=== PATIENT | male | born 1945 | race Caucasian/White ===

== ENCOUNTER 2020-12-30 08:47 | Day surgery (SDC) | payer OTHER, SELFPAY ==
[2020-12-30 09:09] VITALS: BMI 20.8
[2020-12-30 09:29] VITALS: BP 138/76; PULSE 91; RESP 16; TEMP 36.9; O2SAT 96
[2020-12-30] MEDS: Sodium Phosphate,Mono-Dibasic 133 ML ENEMA PR (09:33)
--- NOTE | 2020-12-30 09:44 | HO.ANESPROP2 ---
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 Schizophrenia Family History Family history of problems with anesthesia: No Surgical History Surgical History History of lymph node biopsy History of oral surgery Hx of colonoscopy Hx of right inguinal hernia repair History of Problems with Anesthesia: No Social History Social History Smoking Status: Never smoker Use of substances other than those prescribed or required for medical reasons: No Advance Directives: No Advance Directives Information Provided: Yes Recently lost weight without trying: No Meds Allergies Allergy/AdvReac Type Severity Reaction Status Date / Time molindone [From Moban] Allergy Muscle Verified 12/30/20 10:10 cramps trifluoperazine Allergy Muscle Verified 12/30/20 10:10 [From Stelazine] cramps Active Medications: Current Medications Generic Name Dose Route Start Last Admin Trade Name Freq PRN Reason Stop Dose Admin Sodium Biphosphate/Sodium Phosphate 133 ml 12/30/20 08:49 12/30/20 09:33 Sodium Phosphate,Nolan-Dibasic 133 Ml Enema ND 133 ml ONCE PRN Administration Poor Colonoscopy Prep Results Home Medications Medication Instructions Recorded Confirmed Last Taken Type acetaminophen [Tylenol] 650 mg PO Q6H PRN 12/25/20 12/25/20 Unknown History levothyroxine mcg PO DAILY 12/25/20 12/30/20 History omeprazole 20 mg PO DAILY 12/25/20 12/30/20 12/30/20 History tamsulosin 0.4 mg PO DAILY 12/25/20 12/25/20 Unknown History Exam Exam Date and Time: December 30, 2020 0944 Height,Weight and Vital Signs: Height 5 ft 8 in Weight 62.142 kg Last Vital Signs Temp 98.4 F 12/30/20 09:29 Pulse 91 12/30/20 09:29 Resp 16 12/30/20 09:29 BP 138/76 12/30/20 09:29 Pulse Ox 96 12/30/20 09:29 Airway Mallampati Class: II TM Dist: >3cm Neck ROM: Full Partial: Upper Heart: RRR Lungs: CTAB Assessment and Plan Assessment Anesthesia Assessment: Anesthesia Plan Discussed and Chart Reviewed Final Anesthetic Review NPO: Yes ASA Class: III Final Preanesthetic Review: No Changes in Pt Med Stat, Meds/Allgs Chart Reviewed, Consent Obtained/Reviewed and Anes Risks/Benef Reviewed Patient Risk: Intermediate Procedure Risk: Low Assessment/Block/Sedation in SS: Assess/Block/Sedation-SS Anesthetic Plan Anesthetic Plan: MAC: Disposition: Standard PACU
--- NOTE | 2020-12-30 09:49 | PC.NURSE ---
Patient states that he finished prep and output was brown and thick. Dr. Berger notified and enema given. Tolerated well. Output following enema visualized by this nurse. Output thin and ayers, no solids present.
[2020-12-30] MEDS: Lactated Ringers 1,000 ML 100 ML IVCONT (10:01)
[2020-12-30 11:22] VITALS: BP 82/43; PULSE 81; RESP 16; TEMP 36.2; O2SAT 98
--- NOTE | 2020-12-30 11:30 | PM.OP ---
Brief Operative Note Date of Service: 12/30/20 Pre-op diagnosis: GERD, Dysphagia, Screening Post-op diagnosis: other (Gastric polyps, Hiatal hernia, Diverticulosis, Internal hemiorrhoids) Procedure: EGD with biopsies and Balloon dilation, Colonoscopy to the cecum and TI Surgeon: Sahil Berger Anesthesia: MAC Estimated blood loss (mL): 4.0 Pathology: other (A. Gastric polyps) Condition: stable Disposition: PACU
[2020-12-30 11:37] VITALS: BP 95/54; PULSE 71; RESP 16; O2SAT 98
[2020-12-30 11:52] VITALS: BP 114/66; PULSE 81; RESP 16; TEMP 36.2; O2SAT 98
--- NOTE | 2020-12-30 12:06 | OP_ITS ---
SURGEON: Sahil Berger MD INDICATIONS: The patient presents for evaluation of gastroesophageal reflux, dysphagia, and colorectal cancer screening. Full consent has been obtained from him for this, including risks of bleeding and perforation. PREOPERATIVE DIAGNOSIS: POSTOPERATIVE DIAGNOSIS: PROCEDURE PERFORMED: Esophagogastroduodenoscopy with biopsies and balloon dilation of gastroesophageal junction, and colonoscopy to the cecum and terminal ileum. ESTIMATED BLOOD LOSS: COMPLICATIONS: ANESTHESIA: Monitored anesthesia care. ASSISTANTS: SPECIMENS: PREOPERATIVE DIAGNOSES: Gastroesophageal reflux, dysphagia, and colorectal cancer screening. POSTOPERATIVE DIAGNOSES: Gastroesophageal reflux, dysphagia, and colorectal cancer screening, small hiatal hernia, gastric polyps, diverticulosis, and internal hemorrhoids. DESCRIPTION OF PROCEDURE: The patient was placed in the left lateral decubitus position. The Olympus video gastroscope was passed in the posterior oropharynx and upper esophagus under direct vision. The scope was passed slowly into the distal esophagus. The gastroesophageal junction appeared at 39 cm. There was no sign of any esophagitis nor Torres's esophagus. There was no definitive esophageal stricture nor ring noted. The scope easily entered into the stomach. There was a small hiatal hernia. The scope was advanced to pylorus and the duodenum was cannulated to the descending portion. The duodenum including the bulb appeared normal without mass or ulceration. The scope was withdrawn back in the stomach. The gastric antrum and body appeared normal with good peristalsis. The scope was retroflexed visualizing the proximal stomach carefully, which appeared normal, without any sign of mass or ulceration, other than several hyperplastic appearing gastric polyps, which were all less than 10 mm. Two or 3 of these were biopsied. The scope was straightened out and withdrawn back into the esophagus. I did use a [employer] incremental balloon to dilate the esophageal junction from 18 mm to 20 mm at the recommended pressure for between 30 and 60 seconds each. The balloon itself pulled easily into and out of the esophagus, even in the 20 mm position. There was no heme noted post-dilation. The scope was withdrawn through the remainder of the esophagus, which appeared normal. The scope was withdrawn from the patient. He was turned around for colonoscopy. The digital rectal exam revealed no abnormalities. The CBIT A/S video pediatric colonoscope was entered into the rectum and advanced easily to the cecum. Once in the cecum, I did identify normal-appearing cecal pouch with appendiceal orifice and a normal-appearing ileocecal valve. The terminal ileum was cannulated and appeared normal. The scope was withdrawn back in the colon. The entire cecum and ileocecal valve appeared normal. There was transillumination of light deep in the right lower quadrant. The scope was slowly withdrawn assessing all mucosal surfaces carefully. Preparation was excellent. I did not visualize any sign of polyps, colitis, nor angiodysplasia. There was a moderate amount of sigmoid diverticulosis. In the rectum, scope was retroflexed visualizing internal hemorrhoids, but no other pathology. The rectal mucosa appeared normal. The scope was straightened out and withdrawn from the patient. He tolerated both procedures well and was returned to the recovery area in stable condition. IMPRESSION: 1. Small hiatal hernia. 2. Status post balloon dilation of gastroesophageal junction. 3. Gastric polyps. 4. Diverticulosis. 5. Internal hemorrhoids. PLAN: The results of the biopsies will be checked. He was advised to continue his omeprazole at least once a day for symptomatic reflux. I do not think he will need any further screening colonoscopies given the patient's negative exam and his age. As long as he is doing well, we could see me on a p.r.n. basis. He was advised to see me again as needed. MD TERENCE Tinajero/CAMACHO / [id number]
== END 2020-12-30 12:21 | disposition home or self-care (01) ==
PROVIDERS: Visit Provider Internal Medicine
PROC: (CPT 45378; principal; 2020-12-30 09:50)
DX: Z12.11 Encounter for screening for malignant neoplasm of colon (principal); K57.30 Diverticulosis of large intestine without perforation or abscess without bleeding; K64.8 Other hemorrhoids; K21.9 Gastro-esophageal reflux disease without esophagitis; R13.10 Dysphagia, unspecified; K31.7 Polyp of stomach and duodenum; K44.9 Diaphragmatic hernia without obstruction or gangrene; Z79.899 Other long term (current) drug therapy; Z88.8 Allergy status to other drugs, medicaments and biological substances; Z86.16 Personal history of COVID-19; Z87.01 Personal history of pneumonia (recurrent)
CPT/HCPCS: 45378; 43249; 43239; 88305; 88342; C1726; J3010

== ENCOUNTER 2021-12-07 14:22 | Outpatient (REF) | payer OTHER, SELFPAY ==
--- NOTE | ~2021-12-07 | MR_ITS ---
MR BRAIN WITHOUT AND WITH CONTRAST CLINICAL INFORMATION: Unilateral tinnitus. COMPARISON: None available. TECHNIQUE: Multiplanar, multisequence MRI of the brain was obtained before and after the intravenous administration of 6.5 mL of Gadavist. FINDINGS: The inner ear structures including the cochlea, vestibules, and semicircular canals exhibit preserved CSF signal intensity with no pathologic enhancement. The vestibular aqueducts are not enlarged. Cranial nerves VII and VIII complexes are normal in morphology. No enhancing CP angle/retrocochlear lesion. There is no pathologic intracranial enhancement. There are T2 signal changes throughout the supratentorial white matter, most likely mild to moderate chronic microangiopathy. No acute infarct on diffusion-weighted imaging. No intracranial hemorrhage on the gradient series. No hydrocephalus, extra-axial surface collection, or herniation. The midline intracranial structures are normal. Cerebellar tonsils are normally positioned. Craniocervical junction is normal. Osseous marrow signal intensity remains homogeneous. No significant soft tissue abnormality is appreciated. MR/MR head/brain wo/w con IMPRESSION: - There is no retrocochlear pathology. - Mild to moderate chronic microangiopathy.
== END 2021-12-07 14:23 | disposition home or self-care (01) ==
LOC: HO.MRI 14:22
PROVIDERS: Visit Provider Hospitalist
DX: H93.13 Tinnitus, bilateral (principal)
CPT/HCPCS: 70553; A9585

== ENCOUNTER 2023-05-18 21:07 | Emergency (ER) | payer OTHER, SELFPAY ==
--- NOTE | 2023-05-18 | ECG_ITS ---
Test Reason : WEAKNESS Blood Pressure : / mmHG Vent. Rate : 074 BPM Atrial Rate : 074 BPM P-R Int : 202 ms QRS Dur : 102 ms QT Int : 354 ms P-R-T Axes : 076 063 078 degrees QTc Int : 392 ms Normal sinus rhythm Possible Left atrial enlargement Incomplete right bundle branch block Minimal voltage criteria for LVH, may be normal variant ( Biscoe product ) Borderline ECG No previous ECGs available Referred By: Ana Mendoza Electronically Signed By:BANDAR GLOVER
[2023-05-18 21:12] VITALS: BP 126/82; PULSE 87; O2SAT 97
[2023-05-18 21:19] VITALS: BP 149/80; PULSE 79; RESP 18; TEMP 36.6; O2SAT 99; BMI 21.8
--- NOTE | 2023-05-18 21:31 | ED.WEAKNESS ---
HPI - Weakness General Chief complaint: Weakness Stated complaint: WEAKNESS Time Seen by Provider: 05/18/23 21:18 Source: patient Mode of arrival: EMS Limitations: no limitations History of Present Illness HPI Narrative: patient comes to the emergency room via ambulance. Patient was walking home from [place] to his home. Patient states that he was walking up hill, a bystander saw that he was very tired accord 911. Patient states that he does not have chest pain or shortness of breath. But he admits that he was getting tired walking uphill. At this time, patient states that he feels tired. Patient denies any falls, patient denies any recent illnesses, denies nausea vomiting diarrhea. Related Data Home Medications Medication Instructions Recorded Confirmed acetaminophen 325 mg tablet 650 mg PO Q6H PRN Pain 12/25/20 12/25/20 (Tylenol) levothyroxine 100 mcg capsule mcg PO DAILY 12/25/20 omeprazole 20 mg capsule,delayed 20 mg PO DAILY 12/25/20 12/30/20 release tamsulosin 0.4 mg capsule 0.4 mg PO DAILY 12/25/20 12/25/20 Allergies Allergy/AdvReac Type Severity Reaction Status Date / Time molindone [From Moban] Allergy Muscle Verified 05/18/23 21:24 cramps trifluoperazine Allergy Muscle Verified 05/18/23 21:24 [From Stelazine] cramps Review of Systems Review of Systems: Constitutional : No Weight loss, No Fever, No Chills, No Night Sweats, Complaining of fatigue ENT/Mouth : No Hearing loss, No Ear Pain, No Nasal Congestion, No Sinus Pain, No Hoarseness, No sore throat, No Rhinorrhea, No Swallowing Difficulty Eyes: No Eye Pain, No Swelling, No Redness, No Foreign Body, No Discharge, No Vision Changes Cardiovascular : No Chest Pain, No SOB, No Dyspnea on Exertion, No Orthopnea, No Edema, No Palpitations Respiratory : No Cough, No Sputum, No Wheezing, No Smoke Exposure, No Dyspnea Gastrointestinal : No Nausea, No Vomiting, No Diarrhea, No Constipation, No abdominal Pain, No Hematochezia, No Melena Genitourinary : no irregular bleeding, No Dysuria, No Urinary Frequency, No Hematuria, No Urinary Incontinence, No Urgency, No Flank Pain, No Urinary Flow Changes, No Hesitancy Musculoskeletal : No joint pain, No Myalgias, No Joint Swelling Skin : No Skin Lesions, No rash Neuro : No Weakness, No Numbness, No Paresthesias, No Loss of Consciousness, No Dizziness, No Headache Psych : No Anxiety/Panic, No Depression, No SI/HI/AH/VH, No Social Issues, Heme/Lymph: No Bruising, No Bleeding,No Lymphadenopathy Endocrine : No Polyuria, No Polydipsia, No Temperature Intolerance [facility] Past Medical History 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 Lab test positive for detection of COVID-19 virus History of seizure Schizophrenia BPH (benign prostatic hyperplasia) Hypothyroidism GERD (gastroesophageal reflux disease) Surgical History Hx of colonoscopy History of oral surgery History of lymph node biopsy Hx of right inguinal hernia repair Social History Social History Alcohol intake: never Smoked in Last 30 Days: No Use of substances other than those prescribed or required for medical reasons: No Advance Directives: No Advance Directives Information Provided: No Physical Exam Vital Signs: Vital Signs: Last Vital Signs Temp 97.9 F 05/18/23 22:10 Pulse 73 05/18/23 22:38 Resp 14 05/18/23 22:10 BP 166/80 H 05/18/23 22:38 Pulse Ox 97 05/18/23 22:10 O2 Del Method Room Air 05/18/23 22:10 BMI result Body Mass Index 21.8 Const: Other: Appearance: Alert. Oriented X3. No acute distress. Eyes: Pupils equal, round and reactive to light. ENT: Pharynx normal. Neck: Normal inspection. Neck supple. No lymph nodes noted. No crepitus CVS: Normal heart rate and rhythm. Pulses normal. Normal S1 and S2 Respiratory: No respiratory distress. Breath sounds normal. No Wheezing. No rales Abdomen: Soft and nontender. No rigidity. No distention. Skin: Skin warm and dry. Normal skin color. Normal skin turgor. Extremities: No lower extremity edema. No Lacerations. No Rash Neuro: Oriented X 3. No motor deficit. No sensory deficit. Moving all extremities. No slurred speech. CN 2 through 12 grossly intact Psych: calm, cooperative, normal affect Course Course Course Narrative: - he patient has no physical complaints at this time other than feeling sleepy, patient states he is getting close to his bedtime. - All of patient's labs pending Medications Administered Generic Name Dose Route Start Last Admin Trade Name Jimena PRN Reason Stop Dose Admin Sodium Chloride 1,000 mls @ 999 mls/hr 05/18/23 22:35 05/18/23 22:36 Ns IV 05/18/23 23:35 999 mls/hr .Q1H1M STA Administration Medical Decision Making Medical Decision Making [facility] Narrative: - my interpretation of EKG: Normal sinus rhythm, heart rate 74, no ST segment depression elevation, no T-wave inversion, QTC 392 - my interpretation of labs: Troponin negative, patient seems to be slightly dehydrated, given IV fluids. Patient remains asymptomatic. patient eyes any chest pain at this time or even before coming to the ED - orthostatic vitals negative - patient ready for discharge. Differential Diagnosis Differential Diagnoses: The differential diagnosis associated with the presentation includes ( Fatigue, deconditioning, ACS, dehydration) Admission/Observation Consideration of admission/observation: Escalation of care including admission/observation considered ( when patient arrived to the emergency room, given his symptoms, admission considered) Lab Data [facility] Lab Attestation statement: I reviewed the patient's lab results. 05/18/23 21:29 05/18/23 21:29 Labs: Lab Results 05/18/23 Range/Units 21:29 WBC 6.3 (4.8-10.8) X10*3/uL RBC 4.40 L (4.60-5.80) X10*6/uL Hgb 12.8 L (14.0-18.0) g/dl Hct 38.1 L (42.0-52.0) % MCV 86.6 (80.0-98.0) fL MCH 29.1 (27.0-33.0) pg MCHC 33.6 (31.0-36.0) g/dl RDW 13.1 (11.0-16.0) % Plt Count 227 (160-400) X10*3/uL MPV 10.2 (9.4-12.4) fL Immature Gran % (Auto) 0.3 (0.0-0.4) % Neut % (Auto) 42.7 L (45-73) % Lymph % (Auto) 45.4 H (20-40) % [place] % (Auto) 8.8 (2-11) % Eos % (Auto) 2.2 (0-4) % Baso % (Auto) 0.6 (0-2) % Lymph # (Auto) 2.9 (1.2-4.9) X10*3/uL [place] # (Auto) 0.6 (0.1-1.2) X10*3/uL Eos # (Auto) 0.1 (0.0-0.4) X10*3/uL Baso # (Auto) 0.0 (0.0-0.2) X10*3/uL Abs Immat Gran (auto) 0.02 (0.00-0.03) X10*3/uL Absolute Neuts (auto) 2.7 (2.0-8.3) x10*3/uL Absolute Nucleated RBC 0.000 (0.0-0.012) X10*3/uL Nucleated RBC % (auto) 0.0 (0.0-0.2) /100WBC Sodium 131 L (135-145) mmol/L Potassium 4.0 (3.3-5.1) mmol/L Chloride 95 L (96-108) mmol/L Carbon Dioxide 26 (22-29) mmol/L Anion Gap 14 (12-20) BUN 23 H (9-16) mg/dL Creatinine 0.64 (0.5-1.4) mg/dL Estim Creat Clear Calc 88.8 Estimated GFR > 60 Random Glucose 96 (60-115) mg/dL Calcium 9.6 (8.4-10.2) mg/dL Total Bilirubin 0.4 (0.0-1.0) mg/dL AST 21 (5-37) U/L ALT 14 (0-40) U/L Alkaline Phosphatase 79 (39-117) U/L Troponin I High Sens < 2.7 (<3.5-35.0) ng/L Total Protein 7.2 (6.5-8.0) g/dL Albumin 4.3 (3.5-5.0) g/dL Ethyl Alcohol < 10 mg/dL Independent Interpretation I performed an independent interpretation of an: EKG Critical Care Time Critical Care Time Critical Care Time: Yes Total Critical Care Time: 60 Attestation: I have personally provided critical care time. Time includes review of lab data, radiology results, discussion with consultants, and monitoring for potential decompensation. Intervention performed as documented. Discharge Plan Discharge Clinical Impression: Dehydration Patient Disposition: Home, Self-Care Instructions: Dehydration (ED) Additional Instructions: Please follow-up with your primary care physician tomorrow. If you have any worsening or new symptoms, please return to the emergency room or call 911 Prescriptions: No Action acetaminophen [Tylenol] 325 mg Tablet 650 mg PO Q6H PRN (Reason: Pain) tamsulosin 0.4 mg Capsule 0.4 mg PO DAILY omeprazole 20 mg Capsule,Delayed Release(Dr/Ec) 20 mg PO DAILY levothyroxine 100 mcg Capsule PO DAILY Patient Comments: unknown strength
[2023-05-18 21:40] LABS: MANUAL DIFF FLAG NO
[2023-05-18 21:43] LABS: Basophils Percent Auto 0.6 % (0-2); Eosinophils Absolute Auto 0.1 X10*3/uL (0.0-0.4); Eosinophils Percent Auto 2.2 % (0-4); Hematocrit 38.1 % (42.0-52.0); Hemoglobin 12.8 g/dl (14.0-18.0); Imm Gran Abs Auto 0.02 X10*3/uL (0.00-0.03); Imm Gran Pct Auto 0.3 % (0.0-0.4); Lymphocytes Absolute Auto 2.9 X10*3/uL (1.2-4.9); Lymphocytes Percent Auto 45.4 % (20-40); Mean Corpuscular HGB Conc 33.6 g/dl (31.0-36.0); Mean Corpuscular Hemoglobin 29.1 pg (27.0-33.0); Mean Corpuscular Volume 86.6 fL (80.0-98.0); Mean Platelet Volume 10.2 fL (9.4-12.4); Monocytes Absolute Auto 0.6 X10*3/uL (0.1-1.2); Monocytes Percent Auto 8.8 % (2-11); Neutrophils Absolute Auto 2.7 x10*3/uL (2.0-8.3); Neutrophils Percent Auto 42.7 % (45-73); Platelet Count 227 X10*3/uL (160-400); Red Cell Distribution Width 13.1 % (11.0-16.0); White Blood Count 6.3 X10*3/uL (4.8-10.8)
[2023-05-18 21:57] LABS: Ethanol < 10 mg/dL
--- OUTSIDE RECORDS SUMMARY | 2023-05-18 21:57 | XMS_ITS | Continuity of Care Document ---
Author Name Unknown Organization [facility] Address [address] [place] [address] [address] [place] [address]- Care Team Providers Care Die Engraver Name Role Phone Rodolfo DUEÑAS, John Lala Primary Care Physician [phone] Encounter [facility] Date(s): 03/16/21 - 03/23/[address] [place] [address]- Attending Physician: Rosendo Mercado MD Referring Physician: John Reynolds MD Allergies, Adverse Reactions, Alerts Substance Reaction Severity Status Stelazine FACE DEFORMITY Active Moban MUSCLE WEAKNESS Active Prolixin CANT REMEMBER Active Immunizations Given and Recorded Vaccine Date Status Refusal Reason pneumococcal 23-valent vaccine 07/13/18 Given influenza virus vaccine, inactivated 07/13/18 Give n influenza virus vaccine, inactivated 08/12/16 Give n pneumococcal 13-valent vaccine 10/14/16 Given Medications levothyroxine 0.1 mg oral tablet 1 tablet = 100 mcg, By Mouth, Daily in AM, TAKE 1 TABLET DAILY DIRECTED., 11/22/13 5:00:00 EDT Start Date: 11/22/13 Status: Ordered loratadine 10 mg oral capsule 1 capsule = 10 mg, By Mouth, Daily at bedtime, # 10 capsule, 0 Refills, Maintenance, 02/12/21 16:09:00 EDT, Capsule, Partial fill upon patient request if the prescription is for a schedule II opioid drug. Start Date: 02/12/21 Status: Ordered omeprazole 20 mg oral enteric coated capsule 1 capsule = 20 mg, By Mouth, Daily in AM, 11/22/13 5:00:00 EDT Start Date: 11/22/13 Status: Ordered tamsulosin 0.4 mg oral capsule 1 capsule = 0.4 mg, By Mouth, Daily, # 30 capsule, 3 Refills, Maintenance, 08/20/15 11:27:23, Capsule Start Date: 08/20/15 Status: Ordered Problem List Condition Effective Dates Status Health Status Inform ant Asymmetrical sensorineural h earing loss(Confirmed) Active Benign localized prostatic h yperplasia with lower urinary tract symptoms (LUTS)(Confirmed) Active Gastroenteritis(Confirmed) Active GERD (gastroesophageal reflu x disease)(Confirmed) Active Hypothyroid(Confirmed) Active Cerumen impaction(Confirmed) Active Right inguinal hernia(Confirmed) Active Vital Signs Most recent to oldest [Reference Range]: 1 Height 172.72 cm (03/16/21 1:05 PM) Weight 61.1 kg (03/16/21 1:05 PM) Pulse Rate [55-90 bpm] 77 bpm (03/16/21 1:05 PM) Body Mass Index [18.5-24.99] 20.48 (03/16/21 1:05 PM) Blood Pressure [90-138/55-84 mm Hg] 131/ 73mm Hg (03/16/21 1:05 PM) Temperature [96.8-100.4 DegF] 96.9 DegF (03/16/21 1:05 PM) Blood pressure sites Arm, left (03/16/21 1:05 PM) Temperature Route Temporal (03/16/21 1:05 PM) Weight Obtained Via Standing scale (03/16/21 1:05 PM) Social History Social History Type Response Smoking Status Never smoker entered on: 08/12/16 Sex Medical Equipment Implanted Date:02/23/21Target Site:Abdomen Description Quantity MRI Company Model MESH 3D MAX MID LG RT 4X6IN - BARD ([id number]) 1 Bard Unknown ISABELLA:{01}[id number]{10}[id number] AB07 Assigning Authority:FDA
--- OUTSIDE RECORDS SUMMARY | 2023-05-18 21:57 | XMS_ITS | Continuity of Care Document ---
Author Name Unknown Organization [facility] ter Address [address] [place] [address]- Care Team Providers Care Motor Brakeman Name Role Phone Rodolfo DUEÑAS, John Lala Primary Care Physician Encounter [facility] Date(s): 02/23/21 - 02/23/[address] [address] Discharge Disposition: A-D/C Home Attending Physician: Rosendo Mercado MD Admitting Physician: Rosendo Mercado MD Referring Physician: Rosendo Mercado MD Allergies, Adverse Reactions, Alerts Substance Reaction [...] 5:00:00 EDT Start Date: 11/22/13 Status: Ordered oxyCODONE 5 mg oral tablet 5 mg, 1, tablet, By Mouth, Every 6 hours, PRN, for 3 days, # 8 tablet, Refills 0, Tot. Refills 0, Acute 02/26/21 14:08:00 EDT, Pain , Mild, 02/23/21 14:08:00 EDT, Route to Pharmacy Electronically, [facility]/pharmacy #[id number], Partial fill upon patient request... Start Date: 02/23/21 Stop Date: 02/26/21 Status: Ordered OxyCODONE IR Tablet 5 mg, Tablet, By Mouth, Every 4 hours, in PACU ONLY, if patient can tolerate PO, PRN for Pain , Mild, Routine, 02/23/21 10:17:00 EDT Start Date: 02/23/21 Stop Date: 03/02/21 Status: Ordered tamsulosin 0.4 mg oral capsule [...] Cerumen impaction(Confirmed) Active Right inguinal hernia(Confirmed) Active Procedures Procedure Date Related Diagnosis Body Site Status Laparoscopy, surgical; repai r recurrent right inguinal hernia Completed Vital Signs Most recent to oldest [Reference Range]: 1 2 3 4 Height 172.72 cm (02/23/21 9:15 AM) 172.72 cm (02/12/21 4:20 PM) Weight 62.1 kg (02/23/21 9:15 AM) 62.73 kg (02/12/21 4:20 PM) Oxygen Saturation [94-100 %] 96 % (02/23/21 1:15 PM) 94 % (02/23/21 1:00 PM) 98 % (02/23/21 12:45 PM) Pulse Rate [55-90 bpm] 86 bpm (02/23/21 9:15 AM) Body Mass Index [18.5-24.99] 20.82 (02/23/21 9:15 AM) 21.03 (02/12/21 4:20 PM) Blood Pressure [90-138/55-84 mm Hg] 147/87mm Hg *H* (02/23/21 1:15 PM) 147/87mm Hg *H* (02/23/21 1:00 PM) 163/92mm Hg *H* (02/23/21 12:45 PM) Respiratory Rate [16-30 br/min] 16 br/min (02/23/21 1:15 PM) 13 br/min *L* (02/23/21 1:00 PM) 20 br/min (02/23/21 12:45 PM) 15 br/min *L* (02/23/21 12:45 PM) Temperature [96.8-100.4 DegF] 97.1 DegF (02/23/21 11:30 AM) 98.0 DegF (02/23/21 9:15 AM) Liters per Minute 6 L/min (02/23/21 11:30 AM) Mode of Delivery (Oxygen) Room air (02/23/21 1:15 PM) Room air (02/23/21 11:45 AM) Simple face mask (02/23/21 11:30 AM) Blood pressure sites Arm, right (02/23/21 11:45 AM) Arm, right (02/23/21 11:30 AM) Arm, right (02/23/21 9:15 AM) Temperature Route Temporal (02/23/21 11:30 AM) Temporal (02/23/21 9:15 AM) Dry Weight 62.73 kg (02/12/21 4:20 PM) Weight Obtained Via Standing scale (02/23/21 9:15 AM) Patient/family stated (02/12/21 4:20 PM) Dry Weight Obtained Via Patient/family stated (02/12/21 4:20 PM) Social History Social History Type Response Smoking Status Never smoker entered on: 08/12/16 Sex Medical Equipment Implanted Date:02/23/21Target Site:Abdomen Description Quantity MRI Company Model MESH 3D MAX MID LG RT 4X6IN - BARD ([id number]) 1 Bard Unknown ISABELLA:{01}[id number]{10}HUFR AB07 Assigning Authority:FDA
--- OUTSIDE RECORDS SUMMARY | 2023-05-18 21:57 | XMS_ITS | Continuity of Care Document ---
Author Name Unknown Organization [facility] As [facility] Address [address] [place] [address] [address] [place] [address]- Care Team Providers Care Tribal Council Member Name Role Phone Rodolfo DUEÑAS, John Lala Primary Care Physician [phone] Encounter [facility] Date(s): 08/21/20 - 11/18/[address] [place] [address]- Attending Physician: Jess DUEÑAS, Rosendo Allergies, Adverse Reactions, Alerts Substance Reaction Severity Status Stelazine FACE DEFORMITY Active Moban MUSCLE WEAKNESS Active Prolixin CANT REMEMBER Active Immunizations Given and Recorded Vaccine Date Status Refusal Reason pneumococcal 23-valent vaccine 07/13/18 Given influenza virus vaccine, inactivated 07/13/18 Give n influenza virus vaccine, inactivated 08/12/16 Give n pneumococcal 13-valent vaccine 10/14/16 Given Medications levothyroxine 0.1 mg oral tablet TAKE 1 TABLET DAILY DIRECTED., 11/22/13 5:00:00 Start Date: 11/22/13 Status: Ordered omeprazole 20 mg oral enteric coated capsule 1 capsule = 20 mg, 11/22/13 5:00:00 Start Date: 11/22/13 Status: Ordered tamsulosin 0.4 [...] Cerumen impaction(Confirmed) Active Right inguinal hernia(Confirmed) Active Social History Social History Type Response Smoking Status Never smoker entered on: 08/12/16 Sex
--- OUTSIDE RECORDS SUMMARY | 2023-05-18 21:57 | XMS_ITS | Continuity of Care Document ---
Author Name Unknown Organization [facility] Address [address] [place] [address] [address] [place] [address]- Care Team Providers Care Dramatic Agent Name Role Phone John Reynolds MD Primary Care Physician Encounter [facility] Date(s): 09/30/20 - 04/08/[address] [place] [address]- Attending Physician: Eamon Boyle Referring Physician: John Reynolds MD Allergies, Adverse [...] MAX MID LG RT 4X6IN - BARD ([id number]) 1 Bard Unknown ISABELLA:{01}[id number]}HUFR [id number] Assigning Authority:FDA
--- OUTSIDE RECORDS SUMMARY | 2023-05-18 21:57 | XMS_ITS | Patient Health Record ---
Author Name Unknown Organization [facility] Address [address] [place] [address] Care Team Providers Care Tax Services Manager Name Role Phone KEIKO RIVAS Primary Care Provider Sahil Landa [phone] ALLERGIES Allergen (clinical drug ingredient) Drug/Non Drug Allergy documented on EMR Reaction Allergy Type Onset Date Status Tranqulizers (uncoded) Unknown Allergy Active REASON FOR REFERRAL No Information MEDICATIONS Medication SIG (Take, Route, Fr equency, Duration) Notes Start Date End Date Status Levothyroxine Sodium Active Omeprazole Active Tamsulosin HCl Activ e Tylenol Active IMMUNIZATIONS Vaccine Route Administration Date Status Comme nts Influenza Unknown 12/02/2020 Refused SOCIAL HISTORY Tobacco Use: Social History Observation Description Date Details (start date - stop date) Never Smoker NA - NA Sex Assigned At : Social History Observation Description Sex Assigned At Unknown Tobacco Use/Smoking Question Answer Notes Patient is a nonsmoker Alcohol Screen Question Answer Notes Did you have a drink containing alcohol in the p ast year? No Points 0 Interpretation Negative PROBLEMS Problem Type ICD Code Onset Dates Problem Status W/U Status Risk SNOMED Code Notes Problem Constipation (K59.00) Active confirmed Constipation (20592160) Problem GERD (gastroesophage al reflux disease) (K21.9) Active confirmed Gastroesophagea l reflux disease (800761889) Problem Encounter for screening for malignant neoplasm of colon (Z12.11) Active confirmed Screening for malignant neoplasm of colon (412879639) PLAN OF TREATMENT Pending Test Test Name Order Date Pathology 12/30/2020 Future Test Test Name Order Date UPPER GI ENDOSCOPY 12/02/2020 COLONOSCOPY 12/02/2020 Insurance Providers Payer Name Payer Address Payer Phone Subscriber Number Group Number Insured Name Patient Relationship to Insured Coverage Start Date Coverage End Date [facility] [employer] [address] [place] [id number] REBECA BLOCK Self - patient is the insured MEDICAL (GENERAL) HISTORY Medical History History ICD Code GERD Hypothyroidism BPH Schizophrenia Denies [place],DM,CVA,Lung disease,renal dise ase Reports a distant history of a colonosco py History of seizures Pneumonia Surgical History Surgery Date(Month/Year) Right Inginal Hernia repair Lymph node biopsies from right groin Oral surgery scheduled for --Dr. Nunes---for a ? of a lesion as per the patient's report Right inguinal hernia surger y possibly 01/2021 at [facility] as per the patient's report
--- OUTSIDE RECORDS SUMMARY | 2023-05-18 21:57 | XMS_ITS | Continuity of Care Document ---
Author Name Unknown Organization [facility] Address [address] [place] [address] [facility] [address] [place] [address]- Care Team Providers Care Smudger Name Role Phone Rodolfo DUEÑAS, John Lala Primary Care Physician [facility]counter [facility] Date(s): 03/16/21 - 04/15/[address] [place] [address]- Attending Physician: AdmMarjan ferris Admitting Physician: Admtr, Ar8 Referring Physician: Admtr, Ar8 Allergies, Adverse Reactions, Alerts Substance Reaction Severity [...] MAX MID LG RT 4X6IN - BARD ([id number]) 1 Bard Unknown ISABELLA:{01}[id number]{10}HUFR AB07 Assigning Authority:FDA
--- OUTSIDE RECORDS SUMMARY | 2023-05-18 21:57 | XMS_ITS | Continuity of Care Document ---
Author Name Unknown Organization [facility] Address [address] [place] [address] [address] [place] [address]- Care Team Providers Care Refrigerating Oiler Name Role Phone Rodolfo DUEÑAS, John Lala Primary Care Physician [phone] Encounter [facility] Date(s): 03/09/21 - 04/08/[address] [place] [address]- Allergies, Adverse Reactions, Alerts Substance Reaction Severity [...] MAX MID LG RT 4X6IN - BARD ([id number]) 1 Bard Unknown ISABELLA:{01}[id number]{10}HUFR AB07 Assigning Authority:FDA
[2023-05-18 22:02] LABS: Alanine Aminotransferase 14 U/L (0-40); Albumin Level 4.3 g/dL (3.5-5.0); Alkaline Phosphatase 79 U/L (39-117); Anion Gap 14 (12-20); Aspartate Amino Transferase 21 U/L (5-37); Bilirubin Total 0.4 mg/dL (0.0-1.0); Blood Urea Nitrogen 23 mg/dL (9-16); Calcium 9.6 mg/dL (8.4-10.2); Carbon Dioxide 26 mmol/L (22-29); Chloride 95 mmol/L (96-108); Creatinine Clr Calc Pharmacy 88.8; Estimated Glomerular Filt Rate > 60; Glucose Random 96 mg/dL (60-115); Sodium 131 mmol/L (135-145); Total Protein 7.2 g/dL (6.5-8.0)
[2023-05-18 22:08] LABS: Troponin-I High Sensitivity < 2.7 ng/L (<3.5-35.0)
[2023-05-18 22:10] VITALS: BP 145/67; PULSE 72; RESP 14; TEMP 36.6; O2SAT 97
[2023-05-18] MEDS: 0.9 % Sodium Chloride 1,000 ML 999 ML IV (22:36)
[2023-05-18 22:37] VITALS: BP 141/74; PULSE 68
[2023-05-18 22:38] VITALS: BP 156/87; BP 166/80; PULSE 73; PULSE 79
[2023-05-18 23:21] LABS: Appearance Urine Clear; Color Urine Yellow; Glucose Urine UA Negative (Negative); Leukocyte Esterase Urine Trace (Negative); Nitrite Urine Negative (Negative); PH 6.5 (5.0-9.0); UMIC TRIGGER UACC YES; Urine Blood Negative (Negative); Urine Ketones Negative (Negative); Urine Protein Negative (Neg-Trace)
[2023-05-18 23:25] LABS: Bacteria Urine None Seen (None Seen); Hyaline Casts Urine 0-2 /LPF (0-2); RBC Urine 0-2 /HPF (0-2); Squamous Epithelial Cell Urine 0-2 /HPF (0-2); WBC Urine 0-5 /HPF (0-5)
[2023-05-18 23:34] LABS: Amphetamine Screen Urine Not Detected (Not Detect); Barbiturates, Urine Not Detected (Not Detect); Benzodiazepines Screen Urine Not Detected (Not Detect); Cannabinoid Screen Urine Not Detected (Not Detect); Cocaine Screen Urine Not Detected (Not Detect); Fentanyl, urine Not Detected (Not Detect); Opiate Screen Urine Not Detected (Not Detect); Phencyclidine Screen Urine Not Detected (Not Detect)
[2023-05-18 23:57] VITALS: BP 164/83; PULSE 76; RESP 13; TEMP 36.6; O2SAT 95
== END 2023-05-19 00:38 | disposition home or self-care (01) ==
PROVIDERS: Emergency Provider Emergency Medicine; PCP Internal Medicine
DX: E86.0 Dehydration (principal); R53.1 Weakness; D37.09 Neoplasm of uncertain behavior of other specified sites of the oral cavity; Z79.899 Other long term (current) drug therapy
CPT/HCPCS: 36415; 80053; 80307; 81001; 84484; 85025; 93005; 96360; 99284; 99285

== ENCOUNTER 2023-05-20 17:59 | Emergency (ER) | payer OTHER, SELFPAY ==
[2023-05-20 19:24] VITALS: BP 153/72; PULSE 73; RESP 18; TEMP 37.1; O2SAT 97; BMI 19.4
--- NOTE | 2023-05-20 19:24 | ED_ITS ---
HPI - General Adult General Chief complaint: Weakness Stated complaint: leg weakness Time Seen by Provider: 05/21/23 00:27 Source: patient Mode of arrival: ambulatory Limitations: no limitations History of Present Illness HPI narrative: 78-year-old male who presents emergency department for evaluation of weakness. The patient states that he was going to go to [facility] with his brother. He walked outside and states he felt very unsteady on his feet had to hold onto the wall turned that he was going to fall. The patient was seen on 05/18/2023 for weakness with ambulation as well, at that time had a negative workup including laboratory evaluation and a negative urinalysis. He states that he has been eating and drinking well but he only had 1 meal to eat today. He denied fever, chills, rhinorrhea, sore throat, cough, chest pain, nausea, vomiting or diarrhea. He states that he has had urinary frequency with no dysuria. He states that approximately 1 or 2 months prior he did have a prostate infection and was treated with 10 days of an antibiotic but he cannot recall the name of the medication. Related Data Home Medications Medication Instructions Recorded Confirmed acetaminophen 325 mg tablet 650 mg PO Q6H PRN Pain 12/25/20 12/25/20 (Tylenol) levothyroxine 100 mcg capsule mcg PO DAILY 12/25/20 omeprazole 20 mg capsule,delayed 20 mg PO DAILY 12/25/20 12/30/20 release tamsulosin 0.4 mg capsule 0.4 mg PO DAILY 12/25/20 12/25/20 Allergies Allergy/AdvReac Type Severity Reaction Status Date / Time molindone [From Moban] Allergy Muscle Verified 05/18/23 21:24 cramps trifluoperazine Allergy Muscle Verified 05/18/23 21:24 [From Stelazine] cramps Review of Systems 2 Review of Systems: Yes all other systems are reviewed and are negative [facility] Past Medical History [facility] Narrative: Social history: He denies tobacco, alcohol and drug use. He states that he lives with his 2 brothers but the need to move since a got an eviction notice. 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 Lab test positive for detection of COVID-19 virus History of seizure Schizophrenia BPH (benign prostatic hyperplasia) Hypothyroidism GERD (gastroesophageal reflux disease) Surgical History Hx of colonoscopy History of oral surgery History of lymph node biopsy Hx of right inguinal hernia repair Social History Social History Alcohol intake: never Smoked in Last 30 Days: No Use of substances other than those prescribed or required for medical reasons: No Advance Directives: No Advance Directives Information Provided: No Physical Exam ED Vital Signs: Vital Signs - 24 hr 05/20/23 19:24 Temperature 98.7 F Pulse Rate 73 Respiratory Rate 18 Blood Pressure 153/72 H Pulse Oximetry 97 Oxygen Delivery Method Room Air BMI result Body Mass Index 19.4 Vital signs were normal except for an elevated blood pressure of 153/72. Exam: General: Frail, elderly male patient, pleasant, in no distress, answers all questions appropriately Head: Normocephalic, atraumatic EENT: PERRL, Lids normal, sclera normal, conjunctiva normal, nose normal , ears normal, throat without erythema or exudates Neck: Supple, no adenopathy, trachea midline and nontender Lung: breath sounds symmetric, no wheezing, rales or rhonchi Chest: symmetric movement, nontender Heart: regular rate and rhythm, normal S1, S2 no murmurs or rubs Abdomen: soft, non-tender, moderate suprapubic tenderness, normal bowel sounds Back: no vertebral tenderness, no CVAT Extremities: no deformities, moves all extremities symmetrically Skin: no rashes, no lesion, normal color and warmth Neuro: Awake, alert, oriented, normal speech, cranial nerves intact, moves all extremities symmetrically Psych: Pleasant, cooperative Course Course Course Narrative: This is an RME: Additional HPI, ROS, PE not included below will be deferred to primary provider. This is a 89-jree-elx-male, with hx of gingival hyperplasia, schizophrenia, BPH, hypothyroidism, GERD, presenting to the ER with complaints of ?dehydration and urinary frequency. patient was seen here 2 days ago for the same. No chest pain or shortness of breath Plan: labs, EKG, chest x-ray Medical Decision Making Medical Decision Making MDM Narrative: 78-year-old male with a history of GERD, hypothyroidism, schizophrenia, BPH who presents emergency department for evaluation of weakness with ambulation and urinary frequency. Patient was also seen here in the emergency department on 05/18/2023 for weakness with ambulation had a negative workup. Patient's vital signs did reveal an elevated blood pressure otherwise unremarkable. Exam did reveal suprapubic tenderness with a normal neurologic exam. Following evaluation was ordered: CBC, CMP, urinalysis. 0222: Patient's laboratory evaluation was unremarkable Urinalysis was negative At this time I do not have a clear etiology for the patient's weakness, patient was able of any difficulty. Patient will be discharged home. Differential Diagnosis Differential Diagnoses: The differential diagnosis associated with the presentation includes Differential diagnosis includes but is not limited to deconditioning in elderly patient, anemia, electrolyte abnormality, urinary tract infection Admission/Observation Consideration of admission/observation: Escalation of care including admission/observation considered Lab Data MDM Lab Attestation statement: I reviewed the patient's lab results. My independent interpretation of patient's laboratory evaluation is as follows: CBC was normal sodium was low 130, bicarb elevated 30, LFTs normal, lipase normal. Patient's urinalysis was negative 05/20/23 20:40 05/20/23 20:40 Labs: Lab Results 05/20/23 05/21/23 Range/Units 20:40 02:11 WBC 5.3 (4.8-10.8) X10*3/uL RBC 4.56 L (4.60-5.80) X10*6/uL Hgb 13.1 L (14.0-18.0) g/dl Hct 39.4 L (42.0-52.0) % MCV 86.4 (80.0-98.0) fL MCH 28.7 (27.0-33.0) pg MCHC 33.2 (31.0-36.0) g/dl RDW 13.2 (11.0-16.0) % Plt Count 215 (160-400) X10*3/uL MPV 9.8 (9.4-12.4) fL Immature Gran % (Auto) 0.2 (0.0-0.4) % Neut % (Auto) 52.8 (45-73) % Lymph % (Auto) 37.7 (20-40) % [place] % (Auto) 7.2 (2-11) % Eos % (Auto) 1.5 (0-4) % Baso % (Auto) 0.6 (0-2) % Lymph # (Auto) 2.0 (1.2-4.9) X10*3/uL [place] # (Auto) 0.4 (0.1-1.2) X10*3/uL Eos # (Auto) 0.1 (0.0-0.4) X10*3/uL Baso # (Auto) 0.0 (0.0-0.2) X10*3/uL Abs Immat Gran (auto) 0.01 (0.00-0.03) X10*3/uL Absolute Neuts (auto) 2.8 (2.0-8.3) x10*3/uL Absolute Nucleated RBC 0.000 (0.0-0.012) X10*3/uL Nucleated RBC % (auto) 0.0 (0.0-0.2) /100WBC Sodium 134 L (135-145) mmol/L Potassium 4.2 (3.3-5.1) mmol/L Chloride 96 (96-108) mmol/L Carbon Dioxide 30 H (22-29) mmol/L Anion Gap 12 (12-20) BUN 13 (9-16) mg/dL Creatinine 0.61 (0.5-1.4) mg/dL Estim Creat Clear Calc 87.8 Estimated GFR > 60 Random Glucose 91 (60-115) mg/dL Calcium 9.3 (8.4-10.2) mg/dL Magnesium 2.0 (1.6-2.6) mg/dL Total Bilirubin 0.5 (0.0-1.0) mg/dL Direct Bilirubin 0.2 (0.0-0.5) mg/dL AST 21 (5-37) U/L ALT 17 (0-40) U/L Alkaline Phosphatase 81 (39-117) U/L Total Protein 7.3 (6.5-8.0) g/dL Albumin 4.5 (3.5-5.0) g/dL Lipase 13 (8-78) U/L Urine Color Yellow Urine Appearance Clear Urine pH 8.0 (5.0-9.0) Ur Specific [place] 1.010 (1.005-1.025) Urine Protein Negative (Neg-Trace) mg/dL Urine Glucose (UA) Negative (Negative) mg/dL Urine Ketones Negative (Negative) mg/dL Urine Blood Negative (Negative) Urine Nitrite Negative (Negative) Ur Leukocyte Esterase Negative (Negative) Discharge Plan Discharge Clinical Impression: Weakness Patient Disposition: Home, Self-Care Additional Instructions: Your laboratory evaluation was normal. Your urinalysis was negative for urinary tract infection This time I do not have a clear cause for your weakness. Continue taking medications as prescribed by your providers Follow-up with your doctor in 2 days. Please return to the emergency department if your symptoms get worse or if you develop any symptoms that are concerning to you. Prescriptions: No Action acetaminophen [Tylenol] 325 mg Tablet 650 mg PO Q6H PRN (Reason: Pain) tamsulosin 0.4 mg Capsule 0.4 mg PO DAILY omeprazole 20 mg Capsule,Delayed Release(Dr/Ec) 20 mg PO DAILY levothyroxine 100 mcg Capsule PO DAILY Patient Comments: unknown strength
[2023-05-20 20:47] LABS: MANUAL DIFF FLAG NO
[2023-05-20 20:48] LABS: Basophils Percent Auto 0.6 % (0-2); Eosinophils Absolute Auto 0.1 X10*3/uL (0.0-0.4); Eosinophils Percent Auto 1.5 % (0-4); Hematocrit 39.4 % (42.0-52.0); Hemoglobin 13.1 g/dl (14.0-18.0); Imm Gran Abs Auto 0.01 X10*3/uL (0.00-0.03); Imm Gran Pct Auto 0.2 % (0.0-0.4); Lymphocytes Percent Auto 37.7 % (20-40); Mean Corpuscular HGB Conc 33.2 g/dl (31.0-36.0); Mean Corpuscular Hemoglobin 28.7 pg (27.0-33.0); Mean Corpuscular Volume 86.4 fL (80.0-98.0); Mean Platelet Volume 9.8 fL (9.4-12.4); Monocytes Absolute Auto 0.4 X10*3/uL (0.1-1.2); Monocytes Percent Auto 7.2 % (2-11); Neutrophils Absolute Auto 2.8 x10*3/uL (2.0-8.3); Neutrophils Percent Auto 52.8 % (45-73); Platelet Count 215 X10*3/uL (160-400); Red Blood Count 4.56 X10*6/uL (4.60-5.80); Red Cell Distribution Width 13.2 % (11.0-16.0); White Blood Count 5.3 X10*3/uL (4.8-10.8)
[2023-05-20 21:02] LABS: Alanine Aminotransferase 17 U/L (0-40); Albumin Level 4.5 g/dL (3.5-5.0); Alkaline Phosphatase 81 U/L (39-117); Anion Gap 12 (12-20); Aspartate Amino Transferase 21 U/L (5-37); Bilirubin Direct 0.2 mg/dL (0.0-0.5); Bilirubin Total 0.5 mg/dL (0.0-1.0); Blood Urea Nitrogen 13 mg/dL (9-16); Calcium 9.3 mg/dL (8.4-10.2); Carbon Dioxide 30 mmol/L (22-29); Chloride 96 mmol/L (96-108); Creatinine Clr Calc Pharmacy 87.8; Estimated Glomerular Filt Rate > 60; Glucose Random 91 mg/dL (60-115); Lipase 13 U/L (8-78); Potassium 4.2 mmol/L (3.3-5.1); Sodium 134 mmol/L (135-145); Total Protein 7.3 g/dL (6.5-8.0)
[2023-05-21 02:18] LABS: Appearance Urine Clear; Color Urine Yellow; Glucose Urine UA Negative (Negative); Leukocyte Esterase Urine Negative (Negative); Nitrite Urine Negative (Negative); Urine Blood Negative (Negative); Urine Ketones Negative (Negative); Urine Protein Negative (Neg-Trace)
== END 2023-05-21 03:06 | disposition home or self-care (01) ==
PROVIDERS: Physician Assistant Medical; Emergency Provider Emergency Medicine Emergency Medical Services; PCP Internal Medicine
DX: R53.1 Weakness (principal); R26.81 Unsteadiness on feet; N40.0 Benign prostatic hyperplasia without lower urinary tract symptoms; R35.0 Frequency of micturition; E03.9 Hypothyroidism, unspecified
CPT/HCPCS: 36415; 80048; 80076; 81003; 83690; 83735; 85025; 99283; 99284

== ENCOUNTER 2023-09-06 15:06 | Emergency (ER) | payer OTHER, SELFPAY ==
[2023-09-06 15:39] VITALS: BP 164/127; PULSE 86; RESP 20; TEMP 36.4; O2SAT 96; BMI 20.5
--- NOTE | 2023-09-06 15:39 | ED.ABDPAIN ---
HPI - Abdominal Pain General Chief Complaint: Abdominal Pain Stated Complaint: constipation, bloody stools? Time Seen by Provider: 09/07/23 03:47 Source: patient Mode of arrival: ambulatory Limitations: no limitations History of Present Illness HPI narrative: Patient with history of constipation been constipated for some several days while waiting in the waiting area patient did manual disimpaction and after that patient had few bowel movement no abdominal pain no fever no chills no nausea vomiting Related Data Home Medications Medication Instructions Recorded Confirmed acetaminophen 325 mg tablet 650 mg PO Q6H PRN Pain 12/25/20 12/25/20 (Tylenol) levothyroxine 100 mcg capsule mcg PO DAILY 12/25/20 omeprazole 20 mg capsule,delayed 20 mg PO DAILY 12/25/20 12/30/20 release tamsulosin 0.4 mg capsule 0.4 mg PO DAILY 12/25/20 12/25/20 Previous Rx's Medication Instructions Recorded polyethylene glycol 3350 17 17 g PO DAILY #510 grams 09/07/23 gram/dose oral powder (Miralax) Allergies Allergy/AdvReac Type Severity Reaction Status Date / Time molindone [From Moban] Allergy Muscle Verified 09/06/23 15:42 cramps trifluoperazine Allergy Muscle Verified 09/06/23 15:42 [From Stelazine] cramps Review of Systems Review of Systems Yes all other systems are reviewed and are negative PMFSH Past Medical History Onset Date is defined in the Problem List Problems that require an onset date and time if occurred within 24 hrs of arrival to the ED Aortic Dissection and Rupture; Neurologic impairment; Cardiopulmonary Arrest; Endotracheal Intubation; Insertion or Replacement of Mechanical Circulatory Assist Device 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 Lab test positive for detection of COVID-19 virus History of seizure Schizophrenia BPH (benign prostatic hyperplasia) Hypothyroidism GERD (gastroesophageal reflux disease) Surgical History Hx of colonoscopy History of oral surgery History of lymph node biopsy Hx of right inguinal hernia repair Social History Social History Alcohol intake: never Smoked in Last 30 Days: No Use of substances other than those prescribed or required for medical reasons: No Advance Directives: No Advance Directives Information Provided: Yes Physical Exam ED Vital Signs: Vital Signs - 24 hr 09/06/23 15:39 09/07/23 03:22 Temperature 97.5 F 97.5 F Pulse Rate 86 75 Respiratory Rate 20 18 Blood Pressure 164/127 H 143/71 H Pulse Oximetry 96 100 Oxygen Delivery Method Room Air Room Air BMI result Body Mass Index 20.5 Appearance: Alert. Oriented X3. No acute distress. Neck: Normal inspection. Neck supple. CVS: Normal heart rate and rhythm. Pulses normal. Respiratory: No respiratory distress. Equal air entry bilateral, no wheezing/rales/rhonchi Abdomen: Soft and nontender. Bowel sounds are present, no mass palpable, no CVA tenderness Skin: Skin warm and dry. Normal skin color. Normal skin turgor. Extremities: No lower extremity edema. No calf tenderness Neuro: Oriented X 3. Course Course Course Narrative: RME: 78 yo w/ PMHx GERD, hypothyroid, schizophrenia, seizure presenting to the ED c/o constipation w/last BM yesterday with abdominal pain. Admits to feeling like he need to deficate however cannot. Admits to feeling stool in rectum. denies N/V. tried multiple OTC meds w/o relief Labs, KUB ordered Full HPI, ROS and PE to be performed by primary ED provider. Medical Decision Making Lab Data 09/06/23 19:36 09/06/23 19:36 Labs: Lab Results 09/06/23 Range/Units 19:36 WBC 8.3 (4.8-10.8) X10*3/uL RBC 4.59 L (4.60-5.80) X10*6/uL Hgb 13.3 L (14.0-18.0) g/dl Hct 39.2 L (42.0-52.0) % MCV 85.4 (80.0-98.0) fL MCH 29.0 (27.0-33.0) pg MCHC 33.9 (31.0-36.0) g/dl RDW 13.0 (11.0-16.0) % Plt Count 232 (160-400) X10*3/uL MPV 10.0 (9.4-12.4) fL Immature Gran % (Auto) 0.4 (0.0-0.4) % Neut % (Auto) 74.9 H (45-73) % Lymph % (Auto) 19.4 L (20-40) % [place] % (Auto) 4.7 (2-11) % Eos % (Auto) 0.4 (0-4) % Baso % (Auto) 0.2 (0-2) % Lymph # (Auto) 1.6 (1.2-4.9) X10*3/uL [place] # (Auto) 0.4 (0.1-1.2) X10*3/uL Eos # (Auto) 0.0 (0.0-0.4) X10*3/uL Baso # (Auto) 0.0 (0.0-0.2) X10*3/uL Abs Immat Gran (auto) 0.03 (0.00-0.03) X10*3/uL Absolute Neuts (auto) 6.2 (2.0-8.3) x10*3/uL Absolute Nucleated RBC 0.000 (0.0-0.012) X10*3/uL Nucleated RBC % (auto) 0.0 (0.0-0.2) /100WBC Sodium 133 L (135-145) mmol/L Potassium 3.8 (3.3-5.1) mmol/L Chloride 93 L (96-108) mmol/L Carbon Dioxide 32 H (22-29) mmol/L Anion Gap 12 (12-20) BUN 14 (9-16) mg/dL Creatinine 0.62 (0.5-1.4) mg/dL Estim Creat Clear Calc 86.4 Estimated GFR > 60 Random Glucose 93 (60-115) mg/dL Calcium 9.9 D (8.4-10.2) mg/dL Magnesium 2.0 (1.6-2.6) mg/dL Total Bilirubin 0.7 (0.0-1.0) mg/dL Direct Bilirubin 0.3 (0.0-0.5) mg/dL AST 24 (5-37) U/L ALT 20 (0-40) U/L Alkaline Phosphatase 94 (39-117) U/L Total Protein 7.9 (6.5-8.0) g/dL Albumin 4.7 (3.5-5.0) g/dL Lipase 12 (8-78) U/L Medications Administered Discontinued Medications Generic Name Dose Route Start Last Admin Trade Name Shahzadq PRN Reason Stop Dose Admin Bisacodyl 10 mg 09/07/23 04:33 09/07/23 04:42 Bisacodyl 5 Mg Tablet.Dr PO 09/07/23 04:34 10 mg ONCE ONE Administration Magnesium Hydroxide 30 ml 09/07/23 04:33 09/07/23 04:42 Milk Of Magnesia 30 Ml Oral.Susp PO 09/07/23 04:34 30 ml ONCE ONE Administration Discharge Plan Discharge Clinical Impression: Constipation Patient Disposition: Home, Self-Care Instructions: Constipation (ED) Additional Instructions: Take stool softener as advised Drink plenty of fluids and eat fibers Prescriptions: New polyethylene glycol 3350 [Miralax] 17 gram/dose powder 17 g PO DAILY Qty: 510 0RF No Action acetaminophen [Tylenol] 325 mg Tablet 650 mg PO Q6H PRN (Reason: Pain) tamsulosin 0.4 mg Capsule 0.4 mg PO DAILY omeprazole 20 mg Capsule,Delayed Release(Dr/Ec) 20 mg PO DAILY levothyroxine 100 mcg Capsule PO DAILY Patient Comments: unknown strength Interventions: ED Discharge Assessment Last Done: 09/07/23 05:07 Discharge Date/Time: 09/07/23 04:50
[2023-09-07 03:22] VITALS: BP 143/71; PULSE 75; RESP 18; TEMP 36.4; O2SAT 100
[2023-09-07 04:20] VITALS: BP 157/90; PULSE 75; RESP 18; O2SAT 100
== END 2023-09-07 04:50 | disposition home or self-care (01) ==
PROVIDERS: Emergency Provider Internal Medicine
DX: K59.00 Constipation, unspecified (principal); R10.9 Unspecified abdominal pain; Z79.899 Other long term (current) drug therapy
CPT/HCPCS: 36415; 74019; 80048; 80076; 83690; 83735; 85025; 99283; 99284

== ENCOUNTER 2024-10-20 16:51 | Emergency (ER) | payer OTHER, SELFPAY ==
--- NOTE | ~2024-10-20 | US_ITS ---
CLINICAL HISTORY: b l testicular pain swelling redness US Scrotum with Doppler Comparison: None Findings: Right testicle normal size and echotexture, 4.5 x 2.2 x 3.1 cm. Left testicle normal size and echotexture, 4.6 x 2.6 x 3.0 cm. Normal color flow and arterial/venous spectral tracing of both testicles. 6 mm right epididymal head cyst. Otherwise normal epididymides. No varicoceles. No hydroceles. IMPRESSION: Normal scrotal ultrasound. No evidence of torsion. This document has been electronically signed by: Tuan Allen MD on 10/20/2024 20:09:10
[2024-10-20 17:23] VITALS: BP 138/86; PULSE 85; O2SAT 96
--- NOTE | 2024-10-20 17:38 | ED.MALEGU ---
HPI - Male Genitourinary General Chief complaint: Urogenital-Male Stated complaint: testicular swelling x 3weeks Time Seen by Provider: 10/20/24 23:14 Related Data Home Medications ?Medication ?Instructions ?Recorded ?Confirmed acetaminophen 325 mg tablet 650 mg PO Q6H PRN Pain 12/25/20 12/25/20 (Tylenol) levothyroxine 100 mcg capsule mcg PO DAILY 12/25/20 omeprazole 20 mg capsule,delayed 20 mg PO DAILY 12/25/20 12/30/20 release tamsulosin 0.4 mg capsule 0.4 mg PO DAILY 12/25/20 12/25/20 Previous Rx's ?Medication ?Instructions ?Recorded polyethylene glycol 3350 17 17 g PO DAILY #510 grams 09/07/23 gram/dose oral powder (Miralax) nystatin 100,000 unit/gram topical 1 appl topical BID #60 grams 10/20/24 powder Allergies Allergy/AdvReac Type Severity Reaction Status Date / Time molindone [From Moban] Allergy Muscle Verified 10/20/24 17:43 cramps trifluoperazine Allergy Muscle Verified 10/20/24 17:43 [From Stelazine] cramps PMFSH Past Medical History 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 Lab test positive for detection of COVID-19 virus History of seizure Schizophrenia BPH (benign prostatic hyperplasia) Hypothyroidism GERD (gastroesophageal reflux disease) Surgical History Hx of colonoscopy History of oral surgery History of lymph node biopsy Hx of right inguinal hernia repair Social History Social History Alcohol intake: never Smoked in Last 30 Days: No Use of substances other than those prescribed or required for medical reasons: No Advance Directives: No Advance Directives Information Provided: Yes Physical Exam Vital Signs: Vital Signs: Last Vital Signs Temp 97.8 F 10/21/24 01:07 Pulse 72 10/21/24 01:07 Resp 14 10/21/24 01:07 BP 153/75 H 10/21/24 01:07 Pulse Ox 97 10/21/24 01:07 O2 Del Method Room Air 10/21/24 01:07 BMI result Body Mass Index 20.5 Course Course Course Narrative: This is a Rapid Medical Exam performed in triage by Dalia Naidu PA-C. Full HPI, ROS and PE to be performed by primary ED provider. 79-year-old male with a past medical history schizophrenia, BPH, hypothyroid, GERD, presenting to the ED via EMS c/o bilateral testicular pain, swelling & redness x2-3 weeks. Also reports flank itchiness. denies falls/trauma PE: no appreciable rash. area not evaluated in triage Plan: Labs, UA, STI testing Medications Administered Discontinued Medications Generic Name Dose Route Start Last Admin Trade Name Freq PRN Reason Stop Dose Admin Nystatin 1 appl 10/20/24 23:45 10/20/24 23:49 Nystatin Powder 15 Gm Bottle TOPICAL 10/20/24 23:46 1 appl ONCE ONE Administration Protocol Medical Decision Making Lab Data 10/20/24 18:22 10/20/24 18:22 Labs: Lab Results 10/20/24 Range/Units 18:22 WBC 5.6 (4.8-10.8) X10*3/uL RBC 4.51 L (4.60-5.80) X10*6/uL Hgb 13.0 L (14.0-18.0) g/dl Hct 38.5 L (42.0-52.0) % MCV 85.4 (80.0-98.0) fL MCH 28.8 (27.0-33.0) pg MCHC 33.8 (31.0-36.0) g/dl RDW 13.0 (11.0-16.0) % Plt Count 222 (160-400) X10*3/uL MPV 10.2 (9.4-12.4) fL Immature Gran % (Auto) 0.2 (0.0-0.4) % Neut % (Auto) 66.5 (45-73) % Lymph % (Auto) 26.8 (20-40) % [place] % (Auto) 5.9 (2-11) % Eos % (Auto) 0.2 (0-4) % Baso % (Auto) 0.4 (0-2) % Lymph # (Auto) 1.5 (1.2-4.9) X10*3/uL [place] # (Auto) 0.3 (0.1-1.2) X10*3/uL Eos # (Auto) 0.0 (0.0-0.4) X10*3/uL Baso # (Auto) 0.0 (0.0-0.2) X10*3/uL Abs Immat Gran (auto) 0.01 (0.00-0.03) X10*3/uL Absolute Neuts (auto) 3.8 (2.0-8.3) x10*3/uL Absolute Nucleated RBC 0.000 (0.0-0.012) X10*3/uL Nucleated RBC % (auto) 0.0 (0.0-0.2) /100WBC Sodium 136 (135-145) mmol/L Potassium 4.0 (3.3-5.1) mmol/L Chloride 100 (96-108) mmol/L Carbon Dioxide 26 (22-29) mmol/L Anion Gap 14 (12-20) BUN 18 H (9-16) mg/dL Creatinine 0.53 (0.5-1.4) mg/dL Estim Creat Clear Calc 99.5 Estimated GFR > 60 Random Glucose 93 (60-115) mg/dL Calcium 9.5 (8.4-10.2) mg/dL Magnesium 2.0 (1.6-2.6) mg/dL Total Bilirubin 0.4 (0.0-1.0) mg/dL Direct Bilirubin 0.1 (0.0-0.5) mg/dL AST 27 (5-37) U/L ALT 25 (0-40) U/L Alkaline Phosphatase 96 (39-117) U/L Total Protein 7.7 (6.5-8.0) g/dL Albumin 4.4 (3.5-5.0) g/dL Lipase 12 (8-78) U/L Urine Color Yellow Urine Appearance Clear Urine pH 7.5 (5.0-9.0) Ur Specific [place] 1.020 (1.005-1.025) Urine Protein Negative (Neg-Trace) mg/dL Urine Glucose (UA) Negative (Negative) mg/dL Urine Ketones Negative (Negative) mg/dL Urine Blood Negative (Negative) Urine Nitrite Negative (Negative) Ur Leukocyte Esterase Negative (Negative) Chlam trachomat DNA PCR NOT DETECTED (Not Detect.) N.gonorrhoeae DNA (PCR) NOT DETECTED (Not Detect.) Discharge Plan Discharge Clinical Impression: Candidal intertrigo Patient Disposition: Home, Self-Care Instructions: Skin Yeast Infection (ED) Additional Instructions: Use nystatin powder twice a day at the affected area Follow with your PCP if any concerns Prescriptions: New nystatin 100,000 unit/gram powder 1 appl topical BID Qty: 60 0RF No Action acetaminophen [Tylenol] 325 mg Tablet 650 mg PO Q6H PRN (Reason: Pain) tamsulosin 0.4 mg Capsule 0.4 mg PO DAILY omeprazole 20 mg Capsule,Delayed Release(Dr/Ec) 20 mg PO DAILY levothyroxine 100 mcg Capsule PO DAILY Patient Comments: unknown strength polyethylene glycol 3350 [Miralax] 17 gram/dose powder 17 g PO DAILY Qty: 510 0RF Interventions: ED Discharge Assessment Last Done: 10/21/24 01:07 Discharge Date/Time: 10/21/24 01:08 Print Language: Vietnamese
[2024-10-20 17:40] VITALS: BP 138/76; PULSE 86; RESP 18; TEMP 36.7; O2SAT 97; BMI 20.5
[2024-10-20 18:31] LABS: MANUAL DIFF FLAG NO
[2024-10-20 18:35] LABS: Appearance Urine Clear; Basophils Percent Auto 0.4 % (0-2); Color Urine Yellow; Eosinophils Percent Auto 0.2 % (0-4); Glucose Urine UA Negative (Negative); Hematocrit 38.5 % (42.0-52.0); Imm Gran Abs Auto 0.01 X10*3/uL (0.00-0.03); Imm Gran Pct Auto 0.2 % (0.0-0.4); Leukocyte Esterase Urine Negative (Negative); Lymphocytes Absolute Auto 1.5 X10*3/uL (1.2-4.9); Lymphocytes Percent Auto 26.8 % (20-40); Mean Corpuscular HGB Conc 33.8 g/dl (31.0-36.0); Mean Corpuscular Hemoglobin 28.8 pg (27.0-33.0); Mean Corpuscular Volume 85.4 fL (80.0-98.0); Mean Platelet Volume 10.2 fL (9.4-12.4); Monocytes Absolute Auto 0.3 X10*3/uL (0.1-1.2); Monocytes Percent Auto 5.9 % (2-11); Neutrophils Absolute Auto 3.8 x10*3/uL (2.0-8.3); Neutrophils Percent Auto 66.5 % (45-73); Nitrite Urine Negative (Negative); PH 7.5 (5.0-9.0); Platelet Count 222 X10*3/uL (160-400); Red Blood Count 4.51 X10*6/uL (4.60-5.80); Urine Blood Negative (Negative); Urine Ketones Negative (Negative); Urine Protein Negative (Neg-Trace); White Blood Count 5.6 X10*3/uL (4.8-10.8)
[2024-10-20 18:48] LABS: Alanine Aminotransferase 25 U/L (0-40); Albumin Level 4.4 g/dL (3.5-5.0); Alkaline Phosphatase 96 U/L (39-117); Anion Gap 14 (12-20); Aspartate Amino Transferase 27 U/L (5-37); Bilirubin Direct 0.1 mg/dL (0.0-0.5); Bilirubin Total 0.4 mg/dL (0.0-1.0); Blood Urea Nitrogen 18 mg/dL (9-16); Calcium 9.5 mg/dL (8.4-10.2); Carbon Dioxide 26 mmol/L (22-29); Chloride 100 mmol/L (96-108); Creatinine Clr Calc Pharmacy 99.5; Estimated Glomerular Filt Rate > 60; Glucose Random 93 mg/dL (60-115); Lipase 12 U/L (8-78); Sodium 136 mmol/L (135-145); Total Protein 7.7 g/dL (6.5-8.0)
[2024-10-20 23:04] VITALS: BP 157/77; PULSE 72; RESP 16; TEMP 36.6; O2SAT 97
--- OUTSIDE RECORDS SUMMARY | 2024-10-20 23:23 | XMS_ITS | Encounter Summary ---
Author Name [facility] [place] [facility] [place] Organization [facility] [place] Address [address] [place] [id number] Care Team Providers Care Switchman Supervisor Name Role Phone GAGANAUDREY, ALISIA Primary Care Provider Unav ailable Insurance Providers: All historical and current Section Date Range: From patient's date of to the date document was created. This section includes the names of all active insurance providers for the patient. Insurance Provider Type of Coverage Plan Name Start of Policy Coverage End of Policy Coverage Group Number Member ID Insurance Provider's Telephone Number Policy Da Silva's Name Patient's Relationship to Policy Da Silva MEDICARE (WNR) MEDICARE (M) PART A OPT ONLY Apr 04, 2011 PART A OPT ONLY [id number] LYNDON BLOCK JR PATIENT Selected Encounter This section includes the information on record at [place] for the Encounter. Date/Time Encounter Type Encounter Description Reason Pro vider Source IHE Encounter Template Text not used by [place] Advance Directives: All historical and current Section Date Range: From patient's date of to the date document was created. This section includes ALL of a patient's completed or amended [place] Advance and Rescinded Directives. The entries below indicate that a directive exists for the patient, but an actual copy is not included with this document. The data comes from all [place] facilities. Date Advance Directives Provider Source Oct 04, 2023 ADVANCE DIRECTIVE DISCUSSION OZZY CORDERO
--- OUTSIDE RECORDS SUMMARY | 2024-10-20 23:23 | XMS_ITS | Encounter Summary ---
Author Name [facility] [place] [facility] [place] [facility] [place] Address [address] [place] [address] Care Team Providers Care Director Of Exhibits Name Role Phone ALISIA TREVINO Primary Care Provider Unav ailable Insurance Providers: [...] Apr 04, 2011 PART A OPT ONLY [id number] LYNDON BLOCK JR PATIENT Selected Encounter This section includes the information on record at [place] for the Encounter. Date/Time Encounter Type Encounter Description Reason Provider Source Mar 21, 2024 03:00 PM OFFICE O/P EST LOW 20 MIN PRIMARY CARE/MEDICINE ICD-10-CM J98.4 Other disorders of lung Anisha TREVINO Zoila Encounter Template Text not used by [place] Assessments - Encounter Diagnoses This section includes the primary and secondary diagnoses documented for the Encounter. Date/Time Primary/Secondary Diagnosis Diagnosis Name Provider Source Mar 21, 2024 04:02 PM PRIMARY Other disorders of lung ALISIA TREVINO [facility] Mar 21, 2024 04:02 PM SECONDARY Homelessness unspecified [facility] Plan of Treatment: Future Appointments (+ 6 months) and Future Tests (+/- 45 days) The Plan of Treatment section includes future care activities for the patient [facility] [place] [facility] This section includes future appointments and future orders which are active, pending or scheduled. Future Appointments This section includes appointments that were scheduled to occur 6 months from the date of the Encounter, up to a maximum of 20 appointments. The data comes from all [place] treatment facilities. Appointment Date/Time Appointment Type Appointme nt Facility Name Mar 28, 2024 11:00 AM [place] [facility] [place] [facility] Apr 25, 2024 03:30 PM [facility] - [facility] [facility] [place] Apr 26, 2024 09:45 AM [place] [facility] [place] [facility] May 24, 2024 01:00 PM [place] [facility] [place] [facility] Jun 03, 2024 01:00 PM [place] [facility] [place] [facility] Jul 08, 2024 02:00 PM [place] [facility] [place] [facility] Jul 24, 2024 10:30 AM [place] [facility] [place] [facility] Jul 25, 2024 01:00 PM [place] [facility] [place] [facility] Aug 19, 2024 11:00 AM [place] [facility] [place] [facility] Sep 17, 2024 03:00 PM [place] [facility] [place] [facility] Sep 19, 2024 03:30 PM [facility] [place] Vital Signs: All taken on the encounter date This section contains inpatient and outpatient Vital Signs collected on the date of the Encounter. Date/Time Temperature Pulse Blood Pressure Respiratory Rate SP02 Pain Height Weight Body Mass Index Source Mar 21, 2024 03:11 PM 98.3 82 128/74 18 96 3 125 [facility] Social History: Smoking Status (Most current) and Tobacco Use (All prior to encounter date) This section includes the most current, and the historical, smoking and tobacco- related health factors from the [place] facility where the Encounter took place. Current Smoking Status This section includes the most current smoking, or tobacco-related health factor, from the [place] facility where the Encounter took place. Date/Time Current Smoking Status Comment Sasha dwyer Jun 13, 2023 03:15 PM [facility]ACCO [facility] USED [facility] Tobacco Use History This section includes a history of the smoking, or tobacco-related health factors, that were collected on or before the date of the Encounter. The data comes from the [place] facility where the Encounter took place. Date/Time Smoking Status/Tobacco Use Comment F acility Jun 25, 2020 01:58 PM [facility]-TOBACCO NEVER USED [facility] Feb 18, 2019 01:48 PM VA-TOBACCO NEVER USED [facility] Advance Directives: All historical and current Section Date Range: From patient's date of to the date document was created. This section includes ALL of a patient's completed or amended [place] Advance and Rescinded Directives. The entries below indicate that a directive exists for the patient, but an actual copy is not included with this document. The data comes from all [place] facilities. Date Advance Directives Provider Source Oct 04, 2023 ADVANCE DIRECTIVE DISCUSSION RADHA WILLETT,OZZY WORTHY Encounter Notes: All associated encounter notes This section contains the clinical notes associated to the Encounter. Date/Time Encounter Note(s) Provider Source Mar 21, 2024 03:13 PM PREVENTIVE MEDICINE NURSING NOTE: LOCAL TITLE: CLINICAL REMINDERS/NURSING STANDARD TITLE: PREVENTIVE MEDICINE NURSING NOTE DATE OF NOTE: MAR 21, 2024@15:13 ENTRY DATE: MAR 21, 2024@15:13:30 AUTHOR: IRENE MULLEN EXP COSIGNER: URGENCY: STATUS: COMPLETED Homelessness/Food Insecurity Screen: The [place] reports the following: Currently, you don't have enough money to get food OR you are worried that your food will run out before you get money to buy more. No Pneumococcal Conjugate Vaccine (PCV15/PCV20): Refuses PCV vaccine Immunization: PNEUMOCOCCAL CONJUGATE, UNSPECIFIED FORMULATION Refusal Reason: PATIENT DECISION Patient refuses all immunization(s) in the PneumoPCV group Date Documented: 03/21/24 15:14 /nyasia/ IRENE MULLEN REGISTERED NURSE Signed: 03/21/2024 15:16 IRENE MULLEN [place] [facility] Mar 21, 2024 08:02 AM PHYSICIAN NOTE: LOCAL TITLE: MD NOTE STANDARD TITLE: PHYSICIAN NOTE DATE OF NOTE: MAR 21, 2024@08:02 ENTRY DATE: MAR 21, 2024@08:02:52 AUTHOR: ROLBES TREVINO EXP COSIGNER: URGENCY: STATUS: COMPLETED HISTORY OF PRESENT ILLNESS: = REBECA Pérez UMAIR, is a 79 yo WHITE MALE who presents at the [place] at [facility] CC. lung nodules HPI. this is homeless male who [facility]. he has remote hx of schizophrenia/delusional disorder. He is on stable dose of levothyroxine for hypothyroidism and PPI for GERD. Vet has bilat pulm nodules and vet saw [facility] pulm provider/Dr Barbour who will do bronchoscopy next week. vet had had wt loss but weight in past month is stable and Tspot test neg for TB. SH nonsmoker Active problems - Computerized Problem List is the source for the followin. Homeless 2. Multiple pulmonary nodules 3. Abnormal weight loss 4. Vitamin D Deficiency (SCT 79419447) 5. Cervical pain 6. Exposure to potentially hazardous substance 7. Anemia (SCT 890151288) 8. Dehydration 9. Foot pain 10. GERD - Gastro-Esophageal Reflux Disease (SCT 058903324) 11. Benign Prostatic Hypertrophy without Outflow Obstruction (SCT 183022807) 12. Housing adequate 13. Seborrhoeic dermatitis of scalp (SNOMED CT 957608990) 14. Constipation 15. [place] of toe 16. Palpitations 17. Housing lack 18. Ambulatory ECG abnormal 19. Plantar wart 20. Residual schizophrenia in remission (SNOMED CT 37201536) 21. Vertigo/Dizziness 22. Delusional disorder 23. Low Back Pain * 24. Left Inguinal Hernia 25. Anemia * 26. Candidiasis, Oral 27. Benign enlargement of prostate (SNOMED CT 473302927) 28. Chronic obstructive pulmonary disease (SNOMED CT 35826879) 29. Gastro-esophageal reflux (SNOMED CT 312265792) 30. Hypothyroidism (SNOMED CT 79150678) 31. 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 COMBAT SERVICE INDICATED: No SERVICE CONNECTED % - 0 VITAL SIGNS: Temperature 98 F [36.7 C] (02/28/2024 11:29) Blood Pressure 137/71 (02/28/2024 11:29) Pulse 83 (02/28/2024 11:29) Respiration 18 (02/28/2024 11:29) Pain 2 (02/15/2024 11:17) BMI BMI: 19.2 Weight 125.8 lb [57.06 kg] (02/15/2024 11:17) Pulse Oximetry 96% (02/28/2024 11:29) Review of Systems: CONSTITUTIONAL: No fever, no loss of appetite ENT: No sore throat, no cough CARDIOVASCULAR: No chest pain, no palpitations RESPIRATORY: No SOB, no wheezing GASTROINTESTINAL: No abd pain, no N/V/D, no change in stool EXAMINATION General: this is thin , chronially ill-appearing gentleman in no obvious distress./ uses cane to walk Mental Status: Alert and oriented Head: Normocephalic. Ext: No cyanosis or clubbing. No gross deformities. Neuro: soft, somewhat dysarthric speech/this is his baseline DATA REVIEW >> MEDICATIONS Reviewed Today (VA & Non VA) ALLERGIES: STELAZINE, MOBAN, FLUPHENAZINE, LITHIUM Active Outpatient Medications (including Supplies): Issue Date Status Last Fill Active Outpatient Medications Refills Expiration 1) ACETAMINOPHEN 500MG TAB Qty: 100 for 90 ACTIVE Issu:12-13-23 days Sig: TAKE ONE TABLET BY MOUTH Refills: 0 Last:12-26-23 ONCE DAILY NEEDED FOR PAIN Expr:12-13-24 2) CAMPHOR/MENTHOL/METHYL SALICYLATE PATCH ACTIVE Issu:01-01-24 Qty: 120 for 90 days Sig: APPLY 1 Refills: 1 Last:01-01-24 PATCH TOPICALLY ONCE DAILY NEEDED Expr:01-01-25 FOR PAIN (REMOVE PATCH AFTER 8 TO 12 HOURS) 3) CARBAMIDE PEROXIDE 6.5% OTIC SOLN Qty: ACTIVE Issu:01-24-24 15 for 30 days Sig: INSTILL 5 TO 10 Refills: 0 Last:02-20-24 DROPS INTO THE AFFECTED EAR(S) ONCE Expr:01-24-25 DAILY FOR EAR WAX BLOCKAGE 4) CETIRIZINE HCL 10MG TAB Qty: 90 for 90 ACTIVE Issu:01-24-24 days Sig: TAKE ONE TABLET BY MOUTH Refills: 0 Last:01-24-24 ONCE DAILY FOR ALLERGIES Expr:04-23-24 5) CHOLECALCIF 50MCG (D3-2,000UNIT) TAB ACTIVE Issu:07-04-23 Qty: 100 for 90 days Sig: TAKE ONE Refills: 3 Last:07-05-23 TABLET BY MOUTH ONCE DAILY FOR VITAMIN Expr:07-04-24 D DEFICIENCY FOR VITAMIN SUPPLEMENTATION 6) DM 10/GUAIFENESN 100MG/5ML (AF & SF) LIQ ACTIVE Issu:02-12-24 Qty: 480 for 24 days Sig: TAKE 5 MLS Refills: 2 Last:02-13-24 BY MOUTH EVERY 6 HOURS NEEDED FOR Expr:02-12-25 COUGH 7) LEVOTHYROXINE NA (SYNTHROID) 100MCG TAB ACTIVE Issu:06-13-23 Qty: 90 for 90 days Sig: TAKE ONE Refills: 1 Last:01-25-24 TABLET BY MOUTH EVERY DAY TAKE WITH A Expr:06-13-24 FULL GLASS OF WATER FOR THYROID 8) OMEPRAZOLE 20MG EC CAP Qty: 90 for 90 ACTIVE (S) Issu:06-13-23 days Sig: TAKE ONE CAPSULE BY MOUTH Refills: 0 Last:04-04-24 DAILY FOR STOMACH ACID Expr:06-13-24 9) SELENIUM SULFIDE 2.5% LOTION/SHAMPOO ACTIVE Issu:07-05-23 Qty: 120 for 30 days Sig: APPLY SMALL Refills: 0 Last:12-13-23 AMOUNT TOPICALLY TWICE A WEEK Expr:07-05-24 NEEDED FOR DANDRUFF FOR 4 WEEKS THEN STOP 10) TAMSULOSIN HCL 0.4MG CAP Qty: 30 for 30 ACTIVE Issu:06-09-23 days Sig: TAKE ONE CAPSULE BY MOUTH Refills: 2 Last:06-11-23 DAILY Expr:06-09-24 >> LABS REVIEWED TODAY: CHEM 7 TREND LAB CUMULATIVE SELECTED Collection DT Spec GLUCOSE BUN CREATIN Sodium K+/Pot CL CO2 01/25/2024 14:04 SERUM 26 H 0.63 10/05/2023 10:50 SERUM 97 13 0.64 136 3.7 95 L 31 H 06/06/2023 13:43 SERUM 99 16 0.63 131 L 4.0 94 L 29 12/05/2022 11:08 SERUM 101 H 13 0.60 136 4.3 95 L 30 05/30/2022 10:50 SERUM 95 19 0.63 134 L 4.7 96 L 29 Collection DT Spec eGFR 07/02/2009 11:52 SERUM >60 05/08/2007 10:24 SERUM >60 03/13/2006 10:32 SERUM >60 LAB CUMULATIVE SELECTED 2 No selection items chosen for this component. CHEM 7 Results Collection DT Spec Sodium K+/Pot CL CO2 GLUCOSE BUN eGFR 01/25/2024 14:04 SERUM 26 H 10/05/2023 10:50 SERUM 136 3.7 95 L 31 H 97 13 06/06/2023 13:43 SERUM 131 L 4.0 94 L 29 99 16 12/05/2022 11:08 SERUM 136 4.3 95 L 30 101 H 13 05/30/2022 10:50 SERUM 134 L 4.7 96 L 29 95 19 01/14/2022 09:22 SERUM 133 L 4.3 95 L 32 H 106 H 18 12/03/2021 09:25 SERUM 135 4.0 96 L 29 111 H 15 11/16/2020 13:15 SERUM 137 4.1 95 L 34 H 87 16 06/17/2020 10:20 SERUM 137 4.0 95 L 29 93 11 11/02/2018 11:59 SERUM 137 4.0 98 L 32 H 94 16 01/25/2018 11:53 SERUM 136 4.5 97 L 32 H 95 18 06/16/2017 10:19 SERUM 134 L 4.1 95 L 31 H 100 12 02/15/2016 10:21 SERUM 135 4.2 95 L 33 H 97 13 07/28/2015 10:46 SERUM 135 3.9 97 L 32 H 99 14 11/05/2014 10:39 SERUM 135 3.9 98 L 30 94 14 04/21/2014 11:25 SERUM 136 4.2 95 L 34 H 92 14 07/30/2013 10:55 SERUM 135 3.8 94 L 31 H 94 11 12/24/2012 14:46 SERUM 137 4.2 98 L 32 H 88 15 05/17/2012 14:42 SERUM 133 L 4.2 94 L 29 87 14 10/14/2011 10:22 SERUM 137 4.3 98 L 30 99 11 07/08/2011 14:57 SERUM 136 4.3 98 L 28 107 H 12 07/02/2009 11:52 SERUM 135 4.0 95 L 32 H 92 12 >60 05/08/2007 10:24 SERUM 136 3.9 99 L 30 93 14 >60 03/13/2006 10:32 SERUM 136 4.1 97 L 32 H 97 9 >60 03/25/2005 10:47 SERUM 136 3.9 98 L 30 90 12 11/05/2003 09:16 SERUM 136 4.0 99 L 30 104 14 10/03/2002 13:01 SERUM 137 4.1 97 L 32 H 88 13 11/22/2001 13:24 SERUM 138 4.0 98 L 31 H 91 11 03/12/2001 09:08 SERUM 135 3.9 99 L 30 91 14 03/02/2001 09:48 SERUM 137 4.2 99 L 31 H 89 9 02/02/2001 16:11 SERUM 130 L 3.9 92 L 31 H 112 H 7 02/16/2000 09:45 SERUM 139 3.6 96 L 28 112 11 01/05/1999 08:49 SERUM 141 3.9 103 29 94 13 12/23/1997 09:21 SERUM 139 3.8 99 30 95 14 08/08/1996 08:50 SERUM 141 3.8 102 31 95 15 04/21/1995 15:28 SERUM 11 02/14/1994 08:11 SERUM 142 4.1 102 36 H 97 01/21/1994 14:35 SERUM 15 04/05/1993 09:10 SERUM 140 4.0 100 33 H 94 03/12/1992 11:50 SERUM 78 03/12/1992 08:23 SERUM 137 3.6 101 30 16 12/28/1990 09:20 SERUM 139 4.1 97 33 H 86 16 11/17/1989 09:43 SERUM 144 4.1 86 18 === CBC TREND Collection DT Spec WBC RBC HGB HCT MCV MCH PLT 10/05/2023 10:50 BLOOD 4.72 4.87 14.1 42.5 87.3 29.0 262 06/06/2023 13:43 BLOOD 5.34 4.35 12.3 L 37.2 L 85.5 28.3 219 12/05/2022 11:08 BLOOD 6.10 4.82 13.5 41.1 85.3 28.0 260 05/30/2022 10:50 BLOOD 5.30 4.72 13.4 39.9 84.5 28.4 244 01/14/2022 09:22 BLOOD 5.80 4.69 13.1 40.2 85.7 27.9 242 === HEMOGLOBIN A1C TREND Collection DT Spec HGBA1c 10/05/2023 10:50 BLOOD 5.3 06/06/2023 13:43 BLOOD 5.3 05/30/2022 10:50 BLOOD 5.1 01/14/2022 09:22 BLOOD 5.4 11/02/2018 11:59 BLOOD 5.3 === LIPID PANEL TREND Collection DT Spec CHOL HDL CHO/HDL LDL-c TRIG 06/06/2023 13:43 SERUM 167 56 3.0 105 30 12/05/2022 11:08 SERUM 189 54 3.5 128 35 05/30/2022 10:50 SERUM 180 57 3.2 118 26 01/14/2022 09:22 SERUM 190 55 3.5 128 34 06/17/2020 10:20 SERUM 174 55 3.2 113 31 === UREA NITROGEN 01/25/24 14:04 26 H 10/05/23 10:50 13 06/06/23 13:43 16 CREATININE-EGFR 01/25/24 14:04 0.63 10/05/23 10:50 0.64 06/06/23 13:43 0.63 === LIVER PANEL TREND Collection DT Spec AST ALT T BILI ALK RADHA T. PROT ALBUMIN 10/05/2023 10:50 SERUM 21 18 0.7 83 7.7 4.6 06/06/2023 13:43 SERUM 20 17 0.5 73 6.9 4.2 05/30/2022 10:50 SERUM 22 23 0.5 73 7.4 4.4 01/14/2022 09:22 SERUM 21 25 0.8 78 7.5 4.4 06/17/2020 10:20 SERUM 21 17 0.7 73 7.5 4.6 === PSA TREND Collection DT Spec PSA SR- 01/25/2024 14:04 SERUM 4.37 H 05/30/2022 10:50 SERUM 2.07 11/16/2020 13:15 SERUM 1.42 06/17/2020 10:20 SERUM 1.56 07/30/2013 10:55 SERUM 0.79 = Collection DT Spec TSH 10/05/2023 10:50 SERUM 0.41 == ANEMIA PANEL TREND Collection DT Spec B12 SR- HCT Ferrit IRON TIBC 10/05/2023 10:50 BLOOD 42.5 10/05/2023 10:50 SERUM 688 152 134 384 06/06/2023 13:43 BLOOD 37.2 L 06/06/2023 13:43 SERUM 632 12/05/2022 11:08 BLOOD 41.1 === PT INR TREND Collection DT Spec INR PT 07/08/2011 14:57 PLASM 1.0 11.6 === >> HEALTH MAINTENANCE PREVENTIVE MEDICINE GOALS Homelessness/Food Insecurity Screen Mar 18 Mental Health Treatment Plan DUE NOW Pneumococcal Conjugate Vaccine (PCV15/PCFeb Medication Reconciliation DUE NOW COVID-19 Immunization DUE NOW PAVE Foot Check Oct 26 Hepatitis A Vaccine for High Risk DUE NOW (Optional) Whole Health Documentation DUE NOW ASSESSMENT/PLAN: 1. pulm nodules 2. homeless Plan 1. plan for bronchoscopy next week and vet will plan with pulm provider for post procedure plan 2. vet will continue to have support from [facility] staff/moving to permanent apartment in nearby town 3. f/u w/ PCP in 3 mos and PRN. LAB ORDERS FOR NEXT APPT. spent in patient care and education No barriers; Patient understands and agrees to current treatment plan. If pt has any questions, concerns, or changes in current health status he/she will call or come [facility] to the [facility]. Medication Reconciliation: Outpatient: Has the patient been taking medications as documented in the EMLR? YES: The patient has been taking medications as documented in the EMLR. Essential Medication List for Review used to complete this medication reconciliation. INCLUDED IN THIS LIST: Alphabetical list of active outpatient prescriptions dispensed from this [facility] (local) and dispensed from another VA or DoD facility (remote) as well as inpatient orders (local, pending and active), local clinic medications, locally documented non-VA medications, and local prescriptions that have or been discontinued in the past 90 days. - All changes in medications, including all non-VA/Herbal/OTC medications were entered into CPRS. - If there were any medications the patient should no longer take, they were discontinued. - The patient/caregiver was instructed to update this list, discard old lists, and take this list to the next appointment, whether with a VA or non-VA provider. /nyasia/ ALISIA TREVINO MD PHYSICIAN Signed: 03/21/2024 16:02 ROBLES TREVINO [place] [facility]
--- OUTSIDE RECORDS SUMMARY | 2024-10-20 23:23 | XMS_ITS | Encounter Summary ---
Author Name [facility] [place] [facility] [place] Address [address] [place] [address] Care Team Providers Care Core Placer Name Role Phone ALISIA TREVINO Primary Care [...] Apr 04, 2011 PART A OPT ONLY [id number] LYNDON BLOCK JR PATIENT Selected Encounter This section includes the information on record at [place] for the Encounter. Date/Time Encounter Type Encounter Description Reason Provider Source Jul 24, 2024 10:30 AM OFFICE O/P EST MOD 30 MIN PRIMARY CARE/MEDICINE ICD-10-CM R54 Age-related physical debility Anisha TREVINO Zoila Encounter Template Text not used by [place] Assessments - Encounter Diagnoses This section includes the primary and secondary diagnoses documented for the Encounter. Date/Time Primary/Secondary Diagnosis Diagnosis Name Provider Source Jul 24, 2024 11:06 AM PRIMARY Age-related physical debility ALISIA TREVINO [place] [facility] [place] [facility] Jul 24, 2024 11:06 AM SECONDARY Encounter for immunization [facility]BAR [facility] Jul 24, 2024 11:06 AM SECONDARY Gastro-esophageal reflux disease without esophagitis [facility]ISIA [facility] Jul 24, 2024 11:06 AM SECONDARY Hypothyroidism, unspecified BELINDAALISIA [facility] Jul 24, 2024 11:06 AM SECONDARY Other disorders of lung BELINDAALISIA [facility] Plan of Treatment: Future Appointments (+ 6 months) and Future Tests (+/- 45 days) The Plan of Treatment section includes future care activities for the patient [facility] [place] [facility] This section includes future appointments and future orders which are active, pending or scheduled. Future Appointments This section includes appointments that were scheduled to occur 6 months from the date of the Encounter, up to a maximum of 20 appointments. The data comes from all [facility] facilities. Appointment Date/Time Appointment Type Appointme nt Facility Name Jul 25, 2024 01:00 PM AMBULATORY - [facility] Aug 19, 2024 11:00 AM AMBULATORY - [facility] Sep 17, 2024 03:00 PM AMBULAT[facility] - [facility] Sep 19, 2024 03:30 PM AMBULATORY - MEDICINE [facility] Oct 08, 2024 02:00 PM AMBULATORY - REHAB MEDICIN E [facility] Vital Signs: All taken on the encounter date This section contains inpatient and outpatient Vital Signs collected on the date of the Encounter. Date/Time Temperature Pulse Blood Pressure Respiratory Rate SP02 Pain Height Weight Body Mass Index Source Jul 24, 2024 10:41 AM 77 115/70 20 96 137 21 [facility] Immunizations: All administered on the encounter date This section contains immunizations associated to the Encounter. Immunization Series Date Issued Reaction Comments INFLUENZA, HIGH-DOSE, TRIVALENT, PF Jul 24 PNEUMOCOCCAL CONJUGATE PCV20 , POLYSACCHARIDE [id number] CONJUGATE, ADJUVANT, PF Jul 24, 2024 Social History: Smoking Status (Most current) and Tobacco Use (All prior to encounter date) This section includes the most current, and the historical, smoking and tobacco- related health factors from the [place] facility where the Encounter took place. Current Smoking Status This section includes the most current smoking, or tobacco-related health factor, from the [place] facility where the Encounter took place. Date/Time Current Smoking Status Comment Sasha dwyer Jun 13, 2023 03:15 PM VA-TOBACCO NEVER USED [facility] Tobacco Use History This section includes a history of the smoking, or tobacco-related health factors, that were collected on or before the date of the Encounter. The data comes from the [place] facility where the Encounter took place. Date/Time Smoking Status/Tobacco Use Comment Gracie acility Jun 25, 2020 01:58 PM VA-TOBACCO NEVER USED [place] [facility] Feb 18, 2019 01:48 PM VA-TOBACCO NEVER USED [facility] Advance Directives: All historical and current Section Date Range: From patient's date of to the date document was created. This section includes ALL of a patient's completed or amended [place] Advance and Rescinded Directives. The entries below indicate that a directive exists for the patient, but an actual copy is not included with this document. The data comes from all [place] facilities. Date Advance Directives Provider Source Oct 04, 2023 ADVANCE DIRECTIVE DISCUSSION RADHA WILLETT,OZZY WORTHY Encounter Notes: All associated encounter notes This section contains the clinical notes associated to the Encounter. Date/Time Encounter Note(s) Provider Source Jul 24, 2024 10:52 AM PREVENTIVE MEDICINE NURSING NOTE: LOCAL TITLE: CLINICAL REMINDERS/NURSING STANDARD TITLE: PREVENTIVE MEDICINE NURSING NOTE DATE OF NOTE: JUL 24, 2024@10:52 ENTRY DATE: JUL 24, 2024@10:52:51 AUTHOR: EMY TOBAR COSIGNER: URGENCY: STATUS: COMPLETED CLINICAL REMINDERS/NURSING Has ADDENDA Depression Screening: Perform PHQ-2 A PHQ-2 screen was performed. The score was 0 which is a negative screen for depression. Over the past two weeks, how often have you been bothered by the following problems? 1. Little interest or pleasure in doing things Not at all 2. Feeling down, depressed, or hopeless Not at all Falls & Incontinence Screen: Falls Screen: During the past 12 months, did the patient report any falls? 4. No falls within the past year. Incontinence Screen: During the past 12 months, has the patient has any characteristics of incontinence (ability, voiding, leakage, etc.)? No incontinence. Influenza Immunization: Influenza, High-Dose, Trivalent, Preservative Free (Fluzone-Syringe) Administered: INFLUENZA, HIGH-DOSE, TRIVALENT, PF Date Administered: Jul 24, 2024 10:30 Tonnage Compilation Clerk: SANOFI PASTEUR Lot: [id number] Exp Date: Mar 03, 2025 NDC: [id number] Admin Route/Site: INTRAMUSCULAR/LEFT DELTOID Dosage: 0.5mL Vaccine Information Statement(s): INFLUENZA(FLU) VACC(INACTIVATED OR RECOMBINANT)VIS Apr 09, 2021 (GUINEAN) Order By: Policy Administered By: Emy Tobar The Influenza Vaccine Information Statement (VIS) was reviewed with the patient/caregiver which lists the benefits and risks of the vaccine and the risks of not receiving the Influenza vaccine. The patient/caregiver denied any prior severe reaction to this vaccine or its components or a severe allergic reaction, such as anaphylaxis, to any vaccine or any injectable therapy. The patient/caregiver gave verbal consent to receive the vaccine. Pneumococcal Conjugate Vaccine (PCV15/PCV20): PCV20 (Prevnar 20) Administered: PNEUMOCOCCAL CONJUGATE PCV20, POLYSACCHARIDE [id number] CONJUGATE, ADJUVANT, PF Date Administered: Jul 24, 2024 10:30 Tonnage Compilation Clerk: [employer], Dasient Lot: [id number] Exp Date: Mar 03, 2025 NDC: [id number] Admin Route/Site: INTRAMUSCULAR/RIGHT DELTOID Dosage: 0.5mL Vaccine Information Statement(s): PNEUMOCOCCAL CONJUGATE ([id number]) VIS January 13, 2023 (GUINEAN) Order By: Policy Administered By: Emy Tobar Vaccine Information Sheet (VIS) was given to the patient/caregiver, education regarding adverse reactions was discussed, as well as barriers to learning, if any, were acknowledged. /nyasia/ Emy Tobar RN Primary Care Staff Nurse Signed: 07/24/2024 10:54 07/24/2024 ADDENDUM STATUS: COMPLETED Alcohol Use Screen (AUDIT-C): Alcohol Screen: SCREEN FOR ALCOHOL (AUDIT-C) An alcohol screening test (AUDIT-C) was negative (score=0). 1. How often did you have a drink containing alcohol in the past year? Consider a drink to be a 12 ounce can or bottle of regular beer, 8 ounces of malt liquor, a 5 ounce glass of table wine, or a 1.5 ounce shot of liquor (like scotch, gin, or vodka). Never 2. How many drinks containing alcohol did you have on a typical day when you were drinking in the past year? Response not required due to responses to other questions. 3. How often did you have six or more drinks on one occasion in the past year? Response not required due to responses to other questions. COVID-19 Immunization: Refused Moderna Monovalent COVID-19 vaccine Immunization: COVID-19 (MODERNA), MRNA, LNP-S, PF, 50 MCG/0.5 ML (AGES 12+ YEARS) Refusal Reason: PATIENT DECISION Patient refuses all immunization(s) in the COVID-19 group Date Documented: 07/24/24 10:59 /nyasia/ Emy Tobar RN Primary Care Staff Nurse Signed: 07/24/2024 10:59 EMY TOBAR [place] [facility] Jul 24, 2024 08:15 AM PHYSICIAN NOTE: LOCAL TITLE: MD NOTE STANDARD TITLE: PHYSICIAN NOTE DATE OF NOTE: JUL 24, 2024@08:15 ENTRY DATE: JUL 24, 2024@08:15:56 AUTHOR: ROBLES TREVINO EXP COSIGNER: URGENCY: STATUS: COMPLETED HISTORY OF PRESENT ILLNESS: REBECA BLOCK, is a 79 yo WHITE MALE who presents at the [place] [facility] CC. multiple problems HPI. vet reports that he is pleased to have his own apartment in [place] and he remarks that he is eating more consistently/he still is underweight. He has gained > 10-15 lbs in past few months. He has no fever, no cough. His resp status is stable and vet under care of [facility] pulm provider for hx of pulm nodules- unclear etiology. He has stable thyroid med dose for hypothyroid condition, has GERD, controlled with PPI. SH nonsmoker Active problems - Computerized Problem List is the source for the followin. Frail elderly 2. Homeless 3. Multiple pulmonary nodules 4. Abnormal weight loss 5. Vitamin D Deficiency (SCT 84674092) 6. Cervical pain 7. Exposure to potentially hazardous substance 8. Anemia (SCT 147085352) 9. Dehydration 10. Foot pain 11. GERD - Gastro-Esophageal Reflux Disease (SCT 267561301) 12. Benign Prostatic Hypertrophy without Outflow Obstruction (SCT 352971674) 13. Housing adequate 14. Seborrhoeic dermatitis of scalp (SNOMED CT 814231961) 15. Constipation 16. [place] of toe 17. Palpitations 18. Housing lack 19. Ambulatory ECG abnormal 20. Plantar wart 21. Residual schizophrenia in remission (SNOMED CT 70646327) 22. Vertigo/Dizziness 23. Delusional disorder 24. Low Back Pain * 25. Left Inguinal Hernia 26. Anemia * 27. Candidiasis, Oral 28. Benign enlargement of prostate (SNOMED CT 799990717) 29. Chronic obstructive pulmonary disease (SNOMED CT 90811832) 30. Gastro-esophageal reflux (SNOMED CT 167196831) 31. Hypothyroidism (SNOMED CT 05421487) 32. 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 COMBAT SERVICE INDICATED: No SERVICE CONNECTED % - 0 VITAL SIGNS: Temperature 98.3 F [36.8 C] (03/21/2024 15:11) Blood Pressure 128/74 (03/21/2024 15:11) Pulse 82 (03/21/2024 15:11) Respiration 18 (03/21/2024 15:11) Pain 3 (03/21/2024 15:11) BMI BMI: 19.0 Weight 125 lb [56.70 kg] (03/21/2024 15:11) Pulse Oximetry 96% (03/21/2024 15:11) Review of Systems: CONSTITUTIONAL: No fever, no loss of appetite ENT: No sore throat, no cough CARDIOVASCULAR: No chest pain, no palpitations RESPIRATORY: No SOB, no wheezing GASTROINTESTINAL: No abd pain, no N/V/D, no change in stool EXAMINATION General: this is thin, chronically ill-appearing gentleman in no obvious distress./ vet certainly appears improved w/ wt gain and in better spirits today. uses cane to assist ambulation Mental Status: Alert and oriented Head: Normocephalic. Lungs: CTA. no crackles, no wheezing CV: RRR. No murmur DATA REVIEW >> MEDICATIONS Reviewed Today ([facility] [...] Expr:01-24-25 DAILY FOR EAR WAX BLOCKAGE 4) DM 10/GUAIFENESN 100MG/5ML (AF & SF) LIQ ACTIVE Issu:02-12-24 Qty: 480 for 24 days Sig: TAKE 5 MLS Refills: 2 Last:02-13-24 BY MOUTH EVERY 6 HOURS NEEDED FOR Expr:02-12-25 COUGH 5) SELENIUM SULFIDE 2.5% LOTION/SHAMPOO ACTIVE Issu:04-22-24 Qty: 360 for 90 days Sig: APPLY SMALL Refills: 1 Last:04-23-24 AMOUNT TOPICALLY TWICE A WEEK Expr:04-23-25 NEEDED FOR DANDRUFF FOR 4 WEEKS THEN STOP >> LABS REVIEWED TODAY: CHEM 7 TREND [...] 11/17/1989 09:43 SERUM 144 4.1 86 18 CBC TREND Collection DT Spec WBC RBC [...] 5.80 4.69 13.1 40.2 85.7 27.9 242 HEMOGLOBIN A1C TREND Collection DT Spec HGBA1c 10/05/2023 10:50 BLOOD 5.3 06/06/2023 13:43 BLOOD 5.3 05/30/2022 10:50 BLOOD 5.1 01/14/2022 09:22 BLOOD 5.4 11/02/2018 11:59 BLOOD 5.3 LIPID PANEL TREND Collection DT Spec CHOL HDL CHO/HDL LDL-c TRIG 06/06/2023 13:43 SERUM 167 56 3.0 105 30 12/05/2022 11:08 SERUM 189 54 3.5 128 35 05/30/2022 10:50 SERUM 180 57 3.2 118 26 01/14/2022 09:22 SERUM 190 55 3.5 128 34 06/17/2020 10:20 SERUM 174 55 3.2 113 31 UREA NITROGEN 01/25/24 14:04 26 H 10/05/23 10:50 13 CREATININE-EGFR 01/25/24 14:04 0.63 10/05/23 10:50 0.64 LIVER PANEL TREND Collection DT Spec AST ALT T BILI ALK RADHA T. PROT ALBUMIN 10/05/2023 10:50 SERUM 21 18 0.7 83 7.7 4.6 06/06/2023 13:43 SERUM 20 17 0.5 73 6.9 4.2 05/30/2022 10:50 SERUM 22 23 0.5 73 7.4 4.4 01/14/2022 09:22 SERUM 21 25 0.8 78 7.5 4.4 06/17/2020 10:20 SERUM 21 17 0.7 73 7.5 4.6 PSA TREND Collection DT Spec PSA SR- 01/25/2024 14:04 SERUM 4.37 H 05/30/2022 10:50 SERUM 2.07 11/16/2020 13:15 SERUM 1.42 06/17/2020 10:20 SERUM 1.56 07/30/2013 10:55 SERUM 0.79 Collection DT Spec TSH 10/05/2023 10:50 SERUM 0.41 ANEMIA PANEL TREND Collection DT Spec B12 SR- HCT Ferrit IRON TIBC 10/05/2023 10:50 BLOOD 42.5 10/05/2023 10:50 SERUM 688 152 134 384 06/06/2023 13:43 BLOOD 37.2 L 06/06/2023 13:43 SERUM 632 12/05/2022 11:08 BLOOD 41.1 PT INR TREND Collection DT Spec INR PT 07/08/2011 14:57 PLASM 1.0 11.6 >> HEALTH MAINTENANCE PREVENTIVE MEDICINE GOALS Advance Directive Screen MH AD Jun 13 Depression Screening Jun 13 Falls & Incontinence Screen DUE NOW MH Mental Health Treatment Plan DUE NOW Pneumococcal Conjugate Vaccine (PCV15/PCFeb Influenza Immunization DUE NOW Medication Reconciliation DUE NOW Alcohol Use Screen (AUDIT-C) Jun 13 COVID-19 Immunization DUE NOW Sexual Orientation Jun 13 Hepatitis A Vaccine for High Risk DUE NOW (Optional) Whole Health Documentation DUE NOW ASSESSMENT/PLAN: 1. frail elder 2. pulm nodules 3. GERD 4. hypothyroid Plan 1. continue ensure supplements/consider nutrition consult if wt loss recurs 2. continue w/u at [facility] pulm/Dr Barbour- 3. refill PPI 4. vet will continue levothyroxine 100 mcg 5. f/u December 12 for labs and visit w/ PCP in late December LAB ORDERS FOR NEXT APPT. spent in [...] [facility] and dispensed from another [place] or [facility] facility (remote) as well as [...] provider. /nyasia/ ALISIA TREVINO MD PHYSICIAN Signed: 07/24/2024 11:06 SIMI TREVINO [place] [facility]
--- OUTSIDE RECORDS SUMMARY | 2024-10-20 23:23 | XMS_ITS | Encounter Summary ---
Author Name [facility] [facility] [place] Address [address] [place] [address] Care Team Providers Care Building Construction Teacher Name Role Phone ALISIA TREVINO Primary Care [...] Apr 04, 2011 PART A OPT ONLY [id number] LYNDON BLOCK JR PATIENT Selected Encounter This section includes the information on record at [place] for the Encounter. Date/Time Encounter Type Encounter Description Reason Provider Source January 31, 2024 02:45 PM FUNDUS PHOTOGRAPHY W/I&R OPTOMETRY ICD-10-CM H35.62 Retinal hemorrhage, left eye JEREMIAH STOUT IHE Encounter Template Text not used by [place] Assessments - Encounter Diagnoses This section includes the primary and secondary diagnoses documented for the Encounter. Date/Time Primary/Secondary Diagnosis Diagnosis Name Provider Source February 01, 2024 10:50 AM PRIMARY Retinal hemorrhage, left eye JEREMIAH STOUT [facility] Plan of Treatment: Future Appointments (+ 6 months) and Future Tests (+/- 45 days) The Plan of Treatment section includes future care activities for the patient from all [place] treatmentfacilities. This section includes future appointments and future orders which are active, pending or scheduled. Future Appointments This section includes appointments that were scheduled to occur 6 months from the date of the Encounter, up to a maximum of 20 appointments. The data comes from all [place] treatment facilities. Appointment Date/Time Appointment Type Appointme nt Facility Name Feb 06, 2024 09:30 AM [facility] [place] Feb 12, 2024 11:30 AM [facility] [place] Feb 15, 2024 11:00 AM [facility] [place] Feb 28, 2024 11:30 AM [facility] Feb 29, 2024 09:30 AM [facility] Mar 15, 2024 10:00 AM [facility] Mar 21, 2024 03:00 PM [facility] Mar 28, 2024 11:00 AM [facility] Apr 25, 2024 03:30 PM AM[facility]ULATORY [facility] MED[facility]INE [facility] Apr 26, 2024 09:45 AM [facility] [place] May 24, 2024 01:00 PM AMBULATORY - [facility] Jun 03, 2024 01:00 PM [facility] [place] Jul 08, 2024 02:00 PM AMBULATORY - [facility] Jul 24, 2024 10:30 AM [facility] Jul 25, 2024 01:00 PM AMBULATORY - [facility]ICIN [facility] [place] Active, Pending, and Scheduled Orders This section includes a listing of several types of active, pending, and scheduled orders, including clinic medications orders, diagnostic test orders, procedure orders and consult orders; where the start date of the order is 45 days before the date of the Encounter or 45 days after the date of theEncounter. The data comes from all [place] treatment facilities. Test Date/Time Test Type Test Details Facility Name January 24, 2024 08:53 AM Consult Order [facility]-UROLOGY Cons [employer] [place] Lab Results: +/- 30 days of the encounter This section includes the Chemistry and Hematology Lab Results on record with [facility] for the patient. Radiology Reports and Pathology Reports are provided separately, in subsequent sections. Lab Results This section contains the Chemistry/Hematology Results that were resulted 30 days before or 30 daysafter the date of the Encounter. Date/Time Source Result Type Result - Unit Interpretation Reference Range Comment January 25, 2024 02:04 PM [place] [facility] [place] PSA Specimen Type: SERUM No comment entered. Ordering Provider: SHIN GARRIDO Report Released Date/Time: January 25, 2024 11:12 AM Reporting [facility] [place] [address] [address] Performing Lab: [facility] [place] [address] [address] PSA 4.37 ng/mL H 0.00-4.00 January 25, 2024 02:04 PM [place] [facility] [place] UREA NITROGEN Specimen Type: SERUM No comment entered. Ordering Provider: SHIN GARRIDO Report Released Date/Time: January 25, 2024 11:12 AM Reporting [facility] [place] [facility] [address] [address] Performing Lab: [place] [facility] [place] [facility] [address] [address] UREA NITROGEN 26 mg/dL H 7-January 25, 2024 02:04 PM [facility] [place] CREATININE (eGFR 2020) Specimen Type: SERUM No comment entered. Ordering Provider: SHIN GARRIDO Report Released Date/Time: January 25, 2024 11:12 AM Reporting Lab: [facility] [place] [facility] [address] [address] Performing Lab: [facility] [place] [address] [address] CREATININE, Serum 0.63 mg/dL 0.50-1.40 eGFR(CKD-EPI 2020) >90 mL/min >60 January 24, 2024 08:06 AM [facility] COVID-19 FLU/RSV DIAGNOSTIC PANEL Specimen Type: NASOPHARYNX Comment: This test is authorized for emergency use only. False negative results may occur if virus is present at levels below the analytical limit of detection.Negati ve results do not preclude SARS-CoV-2, influenza or RSV infection and should not be used as the sole basis for treatment or other patient management decisions.Cephei d FLUVID: HCPs: https://www.fda. gov/media/666899 /download. Patients: https://www.fda. gov/media/578118 /download Ordering Provider: SHIN GARRIDO Report Released Date/Time: January 24, 2024 07:49 AM Reporting Lab: [address] [address] Performing Lab: [address] [address] COVID-19 PCR (FLUVID) NEGATIVE NEGATIVE FLU A PCR (FLUVID) NEGATIVE FLU B PCR (FLUVID) NEGATIVE RSV PCR (FLUVID) NEGATIVE January 04, 2024 02:23 PM [facility] T-SPOT TB PANEL Specimen Type: BLOOD Comment: A negative test result does not exclude the possibility of exposure to or infection with Mycobacterium tuberculosis (M. tuberculosis). Patients with recent exposure to TB infected individuals exhibiting a negative T-SPOT.TB result should be considered for retesting within 6 weeks or if other relevant clinical symptoms indicate. Results from T-SPOT.TB testing must be used in conjunction with each individual's epidemiological history, current medical status, and results of other diagnostic evaluations. The T-SPOT.TB test is qualitative and results are reported as positive, borderline, or negative, given that the test controls perform as expected. In line with the Centers for Disease Control and Prevention's 2010 recommendation to report quantitative measurements alongside the qualitative result, the laboratory provides spot counts for informational purposes only. The T-SPOT.TB test should not be interpreted as a quantitative test. For additional information, please refer to http://education .[employer]/faq/CBS218 (This link is being provided for informational/ educational purposes only.) Test Performed by [facility], [facility], [address] [place] [address] Merrick Rubin M.D., Ph.D., Director of Laboratories , CLIA [id number] TEST PERFORMED AT: , Ordering Provider: SHIN GARRIDO Report Released Date/Time: Dec 28, 2023 04:19 PM Reporting [facility]: [facility] [address] [address] Performing Lab: [facility] [address] [address] I-VKMH-UAUIL T (o) Negative Negative T-SPOT-PNLA 0 T-SPOT-PNLB 0 L-YAQF-PLJVS RL Passed A-VJBZ-JSBXU RL Passed Social History: Smoking Status (Most current) and Tobacco Use (All prior to encounter date) This section includes the most current, and the historical, smoking and tobacco- related health factors from the [place] facility where the Encounter took place. Current Smoking Status This section includes the most current smoking, or tobacco-related health factor, from the [place] facility where the Encounter took place. Date/Time Current Smoking Status Comment Facil ity Jun 13, 2023 03:15 PM [facility]-TOBACCO NEVER USED [facility] Tobacco Use History This section includes a history of the smoking, or tobacco-related health factors, that were collected on or before the date of the Encounter. The data comes from the [place] facility where the Encounter took place. Date/Time Smoking Status/Tobacco Use Comment F acility Jun 25, 2020 01:58 PM [facility] Feb 18, 2019 01:48 PM [facility]ACCO [facility] Advance Directives: All historical and current Section Date Range: From patient's date of to the date document was created. This section includes ALL of a patient's completed or amended [place] Advance and Rescinded Directives. The entries below indicate that a directive exists for the patient, but an actual copy is not included with this document. The data comes from all [place] facilities. Date Advance Directives Provider Source Oct 04, 2023 ADVANCE DIRECTIVE DISCUSSION OZZY CORDERO Radiology Reports: +/- 30 days of the encounter Radiology Reports For cases when an order for radiology services may have been completed prior to the date of the Encounter, the report list includes the Radiology Reports that were completed up to 30 days before dateof the Encounter. For cases when an order for radiology services may have been completed after the date of the Encounter, the report list also includes the Radiology Reports that were completed up to30 days after date of the Encounter. The data comes from all [place] treatment facilities. Date/Time Radiology Report Provider Source January 26, 2024 11:[address] WITH CONTRAST: REBECA BLOCK [id number] M Exm Date: JANUARY 26, 2024@11:07 Req Phys: SHIN GARRIDO Pat Loc: [facility]/NO/SICK CALL PA (Req'g Loc Img Loc: [facility]/CT Service: Unknown [place] [facility] , (Case 330 COMPLETE) CT THORAX W/CONT (CT Detailed) CPT:65963 Contrast Media : Non-ionic Iodinated Reason for Study: abnormal weight loss (Case 331 COMPLETE) CT ABDOMEN AND PELVIS WITH CONTRA(CT Detailed) CPT:48371 Contrast Media : Non-ionic Iodinated Clinical History: PO/IV contrast : r/o neoplasm BUN/Cr ordered Report Status: Verified Date Reported: JANUARY 26, 2024 Date Verified: JANUARY 26, 2024 Scallop Raker E-Sig:/ES/JOSE BOLES JR Report: Study: CT scan of the chest, abdomen and pelvis with contrast. Comparison: None. Technique: After the uneventful administration of oral and 100 cc of Omnipaque 300 nonionic intravenous contrast media, multiple 2 mm contiguous axial images were taken from the thoracic inlet through the pubic symphysis. Soft tissue windows are provided. Coronal and sagittal reformatted images are also provided. Findings: Mild centrilobular and paraseptal emphysematous changes with associated scattered parenchymal scarring is present. Multiple spiculated predominantly solid pulmonary nodules are present in all lobes bilaterally, for example measuring up to 13.2 mm in size within the left upper lobe, 3-34 and 21.7 mm in the right middle lobe, 7-14. These abnormalities are nonspecific and could represent a multifocal infectious or inflammatory process such as pneumonia or septic emboli, inflammatory process or multifocal sites of malignancy, either primary pulmonary or metastatic from an unknown primary distal malignancy. Definitive diagnosis may only be available via biopsy. Correlation with clinical infectious disease parameters is recommended. If malignancy highly suspected, PET/CT can be performed, although inflammatory/infectious processes can also show show hypermetabolism on PET/CT. No pneumothorax or pleural effusion is identified. Small amount of scattered mucus debris in the trachea. The tracheobronchial tree is otherwise patent and normal. The heart and pericardium appear normal. There is no abnormal mediastinal, hilar or axillary lymphadenopathy. While not done as a pulmonary embolus protocol, no large central pulmonary arterial vascular filling defects are identified. The thoracic aorta is patent and normal in course and caliber. Lack of intra-abdominal adiposity limits full visualization of structures. Multiple hypodense cystic masses present in the liver most consistent with simple cysts. No clear solid mass or abnormal enhancement is present in the liver. The portal vein is patent and normal. The gallbladder appears normal. The main pancreatic duct is diffusely visualized but does not appear dilated. No focal pancreatic abnormality is identified. The spleen and the adrenal glands appear normal. The kidneys enhance symmetrically and normally. No focal renal abnormality is identified. The visualized ureters are normal in course and caliber. The abdominal aorta is patent and normal in course and caliber. There is a very large amount of formed stool diffusely throughout the colon with no dilated loops of bowel identified. The stomach, small bowel and proximal colon are normal in course and caliber. The appendix is normal. There is moderate diverticular change to the descending and sigmoid colons without evidence of diverticulitis. Right lower quadrant hernia repair sutures present. No recurrent abdominal wall hernia is identified. The bladder, prostate and seminal vesicles appear normal. There is no dominant abdominal, pelvic or retroperitoneal lymphadenopathy. There is no intra-abdominal free air or free fluid. Age-appropriate degenerative changes are seen to the spine with L5 superior endplate Schmorl's node present. No acute bony pathology is seen. No suspicious bone lesions are identified. Impression: Multifocal pulmonary predominantly solid appearing masses that are nonspecific and may represent multifocal infectious or inflammatory process versus malignant in etiology, as described above. Correlation with clinical infectious disease parameters is recommended. No acute intra-abdominal abnormality identified. Primary Diagnostic Code: Significant Abnormality Attention Needed Secondary Diagnostic Codes: POSSIBLE MALIGNANCY Primary Interpreting Staff: JOSE BOLES JR, Radiologist (Scallop Raker) /JOSE KERR JR [facility] Encounter Notes: All associated encounter notes This section contains the clinical notes associated to the Encounter. Date/Time Encounter Note(s) Provider Source January 31, 2024 03:41 PM OPTOMETRY CONSULT: LOCAL TITLE: CONSULT REPORT/OPTOMETRY FUNDUS PHOTO STANDARD TITLE: OPTOMETRY CONSULT DATE OF NOTE: JANUARY 31, 2024@15:41 ENTRY DATE: JANUARY 31, 2024@15:42:05 AUTHOR: JOSESITO GARCIA COSIGNER: JEREMIAH STOUT URGENCY: STATUS: COMPLETED CONSULT REPORT/OPTOMETRY FUNDUS PHOTO Has ADDENDA Fundus photo report: Fundus photos reviewed for patient with poor dilation and question of retinal hemorrhage OS OD: optic disc shows normal cupping with distinct margins and healthy rim tissue. The vasculature is of normal caliber. Macula is clear, no abnormality in posterior pole. OS: optic disc shows normal cupping with distinct margins and healthy rim tissue. The vasculature is of normal caliber. Macula is clear, no abnormality in posterior pole. Suspected retinal hemorrhage not present. 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 No hemorrhage observed OU. No tx necessary at this time. /nyasia/ JOSESITO GARCIA OPTOMETRY STUDENT Signed: 02/02/2024 09:44 /nyasia/ JEREMIAH STOUT OD NIGHT PATROL INSPECTOR Cosigned: 02/02/2024 09:58 02/02/2024 ADDENDUM STATUS: COMPLETED The optometry inclusion intern participated in this exam. I saw this in conjunction with the optometry student. The visual images were captured by the optometry health husbandry technician. Results of testing assessed by the student and reviewed by myself. 's history, complaints and student's findings and plan reviewed. I reviewed and agree with the stated findings, assessment and plan. I have added/edited the documentation to reflect my exam findings and changes to the assessment and plan. /nyasia/ JEREMIAH J STOUT, OD NIGHT PATROL INSPECTOR Signed: 02/02/2024 09:58 JOSESITO GARCIA [facility]
--- OUTSIDE RECORDS SUMMARY | 2024-10-20 23:24 | XMS_ITS ---
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 Date/Time Encounter Type Encounter Description Reason Provider Source January 24, 2024 08:00 AM OFF/OP EST JANUARY X REQ PHY/QHP PRIMARY CARE/MEDICINE ICD-10-CM Z71.89 Other specified counseling NIKUNJ ALONSO [facility] Encounter Template Text not used by [place] Assessments - Encounter Diagnoses This section includes the primary and secondary diagnoses documented for the Encounter. Date/Time Primary/Secondary Diagnosis Diagnosis Name Provider Source January 24, 2024 11:37 AM PRIMARY Other specified counseling [facility]J [facility]SO [facility] [place] [facility] Plan of Treatment: Future Appointments (+ 6 months) and Future Tests (+/- 45 days) The Plan of Treatment section includes future care activities for the [facility] This section includes future appointments and future orders which are active, pending or scheduled. Future Appointments This section includes appointments that were scheduled to occur 6 months from the date of the Encounter, up to a maximum of 20 appointments. The data comes from all [place] treatment facilities. Appointment Date/Time Appointment Type Appointme nt Facility Name January 25, 2024 08:30 AM AMBULATORY - REHAB MEDICIN E [facility] [place] [facility] January 26, 2024 09:15 AM AMBULATORY - NONE [facility] [place] [facility] January 31, 2024 01:30 PM AMBULATORY - MEDICINE [facility] [place] [facility] January 31, 2024 02:45 PM AMBULATORY - MEDICINE [facility] [place] [facility] Feb 06, 2024 09:30 AM AMBULATORY - REHAB MEDICIN E [facility] [place] [facility] Feb 12, 2024 11:30 AM AMBULATORY - MEDICINE [facility] [place] [facility] Feb 15, 2024 11:00 AM AMBULATORY - MEDICINE [facility] [place] [facility] Feb 28, 2024 11:30 AM AMBULATORY - MEDICINE [facility] [place] [facility] Feb 29, 2024 09:30 AM AMBULATORY - MEDICINE [facility] [place] [facility] Mar 15, 2024 10:00 AM AMBULATORY - MEDICINE [facility] [place] [facility] Mar 21, 2024 03:00 PM AMBULATORY - MEDICINE [facility] [place] [facility] Mar 28, 2024 11:00 AM AMBULATORY - MEDICINE [facility] [place] [facility] Apr 25, 2024 03:30 PM [facility] Apr 26, 2024 09:45 AM AMBULATORY - MEDICINE [facility] [place] [facility] May 24, 2024 01:00 PM AMBULATORY - REHAB MEDICIN E [facility] [place] [facility] Jun 03, 2024 01:00 PM AMBULATORY - MEDICINE [facility] [place] [facility] Jul 08, 2024 02:00 PM AMBULATORY - REHAB MEDICIN E [facility] [place] [facility] Jul 24, 2024 10:30 AM AMBULATORY - MEDICINE [facility] [place] [facility] Jul 25, 2024 01:00 PM AMBULATORY - REHAB MEDICIN E [facility] [place] [facility] Active, Pending, and Scheduled Orders This section includes a listing of several types of active, pending, and scheduled orders, including clinic medications orders, diagnostic test orders, procedure orders and consult orders; where the start date of the order is 45 days before the date of the Encounter or 45 days after the date of theEncounter. The data comes from all [place] treatment facilities. Test Date/Time Test Type Test Details Facility Name January 24, 2024 08:53 AM Consult Order [facility]-UROLOGY Cons Forging Roll Operator's Choice [place] Lab Results: +/- 30 days of the encounter This section includes the Chemistry and Hematology Lab Results on record with [place] for the patient. Radiology Reports and Pathology Reports are provided separately, in subsequent sections. Lab Results This section contains the Chemistry/Hematology Results that were resulted 30 days before or 30 daysafter the date of the Encounter. Date/Time Source Result Type Result - Unit Interpretation Reference Range Comment January 25, 2024 02:04 PM [facility] PSA Specimen Type: SERUM No comment entered. Ordering Provider: SHIN GARRIDO Report Released Date/Time: January 25, 2024 11:12 AM Reporting Lab: [place] [facility] [place] [facility] [address] [facility] [address] Performing Lab: [place] [facility] [place] [address] [address] PSA 4.37 ng/mL H 0.00-4.00 January 25, 2024 02:04 PM [facility] [place] [facility] UREA NITROGEN Specimen Type: SERUM No comment entered. Ordering Provider: SHIN GARRIDO Report Released Date/Time: January 25, 2024 11:12 AM Reporting Lab: [place] [facility] [place] [facility] [address] [address] Performing Lab: [facility] [place] [address] [address] UREA NITROGEN 26 mg/dL H 7-25 January 25, 2024 02:04 PM [facility] CREATININE (eGFR 2020) Specimen Type: SERUM No comment entered. Ordering Provider: SHIN GARRIDO Report Released Date/Time: January 25, 2024 11:12 AM Reporting Lab: [facility] [address] [facility] [facility] [address] Performing Lab: [address] [address] CREATININE, Serum 0.63 mg/dL 0.50-1.40 eGFR(CKD-EPI 2020) >90 mL/min >60 January 24, 2024 08:06 AM [facility] COVID-19 FLU/RSV DIAGNOSTIC PANEL Specimen Type: NASOPHARYNX Comment: This test is authorized for emergency use only. False negative results may occur if virus is present at levels below the analytical limit of detection.Negati ve results do not preclude SARS-CoV-2, influenza or RSV infection and should not be used as the sole basis for treatment or other patient management decisions.Cephei d FLUVID: HCPs: https://www.fda. gov/media/086207 /download. Patients: https://www.fda. gov/media/387313 /download Ordering Provider: SHIN GARRIDO Report Released Date/Time: January 24, 2024 07:49 AM Reporting Lab: [facility] [address] [facility] [facility] [address] Performing Lab: [address] [address] COVID-19 PCR (FLUVID) NEGATIVE NEGATIVE FLU A PCR (FLUVID) NEGATIVE FLU B PCR (FLUVID) NEGATIVE RSV PCR (FLUVID) NEGATIVE January 04, 2024 02:23 PM [facility] T-SPOT TB PANEL Specimen Type: BLOOD Comment: [...] For additional information, please refer to http://education .Ygline.com/faq/FTG767 (This link is being provided for informational/ educational purposes only.) Test Performed by [employer], [facility], [address] [place] [id number] Merrick Rubin M.D., Ph.D., Director of Laboratories , [place] [id number] TEST PERFORMED AT: , Ordering Provider: SHIN GARRIDO Report Released Date/Time: Dec 28, 2023 04:19 PM Reporting Lab: [facility] [employer] [address] [facility] [address] Performing Lab: [facility] [address] [address] [id number] T (o) Negative Negative T-SPOT-PNLA 0 T-SPOT-PNLB 0 D-XSQX-BHEFT RL Passed L-IELO-EOVLE RL Passed Dec 27, 2023 02:58 PM [facility] COVID-19 FLU/RSV DIAGNOSTIC PANEL Specimen Type: NASOPHARYNX Comment: This test is authorized for emergency use only. False negative results may occur if virus is present at levels below the analytical limit of detection.Negati ve results do not preclude SARS-CoV-2, influenza or RSV infection and should not be used as the sole basis for treatment or other patient management decisions.Gus taylor FLUVID: HCPs: https://www.fda. gov/media/941737 /download. Patients: https://www.fda. gov/media/145813 /download Ordering Provider: SHIN GARRIDO Report Released Date/Time: Dec 27, 2023 02:53 PM Reporting Lab: [facility] [address] [facility] [facility] [address] Performing Lab: [facility] [address] [facility] [facility] [address] COVID-19 PCR (FLUVID) NEGATIVE NEGATIVE FLU A PCR (FLUVID) NEGATIVE FLU B PCR (FLUVID) NEGATIVE RSV PCR (FLUVID) NEGATIVE Vital Signs: All taken on the encounter date This section contains inpatient and outpatient Vital Signs collected on the date of the Encounter. Date/Time Temperature Pulse Blood Pressure Respiratory Rate SP02 Pain Height Weight Body Mass Index Source January 24, 2024 11:10 AM 98.3 94 115/75 18 96 119 18 [facility] Social History: Smoking Status (Most current) and Tobacco Use (All prior to encounter date) This section includes the most current, and the historical, smoking and tobacco- related health factors from the [place] facility where the Encounter took place. Current Smoking Status This section includes the most current smoking, or tobacco-related health factor, from the [place] facility where the Encounter took place. Date/Time Current Smoking Status Comment Facil ity Jun 13, 2023 03:15 PM VA-TOBACCO NEVER USED [facility] Tobacco Use History This section includes a history of the smoking, or tobacco-related health factors, that were collected on or before the date of the Encounter. The data comes from the [place] facility where the Encounter took place. Date/Time Smoking Status/Tobacco Use Comment F acility Jun 25, 2020 01:58 PM VA-TOBACCO NEVER USED [facility] Feb 18, 2019 01:48 PM VA-TOBACCO NEVER USED [facility] Advance Directives: All historical and current Section Date Range: From patient's date of to the date document was created. This section includes ALL of a patient's completed or amended [place] Advance and Rescinded Directives. The entries below indicate that a directive exists for the patient, but an actual copy is not included with this document. The data comes from all [place] facilities. Date Advance Directives Provider Source Oct 04, 2023 ADVANCE DIRECTIVE DISCUSSION OZZY CORDERO [place] Radiology Reports: +/- 30 days of the [...] the Encounter. The data comes from all [place] treatment facilities. Date/Time Radiology Report Provider Source January 26, 2024 11:[address] WITH CONTRAST: REBECA BLOCK [id number] M Exm Date: JANUARY 26, 2024@11:07 Req Phys: SHIN GARRIDO Loc: CWM/NO/SICK CALL PA (Req'g Loc Img Loc: NHM/CT Service: Unknown [place] [facility] [facility] , (Case [id number] COMPLETE) CT THORAX W/CONT (CT Detailed) CPT:78427 Contrast Media : Non-ionic Iodinated Reason for Study: abnormal weight loss (Case 331 COMPLETE) CT ABDOMEN AND PELVIS WITH CONTRA(CT Detailed) CPT:61788 Contrast Media : Non-ionic Iodinated Clinical History: PO/IV contrast : r/o neoplasm BUN/Cr ordered Report Status: Verified Date Reported: JANUARY 26, 2024 Date Verified: JANUARY 26, 2024 Fiber Optics Technician E-Sig:/ES/JOSE BOLES JR Report: Study: CT scan [...] Primary Interpreting Staff: JOSE BOLES JR, Radiologist (Fiber Optics Technician) /JOSE KERR JR [facility] Dec 25, 2023 11:22 AM SPINE CERVICAL, 4 OR 5 VIEWS: REBECA BLOCK [id number] -[id number] M Exm Date: DEC 25, 2023@11:22 Req Phys: VIC BE Pat Loc: CWM/SO/PACT EIGHT WH (Req'g Lo Img Loc: [facility]/BUILDING 1 Service: Unknown (Case 81 COMPLETE) SPINE CERVICAL, 4 OR 5 VIEWS (RAD Detailed) CPT:81244 Reason for Study: neck pain Clinical History: Report Status: Verified Date Reported: DEC 25, 2023 Date Verified: DEC 25, 2023 Fiber Optics Technician E-Sig: Report: SPINE CERVICAL, 4 OR 5 VIEWS HISTORY: neck pain COMPARISON: None TECHNIQUE: 4 view(s) of the cervical spine, submitted to the [place] National Teleradiology Program (NTP) for interpretation. FINDINGS: The bones are osteopenic. Cervical spine is well-visualized through the level of the C7 vertebral body. The vertebral body heights are preserved. There is moderate loss of intervertebral disc heights throughout the cervical spine most pronounced at the lower cervical spine with moderate to severe facet osteoarthrosis. There is reversal of normal cervical lordosis with trace anterolisthesis of C3 on C4 Impression: Moderate to severe degenerative disc disease and facet osteoarthrosis most pronounced at the lower cervical spine. READING PHYSICIAN: Ivan King MD -[id number] 12/25/2023 10:41 PDT [facility] National Teleradiology Program [phone] (For Medical Practitioner Use Only) Attention Patients / Veterans: If you have questions or concerns about these test results, please contact your ordering provider or primary care team. Primary Diagnostic Code: NO ALERT REQUIRED Primary Interpreting Staff: RADIOLOGY,OUTSIDE SERVICE, Staff Physician / RADIOLOGY,OUTSIDE SERVICE [facility] Encounter Notes: All associated encounter notes This section contains the clinical notes associated to the Encounter. Date/Time Encounter Note(s) Provider Source January 24, 2024 11:07 AM PRIMARY CARE OUTPA TIENT NOTE: LOCAL TITLE: AMBULATORY/OUTPATIENT CARE NOTE STANDARD TITLE: PRIMARY CARE OUTPATIENT NOTE DATE OF NOTE: JANUARY 24, 2024@11:07 ENTRY DATE: JANUARY 24, 2024@11:07:19 AUTHOR: LINA ALONSO EXP COSIGNER: URGENCY: STATUS: COMPLETED AMBULATORY/OUTPATIENT CARE NOTE Has ADDENDA F: Congestion and sore throat D&A: Frail presents to sick call for nasal and chest congestion, runny nose,states symptoms began last evening. Was also seen January 03 for the same signs and symptoms. Covid/flu/rsv swab negative today. Denies fever and or chills. States phlegm is light yellow. Lungs sounds are clear, there is alot of cerumen in both ears, will flush those for him, vet is in agreement. Right side flushed out well, TM is bright and intact, left ear is packed with cerumen, Sick call provider notified and evaluated. 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 Pt tolerated process without incident. R: Seen and evaluated by Sick Call provider MURALI Blood Pressure: 115/75 (01/24/2024 11:10) Pain: 0 (01/09/2024 13:39) Patient Height: 68 in [172.7 cm] (06/06/2022 15:00) Patient Weight: 119 lb [53.98 kg] (01/24/2024 11:10) Pulse: 94 (01/24/2024 11:10) Respiration: 18 (01/24/2024 11:10) Temperature: 98.3 F [36.8 C] (01/24/2024 11:10) /candelaria ALONSO Registered Nurse Signed: 01/24/2024 11:38 Receipt Acknowledged By: 01/24/2024 11:45 /nyasia/ SHIN SIERRA MS,MURALI PHYSICIAN MAIL COURIER 01/25/2024 ADDENDUM STATUS: COMPLETED This case was discussed at length with Dr. Be. Will alert [place] and have him present for further labs including PSA, BUN and creatinine. We will also order imaging with and without p.o./IV contrast for chest, abdomen and pelvis CT to rule out any neoplastic etiology. /candelaria SIERRA MS,MURALI PHYSICIAN MAIL COURIER Signed: 01/25/2024 11:13 LINA ALONSO [facility]
--- OUTSIDE RECORDS SUMMARY | 2024-10-20 23:24 | XMS_ITS ---
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 Date/Time Encounter Type Encounter Description Reason Provider Source January 09, 2024 01:30 PM OFF/OP EST JANUARY X REQ PHY/QHP PRIMARY CARE/MEDICINE ICD-10-CM Z71.89 Other specified counseling NIKUNJ ALONSO [facility] Encounter Template Text not used by [place] Assessments - Encounter Diagnoses This section includes the primary and secondary diagnoses documented for the Encounter. Date/Time Primary/Secondary Diagnosis Diagnosis Name Provider Source January 09, 2024 01:59 PM PRIMARY Other specified counseling [facility]J [facility] Plan of Treatment: Future Appointments (+ 6 months) and Future Tests (+/- 45 days) The Plan of Treatment section includes future care activities for the [place] from all [place] treatmentfare[place]ional medical center. This section includes future appointments and future orders which are active, pending or scheduled. Future Appointments This section includes appointments that were scheduled to occur 6 months from the date of the Encounter, up to a maximum of 20 appointments. The data comes from all [place] treatment facilities. Appointment Date/Time Appointment Type Appointme nt Facility Name January 23, 2024 01:30 PM AMBULATORY - [facility] [place] January 24, 2024 08:00 AM AMBULATORY [facility] MEDICINE [facility] [place] [facility] January 24, 2024 11:00 AM AM[facility]ULATORY [facility]IC[facility] [place] [facility] January 25, 2024 08:30 AM AMBULATORY - [facility] [place] [facility] January 26, 2024 09:15 AM AMBULATORY - NONE [facility] [place] [facility] January 31, 2024 01:30 PM AMBULATORY [facility] MEDICINE [facility] [place] [facility] January 31, 2024 02:45 PM AMBULATORY - MEDICINE [facility] [place] [facility] Feb 06, 2024 09:30 AM AMBULATORY - [facility] [place] [facility] Feb 12, 2024 11:30 AM AMBULATORY [facility] MEDIC[facility] [place] [facility] Feb 15, 2024 11:00 AM AMBULATORY - MEDICINE [facility] [place] [facility] Feb 28, 2024 11:30 AM AMBULATORY - MEDICINE [facility] [place] [facility] Feb 29, 2024 09:30 AM AMBULATORY - MEDIC[facility] [place] [facility] Mar 15, 2024 10:00 AM AMBULATORY - MEDICINE [facility] [place] [facility] Mar 21, 2024 03:00 PM AMBULATORY - MEDICINE [facility] [place] [facility] Mar 28, 2024 11:00 AM AMBULATORY - MEDICINE [facility] [place] [facility] Apr 25, 2024 03:30 PM AMBULATORY - MEDICINE [facility] Apr 26, 2024 09:45 AM AMBULATORY - MEDICINE [facility] [place] [facility] May 24, 2024 01:00 PM AMBULATORY - RE[facility] MEDICIN [facility] [place] [facility] Jun 03, 2024 01:00 PM AMBULATORY - MEDICINE [facility] [place] [facility] Jul 08, 2024 02:00 PM AMBULATORY - [facility] MEDICIN [facility] [place] [facility] Active, Pending, and Scheduled Orders [...] January 24, 2024 08:53 AM Consult Order [facility] Cons At Home 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 Ordering Provider: SHIN GARRIDO Report Released Date/Time: January 25, 2024 11:12 AM Reporting Lab: [place] [facility] [place] [address] [address] Performing Lab: [place] [facility] [place] [address] [address] PSA 4.37 ng/mL H 0.00-4.00 January 25, 2024 02:04 PM [place] [facility] [place] [facility] UREA NITROGEN Specimen Type: SERUM No comment entered. Ordering Provider: SHIN GARRIDO Report Released Date/Time: January 25, 2024 11:12 AM Reporting Lab: [place] [facility] [place] [facility] [address] [address] Performing Lab: [place] [facility] [facility] [place] [address] [address] UREA NITROGEN 26 mg/dL H 7-January 25, 2024 02:04 PM [facility] CREATININE (eGFR 2020) Specimen Type: SERUM No comment entered. Ordering Provider: SHIN GARRIDO Report Released Date/Time: January 25, 2024 11:12 AM Reporting Lab: [address] [address] Performing Lab: [address] [address] CREATININE, Serum 0.63 mg/dL 0.50-1.40 eGFR(CKD-EPI 2020) >90 mL/min >60 January 24, 2024 08:06 AM [facility] COVID-19 FLU/RSV DIAGNOSTIC PANEL Specimen Type: [...] patient management decisions.Cephei d FLUVID: HCPs: https://www.fda. gov/media/429561 /download. Patients: https://www.fda. gov/media/898699 /download Ordering Provider: SHIN GARRIDO Report Released Date/Time: January 24, 2024 07:49 AM Reporting Lab: [address] [address] Performing Lab: [address] [address] COVID-19 PCR (FLUVID) NEGATIVE NEGATIVE FLU A PCR (FLUVID) NEGATIVE FLU B PCR (FLUVID) NEGATIVE RSV PCR (FLUVID) NEGATIVE January 04, 2024 02:23 PM [facility] T-SPOT TB PANEL Specimen Type: BLOOD [...] For additional information, please refer to http://education .[employer]faq/GUX274 (This link is being provided for informational/ educational purposes only.) Test Performed by [employer], [employer] [facility], [address] [place] [address] Merrick Rubin M.D., Ph.D., Director of Laboratories , [facility] [id number] TEST PERFORMED AT: , Ordering Provider: SHIN GARRIDO Report Released Date/Time: Dec 28, 2023 04:19 PM Reporting Lab: [facility] [address] [address] Performing Lab: [facility] [address] [address] I-TRJB-AIVKR T (o) Negative Negative T-SPOT-PNLA 0 T-SPOT-PNLB 0 Z-QZEZ-HHJVY RL Passed T-HGOL-YRBMW RL Passed Dec 27, 2023 02:58 PM [facility] COVID-19 FLU/RSV DIAGNOSTIC PANEL Specimen Type: [...] patient management decisions.Gus taylor FLUVID: HCPs: https://www.fda. gov/media/526304 /download. Patients: https://www.fda. gov/media/523012 /download Ordering Provider: SHIN GARRIDO Report Released Date/Time: Dec 27, 2023 02:53 PM Reporting Lab[facility] [address] [address] Performing Lab: [facility] [address] [address] COVID-19 PCR (FLUVID) NEGATIVE NEGATIVE FLU A PCR (FLUVID) NEGATIVE FLU B PCR (FLUVID) NEGATIVE RSV PCR (FLUVID) NEGATIVE Vital Signs: All taken on the encounter date This section contains inpatient and outpatient Vital Signs collected on the date of the Encounter. Date/Time Temperature Pulse Blood Pressure Respiratory Rate SP02 Pain Height Weight Body Mass Index Source January 09, 2024 01:39 PM 97.6 84 144/74 18 99 0 [place] [facility] Social History: Smoking Status (Most current) [...] 13, 2023 03:15 PM VA-TOBACCO NEVER USED [facility] Tobacco Use History This section includes a history of the smoking, or tobacco-related health factors, that were collected on or before the date of the Encounter. The data comes from the [place] facility where the Encounter took place. Date/Time Smoking Status/Tobacco Use Comment F acility Jun 25, 2020 01:58 PM VA-TOBACCO NEVER [facility]ED [facility] Feb 18, 2019 01:48 PM [facility]TOBACCO [facility] Advance Directives: All historical and current [...] Oct 04, 2023 ADVANCE DIRECTIVE DISCUSSION OZZY CORDEROFIELD Radiology Reports: +/- 30 days of the [...] AM CHEST CT WITH CONTRAST: REBECA BLOCK [id number] -[id number] M Exm Date: JANUARY 26, 2024@11:07 Req Phys: SHIN GARRIDO Loc: CWM/NO/SICK CALL PA (Req'g Loc Img Loc: NHM/CT Service: Unknown [facility] , (Case [id number] COMPLETE) CT THORAX W/CONT (CT Detailed) CPT:03890 Contrast Media : Non-ionic Iodinated Reason for Study: abnormal weight loss (Case 331 COMPLETE) CT ABDOMEN AND PELVIS WITH CONTRA(CT Detailed) CPT:35101 Contrast Media : Non-ionic Iodinated Clinical History: PO/IV contrast : r/o neoplasm BUN/Cr ordered Report Status: Verified Date Reported: JANUARY 26, 2024 Date Verified: JANUARY 26, 2024 Evp Managing Director E-Sig:/ES/JOSE BOLES JR Report: Study: CT scan [...] Primary Interpreting Staff: JOSE BOLES JR, Radiologist (Evp Managing Director) /JOSE KERR JR [facility] Dec 25, 2023 11:22 AM SPINE CERVICAL, 4 OR 5 VIEWS: REBECA BLOCK [id number] -[id number] M Exm Date: DEC 25, 2023@11:22 Req Phys: VIC BE Pat Loc: CWM/SO/PACT EIGHT WH (Req'g Lo Img Loc: [facility]/BUILDING 1 Service: Unknown (Case [id number] COMPLETE) SPINE CERVICAL, 4 OR 5 VIEWS (RAD Detailed) CPT:95771 Reason for Study: neck pain Clinical History: Report Status: Verified Date Reported: DEC 25, 2023 Date Verified: DEC 25, 2023 Evp Managing Director E-Sig: Report: SPINE CERVICAL, 4 OR 5 [...] cervical spine. READING PHYSICIAN: Ivan King MD -[id number] 12/25/2023 10:41 PDT [facility] National Teleradiology Program [phone] (For Medical Practitioner Use Only) Attention Patients / Veterans: If you have questions or concerns about these test results, please contact your ordering provider or primary care team. Primary Diagnostic Code: NO ALERT REQUIRED Primary Interpreting Staff: RADIOLOGY,OUTSIDE SERVICE, Staff Physician / RADIOLOGY,OUTSIDE SERVICE [facility] Encounter Notes: All associated encounter notes This section contains the clinical notes associated to the Encounter. Date/Time Encounter Note(s) Provider Source January 09, 2024 01:49 PM PRIMARY CARE OUTPA TIENT NOTE: LOCAL TITLE: AMBULATORY/OUTPATIENT CARE NOTE STANDARD TITLE: PRIMARY CARE OUTPATIENT NOTE DATE OF NOTE: JANUARY 09, 2024@13:49 ENTRY DATE: JANUARY 09, 2024@13:49:13 AUTHOR: LINA ALONSO EXP COSIGNER: URGENCY: STATUS: COMPLETED AMBULATORY/OUTPATIENT CARE NOTE Has ADDENDA F: Itchy red area on back of neck D&A: Pt here for a small red, flat patchy itchy area on back of neck, pt states has had this since early December, using prescribed Selenium 2.5% lotion/shampoo twice a week. Pt states it helps with the itiching for only a few days. R: Evaluated by Sick Call Provider MURALI. Pt advised to utilize the prescribed Selenium 2.5% lotion/shampoo twice daily for a month, if no improvement to follow up with primary care provider. Blood Pressure: 144/74 (01/09/2024 13:39) Pain: 0 (01/09/2024 13:39) Patient Height: 68 in [172.7 cm] (06/06/2022 15:00) Patient Weight: 121.2 lb [54.98 kg] (01/04/2024 13:40) Pulse: 84 (01/09/2024 13:39) Respiration: 18 (01/09/2024 13:39) Temperature: 97.6 F [36.4 C] (01/09/2024 13:39) /nyasia/ LINA ALONSO Registered Nurse Signed: 01/09/2024 13:59 Receipt Acknowledged By: 01/09/2024 14:16 /nyasia/ SHIN SIERRA MS,MURALI PHYSICIAN TACK COVERER 01/09/2024 ADDENDUM STATUS: COMPLETED nummular patch of flaking skin about 1 cm in width ovoid shape with small excoriation noted. No erythema/edema or excess warmth. NTTP Tinea capitus Selenium as prescribed/directed. /nyasia/ SHIN SIERRA, MS,MURALI PHYSICIAN TACK COVERER Signed: 01/09/2024 14:17 LINA ALONSO [place] [facility] [facility]
--- OUTSIDE RECORDS SUMMARY | 2024-10-20 23:24 | XMS_ITS ---
Author Name [facility] [place] Organization [facility] [place] Address [address] [place] [address] Care Team Providers Care Art Director Name Role Phone ALISIA TREVINO Primary Care [...] Apr 04, 2011 PART A OPT ONLY [id number] LYNDON BLOCK JR PATIENT Selected Encounter This section includes the information on record at [place] for the Encounter. Date/Time Encounter Type Encounter Description Reason Provider Source Feb 06, 2024 09:30 AM COMMUNITY/WORK REINTEGRATION OCCUPATIONAL THERAPY ICD-10-CM G40.89 Other seizures PECK,RANJANA E Encounter Template Text not used by [place] Assessments - Encounter Diagnoses This section includes the primary and secondary diagnoses documented for the Encounter. Date/Time Primary/Secondary Diagnosis Diagnosis Name Provider Source Feb 06, 2024 07:01 PM PRIMARY Other seizures PECK,RANJANA [place] [facility] Plan of Treatment: Future Appointments (+ 6 months) and Future Tests (+/- 45 days) The Plan of Treatment section includes future care activities for the patient from all [place] treatmentfacilities. This section includes future appointments and future orders which are active, pending or scheduled. Future Appointments This section includes appointments that were scheduled to occur 6 months from the date of the Encounter, up to a maximum of 20 appointments. The data comes from all [place] treatment facilities. Appointment Date/Time Appointment Type Appointme nt Facility Name Feb 12, 2024 11:30 AM [facility] Feb 15, 2024 11:00 AM [facility] Feb 28, 2024 11:30 AM [facility] Feb 29, 2024 09:30 AM [facility] Mar 15, 2024 10:00 AM [facility] Mar 21, 2024 03:00 PM [facility] Mar 28, 2024 11:00 AM [facility] Apr 25, 2024 03:30 PM [facility]ORY [facility] MED[facility]INE [facility] Apr 26, 2024 09:45 AM [facility]UL[facility]ORY [facility]ICINE [facility] May 24, 2024 01:00 PM AMBULATORY - REHAB MEDICIN E [facility] Jun 03, 2024 01:00 PM [facility]UL[facility] Jul 08, 2024 02:00 PM AMBULATORY - REHAB MEDICIN E [facility] Jul 24, 2024 10:30 AM [facility]ORY [facility] MEDIC[facility] Jul 25, 2024 01:00 PM AMBULATORY - REHAB MEDICIN E [facility] Active, Pending, and Scheduled Orders This section includes a listing of several types of active, pending, and scheduled orders, including clinic medications orders, diagnostic test orders, procedure orders and consult orders; where the start date of the order is 45 days before the date of the Encounter or 45 days after the date of theEncounter. The data comes from all [place] treatment [facility]. 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 Radiology Reports and Pathology Reports are provided separately, in subsequent sections. Lab Results This section contains the Chemistry/Hematology Results that were resulted 30 days before or 30 daysafter the date of the Encounter. Date/Time Source Result Type Result - Unit Interpretation Reference Range Comment January 25, 2024 02:04 PM [facility] UREA NITROGEN Specimen Type: SERUM No comment entered. Ordering Provider: SHIN GARRIDO Report Released Date/Time: January 25, 2024 11:12 AM Reporting [facility] [address] [facility] [address] Performing Lab: [facility] [address] [address] UREA NITROGEN 26 mg/dL H 7-25 January 25, 2024 02:04 PM [facility] PSA Specimen Type: SERUM No comment entered. Ordering Provider: SHIN GARRIDO Report Released Date/Time: January 25, 2024 11:12 AM Reporting [facility] [address] [facility] [address] Performing Lab: [facility] [address] [address] PSA 4.37 ng/mL H 0.00-4.00 January 25, 2024 02:04 PM [facility] CREATININE (eGFR 2020) Specimen Type: SERUM No comment entered. Ordering Provider: SHIN GARRIDO Report Released Date/Time: January 25, 2024 11:12 AM Reporting Lab[facility] [address] [facility] [address] Performing Lab[facility] [address] [address] CREATININE, Serum 0.63 mg/dL 0.50-1.40 eGFR(CKD-EPI 2020) >90 mL/min >60 January 24, 2024 08:06 AM [facility] COVID-19 FLU/RSV DIAGNOSTIC PANEL Specimen Type: NASOPHARYNX Comment: This test is authorized for emergency use only. False negative results may occur if virus is present at levels below the analytical limit of detection.Neg ative results do not preclude SARS-CoV-2, influenza or RSV infection and should not be used as the sole basis for treatment or other patient management decisions.Cep heid FLUVID: HCPs: https://www.Sherpany.gov/media/ 027890/downlo ad. Patients: https://www.Sherpany.gov/media/ 059581/downlo ad Ordering Provider: SHIN GARRIDO Report Released Date/Time: January 24, 2024 07:49 AM Reporting Lab: [address] [address] Performing Lab: [address] [address] COVID-19 PCR (FLUVID) NEGATIVE NEGATIVE FLU A PCR (FLUVID) NEGATIVE FLU B PCR (FLUVID) NEGATIVE RSV PCR (FLUVID) NEGATIVE Social History: Smoking Status (Most current) and Tobacco Use (All prior to encounter date) This section includes the most current, and the historical, smoking and tobacco- related health factors from the [place] facility where the Encounter took place. Current Smoking Status This section includes the most current smoking, or tobacco-related health factor, from the [place] facility where the Encounter took place. Date/Time Current Smoking Status Comment Sasha dwyer Jun 13, 2023 03:15 PM VA-TOBACCO NEVER USED [facility] Tobacco Use History This section includes a history of the smoking, or tobacco-related health factors, that were collected on or before the date of the Encounter. The data comes from the [place] facility where the Encounter took place. Date/Time Smoking Status/Tobacco Use Comment F haylee Jun 25, 2020 01:58 PM VA-TOBACCO NEVER USED [facility] Feb 18, 2019 01:48 PM VA-TOBACCO NEVER USED [facility] Advance Directives: All historical and current Section Date Range: From patient's date of to the date document was created. This section includes ALL of a patient's completed or amended [place] Advance and Rescinded Directives. The entries below indicate that a directive exists for the patient, but an actual copy is not included with this document. The data comes from all [place] facilities. Date Advance Directives Provider Source Oct 04, 2023 ADVANCE DIRECTIVE DISCUSSION FELICIAJaycobNAOMI WILLETTOZZY [facility] Radiology Reports: +/- 30 days of the [...] the Encounter. The data comes from all [place] treatment facilities. Date/Time Radiology Report Provider Source January 26, 2024 11:[address] WITH CONTRAST: REBECA BLOCK [id number] -[id number] M Exm Date: JANUARY 26, 2024@11:07 Req Phys: SHIN GARRIDO Pat Loc: CWM/NO/SICK CALL PA (Req'g Loc Img Loc: NHM/CT Service: Unknown [place] [facility] , (Case [id number] COMPLETE) CT THORAX W/CONT (CT Detailed) CPT:30713 Contrast Media : Non-ionic Iodinated Reason for Study: abnormal weight loss (Case 331 COMPLETE) CT ABDOMEN AND PELVIS WITH CONTRA(CT Detailed) CPT:81030 Contrast Media : Non-ionic Iodinated Clinical History: PO/IV contrast : r/o neoplasm BUN/Cr ordered Report Status: Verified Date Reported: JANUARY 26, 2024 Date Verified: JANUARY 26, 2024 Colorectal Surgeon E-Sig:/ES/JOSE BOLES JR Report: Study: CT scan [...] Primary Interpreting Staff: JOSE BOLES JR, Radiologist (Colorectal Surgeon) /JOSE KERR JR [facility] Encounter Notes: All associated encounter notes This section contains the clinical notes associated to the Encounter. Date/Time Encounter Note(s) Provider Source Feb 06, 2024 09:30 AM OCCUPATIONAL THERA PY NOTE: LOCAL TITLE: OCCUPATIONAL THERAPY STANDARD TITLE: OCCUPATIONAL THERAPY NOTE DATE OF NOTE: FEB 06, 2024@09:30 ENTRY DATE: FEB 06, 2024@17:58:42 AUTHOR: RANJANA PECK COSIGNER: URGENCY: STATUS: COMPLETED Initial Evaluation Date: January F/U Feb Treatment time: 60 minutes Diagnosis:Other Seizures(ICD-10-CM G40.89) Provider: Dr. Gill OT Treatment Precautions: Seizures (referring diagnosis) fall risk Patient identified by full name and date of Subjective/Objective: [place] was referred by Dr. Gill for a Psychosocial Evaluation following concerns expressed by GATITO regarding his ability to live independently (hard of hearing, imbalance issues,speech difficulty). PCP requests Functional Assessment Focus: Chart reviewed 1. Mobility: 30-Second Chair Stand: 0 unable without support of UE/ support surface Timed Up and Go: 19.56 with cane * indicative fall Risk 2 AROM: WFL for basic ADLs/IADLs Strength: Basic ADLs Posture: forward head flexion, rounded shoulders R hand dominant, + gross grasp L and R + oppostition L + R 3 Cognition: Alert/Oriented x 4 date/time. difficulty with time-line recall Living alone/others. indicates that he does not believe he has ever lived alone, difficulty with time/event orientation dates/ Work/history Independent Living: does not recall Medication: has partial understanding of medication list/use Levo Thyroxine, Omeprazole, Tylenol. Problem-solving timing of laundry challenge in new setting. Other: [place] shared concerns related to living in a residential situation: timing of shower, timing of meals ( reports in past he had + AH re; someone hears yelling outside and conflicts with his wondering if he should eat or not) this has improved since receiving consistant medications for his MH/diagnosis) now stable. He has concerns regarding medical care: seeing a nurse staff due to a painful callouse on bottom of foot, how to problem-solve that solution, dental: reports oral bleeding due to partial plate having a sharp edge, he reports in past he used to take dentures out when he eats, although he now keeps them in, living in residential setting, they don't seem to fit well/loose (lost weight). Seeing a urologist, due to concerns re; stream urination. He reported not using his pain patch , Vit D is used up and Ensure used after 5 days. Vision: visit 01/31/24 Audiology: was prescribed hearing aids, not wearing aids at time of evaluation, he was able to follow evaluation process, and responded positively at conversational level in quiet setting. Mobility: ambulates with cane, although does not consistently use cane appropirately, often carrying cane, cues for increased awareness to use of cane. [x] Tinetti Balance Assessment (screening) Score: Gait: 04/15 Balance 04/19 Total Score: score less than 18 suggests Hgh Fall Risk. [x] Timed up and Go with cane: 19.56 (12+ risk for falling) [x] 30 Second Chair Stand: 0 unable without UE/support surface Safety: Currently living in [place], with support of staff, casework specialist Medications provided, DME in shower seat/bench, showers x (as able) environment living with others may impact the use of showers as reg as may at baseline, angel does use the grab bars/seat when showering. Assessment: [place] agreed to evaluation process and cooperative throughout. He worked diligently on tasks to the best of his ability. Current environmental factors appear to contribute to reduced self-care in relation to bathing/dressing/care of clothing, appears he finds timing use of shower/care of clothing difficult when living with several other people (residential care/[place]. Safety and Health: [place] shared several medical concerns during 1: 1 session, for example: painful callouse on his foot no-show to 12/11 appointment with podiatry and may need assistance to reschedule and follow through, bleeding in his mouth from a sharp peice on his denture, he previously had problem, but would take them out as a solution he can no longer use comfortably living within a residential setting. On formal testing: he answered accurately to 7/8 pictures of dangerous situations and 4/4 for appropirate action for sickness and accident. Needs assistance problem-solving knowledge of setting up for medical/dental. [place] reports previous assistance from brother with finances, he would provide the funds for brother, although brother managed the follow through. He was able to make accurate calculation on formal tests, filled out check and ledger, although problem-solving strategies and fund of knowlege to create and follow through on budgeting was challening. Summary: Reynaldo is a 79 yo male who has lived supported for most of his life, he did not recall a time when he did not live with parents and/or brother. Reynaldo was able to recognize his strengths and weakness, and agreed to considering a graded transition considering 1st living in a supportive setting as he reports living with his brother is no longer and option. Reynaldo was able to create goals on what would be important to consider in his living situaiton 1 live in a supportive settin-7 supervison/safety initially, skills training 2 along a busline 3 Guardian Alert to have access to an emergency team, by pushing the button * has a phone although he had difficulty navigating the screen if not in the typical manner the screen usually presents * assist to remove a add blocking his screen to find google to locate a number/make a call. [address]: to supervise/assist with basic needs: monitoring health needs, making and keeping appointments, nutrition, medication management, a safe environment 5 Housing consideration: accessible with Safety equipment (access, bathing, toileting). 6 Medication Managment: (forgets medication, questions if he took or not) 7 Support Mental Health symptons and monitoring as AH in past interfered with him eating meals. Recommendations: 1. Physical Therapy: Eval/Treat as indicated/results of screening 2. Reschedule Podiatry, assistance to make the appointment 3. Dental re: partial plate, sharp edge, assist to make appointment with dental/follow through transportation/making appointment 4. supervised living, accessible housing Discharge all goals met /nyasia/ RANJANA PECK OTR/L OCCUPATIONAL THERAPIST Signed: 02/06/2024 19:01 RANJANA PECK [facility]
--- OUTSIDE RECORDS SUMMARY | 2024-10-20 23:24 | XMS_ITS | Encounter Summary ---
Author Name [facility] [facility] [place] [facility] [place] [facility] [place] Address [address] [place] [address] Care Team Providers Care Ice Cream Maker Name Role Phone ALISIA TREVINO Primary Care [...] Apr 04, 2011 PART A OPT ONLY [id number] LYNDON BLOCK JR PATIENT Selected Encounter This section includes the information on record at [place] for the Encounter. Date/Time Encounter Type Encounter Description Reason Provider Source Apr 19, 2024 12:42 PM CASE MANAGEMENT [facility] - FIXTURE DESIGNER ICD-10-CM Z65.9 Problem related to unspecified psychosocial circumstances Shantelle AHUJA IHE Encounter Template Text not used by [place] Assessments - Encounter Diagnoses This section includes the primary and secondary diagnoses documented for the Encounter. Date/Time Primary/Secondary Diagnosis Diagnosis Name Provider Source Apr 19, 2024 01:10 PM PRIMARY Problem related to unspecified psychosocial circumstances Shantelle AHUJA [facility] Plan of Treatment: Future Appointments (+ 6 months) and Future Tests (+/- 45 days) The Plan of Treatment section includes future care activities for the patient from all [place] treatmentfacritical access hospitalities. This section includes future appointments and future orders which are active, pending or scheduled. Future Appointments This section includes appointments that were scheduled to occur 6 months from the date of the Encounter, up to a maximum of 20 appointments. The data comes from all [place] treatment facilities. Appointment Date/Time Appointment Type Appointme nt Facility Name Apr 25, 2024 03:30 PM AMBULATORY - MEDICINE [facility] Apr 26, 2024 09:45 AM [place] [facility] [place] [facility] May 24, 2024 01:00 PM [facility]UL[facility] [place] [facility] Jun 03, 2024 01:00 PM [place] [facility] [place] [facility] Jul 08, 2024 02:00 PM AMBULATORY - [facility]HAB MEDICIN [facility] [place] [facility] Jul 24, 2024 10:30 AM [place] [facility] [place] [facility] Jul 25, 2024 01:00 PM AMBULATORY - REHAB MEDICIN [facility] [place] [facility] Aug 19, 2024 11:00 AM AMBULATORY - REHAB MEDICIN [facility] [place] [facility] Sep 17, 2024 03:00 PM AMBULATORY - REHAB MEDICIN [facility] [place] [facility] Sep 19, 2024 03:30 PM AMBULATORY - MEDICINE [facility] Oct 08, 2024 02:00 PM AM[place] [facility] [place] [facility] Social History: Smoking Status (Most current) and Tobacco Use (All prior to encounter date) This section includes the most current, and the historical, smoking and tobacco- related health factors from the [place] facility where the Encounter took place. Current Smoking Status This section includes the most current smoking, or tobacco-related health factor, from the [place] facility where the Encounter took place. Date/Time Current Smoking Status Comment Facil ity Jun 13, 2023 03:15 PM [facility] Tobacco Use History This section includes a history of the smoking, or tobacco-related health factors, that were collected on or before the date of the Encounter. The data comes from the [place] facility where the Encounter took place. Date/Time Smoking Status/Tobacco Use Comment F acility Jun 25, 2020 01:58 PM [facility] [place] [facility] Feb 18, 2019 01:48 PM VA-TOBACCO NEVER USED [place] [facility] [place] [facility] Advance Directives: All historical and current Section Date Range: From patient's date of to the date document was created. This section includes ALL of a patient's completed or amended [facility] Advance and Rescinded Directives. The entries below indicate that a directive exists for the patient, but an actual copy is not included with this document. The data comes from all [place] facilities. Date Advance Directives Provider Source Oct [...] the Encounter. The data comes from all [place] treatment facilities. Date/Time Radiology Report Provider Source Apr 26, 2024 09:45 AM OUTSIDE BASW (RADHA FIED): ELISARADHAREBECA ROSARIO Elisa [id number] -[id number] M Ex Date: APR 26, 2024@09:45 Req Phys: VY KING Loc: CWM/NO/OTOLARYNGOLOGY (Req'g L Img Loc: OUTSIDE GENERAL RADIOLOGY Service: Unknown (Case [id number] COMPLETE) OUTSIDE [facility] (MODIFIED) (RAD Detailed) CPT:97889 Reason for Study: Patient with significant dysphagia, weight loss and CT of the ch Clinical History: Patient with significant dysphagia, weight loss and CT of the chest suggestive of microaspiration Report Status: Electronically Filed Date Reported: APR 26, 2024 Report: Community care exam; see CPRS/JLV for outside radiology report/results Impression: Community care exam; see CPRS/JLV for outside radiology report/results Primary Diagnostic Code: VERIFIED BY: / *ELECTRONICALLY FILED* [facility] [place] [facility] Encounter Notes: All associated encounter notes This section contains the clinical notes associated to the Encounter. Date/Time Encounter Note(s) Provider Source Apr 19, 2024 11:00 AM [facility] NOTE: LOCAL TITLE: [facility] IN-HOME SCREENING STANDARD TITLE: [facility] NOTE DATE OF NOTE: APR 19, 2024@11:00 ENTRY DATE: APR 19, 2024@12:45:47 AUTHOR: GISELE AHUJA COSIGNER: URGENCY: STATUS: COMPLETED [facility] In Home Screening for admission: Patient identified by verified name/address with picture ID:No AND either/or:SSN, Address/contact telephone numbers on CPRS chart verified with Patient/Family/Caregiver: Yes Any special directions getting to or into patients residence: No IN HOME SCREENING: Please check [facility] staff in home for screening: [facility] SW, [facility] RN Please check who was present during visit: Patient Other medical providers: (please list specialists) [facility] ENT Scott Luciano Pulmonary, Allergy, and Critical Care Medicine Becky ADVANCED CARE PLANNING: Does patient have a Durable Power of Renal Technician? No Does patient have an Health Care proxy/MOLST? No Would patient/family be willing to provide any copies to [facility]? No Home Evaluation: Neat: Yes Cluttered: No Hoarding: No Egress to two exits: Yes Evidence of infestations: No Animals: No(agrees to move animals to a secured area if requested): Weapons:No Weapons locked away and/or patient agrees to secure away from area where care is being provided: Evidence of substance abuse:No Geographical area appear safe:Yes (may ask Patient/Family/Caregiver if there are any issues in the neighborhood that would affect [facility] staff safety) Patient Evaluation: Homebound: No Memory issues: No(optional for SW/CLAY MODELER to perform cognitive screening) Frequent falls: No Frequent hospitalizations: No Frequent ER visits: Yes Discussion re: [facility] PCP being main primary care provider, willing to have medications prescribed by [facility] PCP patient agrees Yes Does patient manage his medications: Yes, How? takes pills out of bottles or utilizes prefilled device? Takes pills out of bottles KOTZEBUE: Yes Vision Difficulties: No Self Care deficits(dressing/bathing/ incontinence):No Food in home: Yes Able to prepare meals: Yes Karnofsky performance Scale: Normal; no complaints; no evidence of disease 100 Able to carry on normal activity; minor signs or symptoms of disease 90 Normal activity with effort; some signs or symptoms of disease 80 Cares for self; unable to carry on normal activity or do work 70 Requires occasional assistance, but is able to care for most personal needs 60 Requires considerable assistance and frequent medical care 50 Disabled; requires special care and assistance 40 Severely disabled; hospitalization indicated although not imminent 30 Very sick; hospitalization necessary; requires active support treatment 20 Moribund; fatal processes progressing rapidly 10 Score60 Equipment in home Select all that apply: Cane, Shower/tub chair Caregiver Need Evaluation: Does patient live alone: YES Is patient functioning well enough to be alone in the home? Yes How many hours is patient alone: Most of the time Does patient have a caregiver? No Other support in home: Community VNAs:(if yes describe what for/estimated length of service) Community services(Elder care or PACE type programs): Yes(if yes,describe why Elder Services are in home, and if PACE type program would not be candidate for [facility]) Transcript Clerk at his apartment building. Home Health Aides: No If Yes: VA or non VA and hours/days at home Private paid help: No If Yes hours/days at home Mental Health Evaluation: Patient sees [facility] MH providers No Last appt: Next appt: Check boxes for below: Depression symptoms PTSD Patient Input to Care Planning Process: What does the patient/caregiver see as major health problem(s) Needing hearing aides adjusted or replaced, and calluses on feet. (Going to Podiatry soon) What does patient/caregiver perceive as major need(s)? Transportation to appointments How does patient/caregiver think that [facility] can assist the patient? SERVICES NEEDED 1. Candidate accepting of [facility] Special Population PACT program Yes, in home screening to be presented at IDT meeting to determine admission. If appropriate, Pt. will be notified of admission appointment by SHANNON BUTCHER. REVIEW OF [facility] PROGRAM Discussed the following with /caregiver: - Program description and criteria Yes - Composition of team Yes - Frequency of steam service inspector visits Yes - Copays, if applicable $15 per visit No - Exempt/Non Exempt medications No Additional Notes: Uncertain if [place] is appropriate for [facility]. Will discuss at IDT next week. /nyasia/ KRISTY ARREAGA [facility] Firer [employer] Signed: 04/19/2024 13:11 Receipt Acknowledged By: 04/19/2024 16:09 /es/ UNIQUE DUGAN RN [facility] electronic engineering technician GISELE AHUJA [place] [facility]
--- OUTSIDE RECORDS SUMMARY | 2024-10-20 23:24 | XMS_ITS ---
Author Name [facility] [place] [facility] [place] [facility] [place] Address [address] [place] [address] Care Team Providers Care Senior Portfolio Manager Name Role Phone ALISIA TREVINO Primary Care [...] Apr 04, 2011 PART A OPT ONLY [id number] LYNDON BLOCK JR PATIENT Selected Encounter This section includes the information on record at [place] for the Encounter. Date/Time Encounter Type Encounter Description Reason Provider Source January 24, 2024 11:00 AM OFFICE O/P EST MOD 30 MIN PRIMARY CARE/MEDICINE ICD-10-CM J30.9 Allergic rhinitis, unspecified SHIN GARRIDO [facility] Encounter Template Text not used by [place] Assessments - Encounter Diagnoses This section includes the primary and secondary diagnoses documented for the Encounter. Date/Time Primary/Secondary Diagnosis Diagnosis Name Provider Source January 24, 2024 12:11 PM PRIMARY Allergic rhinitis, unspecified SHIN GARRIDO [facility] [place] [facility] January 24, 2024 12:11 PM SECONDARY Abnormal weight loss SHIN G[facility]IDO [facility] [place] [facility] January 24, 2024 12:11 PM SECONDARY Sheltered homelessness SHIN GARRIDO [place] [facility] [place] [facility] Plan of Treatment: Future Appointments (+ 6 months) and Future Tests (+/- 45 days) The Plan of Treatment section includes future care activities for the patient from all [place] treatmentfacilities. This section includes future appointments and future orders which are active, pending or scheduled. Future Appointments This section includes appointments that were scheduled to occur 6 months from the date of the Encounter, up to a maximum of 20 appointments. The data comes from all [place] treatment facilities. Appointment Date/Time Appointment Type Appointme nt Facility Name January 25, 2024 08:30 AM AMBULATORY - [facility] MEDICIN E [facility] [place] [facility] January 26, 2024 09:15 AM AMBULATORY - NONE [facility] [place] [facility] January 31, 2024 01:30 PM AMBULATORY - MEDICINE [facility] [place] [facility] January 31, 2024 02:45 PM AMBULATORY - MEDICINE [facility] [place] [facility] Feb 06, 2024 09:30 AM AMBULATORY - REHAB MEDICIN E [facility] [place] [facility] Feb 12, 2024 11:30 AM AMBULATORY - MEDICINE [facility] [place] [facility] Feb 15, 2024 11:00 AM AMBULATORY - MEDICINE [facility] [place] [facility] Feb 28, 2024 11:30 AM AMBULATORY - MEDICINE [facility] [place] [facility] Feb 29, 2024 09:30 AM AMBULATORY - MEDICINE [facility] [place] [facility] Mar 15, 2024 10:00 AM AMBULATORY - MEDICINE [facility] [place] [facility] Mar 21, 2024 03:00 PM AMBULATORY - MEDICINE [facility] [place] [facility] Mar 28, 2024 11:00 AM AMBULATORY - MEDICINE [facility] [place] [facility] Apr 25, 2024 03:30 PM AMBULATORY - MEDICINE [facility] Apr 26, 2024 09:45 AM AMBULATORY - MEDICINE [facility] [place] [facility] May 24, 2024 01:00 PM AMBULATORY - REHAB MEDICIN E [facility] [place] [facility] Jun 03, 2024 01:00 PM AMBULATORY - MEDICINE [facility] [place] [facility] Jul 08, 2024 02:00 PM AMBULATORY - REHAB MEDICIN E [facility] [place] [facility] Jul 24, 2024 10:30 AM AMBULATORY - MEDICINE [facility] [place] [facility] Jul 25, 2024 01:00 PM AMBULATORY - REHAB MEDICIN E [facility] [place] [facility] Active, Pending, and Scheduled Orders This section includes a listing of several types of active, pending, and scheduled orders, including clinic medications orders, diagnostic test orders, procedure orders and consult orders; where the start date of the order is 45 days before the date of the Encounter or 45 days after the date of the Encounter. The data comes from all [place] treatment facilities. Test Date/Time Test Type Test Details Facility Name January 24, 2024 08:53 AM Consult Order [facility]-UROLOGY Cons [employer] Architect[employer] [facility] [place] Lab Results: +/- 30 days of the encounter This section includes the Chemistry and Hematology Lab Results on record with [place] for the patient. Radiology Reports and Pathology Reports are provided separately, in subsequent sections. Lab Results This section contains the Chemistry/Hematology Results that were resulted 30 days before or 30 daysafter the date of the Encounter. Date/Time Source Result Type Result - Unit Interpretation Reference Range Comment January 25, 2024 02:04 PM [place] [facility] [place] [facility] UREA NITROGEN Specimen Type: SERUM No comment entered. Ordering Provider: SHIN GARRIDO Report Released Date/Time: January 25, 2024 11:12 AM Reporting Lab: [place] [facility] [place] [facility] [address] [facility] [address] Performing Lab: [place] [facility] [facility] [address] [facility] [facility] [address] UREA NITROGEN 26 mg/dL H 7-January 25, 2024 02:04 PM [facility] [place] [facility] PSA Specimen Type: SERUM No comment entered. Ordering Provider: SHIN GARRIDO Report Released Date/Time: January 25, 2024 11:12 AM Reporting Lab: [place] [facility] [place] [address] [address] Performing Lab: [facility] [address] [facility] [address] PSA 4.37 ng/mL H 0.00-4.00 January 25, 2024 02:04 PM [facility] CREATININE (eGFR 2020) Specimen Type: SERUM No comment entered. Ordering Provider: SHIN GARRIDO Report Released Date/Time: January 25, 2024 11:12 AM Reporting Lab: [facility] [address] [facility] [address] Performing Lab: [address] [address] CREATININE, Serum 0.63 mg/dL 0.50-1.40 eGFR(CKD-EPI 2020) >90 mL/min >60 January 24, 2024 08:06 AM [facility] COVID-19 FLU/RSV DIAGNOSTIC PANEL Specimen Type: [...] patient management decisions.Cephei d FLUVID: HCPs: https://www.fda. gov/media/532812 /download. Patients: https://www.fda. gov/media/924885 /download Ordering Provider: SHIN GARRIDO Report Released Date/Time: January 24, 2024 07:49 AM Reporting Lab: [facility] [address] [facility] [address] Performing Lab: [address] [address] COVID-19 PCR (FLUVID) NEGATIVE NEGATIVE FLU A PCR (FLUVID) NEGATIVE FLU B PCR (FLUVID) NEGATIVE RSV PCR (FLUVID) NEGATIVE January 04, 2024 02:23 PM [facility] T-SPOT TB PANEL Specimen Type: BLOOD [...] For additional information, please refer to http://education .Yohobuy/faq/NNH359 (This link is being provided for informational/ educational purposes only.) Test Performed by [facility], [employer] [facility], [address] [place] [address] Merrick Rubin M.D., Ph.D., Director of Laboratories , [facility] [id number] TEST PERFORMED AT: , Ordering Provider: SHIN GARRIDO Report Released Date/Time: Dec 28, 2023 04:19 PM Reporting Lab: [facility] [address] [facility] [address] Performing Lab: [facility] [address] [address] [id number] T (o) Negative Negative T-SPOT-PNLA 0 T-SPOT-PNLB 0 [id number] RL Passed [id number] RL Passed Dec 27, 2023 02:58 PM [facility] COVID-19 FLU/RSV DIAGNOSTIC PANEL Specimen Type: [...] patient management decisions.Gus taylor FLUVID: HCPs: https://www.fda. gov/media/336314 /download. Patients: https://www.fda. gov/media/126574 /download Ordering Provider: SHIN GARRIDO Report Released Date/Time: Dec 27, 2023 02:53 PM Reporting Lab: [facility] [address] [facility] [address] Performing Lab: [facility] [address] [facility] [address] COVID-19 PCR (FLUVID) NEGATIVE NEGATIVE FLU A [...] 98.3 94 115/75 18 96 119 18 [facility] Social History: Smoking Status (Most current) and Tobacco Use (All prior to encounter date) This section includes the most current, and the historical, smoking and tobacco- related health factors from the [place] facility where the Encounter took place. Current Smoking Status This section includes the most current smoking, or tobacco-related health factor, from the [place] facility where the Encounter took place. Date/Time Current Smoking Status Comment Sasha ity Jun 13, 2023 03:15 PM VA-TOBACCO NEVER USED [facility] Tobacco Use History This section includes a history of the smoking, or tobacco-related health factors, that were collected on or before the date of the Encounter. The data comes from the [place] facility where the Encounter took place. Date/Time Smoking Status/Tobacco Use Comment F acility Jun 25, 2020 01:58 PM VA-TOBACCO NEVER USED [facility] Feb 18, 2019 01:48 PM VA-TOBACCO NEVER USED [facility] Advance Directives: All historical and current Section Date Range: From patient's date of to the date document was created. This section includes ALL of a patient's completed or amended [place] Advance and Rescinded Directives. The entries below indicate that a directive exists for the patient, but an actual copy is not included with this document. The data comes from all [place] facilities. Date Advance Directives Provider Source Oct [...] the Encounter. The data comes from all [place] treatment facilities. Date/Time Radiology Report Provider Source January 26, 2024 11:[address] WITH CONTRAST: REBECA BLOCK [id number] -[id number] M Exm Date: JANUARY 26, 2024@11:07 Req Phys: SHIN GARRIDO Pat Loc: CWM/NO/SICK CALL PA (Req'g Loc Img Loc: [facility]/CT Service: Unknown [place] [facility] , (Case [id number] COMPLETE) CT THORAX W/CONT (CT Detailed) CPT:88487 Contrast Media : Non-ionic Iodinated Reason for Study: abnormal weight loss (Case 331 COMPLETE) CT ABDOMEN AND PELVIS WITH CONTRA(CT Detailed) CPT:68909 Contrast Media : Non-ionic Iodinated Clinical History: PO/IV contrast : r/o neoplasm BUN/Cr ordered Report Status: Verified Date Reported: JANUARY 26, 2024 Date Verified: JANUARY 26, 2024 Sausage Cooker E-Sig:/ES/JOSE BOLES JR Report: Study: CT scan [...] Primary Interpreting Staff: JOSE BOLES JR, Radiologist (Sausage Cooker) /JOSE KERR JR [facility] Dec 25, 2023 11:22 AM SPINE CERVICAL, 4 OR 5 VIEWS: REBECA BLOCK [id number] -[id number] M Exm Date: DEC 25, 2023@11:22 Req Phys: NOELLEKATHERINEVIC F Pat Loc: CWM/SO/PACT EIGHT WH (Req'g Lo Img Loc: [facility]/BUILDING 1 Service: Unknown (Case [id number] COMPLETE) SPINE CERVICAL, 4 OR 5 VIEWS (RAD Detailed) CPT:53791 Reason for Study: neck pain Clinical History: Report Status: Verified Date Reported: DEC 25, 2023 Date Verified: DEC 25, 2023 Sausage Cooker E-Sig: Report: SPINE CERVICAL, 4 OR 5 VIEWS HISTORY: neck pain COMPARISON: None TECHNIQUE: 4 view(s) of the cervical spine, submitted to the [place] National Teleradiology Program (NTP) for interpretation. FINDINGS: [...] cervical spine. READING PHYSICIAN: Ivan King MD -[id number] 12/25/2023 10:41 PDT [facility] National Teleradiology Program [phone] (For Medical Practitioner Use Only) Attention Patients / Veterans: If you have questions or concerns about these test results, please contact your ordering provider or primary care team. Primary Diagnostic Code: NO ALERT REQUIRED Primary Interpreting Staff: RADIOLOGY,OUTSIDE SERVICE, Staff Physician / RADIOLOGY,OUTSIDE SERVICE [facility] Encounter Notes: All associated encounter notes This section contains the clinical notes associated to the Encounter. Date/Time Encounter Note(s) Provider Source January 25, 2024 02:39 PM ADDENDUM: LOCAL TITLE: Addendum STANDARD TITLE: ADDENDUM DATE OF NOTE: JANUARY 25, 2024@14:39:23 ENTRY DATE: JANUARY 25, 2024@14:39:26 AUTHOR: BRIDGET MUSE COSIGNER: URGENCY: STATUS: COMPLETED Vet transferring to [facility]. Pls schedule with PACt 4. 02/12/24 at 11:30. Per sick call needs tameka appt. /es/ BRIDGET MUSE NP NURSE PRACTITIONER Signed: 01/25/2024 14:42 Receipt Acknowledged By: 01/25/2024 14:59 /es/ SAI CHOPRA Advanced Pile Driving Nozzleman 01/25/2024 15:14 /es/ ESHA GREEN REPAIRER VENEER SHEET EAGLE === --- Original Document --- 01/25/24 ADMINISTRATIVE NOTE: 720 schedule an TAMEKA 30-minute appointment with PACT 1 HUNTER TRAPPER at. /es/ YESSI KRISHNAMURTHY NP NURSE PRACTITIONER Signed: 01/25/2024 13:24 Receipt Acknowledged By: 01/25/2024 14:48 /es/ ORACIO HAYES ADVANCE PHOTOGRAPH MOUNTER 01/25/2024 13:25 /es/ SHIN SIERRA MS,PA-C PHYSICIAN STRUCTURES TECHNICIAN 01/25/2024 ADDENDUM STATUS: COMPLETED Scheduled. /es/ SAI CHOPRA Advanced Pile Driving Nozzleman Signed: 01/25/2024 14:59 BRIDGET MUSE [facility] [place] [facility] January 25, 2024 01:23 PM ADMINISTRATIVE NOTE: LOCAL TITLE: ADMINISTRATIVE NOTE STANDARD TITLE: ADMINISTRATIVE NOTE DATE OF NOTE: JANUARY 25, 2024@13:23 ENTRY DATE: JANUARY 25, 2024@13:23:48 AUTHOR: YESSI KRISHNAMURTHY COSIGNER: URGENCY: STATUS: COMPLETED ADMINISTRATIVE NOTE Has ADDENDA 720 schedule an TAMEKA 30-minute appointment with PACT 1 HUNTER TRAPPER at. /es/ YESSI KRISHNAMURTHY NP NURSE PRACTITIONER Signed: 01/25/2024 13:24 Receipt Acknowledged By: 01/25/2024 14:48 /es/ ORACIO HAYES ADVANCE PHOTOGRAPH MOUNTER 01/25/2024 13:25 /es/ SHIN SIERRA MS,PAJaycobC PHYSICIAN STRUCTURES TECHNICIAN 01/25/2024 ADDENDUM STATUS: COMPLETED Vet transferring to [facility]. Pls schedule with PACt 4. 02/12/24 at 11:30. Per sick call needs tameka appt. /es/ BRIDGET MUSE NP NURSE PRACTITIONER Signed: 01/25/2024 14:42 Receipt Acknowledged By: 01/25/2024 14:59 /es/ SAI CHOPRA Advanced Pile Driving Nozzleman 01/25/2024 15:14 /es/ ESHA GREEN REPAIRER VENEER SHEET EAGLE 01/25/2024 ADDENDUM STATUS: COMPLETED Scheduled. /es/ SAI CHOPRA Advanced Pile Driving Nozzleman Signed: 01/25/2024 14:59 01/26/2024 ADDENDUM STATUS: COMPLETED Discussed in person with findings on CT and follow up for same. Reports brown sputum plug last night but no other symptoms or other sputum. Will write for Z-pac to cover for possible infection. Pet scan consult requested. /nyasia/ SHIN SIERRA, MS,PAJaycobC PHYSICIAN STRUCTURES TECHNICIAN Signed: 01/26/2024 15:41 YESSI KRISHNAMURTHY [facility] January 24, 2024 11:07 AM PHYSICIAN STRUCTURES TECHNICIAN NOTE: LOCAL TITLE: PA NOTE STANDARD TITLE: PHYSICIAN STRUCTURES TECHNICIAN NOTE DATE OF NOTE: JANUARY 24, 2024@11:07 ENTRY DATE: JANUARY 24, 2024@11:08 AUTHOR: SHIN GARRIDO EXP COSIGNER: URGENCY: STATUS: COMPLETED PA NOTE Has ADDENDA SICK CALL VISIT HPI: 79-year-old male presents today with persistent undulating sore throats and congestion. He has tested several times with us in sick call and has been negative for COVID/RSV/influenza. He is currently in communal living. He was told that he probably had the fluid was sent over from [place] on. is likely moving to [place] housing and wishes to keep his current primary care provider. He states he was recently seen in the emergency room for urinary issues. This has been addressed by his primary care office yesterday. He has a urology consult that has been placed by his PACT. He has had no fever or chills. He reports runny nose, chest congestion, cough and sore throat. He does not take any allergy medications. REVIEW OF SYSTEMS: A 12-point review of systems is negative except as noted in the HPI. Active Medical Problems: Active Problem Vitamin D Deficiency ([facility] [id number]) 12/13/2023 VIC BE Cervical pain M54.2 12/13/2023 VIC BE Exposure to potentially hazardous s 11/13/2023 DIONY MCGOVERN Anemia ([facility] [id number]) D64.9 06/13/2023 VIC BE Dehydration E86.0 06/13/2023 VIC BE Foot pain M79.673 06/13/2023 VIC BE GERD - Gastro-Esophageal Reflux Dis 06/13/2023 VIC BE Benign Prostatic Hypertrophy withou 06/13/2023 VIC BE Housing adequate Z59.9 11/05/2020 MIRELA GARDNER Seborrhoeic dermatitis of scalp (SN 06/06/2022 JENN GUO Constipation K59.00 01/14/2021 ALISIA TREVINO [place] of toe L84. 02/05/2019 ALISIA TREVINO Palpitations R00.2 06/06/2019 KEIKO RIVAS Housing lack Z59.01 10/12/2023 DIAN DIAZ Ambulatory ECG abnormal R69. 03/28/2018 KEIKO RIVAS Plantar wart 799.9 11/13/2007 YESSI MORALES Residual schizophrenia in remission 02/04/2019 CHERY MA Vertigo/Dizziness 780.4 06/06/2008 YESSI MORALES Delusional disorder 297.9 06/06/2008 YESSI MORALES Low Back Pain * (ICD-9-CM 724.2) 72 06/06/2008 YESSI MORALES Left Inguinal Hernia 550.90 06/06/2008 YESSI MORALES Anemia * (ICD-9-CM 285.9) 285.9 06/06/2008 YESSI MORALES Candidiasis, Oral (ICD-9-CM 112.0) 06/06/2008 YESSI MORALES Benign enlargement of prostate (SNO 06/06/2022 JENN GUO Chronic obstructive pulmonary disea 06/06/2022 JENN GUO Gastro-esophageal reflux (SNOMED CT 06/06/2022 JENN GUO Hypothyroidism (SNOMED CT 45029743) 06/06/2022 JENN GUO Seizure (SNOMED CT 72959420) F44.5, 06/06/2022 JENN GUO Meds: Active Outpatient Medications (including Supplies): ACETAMINOPHEN 500MG TAB TAKE ONE TABLET BY MOUTH ONCE ACTIVE DAILY NEEDED FOR PAIN AZITHROMYCIN 250MG TAB TAKE TWO TABLETS BY MOUTH ONCE ACTIVE DAILY FOR 1 DAY, THEN TAKE ONE TABLET ONCE DAILY FOR 4 DAYS CAMPHOR/MENTHOL/METHYL SALICYLATE PATCH APPLY 1 PATCH ACTIVE TOPICALLY ONCE DAILY NEEDED FOR PAIN (REMOVE PATCH AFTER 8 TO 12 HOURS) CHOLECALCIF 50MCG (D3-2,000UNIT) TAB TAKE ONE TABLET BY ACTIVE MOUTH ONCE DAILY FOR VITAMIN D DEFICIENCY FOR VITAMIN SUPPLEMENTATION DM 10/GUAIFENESN 100MG/5ML (AF & SF) LIQ TAKE 5 MLS BY ACTIVE MOUTH EVERY 6 HOURS NEEDED LEVOTHYROXINE NA (SYNTHROID) 100MCG TAB TAKE ONE TABLET BY ACTIVE MOUTH EVERY DAY TAKE WITH A FULL GLASS OF WATER FOR THYROID OMEPRAZOLE 20MG EC CAP TAKE ONE CAPSULE BY MOUTH DAILY FOR ACTIVE STOMACH ACID PREDNISONE 20MG TAB TAKE TWO TABLETS BY MOUTH ONCE DAILY ACTIVE BRONCHITIS SELENIUM SULFIDE 2.5% LOTION/SHAMPOO APPLY SMALL AMOUNT ACTIVE TOPICALLY TWICE A WEEK NEEDED FOR DANDRUFF FOR 4 WEEKS THEN STOP TAMSULOSIN HCL 0.4MG CAP TAKE ONE CAPSULE BY MOUTH DAILY ACTIVE Allergies: STELAZINE, MOBAN, FLUPHENAZINE, LITHIUM FOCUSED EXAMINATION GEN: WD nontoxic in appearance cachectic with chronic ill appearance HEENT: NC/AT PERRLA/EOMI/ANICTERIC OP: PATENT, UVULA MIDLINE, injected posterior with mild cobblestoning noted, micrognathia NECK: Supple no LAD RESP: Even and regular with lungs clear to auscultation throughout Vascular: Well perfused with heart sounds regular rate and rhythm Neuro: Nonfocal DATA: COVID, influenza A and B, RSV negative MDM: Testing and exam reassuring for symptoms more consistent with allergic rhinitis. However, Reynaldo is presents with 8 pound weight loss since 1 month ago. does state he is eating and only was without eating because he missed breakfast when he went to the hospital for his urinary issue. I have placed an ear nose and throat consult due to the frequent sore throats in congestion as well as concerns for any dysphagia. Zyrtec and Flonase have been prescribed to target the allergic rhinitis aspect. I will place a nutritional consult evaluation but feel strongly the [facility] needs a further work-up to pinpoint abnormal weight loss issue. Recommend seeing PCP TAMEKA. Her schedule is full but can be seen in March as her earliest appointment allows. ASSESSMENT/PLAN Allergic Rhinitis, unspecified Sheltered homelessness Abnormal Weight Loss as aobve able to verbalize understanding of plan of care and agrees. >> MEDICATIONS Reviewed and reconciled with [facility] /es/ SHIN SIERRA MS,PA-C PHYSICIAN STRUCTURES TECHNICIAN Signed: 01/24/2024 12:12 Receipt Acknowledged By: 01/24/2024 14:09 /es/ GARY COOPERN RN-BC REGISTERED NURSE 01/31/2024 15:03 /es/ VIC BE MD PRIMARY CARE PHYSICIAN 01/24/2024 12:47 /es/ HANNAH CASTANEDA ADVANCED PHOTOGRAPH MOUNTER 01/24/2024 ADDENDUM STATUS: COMPLETED Blood Pressure: 115/75 (01/24/2024 11:10) Pain: 0 (01/09/2024 13:39) Patient Height: 68 in [172.7 cm] (06/06/2022 15:00) Patient Weight: 119 lb [53.98 kg] (01/24/2024 11:10) Pulse: 94 (01/24/2024 11:10) Respiration: 18 (01/24/2024 11:10) Temperature: 98.3 F [36.8 C] (01/24/2024 11:10) /nyasia/ SHIN SIERRA MS,MURALI PHYSICIAN STRUCTURES TECHNICIAN Signed: 01/24/2024 12:13 01/25/2024 ADDENDUM STATUS: COMPLETED This case was discussed at length with Dr. Be. Will alert [facility] and have him present for further labs including PSA, BUN and creatinine. We will also order imaging with and without p.o./IV contrast for chest, abdomen and pelvis CT to rule out any neoplastic etiology. /nyasia/ SHIN SIERRA MS,MURALI PHYSICIAN STRUCTURES TECHNICIAN Signed: 01/25/2024 11:16 01/31/2024 ADDENDUM STATUS: COMPLETED Case discussed at length with the MARIAJOSE [place] January 25, 2024. The concern was weight loss for the last few weeks reported by patient. I was informed the [facility] presented a few times in the last few weeks to sick call for sore throat, and he was sent to have an ENT evaluation. I advised Mr. Garrido to order PSA and CT chest abdomen pelvis with p.o. and IV contrast. The will need to have a BUN and creatinine checked prior to CAT scan with contrast. Mr. Mannie Garrido was in agreement to order above tests. /nyasia/ VIC BE MD PRIMARY CARE PHYSICIAN Signed: 01/31/2024 15:11 [facility]
--- OUTSIDE RECORDS SUMMARY | 2024-10-20 23:24 | XMS_ITS ---
Author Name [facility] [place] Organization [facility] [place] Address [address] [place] [id number] Care Team Providers Care Sap Mobility Architect Name Role Phone ALISIA TREVINO Primary Care [...] Apr 04, 2011 PART A OPT ONLY [id number] LYNDON BLOCK JR PATIENT Selected Encounter This section includes the information on record at [place] for the Encounter. Date/Time Encounter Type Encounter Description Reason Provider Source January 31, 2024 01:30 PM COMPRE OPH EXAM EST PT 1/> OPTOMETRY ICD-10-CM H04.123 Dry eye syndrome of bilateral lacrimal glands JEREMIAH STOUT E Encounter Template Text not used by [place] Assessments - Encounter Diagnoses This section includes the primary and secondary diagnoses documented for the Encounter. Date/Time Primary/Secondary Diagnosis Diagnosis Name Provider Source February 01, 2024 10:48 AM PRIMARY Dry eye syndrome of bilateral lacrimal glands JEREMIAH STOUT [facility] [place] [facility] February 01, 2024 10:48 AM SECONDARY Combined forms of age-related cataract, bilateral JEREMIAH STOUT [facility] [place] [facility] February 01, 2024 10:48 AM SECONDARY Presbyopia JEREMIAH STOUT [facility] [place] [facility] Plan of Treatment: Future Appointments (+ 6 months) and Future Tests (+/- 45 days) The Plan of Treatment section includes future care activities for the patient from all [place] treatmentfacilities. This section includes future appointments and future orders which are active, pending or scheduled. Future Appointments This section includes appointments that were scheduled to occur 6 months from the date of the Encounter, up to a maximum of 20 appointments. The data comes from all [place] treatment facilities. Appointment Date/Time Appointment Type Appointme nt Facility Name Feb 06, 2024 09:30 AM AMBULATORY - REHAB MEDICIN E [facility] [place] [facility] Feb 12, 2024 11:30 AM AMBULATORY - MEDICINE [facility] [place] Feb 15, 2024 11:00 AM AMBULATORY - MEDICINE [facility] [place] [facility] Feb 28, 2024 11:30 AM AMBULATORY - MEDICINE [facility] [place] Feb 29, 2024 09:30 AM AMBULATORY - MEDICINE [facility] [place] [facility] Mar 15, 2024 10:00 AM AMBULATORY - MEDICINE [facility] [place] [facility] Mar 21, 2024 03:00 PM AMBULATORY - MEDICINE [facility] [place] [facility] Mar 28, 2024 11:00 AM AMBULATORY - MEDICINE [facility] [place] [facility] Apr 25, 2024 03:30 PM AMBULATORY - MEDICINE [facility] Apr 26, 2024 09:45 AM AMBULATORY - MEDICINE [facility] [place] [facility] May 24, 2024 01:00 PM AMBULATORY - REHAB MEDICIN E [facility] [place] [facility] Jun 03, 2024 01:00 PM AMBULATORY - MEDICINE [facility] [place] [facility] Jul 08, 2024 02:00 PM AMBULATORY - REHAB MEDICIN E [facility] [place] [facility] Jul 24, 2024 10:30 AM AMBULATORY - MEDICINE [facility] [place] [facility] Jul 25, 2024 01:00 PM AMBULATORY - [facility] Active, Pending, and Scheduled Orders This section includes a listing of several types of active, pending, and scheduled orders, including clinic medications orders, diagnostic test orders, procedure orders and consult orders; where the start date of the order is 45 days before the date of the Encounter or 45 days after the date of theEncounter. The data comes from all [place] treatment facilities. Test Date/Time Test Type Test Details Facility Name January 24, 2024 08:53 AM Consult Order [facility] [employer] [facility] [place] Lab Results: +/- 30 days of the encounter This section includes the Chemistry and Hematology Lab Results on record with [place] for the patient. Radiology Reports and Pathology Reports are provided separately, in subsequent sections. Lab Results This section contains the Chemistry/Hematology Results that were resulted 30 days before or 30 daysafter the date of the Encounter. Date/Time Source Result Type Result - Unit Interpretation Reference Range Comment January 25, 2024 02:04 PM [facility] PSA Specimen Type: SERUM No comment entered. Ordering Provider: SHIN GARRIDO Report Released Date/Time: January 25, 2024 11:12 AM Reporting Lab: [facility] [place] [facility] [address] [facility] [address] Performing Lab: [facility] [place] [facility] [address] [facility] [address] PSA 4.37 ng/mL H 0.00-4.00 January 25, 2024 02:04 PM [facility] UREA NITROGEN Specimen Type: SERUM No comment entered. Ordering Provider: SHIN GARRIDO Report Released Date/Time: January 25, 2024 11:12 AM Reporting Lab: [facility] [place] [facility] [address] [facility] [address] Performing Lab: [facility] [address] [address] UREA NITROGEN 26 mg/dL H 7-25 January 25, 2024 02:04 PM [facility] CREATININE (eGFR 2020) Specimen Type: SERUM No comment entered. Ordering Provider: SHIN GARRIDO Report Released Date/Time: January 25, 2024 11:12 AM Reporting Lab: [address] [address] Performing Lab: [address] [address] CREATININE, Serum 0.63 mg/dL 0.50-1.40 eGFR(CKD-EPI 2020) >90 mL/min >60 January 24, 2024 08:06 AM [facility] COVID-19 FLU/RSV DIAGNOSTIC PANEL Specimen Type: NASOPHARYNX Comment: This test is authorized for emergency use only. False negative results may occur if virus is present at levels below the analytical limit of detection.Negati ve results do not preclude SARS-CoV-2, influenza or RSV infection and should not be used as the sole basis for treatment or other patient management decisions.Cepkatyai d FLUVID: HCPs: https://www.fda. gov/media/388905 /download. Patients: https://www.fda. gov/media/313602 /download Ordering Provider: SHIN GARRIDO Report Released Date/Time: January 24, 2024 07:49 AM Reporting Lab: [address] [address] Performing Lab: [address] [address] COVID-19 PCR (FLUVID) NEGATIVE NEGATIVE FLU A PCR (FLUVID) NEGATIVE FLU B PCR (FLUVID) NEGATIVE RSV PCR (FLUVID) NEGATIVE January 04, 2024 02:23 PM [facility] T-SPOT TB PANEL Specimen Type: BLOOD Comment: [...] For additional information, please refer to http://education .[employer]/faq/ORJ430 (This link is being provided for informational/ educational purposes only.) Test Performed by [employer], [place] [employer] [facility], [address] [place] [address] Merrick Rubin M.D., Ph.D., Director of Laboratories , [place] [id number] TEST PERFORMED AT: , Ordering Provider: SHIN GARRIDO Report Released Date/Time: Dec 28, 2023 04:19 PM Reporting Lab: [facility] [address] [facility] [address] Performing Lab: [facility] [address] [address] N-EMWN-ZLDCH T (o) Negative Negative T-SPOT-PNLA 0 T-SPOT-PNLB 0 Y-SCJU-SCICK RL Passed H-JAFQ-XMPGF RL Passed Social History: Smoking Status (Most current) and Tobacco Use (All prior to encounter date) This section includes the most current, and the historical, smoking and tobacco- related health factors from the [place] facility where the Encounter took place. Current Smoking Status This section includes the most current smoking, or tobacco-related health factor, from the [place] facility where the Encounter took place. Date/Time Current Smoking Status Comment Facil ity Jun 13, 2023 03:15 PM VA-TOBACCO NEVER USED [facility] Tobacco Use History This section includes a history of the smoking, or tobacco-related health factors, that were collected on or before the date of the Encounter. The data comes from the [place] facility where the Encounter took place. Date/Time Smoking Status/Tobacco Use Comment F acility Jun 25, 2020 01:58 PM VA-TOBACCO NEVER USED [facility] Feb 18, 2019 01:48 PM VA-TOBACCO NEVER USED [facility] Advance Directives: All historical and current Section Date Range: From patient's date of to the date document was created. This section includes ALL of a patient's completed or amended [place] Advance and Rescinded Directives. The entries below indicate that a directive exists for the patient, but an actual copy is not included with this document. The data comes from all [place] facilities. Date Advance Directives Provider Source Oct [...] the Encounter. The data comes from all [place] treatment facilities. Date/Time Radiology Report Provider Source January 26, 2024 11:[address] WITH CONTRAST: ELISARADHAREEBCA ROSARIO [id number] -[id number] M Exm Date: JANUARY 26, 2024@11:07 Req Phys: SHIN GARRIDO Pat Loc: CWM/NO/SICK CALL PA (Req'g Loc Img Loc: NHM/CT Service: Unknown [facility] , (Case [id number] COMPLETE) CT THORAX W/CONT (CT Detailed) CPT:90839 Contrast Media : Non-ionic Iodinated Reason for Study: abnormal weight loss (Case 331 COMPLETE) CT ABDOMEN AND PELVIS WITH CONTRA(CT Detailed) CPT:60039 Contrast Media : Non-ionic Iodinated Clinical History: PO/IV contrast : r/o neoplasm BUN/Cr ordered Report Status: Verified Date Reported: JANUARY 26, 2024 Date Verified: JANUARY 26, 2024 Booking Police Officer E-Sig:/ES/JOSE BOLES JR Report: Study: CT scan [...] Primary Interpreting Staff: JOSE BOLES JR, Radiologist (Booking Police Officer) /JOSE KERR JR [facility] Encounter Notes: All associated encounter notes This section contains the clinical notes associated to the Encounter. Date/Time Encounter Note(s) Provider Source January 31, 2024 01:26 PM OPTOMETRY NOTE: LOCAL TITLE: OPTOMETRY NOTE STANDARD TITLE: OPTOMETRY NOTE DATE OF NOTE: JANUARY 31, 2024@13:26 ENTRY DATE: JANUARY 31, 2024@13:26:36 AUTHOR: JOSESITO GARCIA EXP COSIGNER: JEREMIAH STOUT URGENCY: STATUS: COMPLETED OPTOMETRY NOTE Has ADDENDA Active problems - Computerized Problem List is the source for the followin. Vitamin D Deficiency ([facility] [id number]) 2. Cervical pain 3. Exposure to potentially hazardous substance 4. Anemia ([facility] [id number]) 5. Dehydration 6. Foot pain 7. GERD - Gastro-Esophageal Reflux Disease ([facility] 327948530) 8. Benign Prostatic Hypertrophy without Outflow Obstruction ([facility] 009792470) 9. Housing adequate 10. Seborrhoeic dermatitis of scalp (SNOMED CT 416614776) 11. Constipation 12. [place] of toe 13. Palpitations 14. Housing lack 15. Ambulatory ECG abnormal 16. Plantar wart 17. Residual schizophrenia in remission (SNOMED CT 18449749) 18. Vertigo/Dizziness 19. Delusional disorder 20. Low Back Pain * 21. Left Inguinal Hernia 22. Anemia * 23. Candidiasis, Oral 24. Benign enlargement of prostate (SNOMED CT 274877669) 25. Chronic obstructive pulmonary disease (SNOMED CT 96781030) 26. Gastro-esophageal reflux (SNOMED CT 308449074) 27. Hypothyroidism (SNOMED CT 18553087) 28. Seizure (SNOMED CT 92412614) Active Outpatient Medications (including Supplies): Active Outpatient Medications Status 1) ACETAMINOPHEN 500MG TAB TAKE ONE TABLET BY MOUTH ONCE ACTIVE DAILY NEEDED FOR PAIN 2) AZITHROMYCIN 250MG TAB TAKE TWO TABLETS BY MOUTH ONCE ACTIVE DAILY FOR 1 DAY, THEN TAKE ONE TABLET ONCE DAILY FOR 4 DAYS FOR INFECTION CAUSED BY BACTERIA 3) CAMPHOR/MENTHOL/METHYL SALICYLATE PATCH APPLY 1 PATCH ACTIVE TOPICALLY ONCE DAILY NEEDED FOR PAIN (REMOVE PATCH AFTER 8 TO 12 HOURS) 4) CARBAMIDE PEROXIDE 6.5% OTIC SOLN INSTILL 5 TO 10 ACTIVE DROPS INTO THE AFFECTED EAR(S) ONCE DAILY FOR EAR WAX BLOCKAGE 5) CETIRIZINE HCL 10MG TAB TAKE ONE TABLET BY MOUTH ONCE ACTIVE DAILY FOR ALLERGIES 6) CHOLECALCIF 50MCG (D3-2,000UNIT) TAB TAKE ONE TABLET ACTIVE BY MOUTH ONCE DAILY FOR VITAMIN D DEFICIENCY FOR VITAMIN SUPPLEMENTATION 7) DM 10/GUAIFENESN 100MG/5ML (AF & SF) LIQ TAKE 5 MLS ACTIVE BY MOUTH EVERY 6 HOURS NEEDED 8) FLUTICASONE PROP 50MCG 120D NASAL INHL INSTILL 1 ACTIVE SPRAY INTO EACH NOSTRIL TWICE DAILY FOR NASAL IRRITATION/INFLAMMATION 9) LEVOTHYROXINE NA (SYNTHROID) 100MCG TAB TAKE ONE ACTIVE TABLET BY MOUTH EVERY DAY TAKE WITH A FULL GLASS OF WATER FOR THYROID 10) OMEPRAZOLE 20MG EC CAP TAKE ONE CAPSULE BY MOUTH ACTIVE DAILY FOR STOMACH ACID 11) SELENIUM SULFIDE 2.5% LOTION/SHAMPOO APPLY SMALL ACTIVE AMOUNT TOPICALLY TWICE A WEEK NEEDED FOR DANDRUFF FOR 4 WEEKS THEN STOP 12) TAMSULOSIN HCL 0.4MG CAP TAKE ONE CAPSULE BY MOUTH ACTIVE DAILY Allergies: STELAZINE, MOBAN, FLUPHENAZINE, LITHIUM All medications including those prescribed by outside VA's, community providers, and all OTC meds were reviewed and reconciled with patient to the best of their abilities. This 79 year old MALE is seen today for RIAN MONK 01/2023 Chief Complaint: -Pt reports gradual blurry vision OU with glasses -Pt reports intermittent whitish foggy vision OU - pt denies using any ATs -Pt states that he has recently had a CT scan d/t persistent cough that showed nodules of the lung and will be having a PET scan in the near future OHx: -Cataracts OU -RE OU -H/o poor dilation (-) Pain: (-) [place]: (-) Diplopia: (-) Flashes: (+) Floaters: occassional, longstanding (-) Amaurosis Fugax/Tia's: (-) Eye Injury: (-) Eye Surgery: (-) TBI FOHx: (-) Glaucoma/ARMD/Blindness (-) Smoker/Length of Time/PPD: VITALS (most recent, as listed in the electronic record): B/P: 115/75 (01/24/2024 11:10) Pulse: 94 (01/24/2024 11:10) Temperature: 98.3 F [36.8 C] (01/24/2024 11:10) Weight: 119 lb [53.98 kg] (01/24/2024 11:10) Height: 68 in [172.7 cm] (06/06/2022 15:00) BMI: BMI: 18.1 PERTINENT LABS: HEMOGLOBIN A1C TREND Collection DT Spec HGBA1c 10/05/2023 10:50 BLOOD 5.3 06/06/2023 13:43 BLOOD 5.3 05/30/2022 10:50 BLOOD 5.1 01/14/2022 09:22 BLOOD 5.4 11/02/2018 11:59 BLOOD 5.3 Current Rx with last BCVA: OD: +1.25 -1.75 x100 20/20-2 OS: pl sph 20/15- Add: +2.50 DVA ( )sc ( x )cc - in phoropter OD: 20/30 OS: 20/20 Pupils: miotic pupils, minimally reactive (-)APD EOMs: SAFE OU, (-)Pain/Diplopia CVF (facial, peripheral): FTFC OU Subjective Refraction: OD: +1.75 -1.75 x100 20/20-2 OS: pl sph 20/20 Add: +2.50 -ATs/blinking improved response on refraction All the above performed by student, reviewed by attending Anterior segment: Performed by student, repeated by attending * Lids: thickened lid margins OU Conj: white and quiet OU - multiple clear conjunctival cysts palpebral conj LL OS Cornea: few spots negative staining OD, clear and intact OS AC: deep and quiet OU Iris: flat and clear OU Lens: 1+ NS OU Tonometry: Performed by student, reviewed by attending * OD 17 mmHg OS 17 mmHg Time: 1:50pm Fundus exam: Dilated: 1:52pm - poor dilation Dilating Drops: 1GTT 1 % Tropicamide OU & 1GTT 2.5% Phenylephrine OU (Pt. ed. on side effects, dilation warning given and verbal consent obtained) Patient advised not to drive if they feel they have any symptoms which could affect their ability to drive safely. Patient advised not to engage in any activities which could put themselves or others at risk if they feel they have any symptoms which could affect their ability to perform those activities safely. Performed by student, repeated by attending * Vit: PVD OU C/D: 0.50 OD, 0.50 OS Macula: flat and clear OU to extent seen with poor dilation PPole: clear OU to extent seen with poor dilation A/V: 2/3 Vessels: normal caliber OU to extent seen with poor dilation Periph: flat and intact (-)holes, tears, detachments 360 OU to extent seen with poor dilation Assessment/Plan: 1. Dry eye OU - Pt ed on today's findings and symptoms likely d/t dry eye. AT's and blinking improved response on refraction. Ed on use of warm compress 5 mins/day and AT's up to 4x per day. - Monitor annually. 2.Combined Cataracts OU - Not visually significant - Pt ed on today's findings and importance of UV protection. - Monitor annually. - Pt taking Tamsulosin for BPH, consider when/if referring for CE in the future d/t risk of floppy iris syndrome 3. Hyperopia and Presbyopia OU - New spec rx written for FTW. Ordered 1 PAL per pt request - Monitor annually Return to Clinic 1 yr or sooner prn. Medication Reconciliation: Outpatient: Has the patient been taking medications as documented in the EMLR? YES: The patient has been taking medications as documented in the EMLR. Essential Medication List for Review used to complete this medication reconciliation. INCLUDED IN THIS LIST: Alphabetical list of active outpatient prescriptions dispensed from this VA (local) and dispensed from another [place] or [facility] facility (remote) as well as inpatient orders [...] whether with a VA or non-VA provider. Medication List: JLV Link Data on this list may not be complete. Please check JLV. Allergies/ADRs (Tool #5) FACILITY ALLERGY/ADR -------- [facility] FLUPHENAZINE [facility] MOBAN [facility]AZINE [facility] FLUPHENAZINE [facility] MOLINDONE [facility] TRIFLUOPERAZINE Med. Reconciliation (Tool #1) INCLUDED IN THIS LIST: Alphabetical list of active outpatient prescriptions dispensed from this DE (local) and dispensed from another DE or [facility] facility (remote) as well as inpatient orders (local pending and active), local clinic medications, locally documented non-VA medications, and local prescriptions that have or been discontinued in the past 90 days. Non-VA Meds Last Documented On: May 14, 2007 NOTE The display of VA prescriptions dispensed from another DE or [facility] facility (remote) is limited to active outpatient prescription entries matched to National Drug File at the originating site and may not include some items such as investigational drugs, compounds, etc. NOT INCLUDED IN THIS LIST: Medications self-entered by the patient into personal health records (i.e. OpenDNS) are NOT included in this list. Non-VA medications documented outside this DE, remote inpatient orders (regardless of status) and remote clinic medications are NOT included in this list. The patient and provider must always discuss medications the patient is taking, regardless of where the medication was dispensed or obtained. OUTPT ACETAMINOPHEN 500MG TAB (Status = Active) TAKE ONE TABLET BY MOUTH ONCE DAILY NEEDED FOR PAIN Rx# [id number] Last Released: 12/26/23 Qty/Days Supply: 100/ Rx Expiration Date: 12/13/24 Refills Remainin Indication: FOR PAIN OUTPT AZITHROMYCIN 250MG TAB (Status = Discontinued) TAKE TWO TABLETS BY MOUTH ONCE DAILY FOR 1 DAY, THEN TAKE ONE TABLET ONCE DAILY FOR 4 DAYS Rx# [id number] Last Released: 12/28/23 Qty/Days Supply: 02/06 Rx Expiration Date: 01/27/24 Refills Remainin Indication: FOR INFECTION CAUSED BY BACTERIA OUTPT AZITHROMYCIN 250MG TAB (Status = Active) TAKE TWO TABLETS BY MOUTH ONCE DAILY FOR 1 DAY, THEN TAKE ONE TABLET ONCE DAILY FOR 4 DAYS FOR INFECTION CAUSED BY BACTERIA Rx# [id number] Last Released: 01/26/24 Qty/Days Supply: 02/06 Rx Expiration Date: 02/25/24 Refills Remainin Indication: FOR INFECTION CAUSED BY BACTERIA OUTPT CAMPHOR/MENTHOL/METHYL SALICYLATE PATCH (Status = Active) APPLY 1 PATCH TOPICALLY ONCE DAILY NEEDED FOR PAIN (REMOVE PATCH AFTER 8 TO 12 HOURS) Rx# [id number] Last Released: 01/05/24 Qty/Days Supply: 120/90 Rx Expiration Date: 01/01/25 Refills Remainin Indication: FOR PAIN OUTPT CARBAMIDE PEROXIDE 6.5% OTIC SOLN (Status = Active) INSTILL 5 TO 10 DROPS INTO THE AFFECTED EAR(S) ONCE DAILY FOR EAR WAX BLOCKAGE Rx# [id number] Last Released: 01/24/24 Qty/Days Supply: Rx Expiration Date: 01/24/25 Refills Remainin Indication: FOR EAR WAX BLOCKAGE OUTPT CETIRIZINE HCL 10MG TAB (Status = Active) TAKE ONE TABLET BY MOUTH ONCE DAILY FOR ALLERGIES Rx# [id number] Last Released: 01/24/24 Qty/Days Supply: 90 Rx Expiration Date: 04/23/24 Refills Remainin Indication: FOR ALLERGIES OUTPT CHOLECALCIF 50MCG (D3-2,000UNIT) TAB (Status = Active) TAKE ONE TABLET BY MOUTH ONCE DAILY FOR VITAMIN D DEFICIENCY FOR VITAMIN SUPPLEMENTATION Rx# [id number] Last Released: 07/07/23 Qty/Days Supply: 100/90 Rx Expiration Date: 07/04/24 Refills Remainin Indication: FOR VITAMIN D DEFICIENCY OUTPT DM 10/GUAIFENESN 100MG/5ML (AF & SF) LIQ (Status = Active) TAKE 5 MLS BY MOUTH EVERY 6 HOURS NEEDED Rx# [id number] Last Released: 01/31/24 Qty/Days Supply: 240/10 Rx Expiration Date: 12/28/24 Refills Remainin Indication: FOR COUGH OUTPT FLUTICASONE PROP 50MCG 120D NASAL INHL (Status = Active) INSTILL 1 SPRAY INTO EACH NOSTRIL TWICE DAILY FOR NASAL IRRITATION/INFLAMMATION Rx# [id number] Last Released: 01/24/24 Qty/Days Supply: 10/03 Rx Expiration Date: 02/23/24 Refills Remainin Indication: FOR NASAL IRRITATION/INFLAMMATION OUTPT LEVOTHYROXINE NA (SYNTHROID) 100MCG TAB (Status = Active) TAKE ONE TABLET BY MOUTH EVERY DAY TAKE WITH A FULL GLASS OF WATER FOR THYROID Rx# [id number] Last Released: 01/25/24 Qty/Days Supply: Rx Expiration Date: 06/13/24 Refills Remainin OUTPT OMEPRAZOLE 20MG EC CAP (Status = Active) TAKE ONE CAPSULE BY MOUTH DAILY FOR STOMACH ACID Rx# [id number] Last Released: 01/15/24 Qty/Days Supply: Rx Expiration Date: 06/13/24 Refills Remainin OUTPT PREDNISONE 20MG TAB (Status = ) TAKE TWO TABLETS BY MOUTH ONCE DAILY BRONCHITIS Rx# [id number] Last Released: 12/28/23 Qty/Days Supply: 06/08 Rx Expiration Date: 01/27/24 Refills Remainin Indication: BRONCHITIS OUTPT SELENIUM SULFIDE 2.5% LOTION/SHAMPOO (Status = Active) APPLY SMALL AMOUNT TOPICALLY TWICE A WEEK NEEDED FOR DANDRUFF FOR 4 WEEKS THEN STOP Rx# [id number] Last Released: 12/13/23 Qty/Days Supply: Rx Expiration Date: 07/05/24 Refills Remainin Indication: FOR DANDRUFF OUTPT TAMSULOSIN HCL 0.4MG CAP (Status = Active) TAKE ONE CAPSULE BY MOUTH DAILY Rx# [id number] Last Released: 06/14/23 Qty/Days Supply: Rx Expiration Date: 06/09/24 Refills Remainin SUPPLIES PHARMACY TERMS AND POSSIBLE PATIENT ACTIONS INPT = DE inpatient order IV = DE intravenous medication OUTPT = DE outpatient prescription PHARMACY POSSIBLE PATIENT TERMS EXPLANATION ACTIONS -------- ------ ACTIVE A prescription that can be If you have refills, filled at the local [place] pharmacy. you may request a refill of this prescription from your VA pharmacy. CLINIC A medication you received during If you have questions a visit to a DE clinic or about this medication emergency department. contact your DE healthcare team. DISCONTINUED A prescription your provider has Contact your DE stopped. It is no longer healthcare team if you available to be sent to you or need more of this picked up at the DE pharmacy medication. window. A prescription which is too old Contact your VA to fill. This does not refer to healthcare team if you the expiration date of the need more of this medication in the container. medication. NON-VA A medication that came from If this medication someplace other than a VA information is pharmacy. This may be a incorrect or out of prescription from either the VA date, please tell your or non VA providers that was VA healthcare team. filled outside the VA. Or, it may be an dqxm-dhz-itxgiqe (OTC), herbal, dietary supplements or sample medication. ON HOLD An active prescription that will Contact your VA not be filled until pharmacy pharmacy when you need resolves the issue. more of this medication. PARKED An active prescription that will Contact your VA not be filled until the patient pharmacy when you need requests it. this medication. PENDING This prescription order has been If you have been sent to the pharmacy for review instructed to start and is not ready yet. this medication now, contact your VA pharmacy. SUSPENDED An active prescription that is Contact your DE not scheduled to be filled yet. pharmacy if you need You should receive it before this medication now. you run out. (x) Printed Medication Reconciliation List Offered and Declined by [place] () Medication Reconciliation List Printed for at Exam () Optometry HT Please Print and Mail Copy of Medication Reconciliation List () AMSA Please Print and Mail Copy of Medication Reconciliation List /nyasia/ JOSESITO GARCIA OPTOMETRY STUDENT Signed: 02/02/2024 09:45 /nyasia/ JEREMIAH STOUT OD WEAPONS OFFICER Cosigned: 02/02/2024 09:58 02/02/2024 ADDENDUM STATUS: COMPLETED The optometry medical intern participated in this exam, I saw this in conjunction with the optometry student. The entrance tests and refraction were performed by the student and reviewed by me. I personally met with the patient, confirmed the hisory, complaints and the student's findings, and performed slit lamp and fundus evaluation as indicated. I reviewed and agree with the stated findings, assessment and plan. I have added/edited the documentation to reflect my exam findings and changes to the assessment and plan. Ed re today's findings. [place] repeated back the plan and education. All reminders completed by attending and documented in student note. /nyasia/ JEREMIAH STOUT OD WEAPONS OFFICER Signed: 02/02/2024 09:58 JOSESITO GARCIA [facility]
--- OUTSIDE RECORDS SUMMARY | 2024-10-20 23:24 | XMS_ITS ---
Author Name [facility] [place] [facility] Address [address] [place] [address] Care Team Providers Care Tapper Supervisor Name Role Phone ALISIA TREVINO Primary Care [...] Apr 04, 2011 PART A OPT ONLY [id number] LYNDON BLOCK JR PATIENT Selected Encounter This section includes the information on record at [place] for the Encounter. Date/Time Encounter Type Encounter Description Reason Provider Source Oct 08, 2024 02:00 PM HEARING AID REPAIR/MODIFYIN G AUDIOLOGY ICD-10-CM Z46.1 Encounter for fitting and adjustment of hearing aid JOSE DIAZ Zoila Encounter Template Text not used by [place] Assessments - Encounter Diagnoses This section includes the primary and secondary diagnoses documented for the Encounter. Date/Time Primary/Secondary Diagnosis Diagnosis Name Provider Source Oct 08, 2024 02:39 PM PRIMARY Encounter for fitting and adjustment of hearing aid [facility] [place] [facility] Oct 08, 2024 02:39 PM SECONDARY Sensorineural hearing loss, bilateral [facility]IER DIAZ [facility] Plan of Treatment: Future Appointments (+ 6 months) and Future Tests (+/- 45 days) The Plan of Treatment section includes future care activities for the patient [facility] [place] [facility] This section includes future appointments and future orders which are active, pending or scheduled. Future Appointments This section includes appointments that were scheduled to occur 6 months from the date of the Encounter, up to a maximum of 20 appointments. The data comes from all [place] treatment facilities. Appointment Date/Time Appointment Type Appointme nt Facility Name Feb 03, 2025 10:30 AM AMBULATORY - MEDICINE [facility] Feb 05, 2025 01:30 PM AMBULATORY MEDICINE [facility] Social History: Smoking Status (Most current) and Tobacco Use (All prior to encounter date) This section includes the most current, and the historical, smoking and tobacco- related health factors from the [place] facility where the Encounter took place. Current Smoking Status This section includes the most current smoking, or tobacco-related health factor, from the [place] facility where the Encounter took place. Date/Time Current Smoking Status Comment Facil ity Jun 13, 2023 03:15 PM VA-TOBACCO NEVER USED [facility] Tobacco Use History This section includes a history of the smoking, or tobacco-related health factors, that were collected on or before the date of the Encounter. The data comes from the [place] facility where the Encounter took place. Date/Time Smoking Status/Tobacco Use Comment F acility Jun 25, 2020 01:58 PM [facility]ACCO [facility] Feb 18, 2019 01:48 PM VA-TOBACCO NEVER USED [facility] Advance Directives: All historical and current Section Date Range: From patient's date of to the date document was created. This section includes ALL of a patient's completed or amended [place] Advance and Rescinded Directives. The entries below indicate that a directive exists for the patient, but an actual copy is not included with this document. The data comes from all [place] facilities. Date Advance Directives Provider Source Oct 04, 2023 ADVANCE DIRECTIVE DISCUSSION RADHA WILLETT,OZZY WORTHY Encounter Notes: All associated encounter notes This section contains the clinical notes associated to the Encounter. Date/Time Encounter Note(s) Provider Source Oct 08, 2024 07:50 AM AUDIOLOGY E & M NOTE: LOCAL TITLE: AUDIOLOGY CLINIC STANDARD TITLE: AUDIOLOGY E & M NOTE DATE OF NOTE: OCT 08, 2024@07:50 ENTRY DATE: OCT 08, 2024@07:50:37 AUTHOR: JOSE DIAZ COSIGNER: URGENCY: STATUS: COMPLETED Dx CODE: Z46.1- Encounter for Fitting/Programming Hearing Aid(s); H90.3- Sensorineural Hearing Loss, Bilateral APPOINTMENT TYPE: Hearing Aid Fitting SUBJECTIVE (S): The patient was seen for hearing aid fitting and issuance. He had previously been evaluated and found to exhibit significant hearing loss for which amplification was recommended. He is a previous user of [employer] AI ITC Rs (SN:[id number]/ [id number]). He reports he dropped the hearing aids and would like them cleaned and checked. Both hearing aids were cleaned and found to be in good working order. Wax guards replaced. How does the patient best learn? Verbal instruction, demonstration Does the patient have any cultural and druze beliefs, emotional barriers, physical or cognitive limitations, and communication barriers which may impact his ability to learn? No Desire and motivation to learn? Good OBJECTIVE (O): Physical fit of hearing aids was good. Patient verified comfort. Verification of an appropriate acoustic response was obtained using Real Ear measurements (speech mapping) and NAL-NL2 targets. The patient reported good subjective benefit as well. 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 Hearing aids were found to be meeting targets adequately and MPO was not exceeding estimated UCL. Settings stored in OLIVE. ASSESSMENT (A): The following devices were issued: Make: Hortensia Model: ColorChip AI ITC Rechargeable Right Serial Number: [id number] Left Serial Number: [id number] Battery size: RECHARGEABLE Warranty ends: 10/20/27 Trial Period ends: 03/19/25 Wax guards: Hear Clear Program(s): Automatic Button(s): Short press= disabled Long press= disabled Fitting Formula: NAL-NL2 Counseling was completed throughout todays appointment using a standardized curriculum that includes but is not limited to; realistic expectations with amplification in adverse listening environments, acclimatization to own voice and environmental sounds (following real-ear measurements), the importance of consistent use of amplification, proper insertion/removal, care and maintenance (including wax guards/domes if applicable), signal and alerts of devices, and charging/batteries. The was provided the opportunity to practice in office and reports confidence/understanding in all items reviewed. Time Spent= 20 minutes The patient was informed of and signed/agreed to [place] policy on hearing aid issuance: Yes Users are responsible for the maintenance and security of their devices. Determination of need to replace a hearing aid is made by the [place] fall intern. Hearing aids will not be replaced in cases of neglect, abuse, or excessive loss. Items issued are for personal use only. Prognosis for successful hearing aid use is good. PLAN (P): 1. Follow-up for programming/adjustments as needed. 2. The International Outcome Inventory-Hearing Aids (IOI-[place]) will be mailed to the in four weeks. He was asked to complete and mail back to clinic after completion. Patient Education Education provided on the following topics: Hearing aid use, care, maintenance Education provided to: P Response to Education: JAGRUTI DUVALL, PI Mustafa Patient P Family F Significant Other SO Verbalizes Understanding VU Returns Demonstration RD Performs Independently PI Lacks Comprehension LC Refused Education RE Not Applicable NA /nyasia/ JOSE DIAZ STAFF UNDERWRITING SALES REPRESENTATIVE Signed: 10/08/2024 14:40 JOSE DIAZ [place] [facility]
--- OUTSIDE RECORDS SUMMARY | 2024-10-20 23:25 | XMS_ITS ---
Author Name [facility] [facility] [place] Organization [facility] [place] [facility] Address [address] [place] [address] Care Team Providers Care Register Repairer Name Role Phone ALISIA TREVINO Primary Care [...] Apr 04, 2011 PART A OPT ONLY [id number] LYNDON BLOCK JR PATIENT Selected Encounter This section includes the information on record at [place] for the Encounter. Date/Time Encounter Type Encounter Description Reason Provider Source Dec 28, 2023 02:00 PM OFF/OP EST JANUARY X REQ PHY/QHP PRIMARY CARE/MEDICINE ICD-10-CM Z71.89 Other specified counseling NIKUNJ ALONSO [facility] Encounter Template Text not used by [place] Assessments - Encounter Diagnoses This section includes the primary and secondary diagnoses documented for the Encounter. Date/Time Primary/Secondary Diagnosis Diagnosis Name Provider Source Dec 28, 2023 02:16 PM PRIMARY Other specified counseling [facility]J [facility]SO [facility] [place] [facility] Plan of Treatment: Future Appointments (+ 6 months) and Future Tests (+/- 45 days) The Plan of Treatment section includes future care activities for the patient [facility] all [place] [facility] This section includes future appointments and future orders which are active, pending or scheduled. Future Appointments This section includes appointments that were scheduled to occur 6 months from the date of the Encounter, up to a maximum of 20 appointments. The data comes from all [place] treatment facilities. Appointment Date/Time Appointment Type Appointme nt Facility Name January 04, 2024 01:30 PM AMBULATORY - MEDICINE [facility] [place] [facility] January 04, 2024 02:00 PM AMBULATORY - MEDICINE [facility] [place] [facility] January 09, 2024 01:30 PM AMBULATORY - MEDICINE [facility] [place] [facility] January 23, 2024 01:30 PM AMBULATORY - [place]IC[place] January 24, 2024 08:00 AM AMBULATORY - MEDICINE [facility] [place] [facility] January 24, 2024 11:00 AM AMBULATORY - MEDICINE [facility] [place] [facility] January 25, 2024 08:30 AM AMBULATORY - REHAB MEDICIN E [facility] [place] [facility] January 26, 2024 09:15 AM AMBULATORY - NONE [facility] [place] [facility] January 31, 2024 01:30 PM AMBULATORY - MEDICINE [facility] [place] [facility] January 31, 2024 02:45 PM AMBULATORY - MEDICINE [facility] [place] [facility] Feb 06, 2024 09:30 AM AMBULATORY - REHAB MEDICIN E [facility] [place] [facility] Feb 12, 2024 11:30 AM AMBULATORY - MEDICINE [facility] [place] [facility] Feb 15, 2024 11:00 AM AMBULATORY - MEDICINE [facility] [place] [facility] Feb 28, 2024 11:30 AM AMBULATORY - MEDICINE [facility] [place] [facility] Feb 29, 2024 09:30 AM AMBULATORY - MEDICINE [facility] [place] [facility] Mar 15, 2024 10:00 AM AMBULATORY - MEDICINE [facility] [place] [facility] Mar 21, 2024 03:00 PM AMBULATORY - MEDICINE [facility] [place] [facility] Mar 28, 2024 11:00 AM AMBULATORY - MEDICINE [place] [facility] [place] [facility] Apr 25, 2024 03:30 PM AMBULATORY - MEDICINE [facility] Apr 26, 2024 09:45 AM AMBULATORY - MEDICINE [place] [facility] [place] [facility] Active, Pending, and Scheduled Orders This section includes a listing of several types of active, pending, and scheduled orders, including clinic medications orders, diagnostic test orders, procedure orders and consult orders; where the start date of the order is 45 days before the date of the Encounter or 45 days after the date of theEncounter. The data comes from all [place] treatment facilities. Test Date/Time Test Type Test Details Facility Name January 24, 2024 08:53 AM Consult Order [facility] Cons Rubber Block Layer's Choice [place] Lab Results: +/- 30 days of the encounter This section includes the Chemistry and Hematology Lab Results on record with [place] for the patient. Radiology Reports and Pathology Reports are provided separately, in subsequent sections. Lab Results This section contains the Chemistry/Hematology Results that were resulted 30 days before or 30 daysafter the date of the Encounter. Date/Time Source Result Type Result - Unit Interpretation Reference Range Comment January 25, 2024 02:[address] [facility] PSA Specimen Type: SERUM No comment entered. Ordering Provider: SHIN GARRIDO Report Released Date/Time: January 25, 2024 11:12 AM Reporting Lab[facility] [address] [facility] [address] Performing Lab: [facility] [address] PSA 4.37 ng/mL H 0.00-4.00 January 25, 2024 02:04 PM [facility] CREATININE (eGFR 2020) Specimen Type: SERUM No comment entered. Ordering Provider: SHIN GARRIDO Report Released Date/Time: January 25, 2024 11:12 AM Reporting Lab: [facility] [address] [facility] [address] Performing Lab: [facility] [address] CREATININE, Serum 0.63 mg/dL 0.50-1.40 eGFR(CKD-EPI 2020) >90 mL/min >60 January 25, 2024 02:[address] [facility] UREA NITROGEN Specimen Type: SERUM No comment entered. Ordering Provider: SHIN GARRIDO Report Released Date/Time: January 25, 2024 11:12 AM Reporting Lab: [address] [address] Performing Lab: [address] [address] UREA NITROGEN 26 mg/dL H 7-January 24, 2024 08:[address] [facility] COVID-19 FLU/RSV DIAGNOSTIC PANEL Specimen Type: [...] patient management decisions.Cephei d FLUVID: HCPs: https://www.fda. gov/media/596445 /download. Patients: https://www.fda. gov/media/398383 /download Ordering Provider: SHIN GARRIDO Report Released Date/Time: January 24, 2024 07:49 AM Reporting Lab: [address] [address] Performing Lab: [address] [address] COVID-19 PCR (FLUVID) NEGATIVE NEGATIVE FLU A PCR (FLUVID) NEGATIVE FLU B PCR (FLUVID) NEGATIVE RSV PCR (FLUVID) NEGATIVE January 04, 2024 02:[address] [facility] T-SPOT TB PANEL Specimen Type: BLOOD [...] test. For additional information, please refer to http://Snapverse .Leap Commerce/faq/QNY384 (This link is being provided for informational/ educational purposes only.) Test Performed by [employer], [employer] [facility], [address] [place] [address] Merrick Rubin M.D., Ph.D., Director of Laboratories , [place] [id number] TEST PERFORMED AT: , Ordering Provider: SHIN GARRIDO Report Released Date/Time: Dec 28, 2023 04:19 PM Reporting Lab: [facility] Cloud [facility] [address] [facility] [address] Performing Lab: [facility] Cloud [facility] [address] [address] F-ZWSG-DVIYC T (o) Negative Negative T-SPOT-PNLA 0 T-SPOT-PNLB 0 K-OQZY-GDHXP RL Passed O-NGAP-UZNQU RL Passed Dec 27, 2023 02:[address] [facility] COVID-19 FLU/RSV DIAGNOSTIC PANEL Specimen Type: [...] patient management decisions.Gus taylor FLUVID: HCPs: https://www.fda. gov/media/346438 /download. Patients: https://www.fda. gov/media/414817 /download Ordering Provider: SHIN GARRIDO Report Released Date/Time: Dec 27, 2023 02:53 PM Reporting Lab: [facility] [address] [facility] [address] Performing Lab: [facility] [address] [facility] [address] COVID-19 PCR (FLUVID) NEGATIVE NEGATIVE FLU A PCR (FLUVID) NEGATIVE FLU B PCR (FLUVID) NEGATIVE RSV PCR (FLUVID) NEGATIVE Vital Signs: All taken on the encounter date This section contains inpatient and outpatient Vital Signs collected on the date of the Encounter. Date/Time Temperature Pulse Blood Pressure Respiratory Rate SP02 Pain Height Weight Body Mass Index Source Dec 28, 2023 02:04 PM 99.6 93 127/73 20 99 0 127.1 19 [facility] Social History: Smoking Status (Most current) and Tobacco Use (All prior to encounter date) This section includes the most current, and the historical, smoking and tobacco- related health factors from the [place] facility where the Encounter took place. Current Smoking Status This section includes the most current smoking, or tobacco-related health factor, from the [place] facility where the Encounter took place. Date/Time Current Smoking Status Comment Facil ity Jun 13, 2023 03:15 PM VA-TOBACCO NEVER USED [facility] Tobacco Use History This section includes a history of the smoking, or tobacco-related health factors, that were collected on or before the date of the Encounter. The data comes from the [place] facility where the Encounter took place. Date/Time Smoking Status/Tobacco Use Comment F acility Jun 25, 2020 01:58 PM VA-TOBACCO [facility] [place] Feb 18, 2019 01:48 PM VA-TOBACCO NEVER USED [facility] Advance Directives: All historical and current Section Date Range: From patient's date of to the date document was created. This section includes ALL of a patient's completed or amended [place] Advance and Rescinded Directives. The entries below indicate that a directive exists for the patient, but an actual copy is not included with this document. The data comes from all [place] facilities. Date Advance Directives Provider Source Oct [...] the Encounter. The data comes from all [place] treatment facilities. Date/Time Radiology Report Provider Source January 26, 2024 11:[address] WITH CONTRAST: REBECA BLOCK [id number] -[id number] M Exm Date: JANUARY 26, 2024@11:07 Req Phys: SHIN GARRIDO Loc: CWM/NO/SICK CALL PA (Req'g Loc Img Loc: NHM/CT Service: Unknown [facility] , (Case [id number] COMPLETE) CT THORAX W/CONT (CT Detailed) CPT:65222 Contrast Media : Non-ionic Iodinated Reason for Study: abnormal weight loss (Case 331 COMPLETE) CT ABDOMEN AND PELVIS WITH CONTRA(CT Detailed) CPT:47562 Contrast Media : Non-ionic Iodinated Clinical History: PO/IV contrast : r/o neoplasm BUN/Cr ordered Report Status: Verified Date Reported: JANUARY 26, 2024 Date Verified: JANUARY 26, 2024 Cap Lining Machine Operator E-Sig:/ES/JOSE BOLES JR Report: Study: CT scan [...] Primary Interpreting Staff: JOSE BOLES JR, Radiologist (Cap Lining Machine Operator) /JOSE KERR JR [facility] Dec 25, 2023 11:22 AM SPINE CERVICAL, 4 OR 5 VIEWS: REBECA BLOCK [id number] -[id number] M Exm Date: DEC 25, 2023@11:22 Req Phys: VIC BE Pat Loc: CWM/SO/PACT EIGHT WH (Req'g Lo Img Loc: [facility] 1 Service: Unknown (Case [id number] COMPLETE) SPINE CERVICAL, 4 OR 5 VIEWS (RAD Detailed) CPT:83208 Reason for Study: neck pain Clinical History: Report Status: Verified Date Reported: DEC 25, 2023 Date Verified: DEC 25, 2023 Cap Lining Machine Operator E-Sig: Report: SPINE CERVICAL, 4 OR 5 VIEWS HISTORY: neck pain COMPARISON: None TECHNIQUE: 4 view(s) of the cervical spine, submitted to the [place] National Teleradiology Program (NTP) for interpretation. FINDINGS: [...] cervical spine. READING PHYSICIAN: Ivan King MD -[id number] 12/25/2023 10:41 PDT [facility] National Teleradiology Program [phone] (For Medical Practitioner Use Only) Attention Patients / Veterans: If you have questions or concerns about these test results, please contact your ordering provider or primary care team. Primary Diagnostic Code: NO ALERT REQUIRED Primary Interpreting Staff: RADIOLOGY,OUTSIDE SERVICE, Staff Physician / RADIOLOGY,OUTSIDE SERVICE [facility] Encounter Notes: All associated encounter notes This section contains the clinical notes associated to the Encounter. Date/Time Encounter Note(s) Provider Source Dec 28, 2023 02:05 PM PRIMARY CARE OUTPA TIENT NOTE: LOCAL TITLE: AMBULATORY/OUTPATIENT CARE NOTE STANDARD TITLE: PRIMARY CARE OUTPATIENT NOTE DATE OF NOTE: DEC 28, 2023@14:05 ENTRY DATE: DEC 28, 2023@14:05:39 AUTHOR: LINA ALONSO EXP COSIGNER: URGENCY: STATUS: COMPLETED AMBULATORY/OUTPATIENT CARE NOTE Has ADDENDA F: Persistent Cough D&A: Pt presented yesterday late in the day with complaints of persistent dry cough, covid swab was done yesterday and all resulted as negative. Call was made to metal building assembler at [address] to notify patient of results early this morning. Pt returned today to clinic to be seen. Pt states for 7 days has had dry cough, this morning states coughed up light brown phlegm, pt states is not a smoker and has no history of nicotine use. Complains of general malaise, denies fever/chills although states, I am cold all the time . Denies headache,he does complain of ocassional runny nose. Denies sweating then chills. Pt is eating and drinking, urinating and moving bowels ok, last BM was this morning.Denies post nasal drip. Pt does have a low grade temp of 99.6 via tympanic. There are no adventitious lung sounds. R: To be assessed by Sick Call Provider MURALI Blood Pressure: 127/73 (12/28/2023 14:04) Pain: 0 (12/28/2023 14:04) Patient Height: 68 in [172.7 cm] (06/06/2022 15:00) Patient Weight: 127.1 lb [57.65 kg] (12/28/2023 14:04) Pulse: 93 (12/28/2023 14:04) Respiration: 20 (12/28/2023 14:04) Temperature: 99.6 F [37.6 C] (12/28/2023 14:04) The following VA and Non-VA medications were reconciled with the patient: Active Outpatient Medications (including Supplies): ACETAMINOPHEN 500MG TAB TAKE ONE TABLET BY MOUTH ONCE ACTIVE DAILY NEEDED FOR PAIN CHOLECALCIF 50MCG (D3-2,000UNIT) TAB TAKE ONE TABLET BY ACTIVE MOUTH ONCE DAILY FOR VITAMIN D DEFICIENCY FOR VITAMIN SUPPLEMENTATION LEVOTHYROXINE NA (SYNTHROID) 100MCG TAB TAKE ONE TABLET BY ACTIVE MOUTH EVERY DAY TAKE WITH A FULL GLASS OF WATER FOR THYROID OMEPRAZOLE 20MG EC CAP TAKE ONE CAPSULE BY MOUTH DAILY FOR ACTIVE STOMACH ACID SELENIUM SULFIDE 2.5% LOTION/SHAMPOO APPLY SMALL AMOUNT ACTIVE TOPICALLY TWICE A WEEK NEEDED FOR DANDRUFF FOR 4 WEEKS THEN STOP TAMSULOSIN HCL 0.4MG CAP TAKE ONE CAPSULE BY MOUTH DAILY ACTIVE /nyasia/ LINA ALONSO Registered Nurse Signed: 12/28/2023 14:18 Receipt Acknowledged By: 12/28/2023 14:37 /nyasia/ SHIN SIERRA MS,PA-C PHYSICIAN OUTSOLE BEVELER 12/28/2023 ADDENDUM STATUS: COMPLETED Pt has PMHX of COPD. /candelaria ALONSO Registered Nurse Signed: 12/28/2023 14:34 LINA ALONSO [place] [facility] [place] [facility]
--- OUTSIDE RECORDS SUMMARY | 2024-10-20 23:25 | XMS_ITS ---
Author Name [facility] [place] Organization [place] Address [address] [place] [address] Care Team Providers Care Sewer And Cutter Finger Buff Material Name Role Phone ALISIA TREVINO Primary Care [...] Apr 04, 2011 PART A OPT ONLY [id number] LYNDON BLOCK JR PATIENT Selected Encounter This section includes the information on record at [place] for the Encounter. Date/Time Encounter Type Encounter Description Reason Provider Source Jul 25, 2024 01:00 PM HEARING AID FITTING/CHECKIN G AUDIOLOGY ICD-10-CM Z46.1 Encounter for fitting and adjustment of hearing aid SHABBIR JULIEN IHE Encounter Template Text not used by [place] Assessments - Encounter Diagnoses This section includes the primary and secondary diagnoses documented for the Encounter. Date/Time Primary/Secondary Diagnosis Diagnosis Name Provider Source Jul 25, 2024 01:08 PM PRIMARY Encounter for fitting and adjustment of hearing aid SHABBIR JULIEN [place] [facility] [place] [facility] Jul 25, 2024 01:08 PM SECONDARY Sensorineural hearing loss, bilateral SHABBIR JULIEN [facility] Plan of Treatment: Future Appointments (+ 6 months) and Future Tests (+/- 45 days) The Plan of Treatment section includes future care activities for the patient from all [place] [facility]. This section includes future appointments and future orders which are active, pending or scheduled. Future Appointments This section includes appointments that were scheduled to occur 6 months from the date of the Encounter, up to a maximum of 20 appointments. The data comes from all [place] treatment facilities. Appointment Date/Time Appointment Type Appointme nt Facility Name Aug 19, 2024 11:00 AM [facility] Sep 17, 2024 03:00 PM AMBUL[facility] Sep 19, 2024 03:30 PM AMBULATORY - MEDICINE [facility] Oct 08, 2024 02:00 PM AMBULATORY - RE[facility]AB MEDIC[facility] E [facility] Social History: Smoking Status (Most current) and Tobacco Use (All prior to encounter date) This section includes the most current, and the historical, smoking and tobacco- related health factors from the [facility] facility where the Encounter took place. Current [...] 25, 2020 01:58 PM VA-TO[facility]ACCO [facility] Feb 18, 2019 01:48 PM VA-TOBACCO NEVER USED [facility] Advance Directives: All historical and current [...] Source Oct 04, 2023 ADVANCE DIRECTIVE DISCUSSION JOANNAMICHAEL MAYELALenore,OZZY SAINIFIELD Encounter Notes: All associated encounter notes This section contains the clinical notes associated to the Encounter. Date/Time Encounter Note(s) Provider Source Jul 25, 2024 11:58 AM AUDIOLOGY E & M NO TE: LOCAL TITLE: AUDIOLOGY CLINIC STANDARD TITLE: AUDIOLOGY E & M NOTE DATE OF NOTE: JUL 25, 2024@11:58 ENTRY DATE: JUL 25, 2024@11:58:20 AUTHOR: SHABBIR JULIEN EXP COSIGNER: URGENCY: STATUS: COMPLETED has a history of bilateral sensorineural hearing loss. He was seen on 07-25-24 for hearing aid follow up / cloth picker of repaired Hortensia Evolv ITC Rs. Hearing aids were connected to [place] and a firmware update was completed. Settings were restored. The VC wheel was disabled- pushbuttons are active for right raise/left lower. Provided hearing aid orientation, with a review of insertion, charging, cleaning/troubleshooting, and wearing schedule. [place] will contact the clinic as needed. /nyasia/ Aaron ROSAS, CCC-A STAFF ENTERTAINMENT CENTRE MANAGER Signed: 07/25/2024 13:25 SHABBIR JULIEN [place] [facility]
--- OUTSIDE RECORDS SUMMARY | 2024-10-20 23:25 | XMS_ITS | Encounter Summary ---
Author Name [facility] [place] Address [address] [place] [address] Care Team Providers Care Police Commissioner Name Role Phone ALISIA TREVINO Primary Care [...] Apr 04, 2011 PART A OPT ONLY [id number] LYNDON BLOCK JR PATIENT Selected Encounter This section includes the information on record at [place] for the Encounter. Date/Time Encounter Type Encounter Description Reason Provider Source Sep 17, 2024 03:00 PM HEARING AID XM&SLCTN BINAURL AUDIOLOGY ICD-10-CM H90.3 Sensorineural hearing loss, bilateral XAVIER DIAZ Zoila Encounter Template Text not used by CT Assessments - Encounter Diagnoses This section includes the primary and secondary diagnoses documented for the Encounter. Date/Time Primary/Secondary Diagnosis Diagnosis Name Provider Source Sep 17, 2024 03:49 PM PRIMARY Sensorineural hearing loss, bilateral XAVIER DIAZ Y WADE CT [facility] [place] [facility] Sep 17, 2024 03:49 PM SECONDARY Encounter for fitting and adjustment of hearing aid MITCHELL DIAZMIR Ghosh [facility] Plan of Treatment: Future Appointments (+ 6 months) and Future Tests (+/- 45 days) The Plan of Treatment section includes future care activities for the patient from all [place] [facility]. This section includes future appointments and future orders which are active, pending or scheduled. Future Appointments This section includes appointments that were scheduled to occur 6 months from the date of the Encounter, up to a maximum of 20 appointments. The data comes from all [place] treatment facilities. Appointment Date/Time Appointment Type Appointme nt Facility Name Sep 19, 2024 03:30 PM AMBULATORY - MEDICINE [place] [place] Oct 08, 2024 02:00 PM AMBULATORY - REHAB MEDICIN E [facility] Feb 03, 2025 10:30 AM AMBULATORY - MEDICINE CT C [facility]L [place] [facility] Feb 05, 2025 01:30 PM [facility] Social History: Smoking Status (Most current) and Tobacco Use (All prior to encounter date) This section includes the most current, and the historical, smoking and tobacco- related health factors from the [facility] facility where the Encounter took place. Current Smoking Status This section includes the most current smoking, or tobacco-related health factor, from the [place] facility where the Encounter took place. Date/Time Current Smoking Status Comment Sasha ity Jun 13, 2023 03:15 PM [facility] Tobacco Use History This section includes a history of the smoking, or tobacco-related health factors, that were collected on or before the date of the Encounter. The data comes from the [place] facility where the Encounter took place. Date/Time Smoking Status/Tobacco Use Comment F acility Jun 25, 2020 01:58 PM VA-TOBACCO NEVER USED [facility] Feb 18, 2019 01:48 PM [facility]BACCO [facility] Advance Directives: All historical and current Section Date Range: From patient's date of to the date document was created. This section includes ALL of a patient's completed or amended VA Advance and Rescinded Directives. The entries below indicate that a directive exists for the patient, but an actual copy is not included with this document. The data comes from all [place] facilities. Date Advance Directives Provider Source Oct 04, 2023 ADVANCE DIRECTIVE DISCUSSION RADHA WILLETT,OZZY WORTHY Encounter Notes: All associated encounter notes This section contains the clinical notes associated to the Encounter. Date/Time Encounter Note(s) Provider Source Sep 17, 2024 07:37 AM AUDIOLOGY E & M NOTE: LOCAL TITLE: AUDIOLOGY CLINIC STANDARD TITLE: AUDIOLOGY E & M NOTE DATE OF NOTE: SEP 17, 2024@07:37 ENTRY DATE: SEP 17, 2024@07:37:37 AUTHOR: JOSE DIAZ COSIGNER: URGENCY: STATUS: COMPLETED AUDIOLOGY CLINIC Has ADDENDA Dx CODE: H90.3-Sensorineural Hearing Loss, Bilateral APPOINTMENT TYPE: Hearing Re-Evaluation and Hearing Aid Selection BACKGROUND/HISTORY: was seen 09/17/24 for a hearing re-evaluation and hearing aid selection appointment, unaccompanied. He was fit with DEQ Evolv AI ITC Rs on 12/14/21. These hearing aids were recently sent out for remake. He is eligible for new hearing aids through the [facility] due to the age of the current devices. His last hearing evaluation was on 11/05/21. He reports longstanding fluctuating bilateral tinnitus and denies concerns of vertigo. ASSESMENT: Results of today's testing are as follows: Otoscopy was WNL bilaterally. Normal tympanograms obtained bilaterally. Pure tone audiometric testing under headphones in the right ear revealed hearing WNL 500-1500Hz with a mild sloping to severe SNHL. Testing in the left ear revealed hearing WNL at 250 Hz with a mild sloping to profound SNHL. Stable asymmetry, left ear poorer 500-4000Hz. SRT WORD RECOGNITION (Recorded [place] CNC 1/2 Word List) Right 30dBHL 88% @ 70dBHL/50dBm Left 45dBHL 36% @ 85dBHL/65dBm, 28% @ 90dBHL/70dBm No significant changes were found when compared to the 11/05/21 audiological evaluation. HEARING AID PROGRAMMING/COUNSELING: Hearing aid user settings restored and feedback network project manager completed. Time was spent counseling on correct insertion and removal of aids. He was able to successfully insert the hearing aids with practice. HEARING AID SELECTION: Different hearing aid options were discussed. Although initially had difficulty inserting his previous ITCs, it was agreed to remain with this style aid as thinks a BTE/AKIKO style would be more difficult and uncomfortable. Hortensia MAN ITC Rs were selected and ordered in [place]. Recent impressions on file used. EDUCATION/COUNSELING: The patient was counseled re: today's hearing test results. He demonstrated satisfactory understanding of the education and plan, and was given the opportunity to ask questions throughout today's visit. PLAN: 1. RTC on 10/08/24 at 2PM for 60 minute hearing aid fitting appointment. 2. Hearing re-evaluation in 3-5 years, or sooner if change in hearing occurs. * Patient Education Education provided on the following topics: Hearing test results Education provided to: P Response to Education: VU Mustafa Patient P Family F Significant Other SO Verbalizes Understanding VU Returns Demonstration RD Performs Independently PI Lacks Comprehension LC Refused Education RE Not Applicable NA * Suicide Screen: C-SSRS Screening [place]-Suicide Severity Rating Scale (C-SSRS Screener) 1. Over the past month, have you wished you were or wished you could go to sleep and not wake up? No 2. Over the past month, have you had any actual thoughts of killing yourself? No 3. Over the past month, have you been thinking about how you might do this? Response not required due to responses to other questions. 4. Over the past month, have you had these thoughts and had some intention of acting on them? Response not required due to responses to other questions. 5. Over the past month, have you started to work out or worked out the details of how to kill yourself? Response not required due to responses to other questions. 6. If yes, at any time in the past month did you intend to carry out this plan? Response not required due to responses to other questions. 7. In your lifetime, have you ever done anything, started to do anything, or prepared to do anything to end your life (for example, collected pills, obtained a gun, gave away valuables, went to the roof but didn't jump)? No 8. If YES, was this within the past 3 months? Response not required due to responses to other questions. /nyasia/ JOSE DAIZ STAFF ACCOUNT PLANNER Signed: 09/17/2024 15:49 Receipt Acknowledged By: 09/18/2024 07:16 /nyasia/ GISELE MAXWELL LEAD YARD ASSOCIATE 09/26/2024 ADDENDUM STATUS: COMPLETED Hearing aids received and certified, upcoming appointment scheduled on 10/08/2024. /nyasia/ NEAL HERRERA [facility]iology [facility] Immersion Metalcleaner Signed: 09/26/2024 14:50 JOSE DIAZ CNTL TRN [facility]
--- OUTSIDE RECORDS SUMMARY | 2024-10-20 23:25 | XMS_ITS ---
Author Name [facility] [place] Organization [facility] [place] Address [address] [place] [address] Care Team Providers Care Iron Cutter Name Role Phone ALISIA TREVINO Primary Care [...] Apr 04, 2011 PART A OPT ONLY [id number] LYNDON BLOCK JR PATIENT Selected Encounter This section includes the information on record at [place] for the Encounter. Date/Time Encounter Type Encounter Description Reason Provider Source May 24, 2024 01:00 PM REMOVE IMPACTED EAR WAX UNI AUDIOLOGY ICD-10-CM Z46.1 Encounter for fitting and adjustment of hearing aid JOSE DIAZ Zoila Encounter Template Text not used by [place] Assessments - Encounter Diagnoses This section includes the primary and secondary diagnoses documented for the Encounter. Date/Time Primary/Secondary Diagnosis Diagnosis Name Provider Source May 24, 2024 02:02 PM PRIMARY Encounter for fitting and adjustment of hearing aid XAVIER DIAZ [facility] May 24, 2024 02:02 PM SECONDARY Sensorineural hearing loss, bilateral [facility]AVIER DIAZ [facility] Plan of Treatment: Future Appointments (+ 6 months) and Future Tests (+/- 45 days) The Plan of Treatment section includes future care activities for the patient from all [place] [facility]. This section includes future appointments and future orders which are active, pending or scheduled. Future Appointments This section includes appointments that were scheduled to occur 6 months from the date of the Encounter, up to a maximum of 20 appointments. The data comes from all [place] treatment facilities. Appointment Date/Time Appointment Type Appointme nt Facility Name Jun 03, 2024 01:00 PM [facility] Jul 08, 2024 02:00 PM AMBULATORY - [facility]AB [facility]IC[facility] Jul 24, 2024 10:30 AM AMBULATORY - [facility]ICINE [facility] Jul 25, 2024 01:00 PM AMBULATORY - RE[facility]AB [facility]IC[facility] Aug 19, 2024 11:00 AM AMBULATORY - [facility]AB [facility]IC[facility] Sep 17, 2024 03:00 PM AMBULATORY - [facility]AB [facility] [place] [facility] Sep 19, 2024 03:30 PM AMBULATORY - MEDICINE [facility] Oct 08, 2024 02:00 PM [facility] Social History: Smoking Status (Most current) and Tobacco Use (All prior to encounter date) This section includes the most current, and the historical, smoking and tobacco- related health factors from the [place] facility where the Encounter took place. Current Smoking Status This section includes the most current smoking, or tobacco-related health factor, from the [place] facility where the Encounter took place. Date/Time Current Smoking Status Comment Facil ity Jun 13, 2023 03:15 PM VA-TOBACCO NEVER USED [facility] Tobacco Use History This section includes a history of the smoking, or tobacco-related health factors, that were collected on or before the date of the Encounter. The data comes from the [place] facility where the Encounter took place. Date/Time Smoking Status/Tobacco Use Comment F acility Jun 25, 2020 01:58 PM VA-TOBACCO [facility] USED [facility] [place] [facility] Feb 18, 2019 01:48 PM VA-TOBACCO NEVER USED [facility] [place] [facility] Advance Directives: All historical and current Section Date Range: From patient's date of to the date document was created. This section includes ALL of a patient's completed or amended [place] Advance and Rescinded Directives. The entries below indicate that a directive exists for the patient, but an actual copy is not included with this document. The data comes from all [place] facilities. Date Advance Directives Provider Source Oct [...] the Encounter. The data comes from all [place] treatment facilities. Date/Time Radiology Report Provider Source Apr 26, 2024 09:45 AM [facility] ELISARADHAREBECA ROSARIO Elisa [id number] -1945 M [facility] Date: APR 26, 2024@09:45 Req Phys: VY KING Loc: CWM/NO/OTOLARYNGOLOGY (Req'g L Img Loc: OUTSIDE GENERAL RADIOLOGY Service: Unknown (Case [id number] COMPLETE) OUTSIDE [facility] (MODIFIED) (RAD Detailed) CPT:53064 Reason for Study: Patient with significant dysphagia, [...] Diagnostic Code: VERIFIED BY: / *ELECTRONICALLY FILED* [place] [facility] Encounter Notes: All associated encounter notes This section contains the clinical notes associated to the Encounter. Date/Time Encounter Note(s) Provider Source May 24, 2024 07:36 AM AUDIOLOGY E & M NOTE: LOCAL TITLE: AUDIOLOGY CLINIC STANDARD TITLE: AUDIOLOGY E & M NOTE DATE OF NOTE: MAY 24, 2024@07:36 ENTRY DATE: MAY 24, 2024@07:36:45 AUTHOR: JOSE DIAZ COSIGNER: URGENCY: STATUS: COMPLETED AUDIOLOGY CLINIC Has ADDENDA Dx CODE: Z46.1-Encounter for Fitting/Adjusting Hearing Aid(s); H90.3- Sensorineural Hearing Loss, Bilateral APPOINTMENT TYPE: Hearing Aid Programming HISTORY/BACKGROUND: The patient was seen for a hearing aid follow-up appointment, unaccompanied. He was fit with [employer] Evolv AI ITC Rs on 12/14/21. He reports today he has not worn the hearing aids in over 8 months and would like them checked. Otoscopy revealed partially occluding cerumen in the left ear, right ear was clear. Cerumen was successfully removed using a lighted curette and with 's verbal permission. HEARING AID CHECK: The hearing aids were cleaned and checked. Wax guards and microphone covers replaced. Both hearing aids were despite being charged in clinic for ~10 minutes. Explained the hearing aids were likely over charged and will need to be sent out for repair. PLAN/RECOMMENDATION(S): 1. Once repaired hearing aids are received can be scheduled for a HAC with an director geophysical laboratory to mushroom picker devices. * Patient Education Education provided on the following topics: Hearing aids Education provided to: P Response to Education: VU Mustafa Patient P Family F Significant Other SO Verbalizes Understanding VU Returns Demonstration RD Performs Independently PI Lacks Comprehension LC Refused Education RE Not Applicable NA * /nyasia/ JOSE DIAZ STAFF MAINTENANCE ANALYST Signed: 05/24/2024 14:03 06/04/2024 ADDENDUM STATUS: COMPLETED L&R hearing aids received and certified, voicemail box is full. Need to schedule 30 min HAC with an Director [place] for mushroom picker. Hearing aids placed in black cabinet. /nyasia/ NEAL HERRERA [facility]iology [facility] Driveway Attendant Signed: 06/04/2024 11:46 07/11/2024 ADDENDUM STATUS: COMPLETED Appointment scheduled on 07/25/2024. Hearing aids placed in barney cabinet. /nyasia/ NEAL HERRERA [facility]iology [facility] Driveway Attendant Signed: 07/11/2024 13:34 JOSE DIAZ CNTRL W[facility]N [facility]
--- OUTSIDE RECORDS SUMMARY | 2024-10-20 23:25 | XMS_ITS | Encounter Summary ---
Author Name [facility] [place] Organization [facility] [place] Address [address] [place] [address] Care Team Providers Care Data Review Specialist Name Role Phone ALISIA TREVINO Primary Care [...] Apr 04, 2011 PART A OPT ONLY [id number] LYNDON BLOCK JR PATIENT Selected Encounter This section includes the information on record at [place] for the Encounter. Date/Time Encounter Type Encounter Description Reason Pro vider Source Apr 03, 2024 05:48 PM Outpatient Encounter ADMIN PAT ACTIVTIES (MASNONCT) IHE Encounter Template Text not used by [place] Plan of Treatment: Future Appointments (+ 6 months) and Future Tests (+/- 45 days) The Plan of Treatment section includes future care activities for the patient from all [place] treatmentfacilities. This section includes future appointments and future orders which are active, pending or scheduled. Future Appointments This section includes appointments that were scheduled to occur 6 months from the date of the Encounter, up to a maximum of 20 appointments. The data comes from all [place] treatment facilities. Appointment Date/Time Appointment Type Appointme nt Facility Name Apr 25, 2024 03:30 PM [facility] Apr 26, 2024 09:45 AM [facility] [place] [facility] May 24, 2024 01:00 PM AMBULATORY - REHAB MEDICIN [facility] [place] [facility] Jun 03, 2024 01:00 PM AMBULATORY - MEDICINE [facility] [place] [facility] Jul 08, 2024 02:00 PM AMBULATORY - REHAB MEDICIN E [facility] [place] [facility] Jul 24, 2024 10:30 AM AM[facility]ULATORY [facility] MEDICINE [facility] [place] [facility] Jul 25, 2024 01:00 PM AMBULATORY - REHAB MEDICIN E [facility] [place] [facility] Aug 19, 2024 11:00 AM AMBULATORY - REHAB MEDICIN E [facility] [place] [facility] Sep 17, 2024 03:00 PM AMBULATORY - REHAB MEDICIN E [facility] [place] [facility] Sep 19, 2024 03:30 PM [facility] Social History: Smoking Status (Most current) and Tobacco Use (All prior to encounter date) This section includes the most current, and the historical, smoking and tobacco- related health factors from the [facility] facility where the Encounter took place. Current Smoking Status This section includes the most current smoking, or tobacco-related health factor, from the [place] facility where the Encounter took place. Date/Time Current Smoking Status Comment Facil ity Jun 13, 2023 03:15 PM [facility]CO [facility] Tobacco Use History This section includes a history of the smoking, or tobacco-related health factors, that were collected on or before the date of the Encounter. The data comes from the [place] facility where the Encounter took place. Date/Time Smoking Status/Tobacco Use Comment F acility Jun 25, 2020 01:58 PM VA-TOBACCO NEVER USED [facility] [place] [facility] Feb 18, 2019 01:48 PM VA-TOBACCO NEVER USED [facility] [place] [facility] Advance Directives: All historical and current Section Date Range: From patient's date of to the date document was created. This section includes ALL of a patient's completed or amended VA Advance and Rescinded Directives. The entries below indicate that a directive exists for the patient, but an actual copy is not included with this document. The data comes from all [place] facilities. Date Advance Directives Provider Source Oct [...] the Encounter. The data comes from all [place] treatment facilities. Date/Time Radiology Report Provider Source Apr 26, 2024 09:45 AM OUTSIDE BASW (RADHA FIED): REBECA BLOCK Elisa [id number] -[phone] M Exm Date: APR 26, 2024@09:45 Req Phys: VY KING Loc: CWM/NO/OTOLARYNGOLOGY (Req'g L Img Loc: OUTSIDE GENERAL RADIOLOGY Service: Unknown (Case [id number] COMPLETE) OUTSIDE BASW (MODIFIED) (RAD Detailed) CPT:00080 Reason for Study: Patient with significant dysphagia, [...] Diagnostic Code: VERIFIED BY: / *ELECTRONICALLY FILED* [place] [facility] Encounter Notes: All associated encounter notes This section contains the clinical notes associated to the Encounter. Date/Time Encounter Note(s) Provider Source Apr 18, 2024 01:36 PM ADDENDUM: LOCAL TITLE: Addendum STANDARD TITLE: ADDENDUM DATE OF NOTE: APR 18, 2024@13:36:30 ENTRY DATE: APR 18, 2024@13:36:31 AUTHOR: VIC BE EXP COSIGNER: URGENCY: STATUS: COMPLETED I noticed the [facility] switched facts the provider and pact team. I will defer to current provider to renew the medications as he consider appropriate. Thank you /candelaria BE MD PRIMARY CARE PHYSICIAN Signed: 04/18/2024 13:37 Receipt Acknowledged By: 04/22/2024 19:44 /nyasia/ ALISIA TREVINO MD PHYSICIAN 04/22/2024 08:03 /nyasia/ IRENE MULLEN REGISTERED NURSE ====== --- Original Document --- 04/03/24 V1 PHARMACY CUSTOMER CARE MEDICATION RENEWAL: Date: Mar Division: [facility] referred by Pharmacy Call Center for medication renewal: Non-controlled/maintenan ce medication Medications requested: [id number] SELENIUM SULFIDE 2.5% LOTION/SHAMPOO Defer to primary care provider To be mailed . Please review and renew if appropriate. *This note was generated by [facility] Pharmacy Customer Care. If you have any questions or need assistance, do not contact this author. Please refer all questions to your local, on-site pharmacy departments. /nyasia/ ISAMAR MADDOX CPhT Internal Audit Director, [place]/Pharmacy Customer Care Signed: 04/03/2024 17:52 Receipt Acknowledged By: 04/18/2024 13:35 /nyasia/ VIC BE MD PRIMARY CARE PHYSICIAN 04/04/2024 08:09 /nyasia/ IRENE MULLEN REGISTERED NURSE for [facility] 04/04/2024 ADDENDUM STATUS: COMPLETED Defer to ordering provider /nyasia/ IRENE MULLEN REGISTERED NURSE Signed: 04/04/2024 08:09 04/22/2024 ADDENDUM STATUS: COMPLETED Defer to PCP /nyasia/ IRENE MULLEN REGISTERED NURSE Signed: 04/22/2024 08:03 VIC BE [facility] Apr 03, 2024 05:50 PM PHARMACY NOTE: LOCAL TITLE: V1 PHARMACY CUSTOMER CARE MEDICATION RENEWAL STANDARD TITLE: PHARMACY NOTE DATE OF NOTE: APR 03, 2024@17:50 ENTRY DATE: APR 03, 2024@17:50:23 AUTHOR: ISAMAR MADDOX COSIGNER: URGENCY: STATUS: COMPLETED V1 PHARMACY CUSTOMER CARE MEDICATION RENEWAL Has ADDENDA Date: Mar Division: [place] [facility] referred by Pharmacy Call Center for medication renewal: Non-controlled/maintenan ce medication Medications requested: [id number] SELENIUM SULFIDE 2.5% LOTION/SHAMPOO Defer to primary care provider To be mailed . Please review and renew if appropriate. *This note was generated by [facility] Pharmacy Customer Care. If you have any questions or need assistance, do not contact this author. Please refer all questions to your local, on-site pharmacy departments. /nyasia/ ISAMAR MADDOX CPhT Internal Audit Director, [place]/Pharmacy Customer Care Signed: 04/03/2024 17:52 Receipt Acknowledged By: 04/18/2024 13:35 /nyasia/ VIC BE MD PRIMARY CARE PHYSICIAN 04/04/2024 08:09 /nyasia/ IRENE MULLEN REGISTERED NURSE for [facility] 04/04/2024 ADDENDUM STATUS: COMPLETED Defer to ordering provider /nyasia/ IRENE MULLEN REGISTERED NURSE Signed: 04/04/2024 08:09 04/18/2024 ADDENDUM STATUS: COMPLETED I noticed the [facility] switched facts the provider and pact team. I will defer to current provider to renew the medications as he consider appropriate. Thank you /candelaria BE MD PRIMARY CARE PHYSICIAN Signed: 04/18/2024 13:37 Receipt Acknowledged By: * AWAITING SIGNATURE * ALISIA TREVINO 04/22/2024 08:03 /nyasia/ IRENE MULLEN REGISTERED NURSE 04/22/2024 ADDENDUM STATUS: COMPLETED Defer to PCP /nyasia/ IRENE MULLEN REGISTERED NURSE Signed: 04/22/2024 08:03 ISAMAR MADDOX [facility]
--- OUTSIDE RECORDS SUMMARY | 2024-10-20 23:25 | XMS_ITS ---
Author Name [facility] [place] [facility] Address [address] [place] [address] Care Team Providers Care Fast Food Sales Assistant Name Role Phone ALISIA TREVINO Primary Care [...] Apr 04, 2011 PART A OPT ONLY [id number] LYNDON BLOCK JR PATIENT Selected Encounter This section includes the information on record at [place] for the Encounter. Date/Time Encounter Type Encounter Description Reason Provider Source Jul 08, 2024 02:00 PM EVALUATE SWALLOWING FUNCTION SPEECH-LANGUAGE PATHOLOGY ICD-10-CM R13.12 Dysphagia, oropharyngeal phase COR[facility]A [place] Encounter Template Text not used by [place] Assessments - Encounter Diagnoses This section includes the primary and secondary diagnoses documented for the Encounter. Date/Time Primary/Secondary Diagnosis Diagnosis Name Provider Source Jul 08, 2024 04:18 PM PRIMARY Dysphagia, oropharyngeal phase [facility] CH[facility] [place] [facility] Plan of Treatment: Future Appointments (+ 6 months) and Future Tests (+/- 45 days) The Plan of Treatment section includes future care activities for the patient from all [place] treatmentfacilities. This section includes future appointments and future orders which are active, pending or scheduled. Future Appointments This section includes appointments that were scheduled to occur 6 months from the date of the Encounter, up to a maximum of 20 appointments. The data comes from all [place] treatment facilities. Appointment Date/Time Appointment Type Appointme nt Facility Name Jul 24, 2024 10:30 AM AMBULATORY - MEDICINE [facility] [place] [facility] Jul 25, 2024 01:00 PM AMBULATORY - REHAB MEDICIN E [facility] [place] [facility] Aug 19, 2024 11:00 AM AMBULATORY - REHAB MEDICIN E [facility] [place] [facility] Sep 17, 2024 03:00 PM AMBULATORY - REHAB MEDICIN E [facility] [place] [facility] Sep 19, 2024 03:30 PM [facility]ORY - MEDICINE [facility] Oct 08, 2024 02:00 PM AMBULATORY - REHAB MEDICIN E [facility] [place] [facility] Social History: Smoking Status (Most current) and Tobacco Use (All prior to encounter date) This section includes the most current, and the historical, smoking and tobacco- related health factors from the [facility] facility where the Encounter took place. Current Smoking Status This section includes the most current smoking, or tobacco-related health factor, from the [place] facility where the Encounter took place. Date/Time Current Smoking Status Comment Sasha ity Jun 13, 2023 03:15 PM VA-TOBACCO [facility] Tobacco Use History This section includes a history of the smoking, or tobacco-related health factors, that were collected on or before the date of the Encounter. The data comes from the [place] facility where the Encounter took place. Date/Time Smoking Status/Tobacco Use Comment F acility Jun 25, 2020 01:58 PM VA-TOBACCO NEVER USED [place] [facility] [place] [facility] Feb 18, 2019 01:48 PM VA-TOBACCO NEVER USED [place] [facility] [place] [facility] Advance Directives: All historical and current Section Date Range: From patient's date of to the date document was created. This section includes ALL of a patient's completed or amended [place] Advance and Rescinded Directives. The entries below indicate that a directive exists for the patient, but an actual copy is not included with this document. The data comes from all [place] facilities. Date Advance Directives Provider Source Oct 04, 2023 ADVANCE DIRECTIVE DISCUSSION RADHA WILLETT,OZZY SAINIFIELD Encounter Notes: All associated encounter notes This section contains the clinical notes associated to the Encounter. Date/Time Encounter Note(s) Provider Source Jul 08, 2024 02:52 PM SPEECH PATHOLOGY C ONSULT: LOCAL TITLE: CONSULT REPORT/SPEECH/SWALLOWING STANDARD TITLE: SPEECH PATHOLOGY CONSULT DATE OF NOTE: JUL 08, 2024@14:52 ENTRY DATE: JUL 08, 2024@14:52:32 AUTHOR: NEAL CHA COSIGNER: ALISIA TREVINO URGENCY: STATUS: COMPLETED S: . is seen F2F today for a clinical evaluation of dysphagia (COLE). This assessment is subjective and cannot determine or r/o the presence of aspiration. is a 79-year-old male with a history of dysphagia. Consult initiated by ENT for concerns related to recent modified barium swallow that shows deep penetration without spontaneous cough. Patient has also had aspiration pneumonia. Fiberoptic exam showed a wide glottic gap as well as decreased sensation throughout the larynx. Active problems - Computerized Problem List is the source for the followin. Frail elderly 2. Homeless 3. Multiple pulmonary nodules 4. Abnormal weight loss 5. Vitamin D Deficiency ([facility] [id number]) 6. Cervical pain 7. Exposure to potentially hazardous substance 8. Anemia ([facility] [id number]) 9. Dehydration 10. Foot pain 11. GERD - Gastro-Esophageal Reflux Disease (SCT 386525423) 12. Benign Prostatic Hypertrophy without Outflow Obstruction ([facility] [id number]) 13. Housing adequate 14. Seborrhoeic dermatitis of scalp (SNOMED CT 392570062) 15. Constipation 16. Tavares of toe 17. Palpitations 18. Housing lack 19. Ambulatory ECG abnormal 20. Plantar wart 21. Residual schizophrenia in remission (SNOMED CT 08446281) 22. Vertigo/Dizziness 23. Delusional disorder 24. Low Back Pain * 25. Left Inguinal Hernia 26. Anemia * 27. Candidiasis, Oral 28. Benign enlargement of prostate (SNOMED CT 344972675) 29. Chronic obstructive pulmonary disease (SNOMED CT 28051842) 30. Gastro-esophageal reflux (SNOMED CT 849784321) 31. Hypothyroidism (SNOMED CT 09503283) 32. Seizure (SNOMED CT 58792994) Progress notes reviewed. Encounter time - 25 minutes O:The following was addressed during this encounter: //'S PERCEPTION OF THE PROBLEM - reports some coughing with thin liquids. After MBSS he was scheduled to work with HUB CUTTER APPRENTICE in the community and has begun working with her on improving breath support and swallow function. He would like to continue as the location is closer to him. __ A: [place]. with dysphagia with recent concerns re: swallowing. __ P: [place] will be getting swallowing therapy in the community, has already begun with outside provider. He is instructed to call for f/u here at [place] if community services end and he feels he is still having difficulty. /nyasia/ NEAL CHA M.S.,[facility]-HUB CUTTER APPRENTICE SPEECH-LANGUAGE PATHOLOGIST Signed: 07/16/2024 07:25 /nyasia/ ALISIA TREVINO MD PHYSICIAN Cosigned: 07/16/2024 07:55 NEAL CHA [place] [facility] [place] [facility]
--- OUTSIDE RECORDS SUMMARY | 2024-10-20 23:25 | XMS_ITS | Encounter Summary ---
Author Name [facility] [place] [facility] [place] Address [address] [place] [id number] Care Team Providers Care It Consulting Manager Name Role Phone ALISIA TREVINO Primary [...] Apr 04, 2011 PART A OPT ONLY [id number] LYNDON BLOCK JR PATIENT Selected Encounter This section includes the information on record at [place] for the Encounter. Date/Time Encounter Type Encounter Description Reason Provider Source Apr 25, 2024 03:30 PM OFFICE O/P EST MOD 30 MIN PODIATRY ICD-10-CM L60.3 Nail dystrophy KERON QUINTANA Zoila Encounter Template Text not used by [facility] Assessments - Encounter Diagnoses This section includes the primary and secondary diagnoses documented for the Encounter. Date/Time Primary/Secondary Diagnosis Diagnosis Name Provider Source Apr 25, 2024 03:57 PM PRIMARY Nail dystrophy KERON QUINTANA ZAYNAB Apr 25, 2024 03:57 PM SECONDARY Corns and callosities KERON QUINTANA ZAYNAB Apr 25, 2024 03:57 PM SECONDARY Ingrowing nail KERON QUINTANA [facility] Apr 25, 2024 03:57 PM SECONDARY Pain in left foot KERON QUINTANA [facility] [place] Apr 25, 2024 03:57 PM SECONDARY Pain in left toe(s) KERON QUINTANA [facility] Apr 25, 2024 03:57 PM SECONDARY Pain in right toe(s) KERON QUINTANA [facility] Apr 25, 2024 03:57 PM SECONDARY Peripheral vascular disease, unspecified KERON QUINTANA [facility] Plan of Treatment: Future Appointments (+ 6 months) and Future Tests (+/- 45 days) The Plan of Treatment section includes future care activities for the patient from all [place] treatmentfacilities. This section includes future appointments and future orders which are active, pending or scheduled. Future Appointments This section includes appointments that were scheduled to occur 6 months from the date of the Encounter, up to a maximum of 20 appointments. The data comes from all [place] treatment facilities. Appointment Date/Time Appointment Type Appointme nt Facility Name Apr 26, 2024 09:45 AM [place] [facility] [place] [facility] May 24, 2024 01:00 PM [facility]UL[facility] [place] [place] [facility] [place] [facility] Jun 03, 2024 01:00 PM [place] [facility] [place] [facility] Jul 08, 2024 02:00 PM AMBUL[place] [facility] [place] [facility] Jul 24, 2024 10:30 AM AMBULATORY - MEDICINE [facility] [place] [facility] Jul 25, 2024 01:00 PM AMBULATORY - REHAB MEDICIN [facility] [place] [facility] Aug 19, 2024 11:00 AM AMBULATORY - REHAB MEDICIN [facility] [place] [facility] Sep 17, 2024 03:00 PM AMBULATORY - REHAB MEDICIN [facility] [place] [facility] Sep 19, 2024 03:30 PM AMBULATORY - MEDICINE [facility] Oct 08, 2024 02:00 PM AMBUL[place] [facility] [place] [facility] Social History: Smoking Status (Most current) and Tobacco Use (All prior to encounter date) This section includes the most current, and the historical, smoking and tobacco- related health factors from the [place] facility where the Encounter took place. Current Smoking Status This section includes the most current smoking, or tobacco-related health factor, from the [place] facility where the Encounter took place. Date/Time Current Smoking Status Comment Sasha dwyer Jul 28, 2021 02:00 PM VA-TOBACCO NEVER USED [facility] Tobacco Use History This section includes a history of the smoking, or tobacco-related health factors, that were collected on or before the date of the Encounter. The data comes from the [place] facility where the Encounter took place. Date/Time Smoking Status/Tobacco Use Comment F acility February 01, 2018 01:20 PM LIFETIME NON-TOBACCO USER [facility] Sep 16, 2016 01:32 PM LIFETIME NON-TOBACCO USER [facility] Aug 03, 2015 02:27 PM LIFETIME NON-TOBACCO USER [facility] Jul 08, 2011 02:09 PM FORMER SMOKER - <100 LIFETIME CI GARETTES [facility] Dec 13, 2004 02:16 PM LIFETIME NON-SMOKER [facility] January 06, 2004 01:18 PM LIFETIME NON-SMOKER [facility] Dec 24, 2002 02:53 PM LIFETIME NON-SMOKER [facility] Sep 25, 2001 02:37 PM LIFETIME NON-SMOKER [facility] Sep 25, 2001 02:37 PM LIFETIME NON-TOBACCO USER [facility] Advance Directives: All historical and current Section Date Range: From patient's date of to the date document was created. This section includes ALL of a patient's completed or amended [place] Advance and Rescinded Directives. The entries below indicate that a directive exists for the patient, but an actual copy is not included with this document. The data comes from all [facility]. Date Advance Directives Provider Source Oct 04, 2023 ADVANCE DIRECTIVE DISCUSSION OZZY CORDERO [facility] Radiology Reports: +/- 30 days of the [...] the Encounter. The data comes from all [place] treatment facilities. Date/Time Radiology Report Provider Source Apr 26, 2024 09:45 AM OUTSIDE BASW (RADHA FIED): REBECA BLOCK Elisa [id number] -[id number] M Exm Date: APR 26, 2024@09:45 Req Phys: VY KING Loc: CWM/NO/OTOLARYNGOLOGY (Req'g L Img Loc: OUTSIDE GENERAL RADIOLOGY Service: Unknown (Case [id number] COMPLETE) OUTSIDE [facility] (MODIFIED) (RAD Detailed) CPT:54894 Reason for Study: Patient with significant dysphagia, [...] Diagnostic Code: VERIFIED BY: / *ELECTRONICALLY FILED* [place] [facility] [place] [facility] Encounter Notes: All associated encounter notes This section contains the clinical notes associated to the Encounter. Date/Time Encounter Note(s) Provider Source Apr 25, 2024 03:59 PM PODIATRY NOTE: LOCAL TITLE: PODIATRY PAVE FOOT EXAM STANDARD TITLE: PODIATRY NOTE DATE OF NOTE: APR 25, 2024@15:59 ENTRY DATE: APR 25, 2024@15:59:39 AUTHOR: KERON QUINTANA COSIGNER: URGENCY: STATUS: COMPLETED PAVE FOOT EXAM A foot risk level was completed. The following risk level was identified for this patient: +POD RISK SCORE+ *--LEVEL 3 - (HIGH RISK)* ANY of the following: Severe obstructive peripheral arterial disease Ulceration; OR history of ulceration, osteomyelitis, or amputation Charcot joint w/foot deformity Chronic kidney disease, stage 4 or higher (Decreased sensation, foot deformity, and minor foot infection may be present or absent) LEVEL 3 FOOT EDUCATION: 1. Advised patient that extra depth footwear with soft molded inserts and braces may be required. 2. Advised patient not to walk barefoot. Instructed the patient to pay close attention to the style and fit of shoes. 3. Explained the importance of daily foot checks. Explained that loss of sensation leads to callouses. Callouses break down, which result in ulcers that may lead to gangrene and amputation. 4. Stressed the importance of daily foot hygiene. Warm (not hot) bathing of the feet, complete drying and thorough inspection for changes in the condition of the skin constitute daily foot care. Demonstrated how to do a thorough foot check. 5. Emphasized the use of clean, non-restrictive socks/stockings and well fitting shoes. 6. Stressed the importance of immediate follow-up of any foot injuries or ulcers. Explained that he/she should be non-weight bearing whenever there are lesions on the foot, to prevent cellular damage. Level of Understanding: Good Patient/Family Response to Foot Care Teaching Patient walks barefoot: A few times per month Patient/caregiver able to clean feet at least once daily: Yes Patient/caregiver has difficulty examining feet: No /nyasia/ KERON QUINTANA DPM TOOL DESIGN ENGINEER Signed: 04/25/2024 16:00 KERON QUINTANA [facility] Apr 25, 2024 11:18 AM PODIATRY NOTE: LOCAL TITLE: PODIATRY NOTE STANDARD TITLE: PODIATRY NOTE DATE OF NOTE: APR 25, 2024@11:18 ENTRY DATE: APR 25, 2024@11:18:22 AUTHOR: KERON QUINTANA EXP COSIGNER: URGENCY: STATUS: COMPLETED *NOTE: PATIENT NOT INTERESTED IN COVID VACCINE AT THIS TIME AND W/C WHEN READY LAST SEEN FOR TREATMENT: 07/19/2023 S: Pt. is a 79 yo alert [facility] CAUC MALE who is seen for continued podiatric Care of a painful lesion PIPJ medial 4th LT digit. There has been pain for several days which is daily with periods of exacerbation & remission, is of an Aching throbbing nature and is exacerbated with shoes & increased activity. It is of a level 2-3/10 prior to treatment 09/13 after and initiates approximately 1 week prior to visit and is only alleviated by podiatric debridement. There is no history of trauma. There have been no recent changes in the patient's medical condition or medications. *PATIENT RELATES NO RECENT CHANGES IN MEDS UPON QUESTIONING TODAY-SEE RECONCILIATION PERFORMED THIS DATE-SEE BELOW *DENIES TOBACCO O: Exam reveals skin color to be WNL, temp is diminished, WARM TO COOL PROXIMAL TO DISTAL & text is WNL bilat. There is absence of hair noted. Nails are incurvated with rubor in the medial & lateral nail grooves and pain on palpation. Affected nails are as follows: HALLUX bilat. There is a hyperkeratosis noted at the plantar aspect 1st left mpj. There are no other gross LE changes in status noted this date. PMH: Active problems - Computerized Problem List is the source for the following: *NOTE: REVIEWED ABOVE NOTING NO CHANGES SINCE PREVIOUS VISIT-SEE TEMPLATES FOR COMPLETE PROBLEM LIST NEEDED HEIGHT: 68 in [172.7 cm] (09/16/2016 13:30) WEIGHT: 146 lb [66.4 kg] (09/16/2016 13:30) VASCULAR: DP & PT pulses +2 equal & symmetrical bilateral. CFT < 3 sec x 10. There is no edema and there are no varices noted. MUSCULOSKELETAL: Exam reveals muscle strength and tone to be equal & symmetrical bilaterally & WNL for an individual of this age and present physical-medical condition. There is pain free ROM at all joints distal to and including the ankle. Exams are reviewed and noted to be unchanged since previous visit noting several contracted and overlapping digits including the 4th LT. NEUROLOGICAL: Exam reveals S/D, vibratory, light touch & proprioception sensations to be equal & symmetrical bilaterally & diminished for an individual of this age and present physical-medical status. Protective sensation utilizing a [place]-Dilan lOg monofilament is 10/10 bilateral. *NOTE: *YEARLY COMPLETE PAVE EXAM PERFORMED TODAY - SEE BELOW. A: Clinical Impression: Painful hyperkeratosis medial 4th LT digit DIPJ has resolved but now has a hyperkeratosis sub 1st left mpj which requires attention and onychocryptic nails 1-2-3-4-5 bilateral. P: Treatment consists of surgical paring-debridement of the hyperkeratosis with a sterile #15 scalpel and trimming of all nails via manual and electric means with excision of the offending nail borders. 4ht left digit does not require any care as the hyperkeratosis has resolved but there is a new painful hyperkeratosis plantar 1st left met head which was treated via paring- debridement with a sterile # 15 scalpel. Applied ammonium lactate 12 % lotion to dry feet. All care rendered without complications & pt. progressing well after podiatric care this date & will be scheduled for periodic care in an attempt to prevent future complications due to the underlying bony abnormalities. RTC 24 weeks (09/19 @ 3:30PM) *DISCUSSED NEW PROTOCOLS AND CALLED [facility] TODAY FOR RESCHEDULING I DISCUSSED THE FINDINGS & PLAN WITH PATIENT (UNCHANGED SINCE PREVIOUS VISIT) & PATIENT AGREES AND UNDERSTANDS PLAN Medication Reconciliation: PERFORMED TODAY - SEE BELOW. Outpatient: Has the patient been taking medications as documented in the EMLR? YES: The patient has been taking medications as documented in the EMLR. Essential Medication List for Review used to complete this medication reconciliation. INCLUDED IN THIS LIST: Alphabetical list of active outpatient prescriptions dispensed from this [place] (local) and dispensed from another [place] or [facility] facility (remote) as well as inpatient orders [...] whether with a VA or non-VA provider. JLV Link Data on this list may not be complete. Please check JLV. Allergies/ADRs (Tool #5) FACILITY ALLERGY/ADR -------- [facility] [place] FLUPHENAZINE [facility] LITHIUM [facility] [place] MOBAN [facility] [place] STELAZINE [facility] FLUPHENAZINE [facility] MOLINDONE [facility] TRIFLUOPERAZINE Med Recon NoGlossary (Tool #1) INCLUDED IN THIS LIST: Alphabetical list of active outpatient prescriptions dispensed from this [place] (local) and dispensed from another [place] or [facility] facility (remote) as well as inpatient orders (local pending and active), local clinic medications, locally documented non-VA medications, and local prescriptions that have or been discontinued in the past 90 days. Non-VA Meds Last Documented On: May 14, 2007 NOTE The display of VA prescriptions dispensed from another [place] or [facility] facility (remote) is limited to active outpatient prescription entries matched to National Drug File at the originating site and may not include some items such as investigational drugs, compounds, etc. NOT INCLUDED IN THIS LIST: Medications self-entered by the patient into personal health records (i.e. [facility]) are NOT included in this list. Non-VA medications documented outside this [place], remote inpatient orders (regardless of status) and remote clinic medications are NOT included in this list. The patient and provider must always discuss medications the patient is taking, regardless of where the medication was dispensed or obtained. OUTPT ACETAMINOPHEN 500MG TAB (Status = Active) TAKE ONE TABLET BY MOUTH ONCE DAILY NEEDED FOR PAIN Rx# [id number] Last Released: 12/26/23 Qty/Days Supply: Rx Expiration Date: 12/13/24 Refills Remainin Indication: FOR PAIN OUTPT AMOXICILLIN 875/CLAV K 125MG TAB (Status = Active) TAKE 1 TABLET BY MOUTH TWICE DAILY FOR 21 DAYS FOR INFECTION Rx# [id number] Last Released: 03/28/24 Qty/Days Supply: Rx Expiration Date: 04/27/24 Refills Remainin OUTPT AZITHROMYCIN 250MG TAB (Status = Discontinued) TAKE TWO TABLETS BY MOUTH ONCE DAILY FOR 1 DAY, THEN TAKE ONE TABLET ONCE DAILY FOR 4 DAYS Rx# [id number] Last Released: 12/28/23 Qty/Days Supply: 02/06 Rx Expiration Date: 01/27/24 Refills Remainin Indication: FOR INFECTION CAUSED BY BACTERIA OUTPT AZITHROMYCIN 250MG TAB (Status = ) TAKE TWO TABLETS BY MOUTH ONCE DAILY FOR 1 DAY, THEN TAKE ONE TABLET ONCE DAILY FOR 4 DAYS FOR INFECTION CAUSED BY BACTERIA Rx# [id number] Last Released: 01/26/24 Qty/Days Supply: 02/06 Rx Expiration Date: 02/25/24 Refills Remainin Indication: FOR INFECTION CAUSED BY BACTERIA OUTPT CAMPHOR/MENTHOL/METHYL SALICYLATE PATCH (Status = Active) APPLY 1 PATCH TOPICALLY ONCE DAILY NEEDED FOR PAIN (REMOVE PATCH AFTER 8 TO 12 HOURS) Rx# [id number] Last Released: 01/05/24 Qty/Days Supply: 120/ Rx Expiration Date: 01/01/25 Refills Remainin Indication: FOR PAIN OUTPT CARBAMIDE PEROXIDE 6.5% OTIC SOLN (Status = Active) INSTILL 5 TO 10 DROPS INTO THE AFFECTED EAR(S) ONCE DAILY FOR EAR WAX BLOCKAGE Rx# [id number] Last Released: 02/20/24 Qty/Days Supply: Rx Expiration Date: 01/24/25 Refills Remainin Indication: FOR EAR WAX BLOCKAGE OUTPT CETIRIZINE HCL 10MG TAB (Status = ) TAKE ONE TABLET BY MOUTH ONCE DAILY FOR ALLERGIES Rx# [id number] Last Released: 01/24/24 Qty/Days Supply: 90 Rx Expiration Date: 04/23/24 Refills Remainin Indication: FOR ALLERGIES OUTPT CHOLECALCIF 50MCG (D3-2,000UNIT) TAB (Status = Active) TAKE ONE TABLET BY MOUTH ONCE DAILY FOR VITAMIN D DEFICIENCY FOR VITAMIN SUPPLEMENTATION Rx# [id number] Last Released: 07/07/23 Qty/Days Supply: 100/ Rx Expiration Date: 07/04/24 Refills Remainin Indication: FOR VITAMIN D DEFICIENCY OUTPT DM 10/GUAIFENESN 100MG/5ML (AF & SF) LIQ (Status = Discontinued) TAKE 5 MLS BY MOUTH EVERY 6 HOURS NEEDED Rx# [id number] Last Released: 01/31/24 Qty/Days Supply: 240/10 Rx Expiration Date: 12/28/24 Refills Remainin Indication: FOR COUGH OUTPT DM 10/GUAIFENESN 100MG/5ML (AF & SF) LIQ (Status = Active) TAKE 5 MLS BY MOUTH EVERY 6 HOURS NEEDED FOR COUGH Rx# [id number] Last Released: 02/16/24 Qty/Days Supply: Rx Expiration Date: 02/12/25 Refills Remainin Indication: FOR COUGH OUTPT FLUTICASONE PROP 50MCG 120D NASAL INHL (Status = ) INSTILL 1 SPRAY INTO EACH NOSTRIL TWICE DAILY FOR NASAL IRRITATION/INFLAMMATION Rx# [id number] Last Released: 01/24/24 Qty/Days Supply: 10/03 Rx Expiration Date: 02/23/24 Refills Remainin Indication: FOR NASAL IRRITATION/INFLAMMATION OUTPT LEVOTHYROXINE NA (SYNTHROID) 100MCG TAB (Status = Active) TAKE ONE TABLET BY MOUTH EVERY DAY TAKE WITH A FULL GLASS OF WATER FOR THYROID Rx# [id number] Last Released: 01/25/24 Qty/Days Supply: Rx Expiration Date: 06/13/24 Refills Remainin OUTPT OMEPRAZOLE 20MG EC CAP (Status = Active) TAKE ONE CAPSULE BY MOUTH DAILY FOR STOMACH ACID Rx# [id number] Last Released: 03/28/24 Qty/Days Supply: Rx Expiration Date: 06/13/24 Refills Remainin OUTPT PREDNISONE 20MG TAB (Status = ) TAKE TWO TABLETS BY MOUTH ONCE DAILY BRONCHITIS Rx# [id number] Last Released: 12/28/23 Qty/Days Supply: 06/08 Rx Expiration Date: 01/27/24 Refills Remainin Indication: BRONCHITIS OUTPT SELENIUM SULFIDE 2.5% LOTION/SHAMPOO (Status = Discontinued) APPLY SMALL AMOUNT TOPICALLY TWICE A WEEK NEEDED FOR DANDRUFF FOR 4 WEEKS THEN STOP Rx# [id number] Last Released: 12/13/23 Qty/Days Supply: 120/30 Rx Expiration Date: 07/05/24 Refills Remainin Indication: FOR DANDRUFF OUTPT SELENIUM SULFIDE 2.5% LOTION/SHAMPOO (Status = Active) APPLY SMALL AMOUNT TOPICALLY TWICE A WEEK NEEDED FOR DANDRUFF FOR 4 WEEKS THEN STOP Rx# [id number] Last Released: Qty/Days Supply: 360/90 Rx Expiration Date: 04/23/25 Refills Remainin Indication: FOR DANDRUFF OUTPT TAMSULOSIN HCL 0.4MG CAP (Status = Active) TAKE ONE CAPSULE BY MOUTH DAILY Rx# [id number] Last Released: 06/14/23 Qty/Days Supply: 30 Rx Expiration Date: 06/09/24 Refills Remainin SUPPLIES PAVE Foot Check: A complete foot check was completed at this encounter. VISUAL INSPECTION: Includes inspection for skin breaks, deformity, erythema, trauma, pallor on elevation, dependent rubor, nail deformities, extensive callus and pitting edema. Visual exam results: Abnormal Observations: Thickened toenails, Other:callus PEDAL PULSES: Includes palpation of dorsalis and posterior tibial pulses and signs/symptoms of vascular compromise like pain, pallor, parasthesia or paralysis. Absent: Comment: PT PULSES ARE ABSENT NON-PALPABLE BILAT SENSORY CHECK: Includes 10 gram Monofilament ([place]-Dilan) test of sensation. Intact (Greater than or equal to 80% of sites checked) Abnormal (Less than 80% of sites checked): Intact Comment: VIBRATORY & MONOFILAMENT ARE WNL BILAT HIGH-RISK: HIGH RISK INFORMATION PROVIDED: 1. Advised patient that extra depth footwear with soft molded inserts and braces may be required. 2. Advised patient not to walk barefoot. 3. Explained the importance of daily foot checks. 4. Stressed the importance of daily foot hygiene, including bathing, complete drying and thorough inspection for changes. The patient verbalized understanding and was offered a detailed handout on diabetic foot care. Patient is established patient of Podiatry and/or Vascular: Last scheduled appointment: DEC 12, 2023@15:30 CWM/FIFI/PODIATRY/MARIANO Comment: 07/19/2023 /nyasia/ KERON QUINTANA DPM TOOL DESIGN ENGINEER Signed: 04/25/2024 15:59 KERON QUINTANA [facility]
--- OUTSIDE RECORDS SUMMARY | 2024-10-20 23:25 | XMS_ITS | Encounter Summary ---
Author Name [facility] [place] Organization [facility] [place] Address [address] [place] [address] Care Team Providers Care Project Construction Manager Name Role Phone ALISIA TREVINO Primary [...] Apr 04, 2011 PART A OPT ONLY [id number] LYNDON BLOCK JR PATIENT Selected Encounter This section includes the information on record at [place] for the Encounter. Date/Time Encounter Type Encounter Description Reason Pro vider Source Mar 14, 2024 09:30 AM Outpatient Encounter OCCUPATIONAL THERAPY IHE Encounter Template Text not used by [place] Plan of Treatment: Future Appointments (+ 6 months) and Future Tests (+/- 45 days) The Plan of Treatment section includes future care activities for the patient from all [place] treatmentfacilities. This section includes future appointments and future orders which are active, pending or scheduled. Future Appointments This section includes appointments that were scheduled to occur 6 months from the date of the Encounter, up to a maximum of 20 appointments. The data comes from all [place] treatment facilities. Appointment Date/Time Appointment Type Appointme nt Facility Name Mar 15, 2024 10:00 AM AMBULATORY [facility] MEDICINE [facility] [place] [facility] Mar 21, 2024 03:00 PM AMBULATORY - MEDICINE [facility] [place] [facility] Mar 28, 2024 11:00 AM AMBULATORY - MEDICINE [facility] [place] [facility] Apr 25, 2024 03:30 PM AMBULATORY - MEDICINE ISELA ALCANTAR Apr 26, 2024 09:45 AM AMBULATORY - MEDICINE [facility] [place] [facility] May 24, 2024 01:00 PM AMBULATORY - REHAB MEDICIN E [facility] [place] [facility] Jun 03, 2024 01:00 PM AMBULATORY - MEDICINE [facility] [place] [facility] Jul 08, 2024 02:00 PM AMBULATORY - REHAB MEDICIN E [facility] [place] [facility] Jul 24, 2024 10:30 AM AMBULATORY - MEDICINE [facility] [place] [facility] Jul 25, 2024 01:00 PM AMBULATORY - REHAB MEDICIN E [facility] [place] [facility] Aug 19, 2024 11:00 AM AMBULATORY - REHAB MEDICIN E [facility] [place] [facility] Social History: Smoking Status (Most current) and Tobacco Use (All prior to encounter date) This section includes the most current, and the historical, smoking and tobacco- related health factors from the [place] facility where the Encounter took place. Current Smoking Status This section includes the most current smoking, or tobacco-related health factor, from the [place] facility where the Encounter took place. Date/Time Current Smoking Status Comment Sasha ity Jun 13, 2023 03:15 PM VA-TOBACCO NEVER USED [facility] [place] [facility] Tobacco Use History This section includes a history of the smoking, or tobacco-related health factors, that were collected on or before the date of the Encounter. The data comes from the [place] facility where the Encounter took place. Date/Time Smoking Status/Tobacco Use Comment F acephraim Jun 25, 2020 01:58 PM VA-TOBACCO NEVER USED [facility] [place] [facility] Feb 18, 2019 01:48 PM VA-TOBACCO NEVER USED [facility] [place] [facility] Advance Directives: All historical and current Section Date Range: From patient's date of to the date document was created. This section includes ALL of a patient's completed or amended VA Advance and Rescinded Directives. The entries below indicate that a directive exists for the patient, but an actual copy is not included with this document. The data comes from all [place] facilities. Date Advance Directives Provider Source Oct 04, 2023 ADVANCE DIRECTIVE DISCUSSION OZZY CORDERO [place] Encounter Notes: All associated encounter notes This section contains the clinical notes associated to the Encounter. Date/Time Encounter Note(s) Provider Source Mar 14, 2024 09:30 AM OCCUPATIONAL THERA PY DISCHARGE NOTE: LOCAL TITLE: OCCUPATIONAL THERAPY DISCHARGE NOTE STANDARD TITLE: OCCUPATIONAL THERAPY DISCHARGE NOTE DATE OF NOTE: MAR 14, 2024@09:30 ENTRY DATE: MAR 14, 2024@09:55:35 AUTHOR: RANJANA PECK COSIGNER: ALISIA TREVINO URGENCY: STATUS: COMPLETED Initial Evaluation date: Mar Treatment Time: N/A formal appointment scheduled for 930 cxl. had completed functional assessment. Visit used for review, provided contact information for OT, for any additional home safety needs he may run into. Education re: OT Clinic Interpersonal Group. Diagnosis: Seizures(ICD-10-CM G40.89) Provider: PCP Cheikh OT Treatment Precautions: Seizures, Fall Risk Patient identified by full name and date of S/O: arrived for scheduled appointment, functional assessment and recomendations had been completed at last visit. Formal appointment not needed. Focus 1 chart review No further questions from 2 Education: DME/Home Safety once he moves into his apartment OT Clinic: to reduce isolation, asked about the arts and crafts in the OT clinic, and reported that he enjoyed this at [facility]. Assessment: arrived on time for formal appoitnment, no further testing needed, recommendations provided for team review to assist with placement. [place] anticipating a move to a [place] location, he was unsure of the supports he would recieve. Contact number provided for OT and education re: DME/safety if needed and Education re: OT clinic group. Plan no formal OT services needed at this time, assist in future as needed /nyasia/ SILVIA KENNEDY/L OCCUPATIONAL THERAPIST Signed: 03/14/2024 10:01 /nyasia/ ALISIA TREVINO MD PHYSICIAN Cosigned: 03/14/2024 11:12 RANJANA PECK [facility]
--- OUTSIDE RECORDS SUMMARY | 2024-10-20 23:25 | XMS_ITS ---
Author Name [facility] ([place]) Organization [facility] of [place]) Address [address] [place] [address] Care Team Providers Care Children'S Attendant Name Role Phone ALISIA TREVINO Primary Care [...] Apr 04, 2011 PART A OPT ONLY [id number] LYNDON BLOCK JR PATIENT Selected Encounter This section includes the information on record at [place] for the Encounter. Date/Time Encounter Type Encounter Description Reason Provider Source January 04, 2024 02:00 PM OFFICE O/P EST SF 10 MIN PRIMARY CARE/MEDICINE ICD-10-CM J20.9 Acute bronchitis, unspecified SHIN GARRIDO [facility] Encounter Template Text not used by [place] Assessments - Encounter Diagnoses This section includes the primary and secondary diagnoses documented for the Encounter. Date/Time Primary/Secondary Diagnosis Diagnosis Name Provider Source January 04, 2024 02:47 PM PRIMARY Acute bronchitis, unspecified SHIN GARRIDO [facility] [place] [facility] January 04, 2024 02:47 PM SECONDARY Sheltered homelessness SHIN GARRIDO [facility] [place] [facility] Plan of Treatment: Future Appointments (+ 6 months) and Future Tests (+/- 45 days) The Plan of Treatment section includes future care activities for the patient [facility] This section includes future appointments and future orders which are active, pending or scheduled. Future Appointments This section includes appointments that were scheduled to occur 6 months from the date of the Encounter, up to a maximum of 20 appointments. The data comes from all [place] treatment facilities. Appointment Date/Time Appointment Type Appointme nt Facility Name January 09, 2024 01:30 PM AMBULATORY - MEDICINE [facility] [place] [facility] January 23, 2024 01:30 PM AMBULATORY - REHAB MEDICIN E [place] January 24, 2024 08:00 AM AMBULATORY - MEDICINE [facility] [place] [facility] January 24, 2024 11:00 AM AMBULATORY - MEDICINE [facility] [place] [facility] January 25, 2024 08:30 AM AMBULATORY - REHAB MEDICIN E [facility] [place] [facility] January 26, 2024 09:15 AM AMBULATORY - NONE [facility] [place] [facility] January 31, 2024 01:30 PM AMBULATORY - MEDICINE [facility] [place] [facility] January 31, 2024 02:45 PM AMBULATORY - MEDICINE [facility] [place] [facility] Feb 06, 2024 09:30 AM AMBULATORY - REHAB MEDICIN E [facility] [place] [facility] Feb 12, 2024 11:30 AM AMBULATORY - MEDICINE [facility] [place] [facility] Feb 15, 2024 11:00 AM AMBULATORY - MEDICINE [facility] [place] [facility] Feb 28, 2024 11:30 AM AMBULATORY - MEDICINE [facility] [place] [facility] Feb 29, 2024 09:30 AM AMBULATORY - MEDICINE [facility] [place] [facility] Mar 15, 2024 10:00 AM AMBULATORY - MEDICINE [facility] [place] [facility] Mar 21, 2024 03:00 PM AMBULATORY - MEDICINE [facility] [place] [facility] Mar 28, 2024 11:00 AM AMBULATORY - MEDICINE [facility] [place] [facility] Apr 25, 2024 03:30 PM AMBULATORY - MEDICINE [place] Apr 26, 2024 09:45 AM AMBULATORY - MEDICINE [facility] [place] [facility] May 24, 2024 01:00 PM AMBULATORY - REHAB MEDICIN E [facility] [place] [facility] Jun 03, 2024 01:00 PM [facility]UL[facility] Active, Pending, and Scheduled Orders This section includes a listing of several types of active, pending, and scheduled orders, including clinic medications orders, diagnostic test orders, procedure orders and consult orders; where the start date of the order is 45 days before the date of the Encounter or 45 days after the date of theEncounter. The data comes from all [place] treatment facilities. Test Date/Time Test Type Test Details Facility Name January 24, 2024 08:53 AM [facility] Work[facility] [place] Lab Results: +/- 30 days of the encounter This section includes the Chemistry and Hematology Lab Results on record with [place] for the patient. Radiology Reports and Pathology Reports are provided separately, in subsequent sections. Lab Results This section contains the Chemistry/Hematology Results that were resulted 30 days before or 30 daysafter the date of the Encounter. Date/Time Source Result Type Result - Unit Interpretation Reference Range Comment January 25, 2024 02:04 PM [facility] PSA Specimen Type: SERUM No comment entered. Ordering Provider: SHIN GARRIDO Report Released Date/Time: January 25, 2024 11:12 AM Reporting [facility] [address] Performing [facility] [address] PSA 4.37 ng/mL H 0.00-4.00 January 25, 2024 02:04 PM [facility] UREA NITROGEN Specimen Type: SERUM No comment entered. Ordering Provider: SHIN GARRIDO Report Released Date/Time: January 25, 2024 11:12 AM Reporting Lab: [address] [address] Performing Lab: [facility] [place] [facility] [address] [facility] [address] UREA NITROGEN 26 mg/dL H 7-January 25, 2024 02:04 PM [facility] CREATININE (eGFR 2020) Specimen Type: SERUM No comment entered. Ordering Provider: SHIN GARRIDO Report Released Date/Time: January 25, 2024 11:12 AM Reporting Lab: [address] [address] Performing Lab: [address] [address] CREATININE, Serum 0.63 mg/dL 0.50-1.40 eGFR(CKD-EPI 2020) >90 mL/min >60 January 24, 2024 08:06 AM [facility] COVID-19 FLU/RSV DIAGNOSTIC PANEL Specimen Type: NASOPHARYNX Comment: This test is authorized for emergency use only. False negative results may occur if virus is present at levels below the analytical limit of detection.Negati ve results do not preclude SARS-CoV-2, influenza or RSV infection and should not be used as the sole basis for treatment or other patient management decisions.Cephei d FLUVID: HCPs: https://www.fda. gov/media/195551 /download. Patients: https://www.fda. gov/media/446290 /download Ordering Provider: SHIN GARRIDO Report Released Date/Time: January 24, 2024 07:49 AM Reporting Lab: [address] [address] Performing Lab: [address] [address] COVID-19 PCR (FLUVID) NEGATIVE NEGATIVE FLU A PCR (FLUVID) NEGATIVE FLU B PCR (FLUVID) NEGATIVE RSV PCR (FLUVID) NEGATIVE January 04, 2024 02:23 PM [facility] T-SPOT TB PANEL Specimen Type: BLOOD Comment: [...] For additional information, please refer to http://education .[employer]/faq/MUC623 (This link is being provided for informational/ educational purposes only.) Test Performed by [employer] [facility], [address] [place] [address] Merrick Ruibn M.D., Ph.D., Director of Laboratories , [facility] [id number] TEST PERFORMED AT: , Ordering Provider: SHIN GARRIDO Report Released Date/Time: Dec 28, 2023 04:19 PM Reporting Lab: [facility] [address] [facility] [address] Performing Lab: [facility] [address] [address] [id number] T (o) Negative Negative T-SPOT-PNLA 0 T-SPOT-PNLB 0 M-MNTG-MIJRD RL Passed W-ELCI-USNBH RL Passed Dec 27, 2023 02:58 PM [facility] COVID-19 FLU/RSV DIAGNOSTIC PANEL Specimen Type: NASOPHARYNX Comment: This test is authorized for emergency use only. False negative results may occur if virus is present at levels below the analytical limit of detection.Negati ve results do not preclude SARS-CoV-2, influenza or RSV infection and should not be used as the sole basis for treatment or other patient management decisions.Gus taylor FLUVID: HCPs: https://www.fda. gov/media/760840 /download. Patients: https://www.[employer]. gov/media/982828 /download Ordering Provider: SHIN GARRIDO Report Released Date/Time: Dec 27, 2023 02:53 PM Reporting Lab: [place] [facility] [place] [facility] [address] [facility] [address] Performing Lab: [facility] [address] [facility] [address] COVID-19 PCR (FLUVID) NEGATIVE NEGATIVE FLU A PCR (FLUVID) NEGATIVE FLU B PCR (FLUVID) NEGATIVE RSV PCR (FLUVID) NEGATIVE Vital Signs: All taken on the encounter date This section contains inpatient and outpatient Vital Signs collected on the date of the Encounter. Date/Time Temperature Pulse Blood Pressure Respiratory Rate SP02 Pain Height Weight Body Mass Index Source January 04, 2024 01:40 PM 97.6 96 142/73 18 99 121.2 18 [facility] Social History: Smoking Status (Most current) and Tobacco Use (All prior to encounter date) This section includes the most current, and the historical, smoking and tobacco- related health factors from the [place] facility where the Encounter took place. Current Smoking Status This section includes the most current smoking, or tobacco-related health factor, from the [place] facility where the Encounter took place. Date/Time Current Smoking Status Comment Sasha ity Jun 13, 2023 03:15 PM VA-TOBACCO NEVER USED [facility] Tobacco Use History This section includes a history of the smoking, or tobacco-related health factors, that were collected on or before the date of the Encounter. The data comes from the [place] facility where the Encounter took place. Date/Time Smoking Status/Tobacco Use Comment F acephraim Jun 25, 2020 01:58 PM VA-TOBACCO NEVER USED [place] [facility] [place] [facility] Feb 18, 2019 01:48 PM VA-TOBACCO NEVER USED [facility] Advance Directives: All historical and current Section Date Range: From patient's date of to the date document was created. This section includes ALL of a patient's completed or amended VA Advance and Rescinded Directives. The entries below indicate that a directive exists for the patient, but an actual copy is not included with this document. The data comes from all [place] facilities. Date Advance Directives Provider Source Oct [...] the Encounter. The data comes from all [place] treatment facilities. Date/Time Radiology Report Provider Source January 26, 2024 11:[address] WITH CONTRAST: REBECA BLOCK [id number] M Exm Date: JANUARY 26, 2024@11:07 Req Phys: SHIN GARRIDO Loc: CWM/NO/SICK CALL PA (Req'g Loc Img Loc: NHM/CT Service: Unknown [facility] , (Case [id number] COMPLETE) CT THORAX W/CONT (CT Detailed) CPT:06895 Contrast Media : Non-ionic Iodinated Reason for Study: abnormal weight loss (Case 331 COMPLETE) CT ABDOMEN AND PELVIS WITH CONTRA(CT Detailed) CPT:98882 Contrast Media : Non-ionic Iodinated Clinical History: PO/IV contrast : r/o neoplasm BUN/Cr ordered Report Status: Verified Date Reported: JANUARY 26, 2024 Date Verified: JANUARY 26, 2024 Lidar Analyst E-Sig:/ES/JOSE BOLES JR Report: Study: CT scan [...] Primary Interpreting Staff: JOSE BOLES JR, Radiologist (Lidar Analyst) /JOSE KERR JR [facility] Dec 25, 2023 11:22 AM SPINE CERVICAL, 4 OR 5 VIEWS: REBECA BLOCK [id number] -[id number] M Exm Date: DEC 25, 2023@11:22 Req Phys: VIC BE Pat Loc: CWM/SO/PACT EIGHT WH (Req'g Lo Img Loc: [facility]/BUILDING 1 Service: Unknown (Case [id number] COMPLETE) SPINE CERVICAL, 4 OR 5 VIEWS (RAD Detailed) CPT:83912 Reason for Study: neck pain Clinical History: Report Status: Verified Date Reported: DEC 25, 2023 Date Verified: DEC 25, 2023 Lidar Analyst E-Sig: Report: SPINE CERVICAL, 4 OR 5 VIEWS HISTORY: neck pain COMPARISON: None TECHNIQUE: 4 view(s) of the cervical spine, submitted to the [place] National Teleradiology Program (NTP) for interpretation. FINDINGS: [...] cervical spine. READING PHYSICIAN: Ivan King MD -[id number] 12/25/2023 10:41 PDT [facility] National Teleradiology Program [phone] (For Medical Practitioner Use Only) Attention Patients / Veterans: If you have questions or concerns about these test results, please contact your ordering provider or primary care team. Primary Diagnostic Code: NO ALERT REQUIRED Primary Interpreting Staff: RADIOLOGY,OUTSIDE SERVICE, Staff Physician / RADIOLOGY,OUTSIDE SERVICE [facility] Encounter Notes: All associated encounter notes This section contains the clinical notes associated to the Encounter. Date/Time Encounter Note(s) Provider Source January 04, 2024 01:57 PM PHYSICIAN BUMPER STRAIGHTENER NOTE: LOCAL TITLE: PA NOTE STANDARD TITLE: PHYSICIAN BUMPER STRAIGHTENER NOTE DATE OF NOTE: JANUARY 04, 2024@13:57 ENTRY DATE: JANUARY 04, 2024@13:57:56 AUTHOR: SHIN GARRIDO EXP COSIGNER: URGENCY: STATUS: COMPLETED SICK CALL VISIT CC: cough HPI: 78-year-old male with below noted past medical history and currently housed at [facility] due to homelessness presents today for evaluation of dry cough with improvement since being evaluated December 31 for same. He was tested at that time for Flu/Covid and RSV (all negative). No SOB/Fever or chills. Wondering if he needed more antibiotics. REVIEW OF SYSTEMS: A 12 point review of systems is negative except as noted in the HPI. Active Medical Problems: Active Problem Vitamin D Deficiency ([facility] [id number]) 12/13/2023 VIC BE Cervical pain M54.2 12/13/2023 VIC BE Exposure to potentially hazardous s 11/13/2023 FROILANDIONY BAÑUELOS Anemia ([facility] [id number]) D64.9 06/13/2023 [facility] Dehydration E86.0 06/13/2023 [facility] Foot pain M79.673 06/13/2023 [facility] GERD - Gastro-Esophageal Reflux Dis 06/13/2023 [facility] Benign Prostatic Hypertrophy withou 06/13/2023 [facility] Housing adequate Z59.9 11/05/2020 MIRELA GARDNER Seborrhoeic dermatitis of scalp (SN 06/06/2022 JENN GUO Constipation K59.00 01/14/2021 ALISIA TREVINO [place] of toe L84. 02/05/2019 ALISIA TREVINO Palpitations [...] CT 06/06/2022 JENN GUO Hypothyroidism (SNOMED CT [id number]) 06/06/2022 JENN GUO Seizure (SNOMED CT [id number]) F44.5, 06/06/2022 JENN GUO Meds: Active Outpatient [...] DAILY ACTIVE Allergies: STELAZINE, MOBAN, FLUPHENAZINE, LITHIUM Date Vital Measurement Qualifiers 01/04/2024 13:40 Temp F (C) 97.6 (36.4) Pulse 96 Respir 18 BP 142/73 Wt lbs (kg)[BMI] 121.2 (54.98)[18] POx (L/Min)(%) 99 At Rest FOCUSED EXAMINATION GEN: Well-developed chronically ill in appearance in no acute distress extremely thin but improved color noted HEENT: Normocephalic, very difficult to understand due to his speech pattern Airway is patent Uvula is midline Neck is supple, no LAD Lungs: CTAB, no wheeze/rale or rhonchi COR: Regular rate and rhythm Vascular: Well perfused/no edema DATA: Reminded about T-spot ordered last week. MDM: Discussed how azithromycin works and extended time in body. He has improved and his appearance has as well. He is educated that it could be another 2 weeks of coughing as the body clears any infection. Does reside in communal living for care home at [facility] due to homelessness. RTC PRN. ASSESSMENT/PLAN Bronchitis, NOS Sheltered Homelessness as above able to verbalize understanding of plan of care and agrees. >> MEDICATIONS Reviewed and reconciled with /nyasia/ SHIN SIERRA MS,PA-C PHYSICIAN BUMPER STRAIGHTENER Signed: 01/04/2024 14:47 SHIN [facility]IDO [facility]
--- OUTSIDE RECORDS SUMMARY | 2024-10-20 23:25 | XMS_ITS ---
Author Name [facility] Organization [facility] [place] Address [address] [place] [address] Care Team Providers Care Instructor Traffic Safety Name Role Phone ALISIA TREVINO Primary Care [...] Apr 04, 2011 PART A OPT ONLY [id number] LYNDON BLOCK JR PATIENT Selected Encounter This section includes the information on record at NH for the Encounter. Date/Time Encounter Type Encounter Description Reason Provider Source Dec 27, 2023 02:52 PM Outpatient Encounter PRIMARY CARE/MEDICINE SHIN GARRIDO Zoila Encounter Template Text not used by NH Plan of Treatment: Future Appointments (+ 6 months) and Future Tests (+/- 45 days) The Plan of Treatment section includes future care activities for the patient from all NH treatmentfacilities. This section includes future appointments and future orders which are active, pending or scheduled. Future Appointments This section includes appointments that were scheduled to occur 6 months from the date of the Encounter, up to a maximum of 20 appointments. The data comes from all [place] treatment facilities. Appointment Date/Time Appointment Type Appointme nt Facility Name Dec 28, 2023 02:00 PM [facility] [place] [facility] Dec 28, 2023 03:00 PM [facility] [place] [facility] January 04, 2024 01:30 PM [facility] [place] [facility] January 04, 2024 02:00 PM [facility]ULATORY [facility] [place] [facility] January 09, 2024 01:30 PM [facility] [place] [facility] January 23, 2024 01:30 PM AMBULATORY - REHAB MEDICIN [facility] January 24, 2024 08:00 AM AMBULATORY [facility]IC[facility] [place] [facility] January 24, 2024 11:00 AM [facility]UL[facility]IC[facility] [place] [facility] January 25, 2024 08:30 AM AMBULATORY - REHAB MEDICIN E [facility] [place] [facility] January 26, 2024 09:15 AM AMBULATORY - NONE [facility] [place] [facility] January 31, 2024 01:30 PM [facility]ULATORY [facility] [place] [facility] January 31, 2024 02:45 PM AMBULATORY [facility]IC[facility] [place] [facility] Feb 06, 2024 09:30 AM AMBULATORY - REHAB MEDICIN E [facility] [place] [facility] Feb 12, 2024 11:30 AM AM[facility]ULATORY [facility] [place] [facility] Feb 15, 2024 11:00 AM AMBULATORY [facility]IC[facility] [place] [facility] Feb 28, 2024 11:30 AM AM[facility]ULATORY [facility] [place] [facility] Feb 29, 2024 09:30 AM AMBULATORY - [facility]IC[facility] [place] [facility] Mar 15, 2024 10:00 AM AMBULATORY - [facility]IC[facility] [place] [facility] Mar 21, 2024 03:00 PM AMBULATORY [facility]IC[facility] [place] [facility] Mar 28, 2024 11:00 AM AM[facility]ULATORY [facility] [place] [facility] Active, Pending, and Scheduled Orders This section includes a listing of several types of active, pending, and scheduled orders, including clinic medications orders, diagnostic test orders, procedure orders and consult orders; where the start date of the order is 45 days before the date of the Encounter or 45 days after the date of theEncounter. The data comes from all [place] treatment facilities. Test Date/Time Test Type Test Details Facility Name January 24, 2024 08:53 AM Consult Order [facility] HOSPITALUROLOGY Cons Environmental Services Supervisor's Choice [facility] Lab Results: +/- 30 days of the encounter This section includes the Chemistry and Hematology Lab Results on record with NH for the patient. Radiology Reports and Pathology Reports are provided separately, in subsequent sections. Lab Results This section contains the Chemistry/Hematology Results that were resulted 30 days before or 30 daysafter the date of the Encounter. Date/Time Source Result Type Result - Unit Interpretation Reference Range Comment January 25, 2024 02:04 PM [facility] PSA Specimen Type: SERUM No comment entered. Ordering Provider: SHIN GARRIDO Report Released Date/Time: January 25, 2024 11:12 AM Reporting Lab: [facility] [place] [facility] [address] [facility] [address] Performing Lab: [facility] [place] [facility] [address] [facility] [address] PSA 4.37 ng/mL H 0.00-4.00 January 25, 2024 02:04 PM [facility] CREATININE (eGFR 2020) Specimen Type: SERUM No comment entered. Ordering Provider: SHIN GARRIDO Report Released Date/Time: January 25, 2024 11:12 AM Reporting Lab: [facility] [place] [facility] [address] [facility] [address] Performing Lab: [facility] [address] [address] CREATININE, Serum 0.63 mg/dL 0.50-1.40 eGFR(CKD-EPI 2020) >90 mL/min >60 January 25, 2024 02:04 PM [facility] UREA NITROGEN Specimen Type: SERUM No comment entered. Ordering Provider: SHIN GARRIDO Report Released Date/Time: January 25, 2024 11:12 AM Reporting Lab: [facility] [address] [address] Performing Lab: [address] [address] UREA NITROGEN 26 mg/dL H 7-January 24, 2024 08:06 AM [facility] COVID-19 FLU/RSV DIAGNOSTIC PANEL Specimen Type: [...] patient management decisions.Cephei d FLUVID: HCPs: https://www.fda. gov/media/241403 /download. Patients: https://www.fda. gov/media/722651 /download Ordering Provider: SHIN GARRIDO Report Released Date/Time: January 24, 2024 07:49 AM Reporting Lab: [address] [address] Performing Lab: [address] [address] COVID-19 PCR (FLUVID) NEGATIVE NEGATIVE FLU A PCR (FLUVID) NEGATIVE FLU B PCR (FLUVID) NEGATIVE RSV PCR (FLUVID) NEGATIVE January 04, 2024 02:23 PM [facility] T-SPOT TB PANEL Specimen Type: BLOOD [...] For additional information, please refer to http://education .[employer]/faq/EOO840 (This link is being provided for informational/ educational purposes only.) Test Performed by [facility], [facility], [address] [place] [address] Merrick Rubin M.D., Ph.D., Director of Laboratories , [facility] [id number] TEST PERFORMED AT: , Ordering Provider: SHIN GARRIDO Report Released Date/Time: Dec 28, 2023 04:19 PM Reporting Lab: [address] [address] Performing Lab: [facility] [address] [address] V-[id number] T (o) Negative Negative T-SPOT-PNLA 0 T-SPOT-PNLB 0 U-NWLV-BMGPV RL Passed H-ZTIV-WQOWY RL Passed Dec 27, 2023 02:58 PM [facility] COVID-19 FLU/RSV DIAGNOSTIC PANEL Specimen Type: [...] patient management decisions.Cepkatyai d FLUVID: HCPs: https://www.fda. gov/media/782315 /download. Patients: https://www.fda. gov/media/026965 /download Ordering Provider: SHIN GARRIDO Report Released Date/Time: Dec 27, 2023 02:53 PM Reporting Lab: [facility] [address] [facility] [address] Performing Lab: [address] [address] COVID-19 PCR (FLUVID) NEGATIVE NEGATIVE FLU A PCR (FLUVID) NEGATIVE FLU B PCR (FLUVID) NEGATIVE RSV PCR (FLUVID) NEGATIVE Social History: Smoking Status (Most current) and Tobacco Use (All prior to encounter date) This section includes the most current, and the historical, smoking and tobacco- related health factors from the [place] facility where the Encounter took place. Current Smoking Status This section includes the most current smoking, or tobacco-related health factor, from the [place] facility where the Encounter took place. Date/Time Current Smoking Status Comment Facil ity Jun 13, 2023 03:15 PM VA-TOBACCO NEVER USED [facility] Tobacco Use History This section includes a history of the smoking, or tobacco-related health factors, that were collected on or before the date of the Encounter. The data comes from the [place] facility where the Encounter took place. Date/Time Smoking Status/Tobacco Use Comment F acility Jun 25, 2020 01:58 PM VA-TOBACCO NEVER USED [facility] Feb 18, 2019 01:48 PM VA-TOBACCO NEVER USED [facility] Advance Directives: All historical and current Section Date Range: From patient's date of to the date document was created. This section includes ALL of a patient's completed or amended [place] Advance and Rescinded Directives. The entries below indicate that a directive exists for the patient, but an actual copy is not included with this document. The data comes from all [place] facilities. Date Advance Directives Provider Source Oct [...] the Encounter. The data comes from all [place] treatment facilities. Date/Time Radiology Report Provider Source January 26, 2024 11:[address] WITH CONTRAST: REBECA BLOCK [id number] -[id number] M Ex Date: JANUARY 26, 2024@11:07 Req Phys: SHIN GARRIDO Pat Loc: CWM/NO/SICK CALL PA (Req'g Loc Img Loc: NHM/CT Service: Unknown [facility] , (Case [id number] COMPLETE) CT THORAX W/CONT (CT Detailed) CPT:63946 Contrast Media : Non-ionic Iodinated Reason for Study: abnormal weight loss (Case [id number] COMPLETE) CT ABDOMEN AND PELVIS WITH CONTRA(CT Detailed) CPT:32869 Contrast Media : Non-ionic Iodinated Clinical History: PO/IV contrast : r/o neoplasm BUN/Cr ordered Report Status: Verified Date Reported: JANUARY 26, 2024 Date Verified: JANUARY 26, 2024 Test Deck Supervisor E-Sig:/ES/JOSE BOLES JR Report: Study: CT scan [...] Primary Interpreting Staff: JOSE BOLES JR, Radiologist (Test Deck Supervisor) /JOSE KERR JR [facility] Dec 25, 2023 11:22 AM SPINE CERVICAL, 4 OR 5 VIEWS: REBECA BLOCK [id number] -[id number] M Ex Date: DEC 25, 2023@11:22 Req Phys: VIC BE Pat Loc: CWM/SO/PACT EIGHT WH (Req'g Lo Img Loc: [facility] 1 Service: Unknown (Case [id number] COMPLETE) SPINE CERVICAL, 4 OR 5 VIEWS (RAD Detailed) CPT:27464 Reason for Study: neck pain Clinical History: Report Status: Verified Date Reported: DEC 25, 2023 Date Verified: DEC 25, 2023 Test Deck Supervisor E-Sig: Report: SPINE CERVICAL, 4 OR 5 VIEWS HISTORY: neck pain COMPARISON: None TECHNIQUE: 4 view(s) of the cervical spine, submitted to the [place] National Teleradiology Program (NTP) for interpretation. FINDINGS: [...] cervical spine. READING PHYSICIAN: Ivan King MD -[id number] 12/25/2023 10:41 PDT [facility] National Teleradiology Program [phone] (For Medical Practitioner Use Only) Attention Patients / Veterans: If you have questions or concerns about these test results, please contact your ordering provider or primary care team. Primary Diagnostic Code: NO ALERT REQUIRED Primary Interpreting Staff: RADIOLOGY,OUTSIDE SERVICE, Staff Physician / RADIOLOGY,OUTSIDE SERVICE [facility]
--- OUTSIDE RECORDS SUMMARY | 2024-10-20 23:25 | XMS_ITS | Encounter Summary ---
Author Name [facility] [place] [facility] [place] Address [address] [place] [id number] Care Team Providers Care Co Founder And Chairman Name Role Phone GAGANAUDREY, ALISIA Primary Care [...] Apr 04, 2011 PART A OPT ONLY [id number] LYNDON BLOCK JR PATIENT Selected Encounter This section includes the information on record at [place] for the Encounter. Date/Time Encounter Type Encounter [...] this document. The data comes from all [place] facilities. Date Advance Directives Provider Source Oct 04, 2023 ADVANCE DIRECTIVE DISCUSSION OZZY CORDERO
--- OUTSIDE RECORDS SUMMARY | 2024-10-20 23:25 | XMS_ITS ---
Author Name [facility] [place] [facility] [place] [facility] [place] Address [address] [place] [address] Care Team Providers Care Wet Finisher Wool Name Role Phone ALISIA TREVINO Primary Care [...] Apr 04, 2011 PART A OPT ONLY [id number] LYNDON BLOCK JR PATIENT Selected Encounter This section includes the information on record at [place] for the Encounter. Date/Time Encounter Type Encounter Description Reason Provider Source Dec 28, 2023 03:00 PM OFFICE O/P EST LOW 20 MIN PRIMARY CARE/MEDICINE ICD-10-CM J20.9 Acute bronchitis, unspecified SHIN GARRIDO [facility] Encounter Template Text not used by [place] Assessments - Encounter Diagnoses This section includes the primary and secondary diagnoses documented for the Encounter. Date/Time Primary/Secondary Diagnosis Diagnosis Name Provider Source Dec 28, 2023 04:09 PM PRIMARY Acute bronchitis, unspecified SHIN GARRIDO [facility] [place] [facility] Dec 28, 2023 04:09 PM SECONDARY Sheltered homelessness SHIN GARRIDO [facility] [place] [facility] Plan of Treatment: Future Appointments (+ 6 months) and Future Tests (+/- 45 days) The Plan of Treatment section includes future care [facility] for the [facility] This section includes future appointments and future orders which are active, pending or scheduled. Future Appointments This section includes appointments that were scheduled to occur 6 months from the date of the Encounter, up to a maximum of 20 appointments. The data comes from all [place] treatment facilities. Appointment Date/Time Appointment Type Appointme nt Facility Name January 04, 2024 01:30 PM AMBULATORY - MEDICINE [facility] [place] [facility] January 04, 2024 02:00 PM AMBULATORY - MEDICINE [facility] [place] [facility] January 09, 2024 01:30 PM AMBULATORY - MEDICINE [facility] [place] [facility] January 23, 2024 01:30 PM AMBULATORY - [facility] January 24, 2024 08:00 AM AMBULATORY - MEDICINE [facility] [place] [facility] January 24, 2024 11:00 AM AMBULATORY - MEDICINE [facility] [place] [facility] January 25, 2024 08:30 AM AMBULATORY - REHAB MEDICIN E [facility] [place] [facility] January 26, 2024 09:15 AM AMBULATORY - NONE [facility] [place] [facility] January 31, 2024 01:30 PM AMBULATORY - MEDICINE [facility] [place] [facility] January 31, 2024 02:45 PM AMBULATORY - MEDICINE [facility] [place] [facility] Feb 06, 2024 09:30 AM AMBULATORY - REHAB MEDICIN E [facility] [place] [facility] Feb 12, 2024 11:30 AM AMBULATORY - MEDICINE [facility] [place] [facility] Feb 15, 2024 11:00 AM AMBULATORY - MEDICINE [facility] [place] [facility] Feb 28, 2024 11:30 AM AMBULATORY - MEDICINE [facility] [place] [facility] Feb 29, 2024 09:30 AM AMBULATORY - MEDICINE [facility] [place] [facility] Mar 15, 2024 10:00 AM AMBULATORY - MEDICINE [facility] [place] [facility] Mar 21, 2024 03:00 PM AMBULATORY - MEDICINE [facility] [place] [facility] Mar 28, 2024 11:00 AM AMBULATORY - MEDICINE [facility] [place] [facility] Apr 25, 2024 03:30 PM AMBULATORY - MED[facility] Apr 26, 2024 09:45 AM AMBULATORY - MEDICINE [facility] [place] [facility] Active, Pending, and Scheduled Orders This section includes a listing of several types of active, pending, and scheduled orders, including clinic medications orders, diagnostic test orders, procedure orders and consult orders; where the start date of the order is 45 days before the date of the Encounter or 45 days after the date of theEncounter. The data comes from all [place] treatment facilities. Test Date/Time Test Type Test Details Facility Name January 24, 2024 08:53 AM Consult Order [facility] Cons Records Management Specialist's Choice [facility] Lab Results: +/- 30 days of the encounter This section includes the Chemistry and Hematology Lab Results on record with [place] for the patient. Radiology Reports and Pathology Reports are provided separately, in subsequent sections. Lab Results This section contains the Chemistry/Hematology Results that were resulted 30 days before or 30 daysafter the date of the Encounter. Date/Time Source Result Type Result - Unit Interpretation Reference Range Comment January 25, 2024 02:04 PM [facility] [place] [facility] UREA NITROGEN Specimen Type: SERUM No comment entered. Ordering Provider: SHIN GARRIDO Report Released Date/Time: January 25, 2024 11:12 AM Reporting Lab: [facility] [place] [address] [address] Performing Lab: [facility] [place] [address] [address] UREA NITROGEN 26 mg/dL H 7-25 January 25, 2024 02:04 PM [facility] [place] [facility] PSA Specimen Type: SERUM No comment entered. Ordering Provider: SHIN GARRIDO Report Released Date/Time: January 25, 2024 11:12 AM Reporting Lab: [facility] [place] [address] [address] Performing Lab: [facility] [place] [address] [address] PSA 4.37 ng/mL H 0.00-4.00 January 25, 2024 02:04 PM [facility] CREATININE (eGFR 2020) Specimen Type: SERUM No comment entered. Ordering Provider: SHIN GARRIDO Report Released Date/Time: January 25, 2024 11:12 AM Reporting Lab: [facility] [address] [address] Performing Lab: [address] [address] CREATININE, Serum 0.63 mg/dL 0.50-1.40 eGFR(CKD-EPI 2020) >90 mL/min >60 January 24, 2024 08:06 AM [facility] COVID-19 FLU/RSV DIAGNOSTIC PANEL Specimen Type: [...] patient management decisions.Cephei d FLUVID: HCPs: https://www.fda. gov/media/827054 /download. Patients: https://www.fda. gov/media/657601 /download Ordering Provider: SHIN GARRIDO Report Released Date/Time: January 24, 2024 07:49 AM Reporting Lab: [address] [address] Performing Lab: [address] [address] COVID-19 PCR (FLUVID) NEGATIVE NEGATIVE FLU A PCR (FLUVID) NEGATIVE FLU B PCR (FLUVID) NEGATIVE RSV PCR (FLUVID) NEGATIVE January 04, 2024 02:23 PM [facility] T-SPOT TB PANEL Specimen Type: BLOOD [...] For additional information, please refer to http://education .JobSerf/faq/PQE304 (This link is being provided for informational/ educational purposes only.) Test Performed by KauliJarrod, RADSONE [facility], [address] [place] [address] Merrick Rubin M.D., Ph.D., Director of Laboratories , [facility] [id number] TEST PERFORMED AT: , Ordering Provider: SHIN GARRIDO Report Released Date/Time: Dec 28, 2023 04:19 PM Reporting Lab: [facility] [address] [address] [address] Performing Lab: [facility] [address] [address] A-MBXL-FWIPN T (o) Negative Negative T-SPOT-PNLA 0 T-SPOT-PNLB 0 P-QPLA-SDLVY RL Passed Q-OFCH-KIHTA RL Passed Dec 27, 2023 02:58 PM [facility] COVID-19 FLU/RSV DIAGNOSTIC PANEL Specimen Type: [...] patient management decisions.Gus taylor FLUVID: HCPs: https://www.fda. gov/media/748708 /download. Patients: https://www.fda. gov/media/784961 /download Ordering Provider: SHIN GARRIDO Report Released Date/Time: Dec 27, 2023 02:53 PM Reporting Lab[facility] [address] [address] Performing Lab: [facility] [address] [address] [address] COVID-19 PCR (FLUVID) NEGATIVE NEGATIVE FLU A [...] 93 127/73 20 99 0 127.1 19 [facility] Social History: Smoking Status (Most current) and Tobacco Use (All prior to encounter date) This section includes the most current, and the historical, smoking and tobacco- related health factors from the [place] facility where the Encounter took place. Current Smoking Status This section includes the most current smoking, or tobacco-related health factor, from the [place] facility where the Encounter took place. Date/Time Current Smoking Status Comment Sasha ity Jun 13, 2023 03:15 PM VA-TOBACCO NEVER USED [facility] Tobacco Use History This section includes a history of the smoking, or tobacco-related health factors, that were collected on or before the date of the Encounter. The data comes from the [place] facility where the Encounter took place. Date/Time Smoking Status/Tobacco Use Comment F acility Jun 25, 2020 01:58 PM VA-TOBACCO NEVER USED [facility] Feb 18, 2019 01:48 PM [facility]TOBACCO [facility] Advance Directives: All historical and current Section Date Range: From patient's date of to the date document was created. This section includes ALL of a patient's completed or amended [place] Advance and Rescinded Directives. The entries below indicate that a directive exists for the patient, but an actual copy is not included with this document. The data comes from all [place] facilities. Date Advance Directives Provider Source Oct [...] the Encounter. The data comes from all [place] treatment facilities. Date/Time Radiology Report Provider Source January 26, 2024 11:[address] WITH CONTRAST: REBECA BLOCK [id number] -1945 M Exm Date: JANUARY 26, 2024@11:07 Req Phys: SHIN GARRIDO Loc: CWM/NO/SICK CALL PA (Req'g Loc Img Loc: NHM/CT Service: Unknown [facility] , (Case [id number] COMPLETE) CT THORAX W/CONT (CT Detailed) CPT:79572 Contrast Media : Non-ionic Iodinated Reason for Study: abnormal weight loss (Case 331 COMPLETE) CT ABDOMEN AND PELVIS WITH CONTRA(CT Detailed) CPT:27873 Contrast Media : Non-ionic Iodinated Clinical History: PO/IV contrast : r/o neoplasm BUN/Cr ordered Report Status: Verified Date Reported: JANUARY 26, 2024 Date Verified: JANUARY 26, 2024 [facility] Supervisor E-Sig:/ES/JOSE BOLES JR Report: Study: CT [...] Primary Interpreting Staff: JOSE BOLES JR, Radiologist ([facility] Supervisor) /JOSE KERR JR [facility] Dec 25, 2023 11:22 AM SPINE CERVICAL, 4 OR 5 VIEWS: REEBCA BLOCK [id number] -1945 M Exm Date: DEC 25, 2023@11:22 Req Phys: VIC BE Pat Loc: CWM/SO/PACT EIGHT WH (Req'g Lo Img Loc: [facility]/BUILDING 1 Service: Unknown (Case [id number] COMPLETE) SPINE CERVICAL, 4 OR 5 VIEWS (RAD Detailed) CPT:49070 Reason for Study: neck pain Clinical History: Report Status: Verified Date Reported: DEC 25, 2023 Date Verified: DEC 25, 2023 [facility] Supervisor E-Sig: Report: SPINE CERVICAL, 4 OR 5 VIEWS HISTORY: neck pain COMPARISON: None TECHNIQUE: 4 view(s) of the cervical spine, submitted to the [place] National Teleradiology Program (NTP) for interpretation. FINDINGS: [...] cervical spine. READING PHYSICIAN: Ivan King MD -[id number] 12/25/2023 10:41 PDT [facility] National Teleradiology Program [phone] (For Medical Practitioner Use Only) Attention Patients / Veterans: If you have questions or concerns about these test results, please contact your ordering provider or primary care team. Primary Diagnostic Code: NO ALERT REQUIRED Primary Interpreting Staff: RADIOLOGY,OUTSIDE SERVICE, Staff Physician / RADIOLOGY,OUTSIDE SERVICE [facility] Encounter Notes: All associated encounter notes This section contains the clinical notes associated to the Encounter. Date/Time Encounter Note(s) Provider Source Dec 28, 2023 02:39 PM PHYSICIAN MECHANICAL SHOVEL OPERATOR NOTE: LOCAL TITLE: PA NOTE STANDARD TITLE: PHYSICIAN MECHANICAL SHOVEL OPERATOR NOTE DATE OF NOTE: DEC 28, 2023@14:39 ENTRY DATE: DEC 28, 2023@14:39:53 AUTHOR: SHIN GARRIDO EXP COSIGNER: URGENCY: STATUS: COMPLETED PA NOTE Has ADDENDA SICK CALL VISIT CC: cough HPI: 78-year-old male with below noted past medical history and [facility] presents today for evaluation of 8 days of dry cough, increased fatigue along with a headache. He was tested yesterday for COVID, influenza, RSV and all were resulting negative. He has not had any shortness of breath, fever or chills. No self interventions. REVIEW OF SYSTEMS: A 12 point review of systems is negative except as noted in the HPI. Active Medical Problems: Active Problem Vitamin D Deficiency ([facility] 80695205) 12/13/2023 [facility] Cervical pain M54.2 12/13/2023 [facility] Exposure to potentially hazardous s 11/13/2023 FROILANDIONY BAÑUELOS Anemia ([facility] [id number]) D64.9 06/13/2023 [facility] Dehydration E86.0 06/13/2023 [facility] Foot pain M79.673 06/13/2023 [facility] GERD - Gastro-Esophageal Reflux Dis 06/13/2023 [facility] Benign Prostatic Hypertrophy withou 06/13/2023 [facility] Housing adequate Z59.9 11/05/2020 MIRELA GARDNER Seborrhoeic dermatitis of scalp (SN 06/06/2022 JENN GUO Constipation K59.00 01/14/2021 ALISIA TREVINO [place] of toe L84. 02/05/2019 ALISIA TREVINO Palpitations [...] CT 06/06/2022 JENN GUO Hypothyroidism (SNOMED CT 46737017) 06/06/2022 JENN GUO Seizure (SNOMED CT 14297382) F44.5, 06/06/2022 JENN GUO Meds: Active Outpatient [...] MOBAN, FLUPHENAZINE, LITHIUM Date Vital Measurement Qualifiers 12/28/2023 14:04 Temp F (C) 99.6 (37.6) Pulse 93 Respir 20 BP 127/73 Wt lbs (kg)[BMI] 127.1 (57.65)[19] Pain 0 POx (L/Min)(%) 99 At Rest FOCUSED EXAMINATION GEN: Well-developed chronically ill in appearance in no acute distress extremely thin with palpable and visible clavicles through his clothing. (Reviewed [place]'s chart 9 pound weight loss in the past 12 months. Over the past years he has had fluctuations from as low as 123 pounds to as high as 148 pounds). HEENT: Normocephalic, very difficult to understand due to his speech pattern Airway is patent Uvula is midline Neck is supple, no LAD Lungs: CTAB, no wheeze/rale or rhonchi COR: Regular rate and rhythm Vascular: Well perfused/no edema MDM: No clinical evidence of acute toxicity or airway compromise at this time. Given previous homelessness and current communal living, I am inclined to initiate treatment with a azithromycin, prednisone and DM/guaifenesin cough syrup. There is no wheezing and no coughing throughout office visit. We discussed the possibility of using an inhaler however does not feel it is necessary at this time. Reynaldo is able to be seen here as he lives on campus and can return as needed. ASSESSMENT/PLAN Acute bronchitis, NOS As above [place] able to verbalize understanding of plan of care and agrees. >> MEDICATIONS Reviewed and reconciled with [place] /nyasia/ SHIN SIERRA MS,PAMelinda PHYSICIAN MECHANICAL SHOVEL OPERATOR Signed: 12/28/2023 16:09 12/28/2023 ADDENDUM STATUS: COMPLETED Sheltered homelessness: stable at [facility] /nyasia/ SHIN SIERRA MS,PAJaycobC PHYSICIAN MECHANICAL SHOVEL OPERATOR Signed: 12/28/2023 16:17 SHIN GARRIDO [facility] [place] [facility]
--- OUTSIDE RECORDS SUMMARY | 2024-10-20 23:25 | XMS_ITS ---
Author Name [facility] [place] Organization [facility] [place] Address [address] [place] [address] Care Team Providers Care Bottom Hoop Driver Name Role Phone ALISIA TREVINO Primary Care [...] Apr 04, 2011 PART A OPT ONLY [id number] LYNDON BLOCK JR PATIENT Selected Encounter This section includes the information on record at [place] for the Encounter. Date/Time Encounter Type Encounter Description Reason Provider Source January 25, 2024 08:30 AM OT EVAL MOD COMPLEX 45 MIN OCCUPATIONAL THERAPY ICD-10-CM R26.9 Unspecified abnormalities of gait and mobility RANJANA PECK E Encounter Template Text not used by [place] Assessments - Encounter Diagnoses This section includes the primary and secondary diagnoses documented for the Encounter. Date/Time Primary/Secondary Diagnosis Diagnosis Name Provider Source January 25, 2024 04:15 PM PRIMARY Unspecified abnormalities of gait and mobility PECK,[facility]NA [facility] Plan of Treatment: Future Appointments (+ 6 months) and Future Tests (+/- 45 days) The Plan of Treatment section includes future care activities for the patient from all [place] [facility]. This section includes future appointments and future orders which are active, pending or scheduled. Future Appointments This section includes appointments that were scheduled to occur 6 months from the date of the Encounter, up to a maximum of 20 appointments. The data comes from all [place] treatment facilities. Appointment Date/Time Appointment Type Appointme nt Facility Name January 26, 2024 09:15 AM AMBULATORY - NONE [facility] [place] [facility] January 31, 2024 01:30 PM AMBULATORY - MEDICINE [facility] [place] [facility] January 31, 2024 02:45 PM AMBULATORY - MEDICINE [facility] [place] [facility] Feb 06, 2024 09:30 AM AMBULATORY - REHAB MEDICIN E [facility] [place] [facility] Feb 12, 2024 11:30 AM AMBULATORY - MEDICINE [facility] [place] [facility] Feb 15, 2024 11:00 AM AMBULATORY - MEDICINE [facility] [place] [facility] Feb 28, 2024 11:30 AM AMBULATORY - MEDICINE [facility] [place] [facility] Feb 29, 2024 09:30 AM AMBULATORY - MEDICINE [facility] [place] [facility] Mar 15, 2024 10:00 AM AMBULATORY - MEDICINE [facility] [place] [facility] Mar 21, 2024 03:00 PM AMBULATORY - MEDICINE [facility] [place] [facility] Mar 28, 2024 11:00 AM AMBULATORY - MEDICINE [facility] [place] [facility] Apr 25, 2024 03:30 PM AMBULATORY - MEDICINE [facility] Apr 26, 2024 09:45 AM AMBULATORY - MEDICINE [facility] [place] [facility] May 24, 2024 01:00 PM AMBULATORY - REHAB MEDICIN E [facility] [place] [facility] Jun 03, 2024 01:00 PM AMBULATORY - MEDICINE [facility] [place] [facility] Jul 08, 2024 02:00 PM AMBULATORY - REHAB MEDICIN E [facility] [place] [facility] Jul 24, 2024 10:30 AM AMBULATORY - MEDICINE [facility] [place] [facility] Jul 25, 2024 01:00 PM AMBULATORY - REHAB MEDICIN E [facility] [place] [facility] Active, Pending, and Scheduled Orders [...] 2024 08:53 AM Consult Order [facility]-UROLOGY Cons Body Man's Choice [place] Lab Results: +/- 30 days of the [...] Range Comment January 25, 2024 02:04 PM [facility] UREA NITROGEN Specimen Type: SERUM No comment entered. Ordering Provider: SHIN GARRIDO Report Released Date/Time: January 25, 2024 11:12 AM Reporting [facility] [place] [facility] [address] [address] Performing Lab: [facility] [place] [facility] [address] [address] UREA NITROGEN 26 mg/dL H 7-25 January 25, 2024 02:04 [facility] PSA Specimen Type: SERUM No comment entered. Ordering Provider: SHIN GARRIDO Report Released Date/Time: January 25, 2024 11:12 AM Reporting Lab: [facility] [place] [facility] [address] [address] Performing [facility]: [facility] [address] [address] [address] PSA 4.37 ng/mL H 0.00-4.00 January 25, 2024 02:04 PM [facility] CREATININE (eGFR 2020) Specimen Type: SERUM No comment entered. Ordering Provider: SHIN GARRIDO Report Released Date/Time: January 25, 2024 11:12 AM Reporting Lab: [address] [address] Performing Lab: [address] [address] CREATININE, Serum 0.63 mg/dL 0.50-1.40 eGFR(CKD-EPI 2020) >90 mL/min >60 January 24, 2024 08:06 AM [facility] COVID-19 FLU/RSV DIAGNOSTIC PANEL Specimen Type: [...] patient management decisions.Cephei d FLUVID: HCPs: https://www.fda. gov/media/254273 /download. Patients: https://www.fda. gov/media/738928 /download Ordering Provider: SHIN GARRIDO Report Released Date/Time: January 24, 2024 07:49 AM Reporting Lab: [address] [address] Performing Lab: [address] [address] COVID-19 PCR (FLUVID) NEGATIVE NEGATIVE FLU A PCR (FLUVID) NEGATIVE FLU B PCR (FLUVID) NEGATIVE RSV PCR (FLUVID) NEGATIVE January 04, 2024 02:23 PM [facility] T-SPOT TB PANEL Specimen Type: BLOOD [...] test. For additional information, please refer to http://[employer]riends[employer] .[employer]/faq/NVZ582 (This link is being provided for informational/ educational purposes only.) Test Performed by [facility], [facility], [address] [place] [address] Merrick Rubin M.D., Ph.D., Director of Laboratories , [place] [id number] TEST PERFORMED AT: , Ordering Provider: SHIN GARRIDO Report Released Date/Time: Dec 28, 2023 04:19 PM Reporting Lab: [address] [address] Performing Lab: [facility] [address] [address] C-[id number]-[id number] T (o) Negative Negative T-SPOT-PNLA 0 T-SPOT-PNLB 0 R-CYJJ-QNGDP RL Passed B-XUQT-XGZIP RL Passed Dec 27, 2023 02:58 PM [facility] COVID-19 FLU/RSV DIAGNOSTIC PANEL Specimen Type: [...] patient management decisions.Cephei d FLUVID: HCPs: https://www.fda. gov/media/537751 /download. Patients: https://www.fda. gov/media/250131 /download Ordering Provider: SHIN GARRIDO Report Released Date/Time: Dec 27, 2023 02:53 PM Reporting Lab: [address] [address] Performing Lab: [facility] [address] [facility] [address] COVID-19 PCR (FLUVID) NEGATIVE NEGATIVE FLU A [...] 13, 2023 03:15 PM VA-TOBACCO NEVER USED [facility] Tobacco Use History This section includes a history of the smoking, or tobacco-related health factors, that were collected on or before the date of the Encounter. The data comes from the [place] facility where the Encounter took place. Date/Time Smoking Status/Tobacco Use Comment F acility Jun 25, 2020 01:58 PM VA-TOBACCO NEVER USED [facility] Feb 18, 2019 01:48 PM VA-TOBACCO NEVER USED [facility] Advance Directives: All historical and current [...] AM CHEST CT WITH CONTRAST: REBECA BLOCK [id number] -[id number] M Exm Date: JANUARY 26, 2024@11:07 Req Phys: SHIN GARRIDO Pat Loc: CWM/NO/SICK CALL PA (Req'g Loc Img Loc: [facility]/CT Service: Unknown [facility] , (Case [id number] COMPLETE) CT THORAX W/CONT (CT Detailed) CPT:25311 Contrast Media : Non-ionic Iodinated Reason for Study: abnormal weight loss (Case 331 COMPLETE) CT ABDOMEN AND PELVIS WITH CONTRA(CT Detailed) CPT:77886 Contrast Media : Non-ionic Iodinated Clinical History: PO/IV contrast : r/o neoplasm BUN/Cr ordered Report Status: Verified Date Reported: JANUARY 26, 2024 Date Verified: JANUARY 26, 2024 Quantitative Equity Head E-Sig:/ES/JOSE BOLES JR Report: Study: CT scan [...] Primary Interpreting Staff: JOSE BOLES JR, Radiologist (Quantitative Equity Head) /JOSE KERR JR [facility] Encounter Notes: All associated encounter notes This section contains the clinical notes associated to the Encounter. Date/Time Encounter Note(s) Provider Source January 25, 2024 08:30 AM OCCUPATIONAL MEDIC INE CONSULT: LOCAL TITLE: CONSULT REPORT/OCCUPATIONAL THERAPY STANDARD TITLE: OCCUPATIONAL MEDICINE CONSULT DATE OF NOTE: JANUARY 25, 2024@08:30 ENTRY DATE: JANUARY 25, 2024@10:07:30 AUTHOR: RANJANA PECK COSIGNER: VIC BE URGENCY: STATUS: COMPLETED Initial Evaluation date: January Treatment time: 60 minutes Diagnosis:Other Seizures(ICD-10-CM G40.89) Provider: Dr. Be OT Treatment Precautions: Seizures (referring diagnosis) fall risk Patient identified by full name and date of Subjective/Objective: was referred by Dr. Be for a Psychosocial Evaluation following [facility] regarding his ability to live independently (hard of hearing, imbalance issues,speech difficulty). PCP requests Functional Assessment Focus: Chart reviewed Nehemiasan Evaluation of Living Skills Initiated not completed follow up 02/05 @ 1030 Physical: Tinetti Balance Assessment (screening) Score Gait: 04/15 Balance 04/19 Total Score: score less than 18 Indicative as a [facility] Fall Risk. Assessment: arrived to OT, put forth good effort in physical screening and subtests of Nehemiasan Evaluation of Living Skills. Follow up to complete [facility]ANS. Plan: follow up 02/06/24 @ 1030 Discharge once all goals met /nyasia/ SILVIA KENNEDY/L OCCUPATIONAL THERAPIST Signed: 02/06/2024 09:18 /nyasia/ VIC BE MD PRIMARY CARE PHYSICIAN Cosigned: 02/07/2024 08:26 RANJANA PECK [facility]
--- OUTSIDE RECORDS SUMMARY | 2024-10-20 23:25 | XMS_ITS | Continuity of Care Document ---
Author Name [facility] Organization [facility] Care Team Providers Care Progress Clerk Name Role Phone [facility] Unavailable Unavailable Problems Combined list of problems from Department of Defense and Veterans Affairs facilities. It does not include entries that were removed or entered in error. Problem Status Onset Date Problem Type Date of Resolution Comments Source Hypothyroidism (SNOMED CT 73852333) Active 09/04/18 96 Condition [place] Seizure (SNOMED CT 57030514) Active 09/04/18 79 Condition Apr 14, 1999 Entered By: CLARE VILLA Comment: 2007 Entered By: YESSI MORALES Comment: Seeing Dr Choudhury who is tapering dilantin [place] Abnormal weight loss Active Condition Feb 12, 2024 Entered By: SUMA TREVINO Comment: vet lost 15 lbs in past two years from already low BMI in 2021 [facility] Ambulatory ECG abnormal Active Condition Mar 28, 2018 Entered By: KEIKO RIVAS Comment: 02/2018 Incomplete RBBB [place] Anemia (SCT 880986006) Active Condition [place] Anemia * (ICD-9-CM 285.9) Active Condition [facility] Benign enlargement of prostate (SNOMED CT 479969641) Active Condition [facility] Benign Prostatic Hypertrophy without Outflow Obstruction (SCT 482909474) Active Condition [place] Candidiasis, Oral (ICD-9-CM 112.0) Active Condition [facility] Cervical pain Active Condition [facility] Chronic obstructive pulmonary disease (SNOMED CT 56999810) Active Condition Mar 20, 2006 Entered By: YESSI MORALES Comment: Based only on CT scan reading No clinical history of this. [facility] Constipation Active Condition January 14, 2021 Entered By: KEIKO RIVAS Comment: colonoscopy 01/11/21 Int. 'roids, diverticulosis. no polyps [facility] [place] of toe Active Condition [facility] Dehydration Active Condition [facility] Delusional disorder Active Condition Oct 31, 2006 Entered By: YESSI MORALES Comment: Was afraid to eat in 1978 [facility] Dysphagia Active Condition [facility] Exposure to potentially hazardous substance Active Condition Nov 13, 2023 Entered By: SYL MCGOVERN Comment: Connect Snomed Code to ICD 10 Code refer to note dated 06/13/23 [facility] Foot pain Active Condition [place] Frail elderly Active Condition [facility] Gastro-esophageal reflux (SNOMED CT 986741776) Active Condition January 14, 2021 Entered By: KEIKO RIVAS Comment: EGD 01/21/21 sm. hiatal hernia, no barretts, prior GE dilitation, gastric polyps [place] GERD - Gastro-Esophageal Reflux Disease (SCT 741922085) Active Condition [facility] Homeless Active Condition [facility] Housing adequate [facility] lack Active Condition [facility] Left Inguinal Hernia Active Condition [facility] Left Inguinal Hernia (ICD-9-CM 550.90) Active Condition [facility] Low Back Pain * (ICD-9-CM 724.2) Active Condition [facility] Multiple pulmonary nodules Active Condition [facility] Palpitations Active Condition January 30, 2019 Entered By: KEIKO RIVAS Comment: Exertional. Nuc ETT 12/2018 No Reperfusion defects. Mild chronotropic insufficiency. Normal EF. 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 Condition [facility] Seborrhoeic dermatitis of scalp (SNOMED CT 093577342) Active Condition [facility] Vertigo/Dizziness Active Condition Oc t 2006 Entered By: YESSI MORALES Comment: Saw Dr Robert Puckett 06/04/07 [facility] Vitamin D Deficiency ([facility] 33900551) Active Condition [place] Diagnosis: ICD-10-CM Z46.1 Encounter for fitting and adjustment of hearing aid Active Diagnosis [facility] Diagnosis: ICD-10-CM L60.0 Ingrowing nail Active Diagnosis [facility] Diagnosis: ICD-10-CM H90.3 Sensorineural hearing loss, bilateral Active Diagnosis [facility] Diagnosis: ICD-10-CM R54 Age-related physical debility Active Diagnosis [facility] Diagnosis: ICD-10-CM R13.12 Dysphagia, oropharyngeal phase Active Diagnosis [facility] Diagnosis: ICD-10-CM L60.3 Nail dystrophy Active Diagnosis [facility] Diagnosis: ICD-10-CM Z65.9 Problem related to unspecified psychosocial circumstances Active Diagnosis [facility] Diagnosis: ICD-10-CM J44.9 Chronic obstructive pulmonary disease, unspecified Active Diagnosis [facility] Diagnosis: ICD-10-CM Z71.89 Other specified counseling Active Diagnosis [facility] Diagnosis: ICD-10-CM J98.4 Other disorders of lung Active Diagnosis [facility] Diagnosis: ICD-10-CM R63.4 Abnormal weight loss Active Diagnosis [facility] Diagnosis: ICD-10-CM Z59.00 Homelessness unspecified Active Diagnosis [facility] Diagnosis: ICD-10-CM G40.89 Other seizures Active Diagnosis [facility] Diagnosis: ICD-10-CM Z46.0 Encounter for fit/adjst of spectacles and contact lenses Active Diagnosis [facility] Diagnosis: ICD-10-CM H35.62 Retinal hemorrhage, left eye Active Diagnosis [facility] Diagnosis: ICD-10-CM H04.123 Dry eye syndrome of bilateral lacrimal glands Active Diagnosis [facility] Diagnosis: ICD-10-CM R26.9 Unspecified abnormalities of gait and mobility Active Diagnosis [facility] Diagnosis: ICD-10-CM J30.9 Allergic rhinitis, unspecified Active Diagnosis [facility] Diagnosis: ICD-10-CM J31.2 Chronic ph[facility]itis [facility] Diagnosis: ICD-10-CM M54.2 Cervicalgia Active Diagnosis [place] Diagnosis: ICD-10-CM J20.9 Acute bronchitis, unspecified Active Diagnosis [facility] Diagnosis: ICD-10-CM E03.9 Hypothyroidism, unspecified Active Diagnosis [place] Diagnosis: ICD-10-CM Z59.01 Sheltered homelessness Active Diagnosis [place] Diagnosis: ICD-10-CM Z59.9 Problem related to housing and economic circumstances, unsp Active Diagnosis [facility] Diagnosis: ICD-10-CM E86.0 Dehydration Active Diagnosis [place] Diagnosis: ICD-10-CM R42 Dizziness and giddiness Active Diagnosis [place] Diagnosis: ICD-10-CM Z59.02 Unsheltered homelessness Active Diagnosis [place] Diagnosis: ICD-10-CM Z59.811 Housing instability, housed, with risk of homelessness Active Diagnosis [facility] Diagnosis: ICD-10-CM Z59.89 Other problems related to housing and economic circumstances Active Diagnosis [place] Medications Combined list of outpatient medications from Department of Defense and Veterans Affairs facilities.Medications provided include 1) outpatient medications from the last 15 months, and 2) patient-reported medications. Medication Details Route Status Patient Instructions Prescription Expires Prescription Number Last Dispense Date Ordering Provider Order Date Order Qty Source ACETAMINOPH EN 500MG TAB TAKE ONE TABLET BY MOUTH ONCE DAILY NEEDED FOR PAIN ORAL ACTIVE 07/25/2025 [id number] SIMI NANCE 2023 100 [facility] ACETAMINOPH EN 500MG TAB TAKE ONE TABLET BY MOUTH ONCE DAILY NEEDED FOR PAIN ORAL DISCONT INUED 12/13/2024 [id number] SIOMARA BE 2023 100 [facility] IELD AMOXICILLIN TRIHYDRATE 875MG/CLAVU LANATE K 125MG TAB TAKE 1 TABLET BY MOUTH TWICE DAILY FOR 21 DAYS FOR INFECTIO N ORAL 04/27/2024 [id number] GUALISTAIR 2023 42 [facility] AZITHROMYCI N 250MG TAB TAKE TWO TABLETS BY MOUTH ONCE DAILY FOR 1 DAY, THEN TAKE ONE TABLET ONCE DAILY FOR 4 DAYS ORAL DISCONT INUED 01/27/2024 [id number] 4 SELVIN GARRIDO 2023 6 [facility] AZITHROMYCI N 250MG TAB TAKE TWO TABLETS BY MOUTH ONCE DAILY FOR 1 DAY, THEN TAKE ONE TABLET ONCE DAILY FOR 4 DAYS FOR INFECTIO N CAUSED BY BACTERIA ORAL 02/25/2024 [id number] 4 SELVIN GARRIDO 2023 6 [facility] BETAMETHASO NE DIPROPIONAT E 0.05% CREAM,TOP APPLY THIN FILM TO AFFECTED AREA TWICE A DAY TOPICA L ACTIVE RIANA SIMMONS [facility] CAMPHOR/MEN THOL/METHYL SALICYLATE PATCH APPLY 1 PATCH TOPICALL Y ONCE DAILY NEEDED FOR PAIN (REMOVE PATCH AFTER 8 TO 12 HOURS) TOPICA L ACTIVE 01/01/2025 [id number] [place] BE RMEN F 2023 120 [place] CARBAMIDE PEROXIDE 6.5%/GLYCER IN SOLN,OTIC INSTILL 5 TO 10 DROPS INTO THE AFFECTED EAR(S) ONCE DAILY FOR EAR WAX BLOCKAGE AURICU LAR (OTIC) ACTIVE 01/24/2025 [id number] SELVIN GARRIDO 2023 15 [facility] CETIRIZINE HCL 10MG TAB TAKE ONE TABLET BY MOUTH ONCE DAILY FOR ALLERGIE S ORAL 04/23/2024 [id number] SELVIN GARRIDO 2023 90 [facility] DEXTROMETHO RPHAN HBR 10MG/GUAIFE NESIN 100MG/5ML (AF & SF) LIQUID TAKE 5 MLS BY MOUTH EVERY 6 HOURS NEEDED FOR COUGH ORAL ACTIVE 02/12/2025 [id number] 4 SIMI NANCE 2023 480 [facility] DEXTROMETHO RPHAN HBR 10MG/GUAIFE NESIN 100MG/5ML (AF & SF) LIQUID TAKE 5 MLS BY MOUTH EVERY 6 HOURS NEEDED ORAL DISCONT INUED (EDIT) 12/28/2024 [id number] SELVIN GARRIDO 2023 240 [facility] FINASTERIDE 5MG TAB TAKE ONE TABLET BY MOUTH ONCE DAILY ORAL ACTIVE RIANA SIMMONS [facility] FLUTICASONE PROPIONATE 50MCG/SPRAY SOLN,NASAL, 16GM INSTILL 1 SPRAY INTO EACH NOSTRIL TWICE DAILY FOR NASAL IRRITATI ON/INFLA MMATION NASAL 02/23/2024 [id number] SELVIN GARRIDO 2023 1 [facility] LEVOTHYROXI NE NA 100MCG TAB (SYNTHROID) TAKE ONE TABLET BY MOUTH EVERY DAY TAKE WITH A FULL GLASS OF WATER FOR THYROID* * ORAL ACTIVE 07/25/2025 [id number] 4 SIMI NANCE 2023 90 [facility] LEVOTHYROXI NE NA 100MCG TAB (SYNTHROID) TAKE ONE TABLET BY MOUTH EVERY DAY TAKE WITH A FULL GLASS OF WATER FOR THYROID* * ORAL DISCONT INUED 06/13/2024 [id number] 4 [place] BE RMMARLENE F 2022 90 [place] LEVOTHYROXI NE NA 112MCG TAB (SYNTHROID) TAKE ONE TABLET BY MOUTH EVERY MORNING ORAL ACTIVE RIANA SIMMONS [facility] NYSTATIN [id number] L SUSP,ORAL TAKE 1 TEASPOON FUL[5ML] SWISH AND SWALLOW BIDSWISH ACTIVE RIANA SIMMONS [address] [facility] OMEPRAZOLE 20MG CAP,EC TAKE ONE CAPSULE BY MOUTH DAILY FOR STOMACH ACID ORAL ACTIVE 07/25/2025 [id number] 4 SIMI NANCE 2023 90 [facility] OMEPRAZOLE 20MG CAP,EC TAKE ONE CAPSULE BY MOUTH DAILY FOR STOMACH ACID ORAL DISCONT INUED 06/13/2024 [id number] 4 [place]OM[place] BE RMEN F 2022 90 [place] OMEPRAZOLE 20MG CAP,EC TAKE 1 CAPSULE BY MOUTH EVERY MORNING ORAL ACTIVE RIANA SIMMONS 2006 [facility] PHENYTOIN (DILANTIN) 50MG TAB,CHEWABL E CHEW and SWALLOW ONE TABLET BY MOUTH ONCE DAILY ORAL ACTIVE RIANA SIMMONS [address] [facility] PHENYTOIN NA,EXTENDED 100MG CAP (DILANTIN) TAKE 1 CAPSULE BY MOUTH TWICE A DAY ORAL ACTIVE RIANA SIMMONS 2006 [facility] PREDNISONE 20MG TAB TAKE TWO TABLETS BY MOUTH ONCE DAILY BRONCHIT IS ORAL 01/27/2024 [id number] SELVIN GARRIDO 2023 10 [facility] SELENIUM SULFIDE 2.5% LOTION APPLY SMALL AMOUNT TOPICALL Y TWICE A WEEK NEEDED FOR DANDRUFF FOR 4 WEEKS THEN STOP TOPICA L ACTIVE 04/23/2025 [id number] 4 SIMI NANCE 2023 360 [facility] SELENIUM SULFIDE 2.5% LOTION APPLY SMALL AMOUNT TOPICALL Y TWICE A WEEK NEEDED FOR DANDRUFF FOR 4 WEEKS THEN STOP TOPICA L DISCONT INUED (EDIT) 07/05/2024 [id number] 4 SIOM[place] BE RMEN F 2022 120 [place] TERAZOSIN HCL 2MG CAP TAKE 1 CAPSULE BY MOUTH AT BEDTIME ORAL ACTIVE RIANA SIMMONS 2006 [facility] Allergies, Adverse Reactions, Alerts Combined list of allergies from Department of Defense and Veterans Affairs facilities. It does not include entries that were removed or entered in error. Substance Category Reaction Severity Reaction type Status Date Reported Comments Source FLUPHENAZINE Propensity to adverse reactions to drug (finding) AGITATION ,PALPITAT ION,SEIZU RES, JAW REACTION, JITTERS,W EAKNESS active 4 [facility] [facility] FLUPHENAZINE Propensity to adverse reaction (finding) active 1 [facility] LITHIUM Propensity to adverse reactions to drug (finding) AGITATION ,PALPITAT ION,SEIZU RES, JAW REACTION, JITTERS,W EAKNESS active 4 [facility] MOBAN Propensity to adverse reactions to drug (finding) AGITATION ,PALPITAT ION,SEIZU RES, JAW REACTION, JITTERS,W EAKNESS active 4 [facility] [place] [facility] MOLINDONE Propensity to adverse reaction (finding) active 1 [facility] STELAZINE Propensity to adverse reactions to drug (finding) AGITATION ,PALPITAT ION,SEIZU RES, JAW REACTION, JITTERS,W EAKNESS active 4 [facility] TRIFLUOPERAZI NE Propensity to adverse reaction (finding) active 1 [facility] Immunizations Combined list of available immunizations from the Department of Defense and Veterans Affairs facilities. 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 Arts Teacher Status Comments Source INFLUENZA, HIGH-DOSE, TRIVALENT, PF 2023 ROXIE TOBAR LEFT DELTO ID [id number] A 135 complet ed [facility] [place] [facility] PNEUMOCOCCAL CONJUGATE PCV20, POLYSACCHARID E [id number] CONJUGATE, ADJUVANT, PF 2023 ROXIE TOBAR RIGHT DELTO ID [id number] 216 complet ed [facility] [place] [facility] INFLUENZA, HIGH-DOSE, QUADRIVALENT 2022 ALAYNA ANN RIGHT DELTO ID [id number] 197 complet ed [facility] [place] [facility] INFLUENZA, INJECTABLE, QUADRIVALENT, PRESERVATIVE FREE 2021 150 complet ed [place] ZOSTER RECOMBINANT 2 2021 187 complet ed [place] INFLUENZA VACCINE, QUADRIVALENT, ADJUVANTED 2020 205 complet ed [place] TDAP 2020 115 complet ed [place] ZOSTER RECOMBINANT 1 2020 187 complet ed [place] INFLUENZA, INJECTABLE, QUADRIVALENT, PRESERVATIVE FREE 2019 150 complet ed [facility] INFLUENZA, INJECTABLE, QUADRIVALENT, PRESERVATIVE FREE 2018 150 complet ed Site: Left Deltoid [place] INFLUENZA, SEASONAL, INJECTABLE 2017 141 complet ed while in hospitla last year [facility] INFLUENZA, SEASONAL, INJECTABLE 2016 141 complet ed Site: Left Deltoid [place] FLU,3 YRS (HISTORICAL) 2015 88 complet ed Couderaymary albert [place] [facility] FLU,3 YRS (HISTORICAL) 2014 88 complet ed Site: Left Deltoid [place] FLU,3 YRS (HISTORICAL) 2012 88 complet ed Site: Left Deltoid [place] ZOSTER LIVE 2012 121 complet ed [place] FLU,3 YRS (HISTORICAL) 2011 88 complet ed [facility] FLU,3 YRS (HISTORICAL) 2010 88 complet ed Site: Left Deltoid [place] FLU,3 YRS (HISTORICAL) 2008 88 complet ed Site: Right Deltoid [place] FLU,3 YRS (HISTORICAL) 2007 88 complet ed Site: Right Deltoid [place] FLU,3 YRS (HISTORICAL) 2006 88 complet ed Site: Left Deltoid [place] FLU,3 YRS (HISTORICAL) 2005 88 complet ed [place] PNEUMOCOCCAL, UNSPECIFIED FORMULATION 2005 109 complet ed [place] FLU,3 YRS (HISTORICAL) 2000 OZZY VYAS 88 complet ed [place] FLU,3 YRS (HISTORICAL) 1999 ANITA MOON 88 complet ed [place] FLU,3 YRS (HISTORICAL) 1998 LEV,CLARE 88 complet ed [facility] IELD INFLUENZA, UNSPECIFIED FORMULATION 1997 LEV,CLARE 88 complet ed [facility] IELD Results Combined list of recent chemistry, hematology and other laboratory results from Department of Defense and Veterans Affairs, ranging from 15 months to all on record, depending upon the facility. Order Name Results Value Reference Range Date Interpretation Specimen Comments Source UREA NITROGEN UREA NITROGEN [MASS/VOLU ME] IN SERUM OR PLASMA 26 mg/dL 7 - 25 01/24 H Specimen Type: SERUM No comment entered. Ordering Provider: MOE GARRIDO Report Released Date/Time: January 25, 2024 11:12 AM Reporting Lab: [facility] [place] [address] [address] Performing Lab: [facility] [place] [address] [address] [facility] PSA PROSTATE SPECIFIC AG [MASS/VOLU ME] IN SERUM OR PLASMA 4.37 ng/mL 0.00 - 4.00 01/24 H Specimen Type: SERUM No comment entered. Ordering Provider: MOE GARRIDO Report Released Date/Time: January 25, 2024 11:12 AM Reporting Lab: [facility] [place] [facility] [address] [facility] [address] Performing Lab: [place] [facility] [place] [address] [address] [facility] [place] [facility] CREATINI NE (eGFR 2020) CREATININE [MASS/VOLU ME] IN SERUM OR PLASMA 0.63 mg/dL 0.50 - 1.40 01/24 Specimen Type: SERUM No comment entered. Ordering Provider: MOE GARRIDO Report Released Date/Time: January 25, 2024 11:12 AM Reporting Lab: [place] [facility] [place] [facility] [address] [facility] [address] Performing Lab: [place] [facility] [place] [address] [address] [facility] [place] [facility] CREATINI NE (eGFR 2020) GLOMERULAR FILTRATION RATE/1.73 SQ M.PREDICTE D [VOLUME RATE/AREA] IN SERUM, PLASMA OR BLOOD BY CREATININE -BASED FORMULA (CKD-EPI 2020) >90mL/mi n 60 01/24 Specimen Type: SERUM No comment entered. Ordering Provider: MOE GARRIDO Report Released Date/Time: January 25, 2024 11:12 AM Reporting Lab: [address] [address] Performing Lab: [address] [address] [facility] COVID-19 FLU/RSV DIAGNOST IC PANEL SARS-COV-2 (COVID-19) RNA [PRESENCE] IN RESPIRATOR Y SYSTEM SPECIMEN BY KEN WITH PROBE DETECTION NEGATIVE 01/23 Specimen Type: NASOPHARYNX Comment: This test is authorized for emergency use only. False negative results may occur if virus is present at levels below the analytical limit of detection.N egative results do not preclude SARS-CoV-2, influenza or RSV infection and should not be used as the sole basis for treatment or other patient management decisions.C epheid FLUVID: HCPs: https://www .fda.gov/me andrews/631841/ download. Patients: https://www .fda.gov/fl andrews/931187/ download Ordering Provider: MOE GARRIDO Report Released Date/Time: January 24, 2024 07:49 AM Reporting Lab: [address] [address] Performing Lab: [address] [address] [facility] COVID-19 FLU/RSV DIAGNOST IC PANEL FLU A PCR (FLUVID) NEGATIVE 01/23 Specimen Type: NASOPHARYNX Comment: This test is authorized for emergency use only. False negative results may occur if virus is present at levels below the analytical limit of detection.N egative results do not preclude SARS-CoV-2, influenza or RSV infection and should not be used as the sole basis for treatment or other patient management decisions.C epheid FLUVID: HCPs: https://www .[facility].gov/fl andrews/611052/ download. Patients: https://www .[facility].gov/fl andrews/471237/ download Ordering Provider: MOE GARRIDO Report Released Date/Time: January 24, 2024 07:49 AM Reporting Lab: [facility] [address] [address] Performing Lab: [facility] [address] [address] [facility] COVID-19 FLU/RSV DIAGNOST IC PANEL FLU B PCR (FLUVID) NEGATIVE 01/23 Specimen Type: NASOPHARYNX Comment: This test is authorized for emergency use only. False negative results may occur if virus is present at levels below the analytical limit of detection.N egative results do not preclude SARS-CoV-2, influenza or RSV infection and should not be used as the sole basis for treatment or other patient management decisions.C epheid FLUVID: HCPs: https://www .[facility].gov/fl andrews/494763/ download. Patients: https://www .[facility].gov/fl andrews/094769/ download Ordering Provider: MOE GARRIDO Report Released Date/Time: January 24, 2024 07:49 AM Reporting Lab: [address] [address] Performing Lab: [facility] [address] [address] [facility] COVID-19 FLU/RSV DIAGNOST IC PANEL RSV PCR (FLUVID) NEGATIVE 01/23 Specimen Type: NASOPHARYNX Comment: This test is authorized for emergency use only. False negative results may occur if virus is present at levels below the analytical limit of detection.N egative results do not preclude SARS-CoV-2, influenza or RSV infection and should not be used as the sole basis for treatment or other patient management decisions.C epheid FLUVID: HCPs: https://www .[facility].gov/fl andrews/741413/ download. Patients: https://www .fda.gov/fl andrews/429983/ download Ordering Provider: MOE GARRIDO Report Released Date/Time: January 24, 2024 07:49 AM Reporting Lab: [address] [address] Performing Lab: [address] [address] [facility] T-SPOT TB PANEL MYCOBACTER IUM TUBERCULOS IS STIMULATED GAMMA INTERFERON [INTERPRET ATION] IN BLOOD QUALITATIV E Negative 01/03 Specimen Type: BLOOD Comment: A negative test result does not exclude the possibility of exposure to or infection with Mycobacteri um tuberculosi s (M. tuberculosi s). Patients with recent exposure to TB infected individuals exhibiting a negative T-SPOT.TB result should be considered for retesting within 6 weeks or if other relevant clinical symptoms indicate. Results from T-SPOT.TB testing must be used in conjunction with each individual' s epidemiolog ical history, current medical status, and results of other diagnostic evaluations . The T-SPOT.TB test is qualitative and results are reported as positive, borderline, or negative, given that the test controls perform as expected. In line with the Centers for Disease Control and Prevention' s 2010 recommendat ion to report quantitativ e measurement s alongside the qualitative result, the laboratory provides spot counts for information al purposes only. The T-SPOT.TB test should not be interpreted as a quantitativ e test. For additional information , please refer to http://educ ation.dooyoo .com/faq/FA Q215 (This link is being provided for information al/ educational purposes only.) Test Performed by [employer], [email or web address] [facility], [address] [place] [address] Merrick Rubin M.D., Ph.D., Director of Laboratorie s , [place] [id number] TEST PERFORMED AT: , Ordering Provider: MOE GARRIDO Report Released Date/Time: Dec 28, 2023 04:19 PM Reporting Lab: [address] [address] Performing Lab: [facility] [address] [address] [facility] T-SPOT TB PANEL MYCOBACTER IUM TUBERCULOS IS STIMULATED GAMMA INTERFERON ESAT-6 AG SPOT COUNT [#] IN BLOOD 0 01/03 Specimen Type: BLOOD Comment: A negative test result does not exclude the possibility of exposure to or infection with Mycobacteri um tuberculosi s (M. tuberculosi s). Patients with recent exposure to TB infected individuals exhibiting a negative T-SPOT.TB result should be considered for retesting within 6 weeks or if other relevant clinical symptoms indicate. Results from T-SPOT.TB testing must be used in conjunction with each individual' s epidemiolog ical history, current medical status, and results of other diagnostic evaluations . The T-SPOT.TB test is qualitative and results are reported as positive, borderline, or negative, given that the test controls perform as expected. In line with the Centers for Disease Control and Prevention' s 2010 recommendat ion to report quantitativ e measurement s alongside the qualitative result, the laboratory provides spot counts for information al purposes only. The T-SPOT.TB test should not be interpreted as a quantitativ e test. For additional information , please refer to http://educ ation.dooyoo .com/faq/FA Q215 (This link is being provided for information al/ educational purposes only.) Test Performed by [facility], [email or web address] [facility], [address] [place] [address] Merrick Rubin M.D., Ph.D., Director of Laboratorie s , CLIA [id number] TEST PERFORMED AT: , Ordering Provider: MOE GARRIDO Report Released Date/Time: Dec 28, 2023 04:19 PM Reporting Lab: [facility] [address] [facility] [address] Performing Lab: [facility] [address] [address] [facility] T-SPOT TB PANEL MYCOBACTER IUM TUBERCULOS IS STIMULATED GAMMA INTERFERON CFP10 AG SPOT COUNT [#] IN BLOOD 0 01/03 Specimen Type: BLOOD Comment: A negative test result does not exclude the possibility of exposure to or infection with Mycobacteri um tuberculosi s (M. tuberculosi s). Patients with recent exposure to TB infected individuals exhibiting a negative T-SPOT.TB result should be considered for retesting within 6 weeks or if other relevant clinical symptoms indicate. Results from T-SPOT.TB testing must be used in conjunction with each individual' s epidemiolog ical history, current medical status, and results of other diagnostic evaluations . The T-SPOT.TB test is qualitative and results are reported as positive, borderline, or negative, given that the test controls perform as expected. In line with the Centers for Disease Control and Prevention' s 2010 recommendat ion to report quantitativ e measurement s alongside the qualitative result, the laboratory provides spot counts for information al purposes only. The T-SPOT.TB test should not be interpreted as a quantitativ e test. For additional information , please refer to http://educ ation.dooyoo .com/faq/FA Q215 (This link is being provided for information al/ educational purposes only.) Test Performed by [facility] [facility], [email or web address] [facility], [address] [place] [address] Merrick Rubin M.D., Ph.D., Director of Laboratorie s , CLIA [id number] TEST PERFORMED AT: , Ordering Provider: MOE GARRIDO Report Released Date/Time: Dec 28, 2023 04:19 PM Reporting Lab: [facility] [address] [facility] [address] Performing Lab: [facility] [address] [address] [facility] T-SPOT TB PANEL MITOGEN STIMULATED GAMMA INTERFERON POSITIVE CONTROL SPOT COUNT [#] IN BLOOD Passed 01/03 Specimen Type: BLOOD Comment: A negative test result does not exclude the possibility of exposure to or infection with Mycobacteri um tuberculosi s (M. tuberculosi s). Patients with recent exposure to TB infected individuals exhibiting a negative T-SPOT.TB result should be considered for retesting within 6 weeks or if other relevant clinical symptoms indicate. Results from T-SPOT.TB testing must be used in conjunction with each individual' s epidemiolog ical history, current medical status, and results of other diagnostic evaluations . The T-SPOT.TB test is qualitative and results are reported as positive, borderline, or negative, given that the test controls perform as expected. In line with the Centers for Disease Control and Prevention' s 2010 recommendat ion to report quantitativ e measurement s alongside the qualitative result, the laboratory provides spot counts for information al purposes only. The T-SPOT.TB test should not be interpreted as a quantitativ e test. For additional information , please refer to http://educ ation.dooyoo .compareit4me/faq/FA Q215 (This link is being provided for information al/ educational purposes only.) Test Performed by [employer], [email or web address] [facility], [address] [place] [address] Merrick Rubin M.D., Ph.D., Director of Laboratorie s , CLIA [id number] TEST PERFORMED AT: , Ordering Provider: MOE GARRIDO Report Released Date/Time: Dec 28, 2023 04:19 PM Reporting Lab: [facility] [address] [facility] [address] Performing Lab: [facility] [address] [address] [facility] T-SPOT TB PANEL GAMMA INTERFERON NEGATIVE CONTROL SPOT COUNT [#] IN BLOOD Passed 01/03 Specimen Type: BLOOD Comment: A negative test result does not exclude the possibility of exposure to or infection with Mycobacteri um tuberculosi s (M. tuberculosi s). Patients with recent exposure to TB infected individuals exhibiting a negative T-SPOT.TB result should be considered for retesting within 6 weeks or if other relevant clinical symptoms indicate. Results from T-SPOT.TB testing must be used in conjunction with each individual' s epidemiolog ical history, current medical status, and results of other diagnostic evaluations . The T-SPOT.TB test is qualitative and results are reported as positive, borderline, or negative, given that the test controls perform as expected. In line with the Centers for Disease Control and Prevention' s 2010 recommendat ion to report quantitativ e measurement s alongside the qualitative result, the laboratory provides spot counts for information al purposes only. The T-SPOT.TB test should not be interpreted as a quantitativ e test. For additional information , please refer to http://educ ation.dooyoo .compareit4me/faq/FA Q215 (This link is being provided for information al/ educational purposes only.) Test Performed by [employer], [email or web address] [facility], [address] [place] [address] Merrick Rubin M.D., Ph.D., Director of Laboratorie s , CLIA [id number] TEST PERFORMED AT: , Ordering Provider: MOE GARRIDO Report Released Date/Time: Dec 28, 2023 04:19 PM Reporting Lab: [place] [employer] [facility] [address] [facility] [address] Performing Lab: [facility] [address] [address] [facility] COVID-19 FLU/RSV DIAGNOST IC PANEL SARS-COV-2 (COVID-19) RNA [PRESENCE] IN RESPIRATOR Y SYSTEM SPECIMEN BY KEN WITH PROBE DETECTION NEGATIVE 12/26 Specimen Type: NASOPHARYNX Comment: This test is authorized for emergency use only. False negative results may occur if virus is present at levels below the analytical limit of detection.N egative results do not preclude SARS-CoV-2, influenza or RSV infection and should not be used as the sole basis for treatment or other patient management decisions.C epheid FLUVID: HCPs: https://www .fda.gov/me andrews/323167/ download. Patients: https://www .fda.gov/me andrews/170027/ download Ordering Provider: MOE GARRIDO Report Released Date/Time: Dec 27, 2023 02:53 PM Reporting Lab: [place] [facility] [facility] [address] [facility] [address] Performing Lab: [facility] TRN [facility] [address] [facility] [facility] [address] [facility] W[facility]N [facility] COVID-19 FLU/RSV DIAGNOST IC PANEL FLU A PCR (FLUVID) NEGATIVE 12/26 Specimen Type: NASOPHARYNX Comment: This test is authorized for emergency use only. False negative results may occur if virus is present at levels below the analytical limit of detection.N egative results do not preclude SARS-CoV-2, influenza or RSV infection and should not be used as the sole basis for treatment or other patient management decisions.C epheid FLUVID: HCPs: https://www .fda.gov/fl andrews/708888/ download. Patients: https://www .fda.gov/fl andrews/612320/ download Ordering Provider: MOE GARRIDO Report Released Date/Time: Dec 27, 2023 02:53 PM Reporting Lab: [facility] TRN [address] [address] Performing Lab: [facility] [address] [address] [facility] COVID-19 FLU/RSV DIAGNOST IC PANEL FLU B PCR (FLUVID) NEGATIVE 12/26 Specimen Type: NASOPHARYNX Comment: This test is authorized for emergency use only. False negative results may occur if virus is present at levels below the analytical limit of detection.N egative results do not preclude SARS-CoV-2, influenza or RSV infection and should not be used as the sole basis for treatment or other patient management decisions.C epheid FLUVID: HCPs: https://www .fda.gov/fl andrews/379203/ download. Patients: https://www .fda.gov/fl andrews/608179/ download Ordering Provider: MOE GARRIDO Report Released Date/Time: Dec 27, 2023 02:53 PM Reporting Lab: [address] [address] Performing Lab: [address] [address] [facility] COVID-19 FLU/RSV DIAGNOST IC PANEL RSV PCR (FLUVID) NEGATIVE 12/26 Specimen Type: NASOPHARYNX Comment: This test is authorized for emergency use only. False negative results may occur if virus is present at levels below the analytical limit of detection.N egative results do not preclude SARS-CoV-2, influenza or RSV infection and should not be used as the sole basis for treatment or other patient management decisions.C epheid FLUVID: HCPs: https://www .fda.gov/fl andrews/373306/ download. Patients: https://www .fda.gov/fl andrews/384960/ download Ordering Provider: MOE GARRIDO Report Released Date/Time: Dec 27, 2023 02:53 PM Reporting Lab: [address] [address] Performing Lab: [address] [address] [facility] MICROSCO PIC AUTOMATE D, URINE LEUKOCYTES [#/AREA] IN URINE SEDIMENT BY MICROSCOPY HIGH POWER FIELD 0-5/[HPF ] 0 - 5 10/05 Specimen Type: URINE Comment: If Glucose = >500 and Ketones are positive, please alert the Physician. Ordering Provider: SAMARIA CRUZ Report Released Date/Time: Oct 04, 2023 03:32 PM Reporting Lab: [address] [address] Performing Lab: [address] [address] [facility] MICROSCO PIC AUTOMATE D, URINE BACTERIA [#/AREA] IN URINE SEDIMENT BY MICROSCOPY HIGH POWER FIELD 1+/[HPF] 10/05 Specimen Type: URINE Comment: If Glucose = >500 and Ketones are positive, please alert the Physician. Ordering Provider: SAMARIA CRUZ Report Released Date/Time: Oct 04, 2023 03:32 PM Reporting Lab: [address] [address] Performing Lab: [facility]ITAL[facility] [address] [facility] [facility] [address] [place] MICROSCO PIC AUTOMATE D, URINE MUCUS [#/AREA] IN URINE SEDIMENT BY MICROSCOPY LOW POWER FIELD FEW/[LPF ] 10/05 Specimen Type: URINE Comment: If Glucose = >500 and Ketones are positive, please alert the Physician. Ordering Provider: SAMARIA CRUZ Report Released Date/Time: Oct 04, 2023 03:32 PM Reporting Lab: [facility]ITALTR[facility] [address] [facility] [address] Performing [facility]: [facility] [address] [address] [place] MICROSCO PIC AUTOMATE D, URINE ERYTHROCYT ES [#/AREA] IN URINE SEDIMENT BY MICROSCOPY HIGH POWER FIELD 11-20/[H PF] 0 - 3 10/05 H Specimen Type: URINE Comment: If Glucose = >500 and Ketones are positive, please alert the Physician. Ordering Provider: SAMARIA CRUZ Report Released Date/Time: Oct 04, 2023 03:32 PM Reporting Lab: [facility] [address] [address] Performing Lab: [facility] [address] [place] URINALYS IS COLOR OF URINE Light-Ye llow 10/05 Specimen Type: URINE Comment: If Glucose = >500 and Ketones are positive, please alert the Physician. Ordering Provider: SAMARIA CRUZ Report Released Date/Time: Oct 04, 2023 03:32 PM Reporting Lab: [facility] [address] Performing Lab: [facility] [address] [place] URINALYS IS APPEARANCE OF URINE Turbid 10/05 Specimen Type: URINE Comment: If Glucose = >500 and Ketones are positive, please alert the Physician. Ordering Provider: SAMARIA CRUZ Report Released Date/Time: Oct 04, 2023 03:32 PM Reporting Lab: [address] [address] Performing Lab: [address] [address] [place] URINALYS IS GLUCOSE [MASS/VOLU ME] IN URINE NEGATIVE mg/dL 10/05 Specimen Type: URINE Comment: If Glucose = >500 and Ketones are positive, please alert the Physician. Ordering Provider: SAMARIA CRUZ Report Released Date/Time: Oct 04, 2023 03:32 PM Reporting Lab: [address] [address] Performing Lab: [address] [address] [place] URINALYS IS KETONES [MASS/VOLU ME] IN URINE BY TEST STRIP TRACEmg/ dL 10/05 Specimen Type: URINE Comment: If Glucose = >500 and Ketones are positive, please alert the Physician. Ordering Provider: SAMARIA CRUZ Report Released Date/Time: Oct 04, 2023 03:32 PM Reporting Lab: [address] [address] Performing Lab: [address] [address] [place] URINALYS IS ERYTHROCYT ES [PRESENCE] IN URINE SEDIMENT BY LIGHT MICROSCOPY NEGATIVE mg/dL 10/05 Specimen Type: URINE Comment: If Glucose = >500 and Ketones are positive, please alert the Physician. Ordering Provider: SAMARIA CRUZ Report Released Date/Time: Oct 04, 2023 03:32 PM Reporting Lab: [address] [address] Performing Lab: [address] [address] [place] URINALYS IS PROTEIN [MASS/VOLU ME] IN URINE BY TEST STRIP 10 mg/dL 10/05 Specimen Type: URINE Comment: If Glucose = >500 and Ketones are positive, please alert the Physician. Ordering Provider: SAMARIA CRUZ Report Released Date/Time: Oct 04, 2023 03:32 PM Reporting Lab: [facility] [address] [address] Performing Lab: [facility] [address] [address] [place] URINALYS IS NITRITE [PRESENCE] IN URINE NEGATIVE mg/dL 10/05 Specimen Type: URINE Comment: If Glucose = >500 and Ketones are positive, please alert the Physician. Ordering Provider: SAMARIA CRUZ Report Released Date/Time: Oct 04, 2023 03:32 PM Reporting Lab: [address] [address] Performing Lab: [address] [address] [place] URINALYS IS BILIRUBIN. TOTAL [PRESENCE] IN URINE NEGATIVE mg/dL 10/05 Specimen Type: URINE Comment: If Glucose = >500 and Ketones are positive, please alert the Physician. Ordering Provider: SAMARIA CRUZ Report Released Date/Time: Oct 04, 2023 03:32 PM Reporting Lab: [address] [address] Performing Lab: [address] [address] [place] URINALYS IS SPECIFIC GRAVITY OF URINE BY REFRACTOME TRY 1.018 1.016 - 1.022 10/05 Specimen Type: URINE Comment: If Glucose = >500 and Ketones are positive, please alert the Physician. Ordering Provider: SAMARIA CRUZ Report Released Date/Time: Oct 04, 2023 03:32 PM Reporting Lab: [facility] [address] [address] Performing Lab: [address] [address] [place] URINALYS IS PH OF URINE BY TEST STRIP 6.5 5.0 - 9.0 10/05 Specimen Type: URINE Comment: If Glucose = >500 and Ketones are positive, please alert the Physician. Ordering Provider: SAMARIA CRUZ Report Released Date/Time: Oct 04, 2023 03:32 PM Reporting Lab: [address] [address] Performing Lab: [address] [address] [place] URINALYS IS UROBILINOG EN [MASS/VOLU ME] IN URINE BY TEST STRIP <2.0mg/d L <2.0 - 2.0 10/05 Specimen Type: URINE Comment: If Glucose = >500 and Ketones are positive, please alert the Physician. Ordering Provider: SAMARIA CRUZ Report Released Date/Time: Oct 04, 2023 03:32 PM Reporting Lab: [address] [address] Performing Lab: [address] [address] [place] URIN[place] IS LEUKOCYTE ESTERASE [PRESENCE] IN URINE BY TEST STRIP TRACE 10/05 Specimen Type: URINE Comment: If Glucose = >500 and Ketones are positive, please alert the Physician. Ordering Provider: SAMARIA CRUZ Report Released Date/Time: Oct 04, 2023 03:32 PM Reporting Lab: [address] [address] Performing Lab: [address] [address] [place] VITAMIN B12 COBALAMIN (VITAMIN B12) [MASS/VOLU ME] IN SERUM OR PLASMA 688 pg/mL 200 - 900 10/05 Specimen Type: SERUM No comment entered. Ordering Provider: SAMARIA CRUZ Report Released Date/Time: Oct 04, 2023 03:32 PM Reporting Lab: [address] [address] Performing Lab: [address] [address] [place] VITAMIN D (25-OH) 25-HYDROXY VITAMIN D3 [MASS/VOLU ME] IN SERUM OR PLASMA 43 ng/mL 20 - 50 10/05 Specimen Type: SERUM No comment entered. Ordering Provider: SAMARIA CRUZ Report Released Date/Time: Oct 04, 2023 03:32 PM Reporting Lab: [facility] [place] [facility] [address] [facility] [address] Performing Lab: [facility] [place] [address] [facility] [address] [facility] Vital Signs Combined list of inpatient and outpatient Vital Signs from Department of Defense and Veterans Affairs, ranging from 12 months to all on record, depending upon the facility. Vital Sign Value Date Comments Source SYSTOLIC BLOOD PRESSURE 115 07/24/20 24 10:41:01 [facility] DIASTOLIC BLOOD PRESSURE 70 024 10:41:01 [facility] PULSE OXIMETRY 96 07/24/2024 10:41:01 [facility] WEIGHT 137 07/24/2024 10:41:01 [facility] BMI 21 kg/m2 07/24/2024 10:41:01 [facility] PULSE 77 07/24/2024 10:41:01 [facility] RESPIRATION 20 07/24/2024 10:41:01 [facility] SYSTOLIC BLOOD PRESSURE 128 03/21/20 24 15:11:14 [facility] DIASTOLIC BLOOD PRESSURE 74 024 15:11:14 [facility] PULSE OXIMETRY 96 03/21/2024 15:11:14 [facility] WEIGHT 125 03/21/2024 15:11:14 [facility] BMI 19 kg/m2 03/21/2024 15:11:14 [facility] PAIN 3 03/21/2024 15:11:14 [facility] TEMPERATURE 98.3 03/21/2024 15:11:14 [facility] PULSE 82 03/21/2024 15:11:14 [facility] RESPIRATION 18 03/21/2024 15:11:14 [facility] SYSTOLIC BLOOD PRESSURE 137 02/28/20 24 11:29:28 [facility] DIASTOLIC BLOOD PRESSURE 71 024 11:29:28 [facility] PULSE OXIMETRY 96 02/28/2024 11:29:28 [facility] TEMPERATURE 98 02/28/2024 11:29:28 [facility] PULSE 83 02/28/2024 11:29:28 [facility] RESPIRATION 18 02/28/2024 11:29:28 [facility] SYSTOLIC BLOOD PRESSURE 133 02/15/20 24 11:17:12 [facility] DIASTOLIC BLOOD PRESSURE 77 024 11:17:12 [facility] PULSE OXIMETRY 98 02/15/2024 11:17:12 [facility] WEIGHT 125.8 02/15/2024 11:17:12 [facility] BMI 19 kg/m2 02/15/2024 11:17:12 [facility] PAIN 2 02/15/2024 11:17:12 [facility] TEMPERATURE 97.2 02/15/2024 11:17:12 [facility] PULSE 84 02/15/2024 11:17:12 [facility] RESPIRATION 18 02/15/2024 11:17:12 [facility] SYSTOLIC BLOOD PRESSURE 113 02/12/20 24 11:30:31 [facility] DIASTOLIC BLOOD PRESSURE 66 024 11:30:31 [facility] PULSE OXIMETRY 97 02/12/2024 11:30:31 [facility] WEIGHT 124 02/12/2024 11:30:31 [facility] BMI 19 kg/m2 02/12/2024 11:30:31 [facility] PAIN 0 02/12/2024 11:30:31 [facility] TEMPERATURE 97.4 02/12/2024 11:30:31 [facility] PULSE 82 02/12/2024 11:30:31 [facility] RESPIRATION 16 02/12/2024 11:30:31 [facility] Encounters Combined list of: 1) Encounters from Department of Veterans Affairs facilities going backup to the last 18 months, not all VA inpatient encounters are included; 2) Encounters from the Department of Defense facilities going backup to 280 months. Location Location Details Encounter Type Encounter Number Reason For Visit Attending Provider ADM Date DC Date Status Disposition Source [facility] Encounter [id number] 05/02 [facility] En[facility] [id number] 05/09 [facility] [id number] 05/18 [facility] Encounter [id number] 05/19 [facility] Encounter [id number] 05/22 [facility] [id number] 05/22 [facility] Out[facility] Encounter [id number] 05/31 [facility] Encounter [id number] 06/09 [facility] Encounter [id number] 06/09 [facility] O/P EST MOD 30-39 MIN [id number] Diagnos is: ICD-10- CM E03.9 Hypothy roidism , unspeci fied STELEA,CAR MEN F 06/13 [facility] [place] [facility] [place]UNIZATI [place] ADMIN [id number] [place] MEN F 06/13 [facility] (631GE) PRO PHONE CALL 11-20 MIN [id number] Diagnos is: ICD-10- CM Z59.811 Housing instabi lity, housed, with risk of homeles SHAWN Garcia 06/14 [facility]631GE[facility] Outpatient Encounter [id number] 06/15 [facility] SELF CARE MNGMENT TRAINING [id number] Diagnos is: ICD-10- CM R26.9 Unspeci fied abnorma lities of gait and mobilit y RUBINA DURAN 06/21 [place] [facility] Out[facility] Encounter [id number] 06/30 [facility] Encounter [id number] 07/04 [facility] Encounter [id number] 07/06 [facility] Out[facility] Encounter [id number] 07/12 [facility] [place] SELF-HELP/ PEER SVC PER 15MIN [id number] Diagnos is: ICD-10- CM Z59.89 Other problem s related to housing and economi kaitlyn MAYORGAJerardoAFIA NTHIA 07/12 [facility] Out[facility] Encounter [id number] AGUAYO 07/18 [facility] [place] [place] O/P EST LOW 20-29 MIN [id number] Diagnos is: ICD-10- CM L60.0 Ingrowi RILEY Viramontes 07/19 [facility] [place]ELD [place] SELF-HELP/ PEER SVC PER 15MIN [id number] Diagnos is: ICD-10- CM Z59.811 Housing instabi lity, housed, with risk of homeles AFIA Montes NTHIA 08/24 [facility] [place] [place] PRO PHONE CALL 5-10 MIN [id number] Diagnos is: ICD-10- CM Z59.811 Housing instabi lity, housed, with risk of homeles sness BRAN WATKINS 08/29 /2023 [place] [facility] Outpatient Encounter [id number] 09/13 [facility] [place] DIAGNOSTIC EVALUATION [id number] Diagnos is: ICD-10- CM Z59.02 Unshelt ered homeles sharon MUÑOZ,10/04 [place] [facility] Outpatient Encounter [id number] CARISSA MUÑOZ,10/04 [facility] OFF/OP EST JANUARY X REQ PHY/QHP [id number] Diagnos is: ICD-10- CM R42 Dizzine ss and giddine ss KIMBER HURTADO IC K 10/04 [place] [facility] Outpatient Encounter [id number] 10/04 [facility] OFFICE O/P EST MOD 30 MIN [id number] Diagnos is: ICD-10- CM E86.0 Dehydra SELVIN Vásquez NDRA C 10/04 [place] [facility] CASE MANAGEMENT [id number] Diagnos is: ICD-10- CM Z59.9 Problem related to housing and economi c circums tances, unsp BENWAY,GARRETT AN L 10/04 [facility] En[facility] [id number] 10/05 [facility] Encounter [id number] 02/02 /[address] [facility] PRO PHONE CALL 5-10 MIN [id number] Diagnos is: ICD-10- CM Z59.01 Jail ed homeles ARISTEO Davenport Z 10/12 [place] [facility] Outpatient Encounter [id number] 10/16 [facility] PRO PHONE CALL 5-10 MIN [id number] Diagnos is: ICD-10- CM Z59.01 Jail ed homeles ARISTEO [place] Z 10[facility]16 [facility] [id number] Diagnos is: ICD-10- CM Z59.01 Jail ed homeles ARISTEO Davenport Z 10/16 [place] [facility] Outpatient Encounter [id number] 12/04 [facility] OFFICE O/P EST MOD 30 MIN [id number] Diagnos is: ICD-10- CM E03.9 Hypothy roidism , unspeci fied STELEA,CAR MEN F 12/12 [place] [facility] CASE MANAGEMENT [id number] Diagnos is: ICD-10- CM Z59.00 Homeles sness unspeci fied MEGHAN,LEANDR EA G 12/17 [facility] Outpatient Encounter [id number] 12/20 [facility] Outpatient Encounter [id number] 12/26 [facility] Outpatient Encounter [id number] LAN GARRIDO FADY CONKLIN 12/26 [facility] OFF/OP EST MAY X REQ PHY/QHP [id number] Diagnos is: ICD-10- CM Z71.89 Other specifi ed preparole counseling aide Jerardo Rodriguez D 12/27 [facility] OFFICE O/P EST LOW 20 MIN [id number] Diagnos is: ICD-10- CM J20.9 Acute bronchi tis, unspeci LAN Quiñonez FADY CONKLIN 12/27 [facility] Outpatient Encounter [id number] 12/31 [facility] OFF/OP EST MAY X REQ PHY/QHP [id number] Diagnos is: ICD-10- CM Z71.89 Other specifi ed preparole counseling aide Jerardo Rodriguez D 01/03 [facility] OFFICE O/P EST SF 10 MIN [id number] Diagnos is: ICD-10- CM J20.9 Acute bronchi tis, unspeci LAN Quiñonez FADY CONKLIN 01/03 [facility] OFF/OP EST MAY X REQ PHY/QHP [id number] Diagnos is: ICD-10- CM Z71.89 Other specifi ed preparole counseling aide Jerardo Rodriguez D 01/08 [facility] Out[facility] Encounter [id number] 01/15 [facility] Out[facility] Encounter [id number] 01/15 [facility] CASE MANAGEMENT [id number] Diagnos is: ICD-10- CM Z59.00 Homeles sness unspeci fied MEGHAN,LEANDR EA G 01/21 [facility] Out[facility] Encounter [id number] 01/22 [facility] [place] PT EVAL MOD COMPLEX 30 MIN [id number] [id number] Diagnos is: ICD-10- CM M54.2 Cervica lgia MARYCRUZ HARP 01/22 [place] [facility] Out[facility] Encounter [id number] 01/22 [facility] OFF/OP EST MAY X REQ PHY/QHP [id number] Diagnos is: ICD-10- CM Z71.89 Other specifi ed preparole counseling aide Jerardo Rodriguez 01/23 [facility] Out[facility] Encounter [id number] 01/23 [facility] OFF/OP EST MAY X REQ PHY/QHP [id number] [id number] Diagnos is: ICD-10- CM J31.2 Chronic pharyng itLAN Booth 01/23 [facility] OFFICE O/P EST MOD 30 MIN [id number] Diagnos is: ICD-10- CM J30.9 Allergi c rhiniti s, unspeci fied LAN GARRIDO 01/23 [facility] OT EVAL MOD COMPLEX 45 MIN [id number] [id number] Diagnos is: ICD-10- CM R26.9 Unspeci fied abnorma lities of gait and mobilit y BIANCA PECK 01/24 [facility] COMPRE OPH EXAM EST PT 1/> [id number] Diagnos is: ICD-10- CM H04.123 Dry eye syndrom e of bilater al lacrima l glands STUOT,LACE Y J 01/30 [facility] FUNDUS PHOTOGRAPH Y W/I&R [id number] Diagnos is: ICD-10- CM H35.62 Retinal hemorrh age, left eye STOUT,LACE Y J 01/30 [facility] FIT SPECTACLES MULTIFOCAL [id number] [id number] Diagnos is: ICD-10- CM Z46.0 Encount er for fit/adj st of spectac les and contact lenses STOUT,LACE Y J 01/30 [facility] Outpatient Encounter [id number] 01/31 [facility] COMMUNITY/ WORK REINTEGRAT ION [id number] [id number] Diagnos is: ICD-10- CM G40.89 Other seizure s BIANCA PECK 02/05 [facility] OFFICE O/P EST MOD 30 MIN [id number] Diagnos is: ICD-10- CM 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 ACE 02/11 [facility] CASE MANAGEMENT [id number] Diagnos is: ICD-10- CM Z59.00 Homeles sness unspeci fied SIERRA CHRISTIANSON EA G 02/13 [facility] OFF/OP CONSLTJ NEW/EST HI 55 [id number] [id number] Diagnos is: ICD-10- CM R63.4 Abnorma l weight loss SIDDHARTHA KING 02/14 [facility] Out[facility] Encounter [id number] 02/26 [facility] Out[facility] Encounter [id number] 02/27 [facility] OFF/OP EST MAY X REQ PHY/QHP [id number] [id number] Diagnos is: ICD-10- CM Z71.89 Other specifi ed preparole counseling aide Jerardo Rodriguez 02/27 [facility] Out[facility] Encounter [id number] [id number] 02/28 [facility] Out[facility] Encounter [id number] 03/14 [facility] Out[facility] Encounter [id number] 03/15 [facility] Out[facility] Encounter [id number] 03/15 [facility] Out[facility] Encounter [id number] 03/15 [facility] OFFICE O/P EST LOW 20 MIN [id number] [id number] Diagnos is: ICD-10- CM J98.4 Other disorde rs of lung ALISIA PINO 03/21 [facility] Out[facility] Encounter [id number] 03/27 [facility] HC PRO PHONE CALL 21-30 MIN [id number] [id number] Diagnos is: ICD-10- CM Z71.89 Other specifi ed preparole counseling aide ROBERT Huggins 04/03 [facility] Out[facility] Encounter [id number] 04/03 [facility] Out[facility] Encounter [id number] 04/08 [facility] Out[facility] Encounter [id number] 04/08 [facility] C RN E&M PLAN SVS, 15 MIN [id number] 1. Diagnos is: ICD-10- CM J44.9 Chronic obstruc tive pulmona ry disease , unspeci fied CRUZ-YAMILET COLON 04/19 [facility] CASE MANAGEMENT [id number] Diagnos is: ICD-10- CM Z65.9 Problem related to unspeci fied psychos ocial circums tances GISELE SANTO 04/19 [facility] OFFICE O/P EST MOD 30 MIN [id number] Diagnos is: ICD-10- CM L60.3 Nail dystrop hy MYLA QUINTANAShantelle ES F 04/[place] [facility] Out[facility] En[facility] [id number] 04/26 [facility] Out[facility] Encounter [id number] 1.05/10 [facility] Out[facility] Encounter [id number] 1.05/11 [facility] Encounter [id number] 1.05/11 [facility] REMOVE IMPACTED EAR WAX UNI 52765-3.63 1. Diagnos is: ICD-10- CM Z46.1 Encount er for fitting and adjustm ent of hearing aid DELON DIAZ 05/24 [facility] Out[facility] Encounter [id number] 06/03 [facility] Out[facility] Encounter [id number] 06/03 [facility] Out[facility] Encounter [id number] 06/06 [facility] Out[facility] Encounter [id number] 06/13 [facility] Out[facility] Encounter [id number] 06/26 [facility] EVALUATE SWALLOWING FUNCTION [id number] Diagnos is: ICD-10- CM R13.12 Dysphag ia, orophar yngeal phase STARLAS DOVH 07/08 [facility] OFFICE O/P EST MOD 30 MIN [id number] Diagnos is: ICD-10- CM R54 Age-rel ated physica l debilit y D'ALESSAND ALISIA FUENTES 07/24 [facility] HEARING AID FITTING/CH ECKING [id number] [id number] Diagnos is: ICD-10- CM Z46.1 Encount er for fitting and adjustm ent of hearing aid Kaitlyn JULIEN 07/25 [facility] HEARING AID REPAIR/MOD IFYING [id number] Diagnos is: ICD-10- CM Z46.1 Encount er for fitting and adjustm ent of hearing aid SENIOR,COLLIN OLE L 08/19 [facility] HEARING AID XM&SLCTN BINAURL [id number] Diagnos is: ICD-10- CM H90.3 Sensori neural hearing loss, bilater al DELON DIAZ 09[facility]17 [place] [facility]P EST LOW 20 MIN [id number] [id number] Diagnos is: ICD-10- CM L60.0 Ingrowi ng MYLA BhattiShantelle ES F 09/19 [facility] [place] [facility] [facility] [facility] HEARING AID REPAIR/MOD IFYING [id number] Diagnos is: ICD-10- CM Z46.1 Encount er for fitting and adjustm ent of hearing aid DELON DIAZ 10/08 [place] [facility] [facility] [place] [facility] Social History Combined list of available smoking, tobacco, and other social history from Department of Defense and Veterans Affairs facilities. Social History Type Response Date Comment Sour e Tobacco smoking status [facility]-TOBAC[facility] NEVER USED 06/13[facility]2023 [facility] History of tobacco use [place]-TOBACCO NEVER USED 07/28/2021 [facility] D History of tobacco use [place]-TOBACCO NEVER USED 06/25/2020 [facility] [place] [facility] History of tobacco use [place]-TO[place] NEVER USED 02/18/2019 [place] [facility] [place] [facility] [place] [facility] History of tobacco use LIFETIME NON-TOBACCO USER 02/01/2018 [place] History of tobacco use LIFETIME NON-TOBACCO USER 09/16/2016 [place] History of tobacco use LIFETIME NON-TOBACCO USER 08/03/2015 [place] History of tobacco use FORMER SMOKER - <100 LIFETIME CIGARETTES 07/08/2011 [place] History of tobacco use LIFETIME NON-SMOKER 12/13/2004 [place] History of tobacco use LIFETIME NON-SMOKER 01/06/2004 [place] History of tobacco use LIFETIME NON-SMOKER 12/24/2002 [place] History of tobacco use LIFETIME NON-SMOKER 09/25/2001 [place] Plan of Care List of future care activities from Department of Veterans Affairs facilities. Additional future care activities may be listed in the Assessment and Plan section. Date/Time Care Activity Care Activity Detail Facili ty 02/03/2025 AMBULATORY - MEDICINE AMBULATORY - MEDICI [facility] 02/05/2025 AMBULATORY - MEDICINE AMBULATORY - MEDICI [facility] Advance Directives List of completed, amended, or rescinded Advance Directives on record at Department of [facility] facilities. An actual copy of the Directive is not included. Date Advance Directive Provider Source 10/04/2023 ADVANCE DIRECTIVE DISCUSSION OZZY CORDERO
--- OUTSIDE RECORDS SUMMARY | 2024-10-20 23:25 | XMS_ITS | Encounter Summary ---
Author Name [facility] [place] [facility] [place] Address [address] [place] [address] Care Team Providers Care Life Management Teacher Name Role Phone ALISIA TREVINO Primary [...] Apr 04, 2011 PART A OPT ONLY [id number] LYNDON BLOCK JR PATIENT Selected Encounter This section includes the information on record at [place] for the Encounter. Date/Time Encounter Type Encounter Description Reason Provider Source January 23, 2024 01:30 PM PT EVAL MOD COMPLEX 30 MIN PHYSICAL THERAPY ICD-10-CM M54.2 ALISIA Ji Encounter Template Text not used by [place] Assessments - Encounter Diagnoses This section includes the primary and secondary diagnoses documented for the Encounter. Date/Time Primary/Secondary Diagnosis Diagnosis Name Provider Source January 24, 2024 11:17 AM PRIMARY ALISIA Ji Plan of Treatment: Future Appointments (+ 6 months) and Future Tests (+/- 45 days) The Plan of Treatment section includes future care activities for the patient from all [facility] treatment[facility]. This section includes future appointments and future orders which are active, pending or scheduled. Future Appointments This section includes appointments that were scheduled to occur 6 months from the date of the Encounter, up to a maximum of 20 appointments. The data comes from all [place] treatment facilities. Appointment Date/Time Appointment Type Appointme nt Facility Name January 24, 2024 08:00 AM [facility] January 24, 2024 11:00 AM [facility] January 25, 2024 08:30 AM AMBULATORY - REHAB MEDICIN E [facility] January 26, 2024 09:15 AM AMBULATORY - NONE [facility] January 31, 2024 01:30 PM [facility] January 31, 2024 02:45 PM [facility] Feb 06, 2024 09:30 AM AMBULATORY - REHAB MEDICIN E [facility] Feb 12, 2024 11:30 AM [facility] Feb 15, 2024 11:00 AM [facility] Feb 28, 2024 11:30 AM [facility] Feb 29, 2024 09:30 AM [facility] Mar 15, 2024 10:00 AM AM[facility]UL[facility]ORY [facility]ICINE [facility] Mar 21, 2024 03:00 PM AM[facility] Mar 28, 2024 11:00 AM AM[facility]UL[facility]ORY [facility]ICINE [facility] Apr 25, 2024 03:30 PM [facility]UL[facility] MED[facility]INE [facility] Apr 26, 2024 09:45 AM [facility]UL[facility] MEDICINE [facility] May 24, 2024 01:00 PM AMBULATORY - REHAB MEDICIN E [facility] Jun 03, 2024 01:00 PM AM[facility]ULATORY [facility]ICINE [facility] Jul 08, 2024 02:00 PM AMBULATORY - REHAB MEDICIN E [facility] Jul 24, 2024 10:30 AM [facility] Active, Pending, and Scheduled Orders This section includes a listing of several types of active, pending, and scheduled orders, including clinic medications orders, diagnostic test orders, procedure orders and consult orders; where the start date of the order is 45 days before the date of the Encounter or 45 days after the date of theEncounter. The data comes from all [place] treatment facilities. Test Date/Time Test Type Test Details Facility Name January 24, 2024 08:53 AM Consult [facility] [employer] [facility] [place] Lab Results: +/- 30 days of the [...] Range Comment January 25, 2024 02:04 PM [facility] UREA NITROGEN Specimen Type: SERUM No comment entered. Ordering Provider: SHIN GARRIDO Report Released Date/Time: January 25, 2024 11:12 AM Reporting Lab: [facility] [address] [address] Performing Lab: [facility] [address] [address] UREA NITROGEN 26 mg/dL H 7-25 January 25, 2024 02:04 PM [facility] PSA Specimen Type: SERUM No comment entered. Ordering Provider: SHIN GARRIDO Report Released Date/Time: January 25, 2024 11:12 AM Reporting Lab: [facility] [place] [address] [address] Performing Lab: [facility]USE[address] [address] PSA 4.37 ng/mL H 0.00-4.00 January 25, 2024 02:04 PM [facility] CREATININE (eGFR 2020) Specimen Type: SERUM No comment entered. Ordering Provider: SHIN GARRIDO Report Released Date/Time: January 25, 2024 11:12 AM Reporting Lab: [address] [address] Performing Lab: [address] [address] CREATININE, Serum 0.63 mg/dL 0.50-1.40 eGFR(CKD-EPI 2020) >90 mL/min >60 January 24, 2024 08:06 AM [facility] COVID-19 FLU/RSV DIAGNOSTIC PANEL Specimen Type: [...] patient management decisions.Cephei d FLUVID: HCPs: https://www.fda. gov/media/247828 /download. Patients: https://www.fda. gov/media/683700 /download Ordering Provider: SHIN GARRIDO Report Released Date/Time: January 24, 2024 07:49 AM Reporting Lab: [address] [address] Performing Lab: [address] [address] COVID-19 PCR (FLUVID) NEGATIVE NEGATIVE FLU A PCR (FLUVID) NEGATIVE FLU B PCR (FLUVID) NEGATIVE RSV PCR (FLUVID) NEGATIVE January 04, 2024 02:23 PM [facility] T-SPOT TB PANEL Specimen Type: BLOOD [...] test. For additional information, please refer to http://[employer] [email or web address]/RTM750 (This link is being provided for informational/ educational purposes only.) Test Performed by [employer] M[employer] [facility], [address] [place] [address] Merrick Rubin M.D., Ph.D., Director of Laboratories , [place] [id number] TEST PERFORMED AT: , Ordering Provider: SHIN GARRIDO Report Released Date/Time: Dec 28, 2023 04:19 PM Reporting Lab: [facility] [address] [address] Performing Lab: [facility] [address] [address] [id number] T (o) Negative Negative T-SPOT-PNLA 0 T-SPOT-PNLB 0 Q-[id number] RL Passed J-[id number]-[id number] RL Passed Dec 27, 2023 02:58 PM [facility] COVID-19 FLU/RSV DIAGNOSTIC PANEL Specimen Type: [...] patient management decisions.Gus taylor FLUVID: HCPs: https://www.fda. gov/media/265538 /download. Patients: https://www.fda. gov/media/209296 /download Ordering Provider: SHIN GARRIDO Report Released Date/Time: Dec 27, 2023 02:53 PM Reporting Lab: [facility] [place] [place] [address] Performing Lab: [place] [facility] [address] [address] COVID-19 PCR (FLUVID) NEGATIVE NEGATIVE FLU A PCR (FLUVID) NEGATIVE FLU B PCR (FLUVID) NEGATIVE RSV PCR (FLUVID) NEGATIVE Social History: Smoking Status (Most current) and Tobacco Use (All prior to encounter date) This section includes the most current, and the historical, smoking and tobacco- related health factors from the [facility] where the Encounter took place. Current Smoking Status This section includes the most current smoking, or tobacco-related health factor, from the [place] facility where the Encounter took place. Date/Time Current Smoking Status Comment Facil ity Jul 28, 2021 02:00 PM VA-TOBACCO NEVER USED [place] Tobacco Use History This section includes a history of the smoking, or tobacco-related health factors, that were collected on or before the date of the Encounter. The data comes from the [facility] where the Encounter took place. Date/Time Smoking Status/Tobacco Use Comment F acility February 01, 2018 01:20 PM LIFETIME NON-TOBACCO USER [place] Sep 16, 2016 01:32 PM LIFETIME NON-TOBACCO USER [place] Aug 03, 2015 02:27 PM LIFETIME NON-TOBACCO USER [place] Jul 08, 2011 02:09 PM FORMER SMOKER - <100 LIFETIME CI GARETTES [place] Dec 13, 2004 02:16 PM [facility]IF[facility] NON-SMOKER [place] January 06, 2004 01:18 PM LIF[facility] NON-SMOKER [place] Dec 24, 2002 02:53 PM LIFETIME NON-SMOKER [place] Sep 25, 2001 02:37 PM LIFETIME NON-SMOKER [place] Sep 25, 2001 02:37 PM LIFETIME NON-TOBACCO USER [place] Advance Directives: All historical and current Section Date Range: From patient's date of to the date document was created. This section includes ALL of a patient's completed or amended [place] Advance and Rescinded Directives. The entries below indicate that a directive exists for the patient, but an actual copy is not included with this document. The data comes from all [facility]. Date Advance Directives Provider Source Oct 04, 2023 ADVANCE DIRECTIVE DISCUSSION OZZY CORDERO [place] Radiology Reports: +/- 30 days of the [...] AM CHEST CT WITH CONTRAST: REBECA BLOCK [id number] M Exm Date: JANUARY 26, 2024@11:07 Req Phys: SHIN GARRIDO Loc: CWM/NO/SICK CALL PA (Req'g Loc Img Loc: [facility]/CT Service: Unknown [place] [facility] [place] [facility] , (Case [id number] COMPLETE) CT THORAX W/CONT (CT Detailed) CPT:87571 Contrast Media : Non-ionic Iodinated Reason for Study: abnormal weight loss (Case 331 COMPLETE) CT ABDOMEN AND PELVIS WITH CONTRA(CT Detailed) CPT:59151 Contrast Media : Non-ionic Iodinated Clinical History: PO/IV contrast : r/o neoplasm BUN/Cr ordered Report Status: Verified Date Reported: JANUARY 26, 2024 Date Verified: JANUARY 26, 2024 Compliance Vice President E-Sig:/ES/JOSE BOLES JR Report: Study: CT scan [...] Primary Interpreting Staff: JOSE BOLES JR, Radiologist (Compliance Vice President) /JOSE KERR JR [place] [facility] [place] [facility] Dec 25, 2023 11:22 AM SPINE CERVICAL, 4 OR 5 VIEWS: REBECA BLOCK [id number] M Exm Date: DEC 25, 2023@11:22 Req Phys: VIC BE Pat Loc: CWM/SO/PACT EIGHT WH (Req'g Lo Img Loc: [facility]/BUILDING 1 Service: Unknown (Case [id number] COMPLETE) SPINE CERVICAL, 4 OR 5 VIEWS (RAD Detailed) CPT:25933 Reason for Study: neck pain Clinical History: Report Status: Verified Date Reported: DEC 25, 2023 Date Verified: DEC 25, 2023 Compliance Vice President E-Sig: Report: SPINE CERVICAL, 4 OR 5 [...] cervical spine. READING PHYSICIAN: Ivan King MD -[id number] 12/25/2023 10:41 PDT [facility] National Teleradiology Program [phone] (For Medical Practitioner Use Only) Attention Patients / Veterans: If you have questions or concerns about these test results, please contact your ordering provider or primary care team. Primary Diagnostic Code: NO ALERT REQUIRED Primary Interpreting Staff: RADIOLOGY,OUTSIDE SERVICE, Staff Physician / RADIOLOGY,OUTSIDE SERVICE [facility] Encounter Notes: All associated encounter notes This section contains the clinical notes associated to the Encounter. Date/Time Encounter Note(s) Provider Source January 31, 2024 02:24 PM ADDENDUM: LOCAL TITLE: Addendum STANDARD TITLE: ADDENDUM DATE OF NOTE: JANUARY 31, 2024@14:24:27 ENTRY DATE: JANUARY 31, 2024@14:24:28 AUTHOR: VIC BE EXP COSIGNER: URGENCY: STATUS: COMPLETED Please assist the with scheduling a visit with me when available. Thank you /nyasia/ VIC BE MD PRIMARY CARE PHYSICIAN Signed: 01/31/2024 14:25 Receipt Acknowledged By: 02/01/2024 12:28 /nyasia/ HANNAH CASTANEDA ADVANCED PLANNING ASSISTANT ======== --- Original Document --- 01/23/24 PHYSICAL THERAPY CONSULT: Initial Evaluation date: 01/23/24 Progress Note Date: 02/23/24 Treatment #: eval Treatment time: 30 Diagnosis:Cervicalgia(ICD-10-CM M54.2) Provider:VIC BE PT Treatment Precautions: Patient identified by full name and date of Goes by Bill Resting Vitals: HR: 69 BP: 129/77 Immediately upon standing: HR: 97 BP: 110/68 SUBJECTIVE: History of Current injury: Patient states they have had chronic neck pain for a few years now. Patient states the pain is primarily located along the R side of the neck, but does note some mild L sided neck pain as well. Patient denies referred symptoms into the arms. Patient states they were in [facility] ED this morning due to dizziness, increased urinary frequency. States they were told they had an enlarged prostate. Patient endorses unexplained weight loss despite stating they eat 3 meals per day and drink ensure. States they have had an 8lb weight loss in the past month. Patient denies major trauma or surgery to the neck or shoulders. Pain current 3-4/10 Pain worst 7-8/10 Pain best 3-4/10 Current exercise routine: N/A Patient Goal: learn some ways to improve the range of motion and strength in their neck, decrease the pain Number of days per week with pain: 03/10 SANE report Please rate your ability to use your injured area on a 0% to 100% scale, with 0% being unable to use the injured area and 100% being normal use of injured area in your daily activity: 50% OBJECTIVE: Red flags: Recent Trauma- Age (50+)+ Hx of Cancer- Fever/chills/night sweats- Unexplained weight loss+ Recent infection- Immunosuppression- Night pain- Saddle anesthesia- Bowel/bladder dysfunction- LE neurological deficit- Psychosocial flags: mental health + entrenched/unhelpful beliefs about pain- clinically relevant catastrophization- signs of kinesiophobia- Imaging findings: FINDINGS: The bones are osteopenic. Cervical spine [...] most pronounced at the lower cervical spine. Posture: forward head, rouded shoulders Neuro: UE Neuro Screen: (R) (L) Reflexes: (0, 1, 2, 3, 4) C7 Triceps 2 2 C6 BR 2 2 C5 Biceps 2 2 Myotomes: See MMT Dermatomes: (N=Normal, I=Impaired) C5 Radial N N C6 Thumb N N C7 Middle N N C8 Pinkie N N T1 Ulnar N N ULTT+ (+,-) Median nerve - - Ulnar nerve - - Radial nerve - - According to Sergio et al,[18] selected combinations of the following clinical findings are effective in ruling out and ruling in cervical spine myelopathy. Combinations of three of five or four of five of these tests enable post-test probability of the condition to 9499%: NEGATIVE 1. Gait deviation 2. + Hoffmanns test 3. Inverted supinator sign 4. + Babinski sign 5. Age 45 years or older Cervical ROM Flexion(60-90): 30 Extension: 30 Right SB: 20 Left SB: 10* Right Rotation: 30 Left Rotation: 20* Shoulder ROM: R L Flexion(170-180): 140 140 Abduction(170-180): 140 140 Scaption(170-180): 140 140 Extension(50-60): Internal Rot(Behind back): L3 L3 External Rot(60-90): C7 C7 Cervical Strength:(_/5) Flexion: Extension: Right SB: Left SB: Right Rotation: Left Rotation: Deep neck flexor endurance test Performing the Test: Tuck patients chin in and lift off table 1 inch. The examiner looks for substitution of the platysma or SCM muscle. Normal Values: Men: 38.9 seconds, Women: 29.4 seconds SCORE: Shoulder Strength:(_/5) Right Left Flexion: Abduction: Scaption: Extension: Internal Rot: External Rot: Horizontal Abd: Rhomboids: Cervical Special Tests Right Left Spurlings compression (-) (-) (Sn .50 Sp .90) Distraction (-) (-) (Sn .44 Sp .90) Sharps-Kristy (-) (-) (Sn .69 Sp .96) Alar ligament test (-) (-) Clinical prediction rule (-) (-) 3 positive signs = Sn .39 Sp .94 for radiculopathy Less 60 deg cervical rotation to involved side Positive ULTT A Positive distraction Positive Spurlings test Shoulder Special Tests: Right Left Hawking's Agustin (-) (-) Neer (-) (-) Empty can (-) (-) Lateral Elva (-) (-) Passive distraction (SLAP) (-) (-) Passive compression (SLAP) (-) (-) Modified dynamic labral shear (-) (-) Apprehension/Relocation (bankart) (-) (-) Palpation: Joint mobility: Interventions: Therapeutic Exercise: Mins: Manual therapy: Mins: Neuro re-ed: Mins: Other: Mins: Modalities: Mins: [] contraindication screen completed prior to modality [] skin intact pre/post modality Scour Prevention access code: Patient education: Mins: Discussed potential etiology of symptoms with patient including potential structures involved and how this relates to exercises prescribed and POC discussing frequency and duration of services to be provided with patient verbalizing good understanding and agreement with POC. ASSESSMENT: Patient is a 79yo seen for physical therapy evaluation following referral for neck pain R > L. PMH significant for Vitamin D Deficiency, Cervical pain, Exposure to potentially hazardous substance, Anemia, Dehydration, Foot pain, GERD - Gastro-Esophageal Reflux Dis, Benign Prostatic Hypertrophy, Housing adequate, Seborrhoeic dermatitis of scalp, Constipation, [place] of toe,Palpitations, Housing lack, Ambulatory ECG abnormal, Plantar wart, Residual schizophrenia in remission, Vertigo/Dizziness, Delusional disorder, Low Back Pain, Left Inguinal Hernia, Anemia, Candidiasis, Oral, Benign enlargement of prostate, Chronic obstructive pulmonary disease, Gastro-esophageal reflux, Hypothyroidism, Seizure. Patient presents with primary complaint of chronic neck pain R > L without referred symptoms into the arms. Pain rated 3-4/10 at best and current, 7-8/10 at worst. Primary aggravating factors include lying flat on their back, reading or using a computer. On physical assessment, patient primary symptoms R side of neck reproduced with cervical extension, and L side bend/rotation. Additional impairments that may contribute to condition include impaired posture with significant forward head and rounded shoulders, impaired DNF and periscpaular strength, impaired cervical ROM. Based on patient hx and findings of assessment, symptoms appear most consistent with cervical OA/DDD. Of note, patient reports they were at [facility] ED this morning (morning of 01/22) for dizziness and increased urinary frequency. Patient states they were told they have an enlarged prostate, their discharge paperwork confirms this dx. Only took hx and basic ROM measurements today due to ER visit in the morning, as well as patient reporting recent unexplained weight loss. Advised patient follow up with their PCP for further assessment to receive clearance to participate in an exercise program. Discussed with patient that follow up visits will be scheduled after they receive this clearance from PCP; patient verbalizes agreement with this plan. Patient reports these symptoms impact their ability to complete their normal daily tasks like lying flat on their back, reading and using computer. Patient requires skilled physical therapy services in order to address these impairments ad activity limitations and to achieve patient goal of learn some ways to improve the range of motion and strength in their neck, decrease the pain . GOALS: in 4-6weeks, patient will demonstrate: consistent carryover of HEP 5/7 days per week with patient able to independently teach back 75% of exercises 2pt decrease in pain level at worst to improve patient ability to complete most symptomatic tasks 10% improvement on SANE score to improve patient ability to complete typical daily tasks decrease in total days with pain by 2 days to improve patient QOL 10deg improvement in L cervical rotation ROm 10deg improvement in L cervical side bend ROM PLAN: Discussed POC with patient; recommending no further visits until they follow up with their PCP post ER visit, once they receive clearance to participate in an exercise program, will schedule follow ups. [x]Low impact cardio: []Nustep []Recumbent bike []Recumbent elliptical [x]UBE []Manual: []STM/DTM []METs/SCS []IASTM []Joint mobilizations [x]Therex: [x]Progressive UQ [x]Progressive Core []Progressive LQ [x]UQ flex [] Lumbar flex []LQ flex []Foam rolling []Proprioception []Neuro Re-education: []Static []Dynamic []Dual-Task [x]Education: [x]Posture []Ergonomics [x]Bodymechanics [x]Self-care strategies [] PNE []Modalities(PRN): []Heat/Ice []Estim/Tens []Mechanical traction []K-tape [] Biofreeze /nyasia/ ALISIA HARP PT, DPT PHYSICAL THERAPIST Signed: 01/24/2024 13:11 01/24/2024 ADDENDUM STATUS: COMPLETED Of note, patient reports they were at [facility] ED this morning (morning of 01/22) for dizziness and increased urinary frequency. Patient states they were told they have an enlarged prostate, their discharge paperwork confirms this dx. Only took hx and basic ROM measurements today due to ER visit in the morning, as well as patient reporting recent unexplained weight loss. Advised patient follow up with their PCP for further assessment to receive clearance to participate in an exercise program. Discussed with patient that follow up visits will be scheduled after they receive this clearance from PCP; patient verbalizes agreement with this plan. /candelaria HARP PT, DPT PHYSICAL THERAPIST Signed: 01/24/2024 13:12 Receipt Acknowledged By: 01/24/2024 14:08 /nyasia/ IZZY COOPER RN-BC REGISTERED NURSE 01/31/2024 14:24 /nyasia/ VIC BE MD PRIMARY CARE PHYSICIAN 01/24/2024 ADDENDUM STATUS: COMPLETED Please assist with scheduling follow up appt for urology symptoms and weight loss with PCP at next available appt. has consults placed to assist with addressing these issues. /nyasia/ IZZY COOPER RN-BC REGISTERED NURSE Signed: 01/24/2024 14:11 Receipt Acknowledged By: 01/24/2024 14:49 /es/ HANNAH CASTANEDA ADVANCED PLANNING ASSISTANT VIC BE January 24, 2024 02:10 PM ADDENDUM: LOCAL TITLE: Addendum STANDARD TITLE: ADDENDUM DATE OF NOTE: JANUARY 24, 2024@14:10:10 ENTRY DATE: JANUARY 24, 2024@14:10:11 AUTHOR: ELODIA MILLERIGNER: URGENCY: STATUS: COMPLETED Please assist [place] with scheduling follow up appt for urology symptoms and weight loss with PCP at next available appt. has consults placed to assist with addressing these issues. /nyasia/ IZZY COOPER RN-BC REGISTERED NURSE Signed: 01/24/2024 14:11 Receipt Acknowledged By: 01/24/2024 14:49 /nyasia/ HANNAH CASTANEDA ADVANCED PLANNING ASSISTANT ======== --- Original Document --- 01/23/24 PHYSICAL THERAPY CONSULT: Initial Evaluation date: 01/23/24 Progress Note Date: 02/23/24 Treatment #: eval Treatment time: 30 Diagnosis:Cervicalgia(ICD-10-CM M54.2) Provider:VIC BE PT Treatment Precautions: Patient identified by full name and date of Goes by Bill Resting Vitals: HR: 69 BP: 129/77 Immediately upon standing: HR: 97 BP: 110/68 SUBJECTIVE: History of Current injury: Patient states they have had chronic neck pain for a few years now. Patient states the pain is primarily located along the R side of the neck, but does note some mild L sided neck pain as well. Patient denies referred symptoms into the arms. Patient states they were in [facility] ED this morning due to dizziness, increased urinary frequency. States they were told they had an enlarged prostate. Patient endorses unexplained weight loss despite stating they eat 3 meals per day and drink ensure. States they have had an 8lb weight loss in the past month. Patient denies major trauma or surgery to the neck or shoulders. Pain current 3-4/10 Pain worst 7-8/10 Pain best 3-4/10 Current exercise routine: N/A Patient Goal: learn some ways to improve the range of motion and strength in their neck, decrease the pain Number of days per week with pain: 03/10 SANE report Please rate your ability to use your injured area on a 0% to 100% scale, with 0% being unable to use the injured area and 100% being normal use of injured area in your daily activity: 50% OBJECTIVE: Red flags: Recent Trauma- Age (50+)+ Hx of Cancer- Fever/chills/night sweats- Unexplained weight loss+ Recent infection- Immunosuppression- Night pain- Saddle anesthesia- Bowel/bladder dysfunction- LE neurological deficit- Psychosocial flags: mental health + entrenched/unhelpful beliefs about pain- clinically relevant catastrophization- signs of kinesiophobia- Imaging findings: FINDINGS: The bones are osteopenic. Cervical spine [...] most pronounced at the lower cervical spine. Posture: forward head, rouded shoulders Neuro: UE Neuro Screen: (R) (L) Reflexes: (0, 1, 2, 3, 4) C7 Triceps 2 2 C6 BR 2 2 C5 Biceps 2 2 Myotomes: See MMT Dermatomes: (N=Normal, I=Impaired) C5 Radial N N C6 Thumb N N C7 Middle N N C8 Pinkie N N T1 Ulnar N N ULTT+ (+,-) Median nerve - - Ulnar nerve - - Radial nerve - - According to Sergio et al,[18] selected combinations of the following clinical findings are effective in ruling out and ruling in cervical spine myelopathy. Combinations of three of five or four of five of these tests enable post-test probability of the condition to 9499%: NEGATIVE 1. Gait deviation 2. + Hoffmanns test 3. Inverted supinator sign 4. + Babinski sign 5. Age 45 years or older Cervical ROM Flexion(60-90): 30 Extension: 30 Right SB: 20 Left SB: 10* Right Rotation: 30 Left Rotation: 20* Shoulder ROM: R L Flexion(170-180): 140 140 Abduction(170-180): 140 140 Scaption(170-180): 140 140 Extension(50-60): Internal Rot(Behind back): L3 L3 External Rot(60-90): C7 C7 Cervical Strength:(_/5) Flexion: Extension: Right SB: Left SB: Right Rotation: Left Rotation: Deep neck flexor endurance test Performing the Test: Tuck patients chin in and lift off table 1 inch. The examiner looks for substitution of the platysma or SCM muscle. Normal Values: Men: 38.9 seconds, Women: 29.4 seconds SCORE: Shoulder Strength:(_/5) Right Left Flexion: Abduction: Scaption: Extension: Internal Rot: External Rot: Horizontal Abd: Rhomboids: Cervical Special Tests Right Left Spurlings compression (-) (-) (Sn .50 Sp .90) Distraction (-) (-) (Sn .44 Sp .90) Sharps-Kristy (-) (-) (Sn .69 Sp .96) Alar ligament test (-) (-) Clinical prediction rule (-) (-) 3 positive signs = Sn .39 Sp .94 for radiculopathy Less 60 deg cervical rotation to involved side Positive ULTT A Positive distraction Positive Spurlings test Shoulder Special Tests: Right Left Hawking's Agustin (-) (-) Neer (-) (-) Empty can (-) (-) Lateral Elva (-) (-) Passive distraction (SLAP) (-) (-) Passive compression (SLAP) (-) (-) Modified dynamic labral shear (-) (-) Apprehension/Relocation (bankart) (-) (-) Palpation: Joint mobility: Interventions: Therapeutic Exercise: Mins: Manual therapy: Mins: Neuro re-ed: Mins: Other: Mins: Modalities: Mins: [] contraindication screen completed prior to modality [] skin intact pre/post modality [email or web address] access code: Patient education: Mins: Discussed potential etiology of symptoms with patient including potential structures involved and how this relates to exercises prescribed and POC discussing frequency and duration of services to be provided with patient verbalizing good understanding and agreement with POC. ASSESSMENT: Patient is a 79yo seen for physical therapy evaluation following referral for neck pain R > L. PMH significant for Vitamin D Deficiency, Cervical pain, Exposure to potentially hazardous substance, Anemia, Dehydration, Foot pain, GERD - Gastro-Esophageal Reflux Dis, Benign Prostatic Hypertrophy, Housing adequate, Seborrhoeic dermatitis of scalp, Constipation, [place] of toe,Palpitations, Housing lack, Ambulatory ECG abnormal, Plantar wart, Residual schizophrenia in remission, Vertigo/Dizziness, Delusional disorder, Low Back Pain, Left Inguinal Hernia, Anemia, Candidiasis, Oral, Benign enlargement of prostate, Chronic obstructive pulmonary disease, Gastro-esophageal reflux, Hypothyroidism, Seizure. Patient presents with primary complaint of chronic neck pain R > L without referred symptoms into the arms. Pain rated 3-4/10 at best and current, 7-8/10 at worst. Primary aggravating factors include lying flat on their back, reading or using a computer. On physical assessment, patient primary symptoms R side of neck reproduced with cervical extension, and L side bend/rotation. Additional impairments that may contribute to condition include impaired posture with significant forward head and rounded shoulders, impaired DNF and periscpaular strength, impaired cervical ROM. Based on patient hx and findings of assessment, symptoms appear most consistent with cervical OA/DDD. Of note, patient reports they were at [facility] ED this morning (morning of 01/22) for dizziness and increased urinary frequency. Patient states they were told they have an enlarged prostate, their discharge paperwork confirms this dx. Only took hx and basic ROM measurements today due to ER visit in the morning, as well as patient reporting recent unexplained weight loss. Advised patient follow up with their PCP for further assessment to receive clearance to participate in an exercise program. Discussed with patient that follow up visits will be scheduled after they receive this clearance from PCP; patient verbalizes agreement with this plan. Patient reports these symptoms impact their ability to complete their normal daily tasks like lying flat on their back, reading and using computer. Patient requires skilled physical therapy services in order to address these impairments ad activity limitations and to achieve patient goal of learn some ways to improve the range of motion and strength in their neck, decrease the pain . GOALS: in 4-6weeks, patient will demonstrate: consistent carryover of HEP 5/7 days per week with patient able to independently teach back 75% of exercises 2pt decrease in pain level at worst to improve patient ability to complete most symptomatic tasks 10% improvement on SANE score to improve patient ability to complete typical daily tasks decrease in total days with pain by 2 days to improve patient QOL 10deg improvement in L cervical rotation ROm 10deg improvement in L cervical side bend ROM PLAN: Discussed POC with patient; recommending no further visits until they follow up with their PCP post ER visit, once they receive clearance to participate in an exercise program, will schedule follow ups. [x]Low impact cardio: []Nustep []Recumbent bike []Recumbent elliptical [x]UBE []Manual: []STM/DTM []METs/SCS []IASTM []Joint mobilizations [x]Therex: [x]Progressive UQ [x]Progressive Core []Progressive LQ [x]UQ flex [] Lumbar flex []LQ flex []Foam rolling []Proprioception []Neuro Re-education: []Static []Dynamic []Dual-Task [x]Education: [x]Posture []Ergonomics [x]Bodymechanics [x]Self-care strategies [] PNE []Modalities(PRN): []Heat/Ice []Estim/Tens []Mechanical traction []K-tape [] Biofreeze /nyasia/ ALISIA HARP PT, DPT PHYSICAL THERAPIST Signed: 01/24/2024 13:11 01/24/2024 ADDENDUM STATUS: COMPLETED Of note, patient reports they were at [facility] ED this morning (morning of 01/22) for dizziness and increased urinary frequency. Patient states they were told they have an enlarged prostate, their discharge paperwork confirms this dx. Only took hx and basic ROM measurements today due to ER visit in the morning, as well as patient reporting recent unexplained weight loss. Advised patient follow up with their PCP for further assessment to receive clearance to participate in an exercise program. Discussed with patient that follow up visits will be scheduled after they receive this clearance from PCP; patient verbalizes agreement with this plan. /candelaria HARP PT, DPT PHYSICAL THERAPIST Signed: 01/24/2024 13:12 Receipt Acknowledged By: 01/24/2024 14:08 /nyasia/ IZZY COOPER RN-BC REGISTERED NURSE * AWAITING SIGNATURE * VIC BE KRISTIN [place] January 24, 2024 01:11 PM ADDENDUM: LOCAL TITLE: Addendum STANDARD TITLE: ADDENDUM DATE OF NOTE: JANUARY 24, 2024@13:11:56 ENTRY DATE: JANUARY 24, 2024@13:11:57 AUTHOR: ALISIA HARP EXP COSIGNER: URGENCY: STATUS: COMPLETED Of note, patient reports they were at [facility] ED this morning (morning of 01/22) for dizziness and increased urinary frequency. Patient states they were told they have an enlarged prostate, their discharge paperwork confirms this dx. Only took hx and basic ROM measurements today due to ER visit in the morning, as well as patient reporting recent unexplained weight loss. Advised patient follow up with their PCP for further assessment to receive clearance to participate in an exercise program. Discussed with patient that follow up visits will be scheduled after they receive this clearance from PCP; patient verbalizes agreement with this plan. /es/ ALISIA HARP PT, DPT PHYSICAL THERAPIST Signed: 01/24/2024 13:12 Receipt Acknowledged By: 01/24/2024 14:08 /es/ IZZY COOPER RN-BC REGISTERED NURSE 01/31/2024 14:24 /nyasia/ VIC BE MD PRIMARY CARE PHYSICIAN ======== --- Original Document --- 01/23/24 PHYSICAL THERAPY CONSULT: Initial Evaluation date: 01/23/24 Progress Note Date: 02/23/24 Treatment #: eval Treatment time: 30 Diagnosis:Cervicalgia(ICD-10-CM M54.2) Provider:VIC BE PT Treatment Precautions: Patient identified by full name and date of Goes by Bill Resting Vitals: HR: 69 BP: 129/77 Immediately upon standing: HR: 97 BP: 110/68 SUBJECTIVE: History of Current injury: Patient states they have had chronic neck pain for a few years now. Patient states the pain is primarily located along the R side of the neck, but does note some mild L sided neck pain as well. Patient denies referred symptoms into the arms. Patient states they were in [facility] ED this morning due to dizziness, increased urinary frequency. States they were told they had an enlarged prostate. Patient endorses unexplained weight loss despite stating they eat 3 meals per day and drink ensure. States they have had an 8lb weight loss in the past month. Patient denies major trauma or surgery to the neck or shoulders. Pain current 3-4/10 Pain worst 7-8/10 Pain best 3-4/10 Current exercise routine: N/A Patient Goal: learn some ways to improve the range of motion and strength in their neck, decrease the pain Number of days per week with pain: 03/10 SANE report Please rate your ability to use your injured area on a 0% to 100% scale, with 0% being unable to use the injured area and 100% being normal use of injured area in your daily activity: 50% OBJECTIVE: Red flags: Recent Trauma- Age (50+)+ Hx of Cancer- Fever/chills/night sweats- Unexplained weight loss+ Recent infection- Immunosuppression- Night pain- Saddle anesthesia- Bowel/bladder dysfunction- LE neurological deficit- Psychosocial flags: mental health + entrenched/unhelpful beliefs about pain- clinically relevant catastrophization- signs of kinesiophobia- Imaging findings: FINDINGS: The bones are osteopenic. Cervical spine [...] most pronounced at the lower cervical spine. Posture: forward head, rouded shoulders Neuro: UE Neuro Screen: (R) (L) Reflexes: (0, 1, 2, 3, 4) C7 Triceps 2 2 C6 BR 2 2 C5 Biceps 2 2 Myotomes: See MMT Dermatomes: (N=Normal, I=Impaired) C5 Radial N N C6 Thumb N N C7 Middle N N C8 Pinkie N N T1 Ulnar N N ULTT+ (+,-) Median nerve - - Ulnar nerve - - Radial nerve - - According to Sergio et al,[18] selected combinations of the following clinical findings are effective in ruling out and ruling in cervical spine myelopathy. Combinations of three of five or four of five of these tests enable post-test probability of the condition to 9499%: NEGATIVE 1. Gait deviation 2. + Hoffmanns test 3. Inverted supinator sign 4. + Babinski sign 5. Age 45 years or older Cervical ROM Flexion(60-90): 30 Extension: 30 Right SB: 20 Left SB: 10* Right Rotation: 30 Left Rotation: 20* Shoulder ROM: R L Flexion(170-180): 140 140 Abduction(170-180): 140 140 Scaption(170-180): 140 140 Extension(50-60): Internal Rot(Behind back): L3 L3 External Rot(60-90): C7 C7 Cervical Strength:(_/5) Flexion: Extension: Right SB: Left SB: Right Rotation: Left Rotation: Deep neck flexor endurance test Performing the Test: Tuck patients chin in and lift off table 1 inch. The examiner looks for substitution of the platysma or SCM muscle. Normal Values: Men: 38.9 seconds, Women: 29.4 seconds SCORE: Shoulder Strength:(_/5) Right Left Flexion: Abduction: Scaption: Extension: Internal Rot: External Rot: Horizontal Abd: Rhomboids: Cervical Special Tests Right Left Spurlings compression (-) (-) (Sn .50 Sp .90) Distraction (-) (-) (Sn .44 Sp .90) Sharps-Kristy (-) (-) (Sn .69 Sp .96) Alar ligament test (-) (-) Clinical prediction rule (-) (-) 3 positive signs = Sn .39 Sp .94 for radiculopathy Less 60 deg cervical rotation to involved side Positive ULTT A Positive distraction Positive Spurlings test Shoulder Special Tests: Right Left Hawking's Agustin (-) (-) Neer (-) (-) Empty can (-) (-) Lateral Elva (-) (-) Passive distraction (SLAP) (-) (-) Passive compression (SLAP) (-) (-) Modified dynamic labral shear (-) (-) Apprehension/Relocation (bankart) (-) (-) Palpation: Joint mobility: Interventions: Therapeutic Exercise: Mins: Manual therapy: Mins: Neuro re-ed: Mins: Other: Mins: Modalities: Mins: [] contraindication screen completed prior to modality [] skin intact pre/post modality [employer] access code: Patient education: Mins: Discussed potential etiology of symptoms with patient including potential structures involved and how this relates to exercises prescribed and POC discussing frequency and duration of services to be provided with patient verbalizing good understanding and agreement with POC. ASSESSMENT: Patient is a 79yo seen for physical therapy evaluation following referral for neck pain R > L. PMH significant for Vitamin D Deficiency, Cervical pain, Exposure to potentially hazardous substance, Anemia, Dehydration, Foot pain, GERD - Gastro-Esophageal Reflux Dis, Benign Prostatic Hypertrophy, Housing adequate, Seborrhoeic dermatitis of scalp, Constipation, [place] of toe,Palpitations, Housing lack, Ambulatory ECG abnormal, Plantar wart, Residual schizophrenia in remission, Vertigo/Dizziness, Delusional disorder, Low Back Pain, Left Inguinal Hernia, Anemia, Candidiasis, Oral, Benign enlargement of prostate, Chronic obstructive pulmonary disease, Gastro-esophageal reflux, Hypothyroidism, Seizure. Patient presents with primary complaint of chronic neck pain R > L without referred symptoms into the arms. Pain rated 3-4/10 at best and current, 7-8/10 at worst. Primary aggravating factors include lying flat on their back, reading or using a computer. On physical assessment, patient primary symptoms R side of neck reproduced with cervical extension, and L side bend/rotation. Additional impairments that may contribute to condition include impaired posture with significant forward head and rounded shoulders, impaired DNF and periscpaular strength, impaired cervical ROM. Based on patient hx and findings of assessment, symptoms appear most consistent with cervical OA/DDD. Of note, patient reports they were at [facility] ED this morning (morning of 01/22) for dizziness and increased urinary frequency. Patient states they were told they have an enlarged prostate, their discharge paperwork confirms this dx. Only took hx and basic ROM measurements today due to ER visit in the morning, as well as patient reporting recent unexplained weight loss. Advised patient follow up with their PCP for further assessment to receive clearance to participate in an exercise program. Discussed with patient that follow up visits will be scheduled after they receive this clearance from PCP; patient verbalizes agreement with this plan. Patient reports these symptoms impact their ability to complete their normal daily tasks like lying flat on their back, reading and using computer. Patient requires skilled physical therapy services in order to address these impairments ad activity limitations and to achieve patient goal of learn some ways to improve the range of motion and strength in their neck, decrease the pain . GOALS: in 4-6weeks, patient will demonstrate: consistent carryover of HEP 5/7 days per week with patient able to independently teach back 75% of exercises 2pt decrease in pain level at worst to improve patient ability to complete most symptomatic tasks 10% improvement on SANE score to improve patient ability to complete typical daily tasks decrease in total days with pain by 2 days to improve patient QOL 10deg improvement in L cervical rotation ROm 10deg improvement in L cervical side bend ROM PLAN: Discussed POC with patient; recommending no further visits until they follow up with their PCP post ER visit, once they receive clearance to participate in an exercise program, will schedule follow ups. [x]Low impact cardio: []Nustep []Recumbent bike []Recumbent elliptical [x]UBE []Manual: []STM/DTM []METs/SCS []IASTM []Joint mobilizations [x]Therex: [x]Progressive UQ [x]Progressive Core []Progressive LQ [x]UQ flex [] Lumbar flex []LQ flex []Foam rolling []Proprioception []Neuro Re-education: []Static []Dynamic []Dual-Task [x]Education: [x]Posture []Ergonomics [x]Bodymechanics [x]Self-care strategies [] PNE []Modalities(PRN): []Heat/Ice []Estim/Tens []Mechanical traction []K-tape [] Biofreeze /nyasia/ ALISIA HARP PT, DPT PHYSICAL THERAPIST Signed: 01/24/2024 13:11 01/24/2024 ADDENDUM STATUS: COMPLETED Please assist [place] with scheduling follow up appt for urology symptoms and weight loss with PCP at next available appt. has consults placed to assist with addressing these issues. /es/ IZZY COOPER RN-BC REGISTERED NURSE Signed: 01/24/2024 14:11 Receipt Acknowledged By: 01/24/2024 14:49 /es/ HANNAH CASTANEDA ADVANCED PLANNING ASSISTANT 01/31/2024 ADDENDUM STATUS: UNSIGNED You may not VIEW this UNSIGNED Addendum. ALISIA HARP January 23, 2024 08:35 AM PHYSICAL THERAPY C ONSULT: LOCAL TITLE: PHYSICAL THERAPY CONSULT STANDARD TITLE: PHYSICAL THERAPY CONSULT DATE OF NOTE: JANUARY 23, 2024@08:35 ENTRY DATE: JANUARY 23, 2024@08:35:35 AUTHOR: ALISIA HARP EXP COSIGNER: URGENCY: STATUS: COMPLETED PHYSICAL THERAPY CONSULT Has ADDENDA Initial Evaluation date: 01/23/24 Progress Note Date: 02/23/24 Treatment #: eval Treatment time: 30 Diagnosis:Cervicalgia(ICD-10-CM M54.2) Provider:VIC BE PT Treatment Precautions: Patient identified by full name and date of Goes by Bill Resting Vitals: HR: 69 BP: 129/77 Immediately upon standing: HR: 97 BP: 110/68 SUBJECTIVE: History of Current injury: Patient states they have had chronic neck pain for a few years now. Patient states the pain is primarily located along the R side of the neck, but does note some mild L sided neck pain as well. Patient denies referred symptoms into the arms. Patient states they were in [facility] ED this morning due to dizziness, increased urinary frequency. States they were told they had an enlarged prostate. Patient endorses unexplained weight loss despite stating they eat 3 meals per day and drink ensure. States they have had an 8lb weight loss in the past month. Patient denies major trauma or surgery to the neck or shoulders. Pain current 3-4/10 Pain worst 7-8/10 Pain best 3-4/10 Current exercise routine: N/A Patient Goal: learn some ways to improve the range of motion and strength in their neck, decrease the pain Number of days per week with pain: 7/7 SANE report Please rate your ability to use your injured area on a 0% to 100% scale, with 0% being unable to use the injured area and 100% being normal use of injured area in your daily activity: 50% OBJECTIVE: Red flags: Recent Trauma- Age (50+)+ Hx of Cancer- Fever/chills/night sweats- Unexplained weight loss+ Recent infection- Immunosuppression- Night pain- Saddle anesthesia- Bowel/bladder dysfunction- LE neurological deficit- Psychosocial flags: mental health + entrenched/unhelpful beliefs about pain- clinically relevant catastrophization- signs of kinesiophobia- Imaging findings: FINDINGS: The bones are osteopenic. Cervical spine [...] most pronounced at the lower cervical spine. Posture: forward head, rouded shoulders Neuro: UE Neuro Screen: (R) (L) Reflexes: (0, 1, 2, 3, 4) C7 Triceps 2 2 C6 BR 2 2 C5 Biceps 2 2 Myotomes: See MMT Dermatomes: (N=Normal, I=Impaired) C5 Radial N N C6 Thumb N N C7 Middle N N C8 Pinkie N N T1 Ulnar N N ULTT+ (+,-) Median nerve - - Ulnar nerve - - Radial nerve - - According to Sergio et al,[[id number]] selected combinations of the following clinical findings are effective in ruling out and ruling in cervical spine myelopathy. Combinations of three of five or four of five of these tests enable post-test probability of the condition to 9499%: NEGATIVE 1. Gait deviation 2. + Hoffmanns test 3. Inverted supinator sign 4. + Babinski sign 5. Age 45 years or older Cervical ROM Flexion(60-90): 30 Extension: 30 Right SB: 20 Left SB: 10* Right Rotation: 30 Left Rotation: 20* Shoulder ROM: R L Flexion(170-180): 140 140 Abduction(170-180): 140 140 Scaption(170-180): 140 140 Extension(50-60): Internal Rot(Behind back): L3 L3 External Rot(60-90): C7 C7 Cervical Strength:(_/5) Flexion: Extension: Right SB: Left SB: Right Rotation: Left Rotation: Deep neck flexor endurance test Performing the Test: Tuck patients chin in and lift off table 1 inch. The examiner looks for substitution of the platysma or SCM muscle. Normal Values: Men: 38.9 seconds, Women: 29.4 seconds SCORE: Shoulder Strength:(_/5) Right Left Flexion: Abduction: Scaption: Extension: Internal Rot: External Rot: Horizontal Abd: Rhomboids: Cervical Special Tests Right Left Spurlings compression (-) (-) (Sn .50 Sp .90) Distraction (-) (-) (Sn .44 Sp .90) Sharps-Kristy (-) (-) (Sn .69 Sp .96) Alar ligament test (-) (-) Clinical prediction rule (-) (-) 3 positive signs = Sn .39 Sp .94 for radiculopathy Less 60 deg cervical rotation to involved side Positive ULTT A Positive distraction Positive Spurlings test Shoulder Special Tests: Right Left Haw's Agustin (-) (-) Neer (-) (-) Empty can (-) (-) Lateral Elva (-) (-) Passive distraction (SLAP) (-) (-) Passive compression (SLAP) (-) (-) Modified dynamic labral shear (-) (-) Apprehension/Relocation (bankart) (-) (-) Palpation: Joint mobility: Interventions: Therapeutic Exercise: Mins: Manual therapy: Mins: Neuro re-ed: Mins: Other: Mins: Modalities: Mins: [] contraindication screen completed prior to modality [] skin intact pre/post modality [employer] access code: Patient education: Mins: Discussed potential etiology of symptoms with patient including potential structures involved and how this relates to exercises prescribed and POC discussing frequency and duration of services to be provided with patient verbalizing good understanding and agreement with POC. ASSESSMENT: Patient is a 79yo seen for physical therapy evaluation following referral for neck pain R > L. PMH significant for Vitamin D Deficiency, Cervical pain, Exposure to potentially hazardous substance, Anemia, Dehydration, Foot pain, GERD - Gastro-Esophageal Reflux Dis, Benign Prostatic Hypertrophy, Housing adequate, Seborrhoeic dermatitis of scalp, Constipation, [place] of toe,Palpitations, Housing lack, Ambulatory ECG abnormal, Plantar wart, Residual schizophrenia in remission, Vertigo/Dizziness, Delusional disorder, Low Back Pain, Left Inguinal Hernia, Anemia, Candidiasis, Oral, Benign enlargement of prostate, Chronic obstructive pulmonary disease, Gastro-esophageal reflux, Hypothyroidism, Seizure. Patient presents with primary complaint of chronic neck pain R > L without referred symptoms into the arms. Pain rated 3-4/10 at best and current, 7-8/10 at worst. Primary aggravating factors include lying flat on their back, reading or using a computer. On physical assessment, patient primary symptoms R side of neck reproduced with cervical extension, and L side bend/rotation. Additional impairments that may contribute to condition include impaired posture with significant forward head and rounded shoulders, impaired DNF and periscpaular strength, impaired cervical ROM. Based on patient hx and findings of assessment, symptoms appear most consistent with cervical OA/DDD. Of note, patient reports they were at [facility] ED this morning (morning of 01/22) for dizziness and increased urinary frequency. Patient states they were told they have an enlarged prostate, their discharge paperwork confirms this dx. Only took hx and basic ROM measurements today due to ER visit in the morning, as well as patient reporting recent unexplained weight loss. Advised patient follow up with their PCP for further assessment to receive clearance to participate in an exercise program. Discussed with patient that follow up visits will be scheduled after they receive this clearance from PCP; patient verbalizes agreement with this plan. Patient reports these symptoms impact their ability to complete their normal daily tasks like lying flat on their back, reading and using computer. Patient requires skilled physical therapy services in order to address these impairments ad activity limitations and to achieve patient goal of learn some ways to improve the range of motion and strength in their neck, decrease the pain . GOALS: in 4-6weeks, patient will demonstrate: consistent carryover of HEP 5/7 days per week with patient able to independently teach back 75% of exercises 2pt decrease in pain level at worst to improve patient ability to complete most symptomatic tasks 10% improvement on SANE score to improve patient ability to complete typical daily tasks decrease in total days with pain by 2 days to improve patient QOL 10deg improvement in L cervical rotation ROm 10deg improvement in L cervical side bend ROM PLAN: Discussed POC with patient; recommending no further visits until they follow up with their PCP post ER visit, once they receive clearance to participate in an exercise program, will schedule follow ups. [x]Low impact cardio: []Nustep []Recumbent bike []Recumbent elliptical [x]UBE []Manual: []STM/DTM []METs/SCS []IASTM []Joint mobilizations [x]Therex: [x]Progressive UQ [x]Progressive Core []Progressive LQ [x]UQ flex [] Lumbar flex []LQ flex []Foam rolling []Proprioception []Neuro Re-education: []Static []Dynamic []Dual-Task [x]Education: [x]Posture []Ergonomics [x]Bodymechanics [x]Self-care strategies [] PNE []Modalities(PRN): []Heat/Ice []Estim/Tens []Mechanical traction []K-tape [] Biofreeze /nyasia/ ALISIA HARP PT, DPT PHYSICAL THERAPIST Signed: 01/24/2024 13:11 01/24/2024 ADDENDUM STATUS: COMPLETED Of note, patient reports they were at [facility] ED this morning (morning of 01/22) for dizziness and increased urinary frequency. Patient states they were told they have an enlarged prostate, their discharge paperwork confirms this dx. Only took hx and basic ROM measurements today due to ER visit in the morning, as well as patient reporting recent unexplained weight loss. Advised patient follow up with their PCP for further assessment to receive clearance to participate in an exercise program. Discussed with patient that follow up visits will be scheduled after they receive this clearance from PCP; patient verbalizes agreement with this plan. /candelaria HARP PT, DPT PHYSICAL THERAPIST Signed: 01/24/2024 13:12 Receipt Acknowledged By: 01/24/2024 14:08 /nyasia/ IZZY COOPER RN-BC REGISTERED NURSE 01/31/2024 14:24 /nyasia/ VIC BE MD PRIMARY CARE PHYSICIAN 01/24/2024 ADDENDUM STATUS: COMPLETED Please assist with scheduling follow up appt for urology symptoms and weight loss with PCP at next available appt. [place] has consults placed to assist with addressing these issues. /IZZY Lott RN-BC REGISTERED NURSE Signed: 01/24/2024 14:11 Receipt Acknowledged By: 01/24/2024 14:49 /nyasia/ HANNAH CASTANEDA ADVANCED PLANNING ASSISTANT 01/31/2024 ADDENDUM STATUS: COMPLETED Please assist the with scheduling a visit with me when available. Thank you /candelaria BE MD PRIMARY CARE PHYSICIAN Signed: 01/31/2024 14:25 Receipt Acknowledged By: * AWAITING SIGNATURE * HANNAH CASTANEDA MICHAEL [place]
--- OUTSIDE RECORDS SUMMARY | 2024-10-20 23:25 | XMS_ITS | Encounter Summary ---
Author Name [facility] [place] Organization [facility] [place] Address [address] [place] [id number] Care Team Providers Care Brand Attendant Name Role Phone ALISIA TREVINO Primary [...] Apr 04, 2011 PART A OPT ONLY [id number] LYNDON BLOCK JR PATIENT Selected Encounter This section includes the information on record at [place] for the Encounter. Date/Time Encounter Type Encounter Description Reason Provider Source Sep 19, 2024 03:30 PM OFFICE O/P EST LOW 20 MIN PODIATRY ICD-10-CM L60.0 Ingrowing nail KERON QUINTANA Zoila Encounter Template Text not used by [place] Assessments - Encounter Diagnoses This section includes the primary and secondary diagnoses documented for the Encounter. Date/Time Primary/Secondary Diagnosis Diagnosis Name Provider Source Sep 19, 2024 04:14 PM PRIMARY Ingrowing nail KERON QUINTANA Sep 19, 2024 04:14 PM SECONDARY Corns and callosities KERON QUINTANA Sep 19, 2024 04:14 PM SECONDARY Pain in left foot KERON QUINTANA Sep 19, 2024 04:14 PM SECONDARY Pain in left toe(s) KERON QUINTANA [facility] Sep 19, 2024 04:14 PM SECONDARY Pain in right toe(s) KERON QUINTANA [facility] Plan of Treatment: Future Appointments (+ 6 months) and Future Tests (+/- 45 days) The Plan of Treatment section includes future care activities for the patient from all [place] [facility]. This section includes future appointments and future orders which are active, pending or scheduled. Future Appointments This section includes appointments that were scheduled to occur 6 months from the date of the Encounter, up to a maximum of 20 appointments. The data comes from all [place] treatment facilities. Appointment Date/Time Appointment Type Appointme nt Facility Name Oct 08, 2024 02:00 PM [facility] Feb 03, 2025 10:30 AM AMBULATORY - MEDICINE [facility] Feb 05, 2025 01:30 PM AMBULATORY - MEDICINE [facility] Social History: Smoking Status (Most current) and Tobacco Use (All prior to encounter date) This section includes the most current, and the historical, smoking and tobacco- related health factors from the [place] facility where the Encounter took place. Current Smoking Status This section includes the most current smoking, or tobacco-related health factor, from the [place] facility where the Encounter took place. Date/Time Current Smoking Status Comment Sasha dwyer Jul 28, 2021 02:00 PM VA-TOBACCO NEVER USED [facility] Tobacco Use History This section includes a history of the smoking, or tobacco-related health factors, that were collected on or before the date of the Encounter. The data comes from the [place] facility where the Encounter took place. Date/Time Smoking Status/Tobacco Use Comment F acephraim February 01, 2018 01:20 PM LIFETIME NON-TOBACCO USER [facility] Sep 16, 2016 01:32 PM LIFETIME NON-TOBACCO USER [facility] Aug 03, 2015 02:27 PM LIFETIME NON-TOBACCO USER [facility] Jul 08, 2011 02:09 PM FORMER SMOKER - <100 LIFETIME CI GARETTES [facility] Dec 13, 2004 02:16 PM LIFETIME NON-SMOKER [facility] January 06, 2004 01:18 PM LIFETIME NON-SMOKER [facility] Dec 24, 2002 02:53 PM LIFETIME NON-SMOKER [facility] Sep 25, 2001 02:37 PM LIFETIME NON-SMOKER [facility] Sep 25, 2001 02:37 PM LIFETIME NON-TOBACCO USER [facility] Advance Directives: All historical and current Section Date Range: From patient's date of to the date document was created. This section includes ALL of a patient's completed or amended VA Advance and Rescinded Directives. The entries below indicate that a directive exists for the patient, but an actual copy is not included with this document. The data comes from all [place] facilities. Date Advance Directives Provider Source Oct 04, 2023 ADVANCE DIRECTIVE DISCUSSION RADHA WILLETT,OZZY [facility] Encounter Notes: All associated encounter notes This section contains the clinical notes associated to the Encounter. Date/Time Encounter Note(s) Provider Source Sep 19, 2024 03:41 PM PODIATRY NOTE: LOCAL TITLE: PODIATRY NOTE STANDARD TITLE: PODIATRY NOTE DATE OF NOTE: SEP 19, 2024@15:41 ENTRY DATE: SEP 19, 2024@15:41:12 AUTHOR: KERON QUINTANA COSIGNER: URGENCY: STATUS: COMPLETED *NOTE: PATIENT NOT INTERESTED IN COVID VACCINE AT THIS TIME AND W/C WHEN READY LAST SEEN FOR TREATMENT: 04/25/2024 S: Pt. is a 79 yo alert WDWN CAUC MALE who is seen for continued podiatric Care of a painful lesion PIPJ medial 4th LT digit_NOTE: THIS LESION HAS RESOLCVED BUT THERE ARE 3 NEW AREAS OF CONCERN: DISTAL RT HALLUX, SUB LEFT 1ST MET HEAD AND PLANTAR LEFT CALCANEUS WHICH DISPLAY PAINFUL HYPERKERATOTIC AREAS. There has been pain for several days which is daily with periods of exacerbation & remission, is of an aching throbbing nature and is exacerbated with shoes & increased activity. It is of a level 3-4/10 prior to treatment 09/13 after and initiates [...] present physical-medical status. Protective sensation utilizing a Fairfax-Dilan lOg monofilament is 10/10 bilateral. A: Clinical Impression: Painful hyperkeratosis medial 4th LT digit DIPJ has resolved but now has a hyperkeratosis sub 1st left mpj which requires attention AND PLANTAR LEFT HEEL & DISTAL RT HALLUX and onychocryptic nails 1-2-3-4-5 bilateral. P: Treatment consists of surgical paring-debridement of ALL hyperkeratosis with a sterile #15 scalpel and trimming of all nails via manual and electric means with excision of the offending nail borders. Applied ammonium lactate 12 % lotion to dry feet. All care rendered without complications & pt. progressing well after podiatric care this date & will be scheduled for periodic care in an attempt to prevent future complications due to the underlying bony abnormalities. RTC 24 weeks (01/23 @ 3:30PM) *DISCUSSED NEW PROTOCOLS AND CALLED [facility] TODAY FOR RESCHEDULING I DISCUSSED THE FINDINGS & PLAN WITH PATIENT (UNCHANGED SINCE PREVIOUS VISIT) & PATIENT AGREES AND UNDERSTANDS PLAN DISPENSED A PAIR OF M 808 1/2 POWER STEP INSERTS AND ADVISED THAT IF TOO UNCOMFORTABLE TO EREMOVE AND REPLACE NEXT WEEK HE IS EXPERIENCING PAIR PLANTAR 1ST LEFT MET HEAD AREA PRIOR TO TX AND MAY TAKE 24-48 HOURS TO DIMINISH Medication Reconciliation: PERFORMED TODAY - SEE BELOW. Outpatient: Has the patient been taking medications as documented in the EMLR? YES: The patient has been taking medications as documented in the EMLR. Essential Medication List for Review used to complete this medication reconciliation. INCLUDED IN THIS LIST: Alphabetical list of active outpatient prescriptions dispensed from this [place] (local) and dispensed from another [place] or [facility] facility (remote) as well as inpatient [...] list may not be complete. Please check [employer]. Allergies/ADRs (Tool #5) FACILITY ALLERGY/ADR -------- [facility] FLUPHENAZINE [facility] LITHIUM [facility] MOBAN [facility] STELAZINE [facility] FL[facility]HENAZINE [facility] MOLINDONE [facility] TRIFLUOPERAZINE Med Recon NoGlossary (Tool #1) INCLUDED IN THIS LIST: Alphabetical list of active outpatient prescriptions dispensed from this [facility] (local) and dispensed from another [place] or [facility] facility (remote) as well as inpatient orders (local pending and active), local clinic medications, locally documented non-VA medications, and local prescriptions that have or been discontinued in the past 90 days. Non-VA Meds Last Documented On: May 14, 2007 NOTE The display of VA prescriptions dispensed from another [place] or [facility] facility (remote) is limited to active outpatient prescription entries matched to National Drug File at the originating site and may not include some items such as investigational drugs, compounds, etc. NOT INCLUDED IN THIS LIST: Medications self-entered by the patient into personal health records (i.e. [employer]) are NOT included in this list. Non-VA medications documented outside this [place], remote inpatient orders (regardless of status) and remote clinic medications are NOT included in this list. The patient and provider must always discuss medications the patient is taking, regardless of where the medication was dispensed or obtained. OUTPT ACETAMINOPHEN 500MG TAB (Status = Active) TAKE ONE TABLET BY MOUTH ONCE DAILY NEEDED FOR PAIN Rx# [id number] Last Released: 12/26/23 Qty/Days Supply: Rx Expiration Date: 12/13/24 Refills Remainin Indication: FOR PAIN OUTPT AMOXICILLIN 875/CLAV K 125MG TAB (Status = Active) TAKE 1 TABLET BY MOUTH TWICE DAILY FOR 21 DAYS FOR INFECTION Rx# [id number] Last Released: 03/28/24 Qty/Days Supply: Rx Expiration Date: 04/27/24 Refills Remainin OUTPT AZITHROMYCIN 250MG TAB (Status = Discontinued) TAKE TWO TABLETS BY MOUTH ONCE DAILY FOR 1 DAY, THEN TAKE ONE TABLET ONCE DAILY FOR 4 DAYS Rx# [id number] Last Released: 12/28/23 Qty/Days Supply: 02/06 Rx Expiration Date: 01/27/24 Refills Remainin Indication: FOR INFECTION CAUSED BY BACTERIA OUTPT AZITHROMYCIN 250MG TAB (Status = ) TAKE TWO TABLETS BY MOUTH ONCE DAILY FOR 1 DAY, THEN TAKE ONE TABLET ONCE DAILY FOR 4 DAYS FOR INFECTION CAUSED BY BACTERIA Rx# [id number] Last Released: 01/26/24 Qty/Days Supply: 02/06 Rx Expiration Date: 02/25/24 Refills Remainin Indication: FOR INFECTION CAUSED BY BACTERIA OUTPT CAMPHOR/MENTHOL/METHYL SALICYLATE PATCH (Status = Active) APPLY 1 PATCH TOPICALLY ONCE DAILY NEEDED FOR PAIN (REMOVE PATCH AFTER 8 TO 12 HOURS) Rx# [id number] Last Released: 01/05/24 Qty/Days Supply: 120/90 Rx Expiration Date: 01/01/25 Refills Remainin Indication: FOR PAIN OUTPT CARBAMIDE PEROXIDE 6.5% OTIC SOLN (Status = Active) INSTILL 5 TO 10 DROPS INTO THE AFFECTED EAR(S) ONCE DAILY FOR EAR WAX BLOCKAGE Rx# [id number] Last Released: 02/20/24 Qty/Days Supply: Rx Expiration Date: 01/24/25 Refills Remainin Indication: FOR EAR WAX BLOCKAGE OUTPT CETIRIZINE HCL 10MG TAB (Status = ) TAKE ONE TABLET BY MOUTH ONCE DAILY FOR ALLERGIES Rx# [id number] Last Released: 01/24/24 Qty/Days Supply: 90/ Rx Expiration Date: 04/23/24 Refills Remainin Indication: FOR ALLERGIES OUTPT CHOLECALCIF 50MCG (D3-2,000UNIT) TAB (Status = Active) TAKE ONE TABLET BY MOUTH ONCE DAILY FOR VITAMIN D DEFICIENCY FOR VITAMIN SUPPLEMENTATION Rx# [id number] Last Released: 07/07/23 Qty/Days Supply: 100/90 Rx Expiration Date: 07/04/24 Refills Remainin Indication: FOR VITAMIN D DEFICIENCY OUTPT DM 10/GUAIFENESN 100MG/5ML (AF & SF) LIQ (Status = Discontinued) TAKE 5 MLS BY MOUTH EVERY 6 HOURS NEEDED Rx# [id number] Last Released: 01/31/24 Qty/Days Supply: 240/10 Rx Expiration Date: 12/28/24 Refills Remainin Indication: FOR COUGH OUTPT DM 10/GUAIFENESN 100MG/5ML (AF & SF) LIQ (Status = Active) TAKE 5 MLS BY MOUTH EVERY 6 HOURS NEEDED FOR COUGH Rx# [id number] Last Released: 02/16/24 Qty/Days Supply: 480/24 Rx Expiration Date: 02/12/25 Refills Remainin Indication: FOR COUGH OUTPT FLUTICASONE PROP 50MCG 120D NASAL INHL (Status = ) INSTILL 1 SPRAY INTO EACH NOSTRIL TWICE DAILY FOR NASAL IRRITATION/INFLAMMATION Rx# [id number] Last Released: 01/24/24 Qty/Days Supply: 10/03 Rx Expiration Date: 02/23/24 Refills Remainin Indication: FOR NASAL IRRITATION/INFLAMMATION OUTPT LEVOTHYROXINE NA (SYNTHROID) 100MCG TAB (Status = Active) TAKE ONE TABLET BY MOUTH EVERY DAY TAKE WITH A FULL GLASS OF WATER FOR THYROID Rx# [id number] Last Released: 01/25/24 Qty/Days Supply: Rx Expiration Date: 06/13/24 Refills Remainin OUTPT OMEPRAZOLE 20MG EC CAP (Status = Active) TAKE ONE CAPSULE BY MOUTH DAILY FOR STOMACH ACID Rx# [id number] Last Released: 03/28/24 Qty/Days Supply: Rx Expiration Date: 06/13/24 Refills Remainin OUTPT PREDNISONE 20MG TAB (Status = ) TAKE TWO TABLETS BY MOUTH ONCE DAILY BRONCHITIS Rx# [id number] Last Released: 12/28/23 Qty/Days Supply: 06/08 Rx Expiration Date: 01/27/24 Refills Remainin Indication: BRONCHITIS OUTPT SELENIUM SULFIDE 2.5% LOTION/SHAMPOO (Status = Discontinued) APPLY SMALL AMOUNT TOPICALLY TWICE A WEEK NEEDED FOR DANDRUFF FOR 4 WEEKS THEN STOP Rx# [id number] Last Released: 12/13/23 Qty/Days Supply: 120 Rx Expiration Date: 07/05/24 Refills Remainin Indication: FOR DANDRUFF OUTPT SELENIUM SULFIDE 2.5% LOTION/SHAMPOO (Status = Active) APPLY SMALL AMOUNT TOPICALLY TWICE A WEEK NEEDED FOR DANDRUFF FOR 4 WEEKS THEN STOP Rx# [id number] Last Released: Qty/Days Supply: Rx Expiration Date: 04/23/25 Refills Remainin Indication: FOR DANDRUFF OUTPT TAMSULOSIN HCL 0.4MG CAP (Status = Active) TAKE ONE CAPSULE BY MOUTH DAILY Rx# [id number] Last Released: 06/14/23 Qty/Days Supply: Rx Expiration [...] BILAT SENSORY CHECK: Includes 10 gram Monofilament (Fairfax-Dilan) test of sensation. Intact (Greater than or [...] Vascular: Last scheduled appointment: DEC 12, 2023@15:30 THANIA/FIFI/PODIPTA/MARIANO Comment: 07/19/2023 /nyasia/ KERON QUINTANA DPM CHILD CARE LEAD TEACHER Signed: 04/25/2024 15:59 /nyasia/ KERON QUINTANA DPM CHILD CARE LEAD TEACHER Signed: 09/19/2024 16:15 KERON QUINTANA
--- OUTSIDE RECORDS SUMMARY | 2024-10-20 23:25 | XMS_ITS ---
Author Name [facility] Organization [facility] Address [address] [place] [address] Care Team Providers Care Welder Gas Name Role Phone ALISIA TREVINO Primary Care [...] Apr 04, 2011 PART A OPT ONLY [id number] LYNDON BLOCK JR PATIENT Selected Encounter This section includes the information on record at [place] for the Encounter. Date/Time Encounter Type Encounter Description Reason Provider Source Aug 19, 2024 11:00 AM HEARING AID REPAIR/MODIFYIN G AUDIOLOGY ICD-10-CM Z46.1 Encounter for fitting and adjustment of hearing aid MELISSA VIZCAINO Encounter Template Text not used by [place] Assessments - Encounter Diagnoses This section includes the primary and secondary diagnoses documented for the Encounter. Date/Time Primary/Secondary Diagnosis Diagnosis Name Provider Source Aug 19, 2024 11:47 AM PRIMARY Encounter for fitting and adjustment of hearing aid CORBIN HERRERA [facility] [place] [facility] Aug 19, 2024 11:47 AM SECONDARY Sensorineural hearing loss, bilateral [facility] Plan of Treatment: Future Appointments (+ 6 months) and Future Tests (+/- 45 days) The Plan of Treatment section includes future care activities for the patient [facility] [place] [facility]. This section includes future appointments and future orders which are active, pending or scheduled. Future Appointments This section includes appointments that were scheduled to occur 6 months from the date of the Encounter, up to a maximum of 20 appointments. The data comes from all [place] treatment facilities. Appointment Date/Time Appointment Type Appointme nt Facility Name Sep 17, 2024 03:00 PM [facility] [place] [facility] Sep 19, 2024 03:30 PM [facility] Oct 08, 2024 02:00 PM AMB[facility] [place] [place] [facility] [place] [facility] Feb 03, 2025 10:30 AM AM[place] [place]IC[place] [facility] Feb 05, 2025 01:30 PM [facility] Social History: Smoking Status (Most current) and Tobacco Use (All prior to encounter date) This section includes the most current, and the historical, smoking and tobacco- related health factors from the [place] facility where the Encounter took place. Current Smoking Status This section includes the most current smoking, or tobacco-related health factor, from the [place] facility where the Encounter took place. Date/Time Current Smoking Status Comment Facil ity Jun 13, 2023 03:15 PM [facility]-TOBACCO [facility] Tobacco Use History This section includes a history of the smoking, or tobacco-related health factors, that were collected on or before the date of the Encounter. The data comes from the [place] facility where the Encounter took place. Date/Time Smoking Status/Tobacco Use Comment F acility Jun 25, 2020 01:58 PM VA-TOBACCO [facility]ED [facility] Feb 18, 2019 01:48 PM VA-TOBACCO [facility] Advance Directives: All historical and current Section Date Range: From patient's date of to the date document was created. This section includes ALL of a patient's completed or amended [place] Advance and Rescinded Directives. The entries below indicate that a directive exists for the patient, but an actual copy is not included with this document. The data comes from all [place] facilities. Date Advance Directives Provider Source Oct 04, 2023 ADVANCE DIRECTIVE DISCUSSION RADHA WILLETT,OZZY WORTHY Encounter Notes: All associated encounter notes This section contains the clinical notes associated to the Encounter. Date/Time Encounter Note(s) Provider Source Sep 03, 2024 01:12 PM ADDENDUM: LOCAL TITLE: Addendum STANDARD TITLE: ADDENDUM DATE OF NOTE: SEP 03, 2024@13:12:42 ENTRY DATE: SEP 03, 2024@13:12:44 AUTHOR: ANDRADE SHIN EXP COSIGNER: URGENCY: STATUS: COMPLETED Remade aids received and certified. [facility] [place] to book UPDATED HEARING TEST 60 MINS ANY PROVIDER. /nyasia/ ANDRADE Osullivan CCC-Jerardo CHIEF, AUDIOLOGY/CHEMICAL ANALYTICAL SAMPLER Signed: 09/03/2024 13:13 Receipt Acknowledged By: 09/03/2024 14:05 /nyasia/ GISELE MAXWELL LEAD ADMINISTRATIVE COORDINATOR ========= --- Original Document --- 08/19/24 AUDIOLOGY HEALTH INVESTIGATION SPECIALIST: August 19, 2024 History/Background: was seen for a hearing aid follow up, unaccompanied. The presented toddy requesting counseling on proper insertion of his hearing aids. The noted he has not been able to sit them in his ears correctly and they easily fall out. Hearing aids: H[employer]ia Evolv AI ITCs Serial Numbers: [id number] Battery size: Rechargeable Date Issued: 12/14/2021 Hearing aid check: Both hearing aids were cleaned and checked. Replaced wax guards. The was shown proper insertion techniques but continued to struggle while practicing during today's visit. He also noted discomfort with the devices in his ears. Otoscopy: Slight cerumen both ears. With Veterans verbal consent, Dr. Vizcaino removed cerumen from the left ear with a lighted curette. New ear impressions were taken. Post otoscopic inspection revealed clear canal right ear, while the left ear showed some redness without bleeding present. Advised the to contact pcp should the ear actively bleed. Both hearing aids will be sent to internet retailer for remake. Given that the does not have a back up pair of hearing aids and continues to struggle with this style an updated hearing eval should be scheduled to discuss new options for the . Plan: Upon receipt of the remade hearing aids, the [place] should be scheduled for an Updated Hearing Eval. /nyasia/ NEAL HERRERA Audiology Health Slip Dumper Signed: 08/19/2024 11:47 /nyasia/ LENKA FERREIRA, [facility]A STAFF PLACEMENT OFFICER Cosigned: 08/19/2024 14:08 09/03/2024 ADDENDUM STATUS: UNSIGNED You may not VIEW this UNSIGNED Addendum. ANDRADE SHIN [place] [facility] [place] [facility] Aug 19, 2024 07:37 AM AUDIOLOGY NOTE: LOCAL TITLE: AUDIOLOGY HEALTH INVESTIGATION SPECIALIST STANDARD TITLE: AUDIOLOGY NOTE DATE OF NOTE: AUG 19, 2024@07:37 ENTRY DATE: AUG 19, 2024@07:37:10 AUTHOR: NEAL HERRERA COSIGNER: MELISSA VIZCAINO URGENCY: STATUS: COMPLETED AUDIOLOGY HEALTH INVESTIGATION SPECIALIST Has ADDENDA August 19, 2024 History/Background: was seen for a hearing aid follow up, unaccompanied. The presented toddy requesting counseling on proper insertion of his hearing aids. The [place] noted he has not been able to sit them in his ears correctly and they easily fall out. Hearing aids: [employer]ia Evolv AI [facility] Serial Numbers: [id number] Battery size: Rechargeable Date Issued: 12/14/2021 Hearing aid check: Both hearing aids were cleaned and checked. Replaced wax guards. The [place] was shown proper insertion techniques but continued to struggle while practicing during today's visit. He also noted discomfort with the devices in his ears. Otoscopy: Slight cerumen both ears. With Veterans verbal consent, Dr. Vizcaino removed cerumen from the left ear with a lighted curette. New ear impressions were taken. Post otoscopic inspection revealed clear canal right ear, while the left ear showed some redness without bleeding present. Advised the to contact pcp should the ear actively bleed. Both hearing aids will be sent to internet retailer for remake. Given that the does not have a back up pair of hearing aids and continues to struggle with this style an updated hearing eval should be scheduled to discuss new options for the . Plan: Upon receipt of the remade hearing aids, the [place] should be scheduled for an Updated Hearing Eval. /nyasia/ NEAL HERRERA Audiology Health Slip Dumper Signed: 08/19/2024 11:47 /nyasia/ LENKA FERREIRA, CCC-A STAFF PLACEMENT OFFICER Cosigned: 08/19/2024 14:08 09/03/2024 ADDENDUM STATUS: COMPLETED Remade aids received and certified. [facility] call to book UPDATED HEARING TEST 60 MINS ANY PROVIDER. /nyasia/ ANDRADE Osullivan [facility]A CHIEF, AUDIOLOGY/CHEMICAL ANALYTICAL SAMPLER Signed: 09/03/2024 13:13 Receipt Acknowledged By: 09/03/2024 14:05 /nyasia/ GISELE MAXWELL LEAD ADMINISTRATIVE COORDINATOR 09/03/2024 ADDENDUM STATUS: COMPLETED called to schedule an appt. t voicemail with clinic direct phone number [phone] /candelaria MAXWELL LEAD ADMINISTRATIVE COORDINATOR Signed: 09/03/2024 14:06 NEAL HERRERA [place] [facility]
--- OUTSIDE RECORDS SUMMARY | 2024-10-20 23:25 | XMS_ITS ---
of scalp (SNOMED CT 695630009) 14. Constipation 15. [place] of toe 16. Palpitations 17. Housing lack 18. Ambulatory ECG abnormal 19. Plantar wart 20. Residual schizophrenia in remission (SNOMED CT 58211486) 21. Vertigo/Dizziness 22. Delusional disorder 23. Low Back Pain * 24. Left Inguinal Hernia 25. Anemia * 26. Candidiasis, Oral 27. Benign enlargement of prostate (SNOMED CT 497472184) 28. Chronic obstructive pulmonary disease (SNOMED CT 73318741) 29. Gastro-esophageal reflux (SNOMED CT 758131486) 30. Hypothyroidism (SNOMED CT 08842962) 31. Seizure (SNOMED CT 22982045) Service Connected Disabilities with % Eligibility: SC LESS THAN 50% VERIFIED Total S/C %: 0 INGUINAL HERNIA 0% S/C MEDS: Active Outpatient Medications (including Supplies): ACETAMINOPHEN 500MG TAB TAKE ONE TABLET BY MOUTH ONCE ACTIVE DAILY NEEDED FOR PAIN AZITHROMYCIN 250MG TAB TAKE TWO TABLETS BY MOUTH ONCE ACTIVE DAILY FOR 1 DAY, THEN TAKE ONE TABLET ONCE DAILY FOR 4 DAYS FOR INFECTION CAUSED BY BACTERIA CAMPHOR/MENTHOL/METHYL SALICYLATE PATCH APPLY 1 PATCH ACTIVE TOPICALLY ONCE DAILY NEEDED FOR PAIN (REMOVE PATCH AFTER 8 TO 12 HOURS) CARBAMIDE PEROXIDE 6.5% OTIC SOLN INSTILL 5 TO 10 DROPS ACTIVE INTO THE AFFECTED EAR(S) ONCE DAILY FOR EAR WAX BLOCKAGE CETIRIZINE HCL 10MG TAB TAKE ONE TABLET BY MOUTH ONCE ACTIVE DAILY FOR ALLERGIES CHOLECALCIF 50MCG (D3-2,000UNIT) TAB TAKE ONE TABLET BY ACTIVE MOUTH ONCE DAILY FOR VITAMIN D DEFICIENCY FOR VITAMIN SUPPLEMENTATION DM 10/GUAIFENESN 100MG/5ML (AF & SF) LIQ TAKE 5 MLS BY ACTIVE MOUTH EVERY 6 HOURS NEEDED FOR COUGH FLUTICASONE PROP 50MCG 120D NASAL INHL INSTILL 1 SPRAY ACTIVE INTO EACH NOSTRIL TWICE DAILY FOR NASAL IRRITATION/INFLAMMATION LEVOTHYROXINE NA (SYNTHROID) 100MCG TAB TAKE ONE TABLET BY ACTIVE MOUTH EVERY DAY TAKE WITH A FULL GLASS OF WATER FOR THYROID OMEPRAZOLE 20MG EC CAP TAKE ONE CAPSULE BY MOUTH DAILY FOR ACTIVE (S) STOMACH ACID SELENIUM SULFIDE 2.5% LOTION/SHAMPOO APPLY SMALL AMOUNT ACTIVE TOPICALLY TWICE A WEEK NEEDED FOR DANDRUFF FOR 4 WEEKS THEN STOP TAMSULOSIN HCL 0.4MG CAP TAKE ONE CAPSULE BY MOUTH DAILY ACTIVE ALL: STELAZINE, MOBAN, FLUPHENAZINE, LITHIUM Fam Hx: Non - contributory Soc Hx: NON-SMOKER ROS: Denies any other relavent ROS Vitals Enter at: Feb 15, 2024@11:17:12 BP: 133/77 P: 84 R: 18 T: 97.2 125.8 lb [57.06 kg] (02/15/2024 11:17) BMI: 19.2 CONSTITUTION: GENERAL APPEARANCE:Well developed, well nourished and groomed. No apparent acute or chronic distress. WEAK VOICE WITH DECREASED PROJECTION, THIN HEAD, FACE, SALIVARY GLANDS AND TMJ: Palpation of Parotid and Submandibular glands: Normal. Facial Mobility: Normal. EAR, NOSE, MOUTH AND THROAT: [place] - normal. Otoscopic exam: RIGHT EAR: EXTERNAL AUDITORY CANAL PARTIAL CERUMEN IMPACTION, tympanic membrane mobile LEFT EAR: EXTERNAL AUDITORY CANAL COMPLETE CERUMEN IMPACTION, tympanic membrane mobile Hearing: Moderate Hearing loss Nasal Interior: Turbinates and middle meatus - Inferior turbinates normal. Normal mucosa with no swelling, polyps, active bleeding or evidence of bleeding. Lips, Teeth and Gums: Lips normal. Oral Cavity and Oropharynx: Oral mucosa with normal color and moisture. Anterior 2/3rds of tongue normal. Breath quality normal. Hard palate normal. Normal floor of mouth, Posterior pharynx normal. PARTIAL PLATE, ABSENT TONSILS, DECREASED SENSATION, MALLAMPATI 1 NECK AND THYROID: Neck: no adenopathy; no neck masses. RESPIRATORY: Respiratory effort normal. LYMPH NODES: Neck nodes: normal. NEUROLOGIC: Higher integrative functions: Normal orientation, memory, attention span and concentration, language, and fund of knowledge. Cranial nerves: Cranial nerves II-XII grossly intact and symmetrical. PSYCHIATRIC: Mood and affect: normal and appropriate to the situation. PROCEDURE NOTE - PERFORMED THIS VISIT CPT 67858 Cerumen removal, unilateral or bialteral Informed consent was obtained. Risks, benefits, and alternatives were discussed. PATHOLOGY FOUND: Wax impaction in both ears PROCEDURE: The right ear was examined using the operating otoscope. Then under Direct visualization the wax was remove using suction and/or instruments. The same procedure was repeated on the opposite side. TOLERANCE: The patient tolerated this well. 02872 Laryngoscopy; flexible fiberoptic; diagnostic Informed consent was obtained. Risks, benefits, and alternatives were discussed. PROCEDURE NOTE After anesthesia was established, the lubricated scope was introduced through the nose into the larynx. All structures were examined as noted below. ANESTHESIA: Topical 4% Lidocaine and oxymetazoline FINDINGS: DECREASED SENSATION THROUGHOUT THE LARYNX Base of Tongue: SMALL SUBCENTIMETER MUCOSAL CYST MIDLINE Posterior Pharynx: Normal Lateral Pharynx: Normal Vallecula: Normal Epiglottis: Normal Pyriform Sinus: Normal Arytenoids: Normal Interarytenoid Space: Normal False Cord: Normal True Cord Mucosa: Normal, SIGNIFICANT GLOTTIC GAP Larynx Mobility: Normal Subglottic Space: Normal TOLERANCE: Good ESTIMATED BLOOD LOSS: nil CT THORAX W/CONT Proc Ord: CHEST CT WITH CONTRAST Exm Date: JANUARY 26, 2024@11:07 Req Phys: SHIN GARRIDO Pat Loc: CWM/NO/SICK CALL PA (Req'g Loc Img Loc: [facility]CT Service: Unknown [place] [facility] [place] [facility] (Case 330 COMPLETE) CT THORAX W/CONT (CT Detailed) CPT:65055 Contrast Media : Non-ionic Iodinated Reason for Study: abnormal weight loss (Case 331 COMPLETE) CT ABDOMEN AND PELVIS WITH CONTRA(CT Detailed) CPT:52339 Contrast Media : Non-ionic Iodinated Clinical History: PO/IV contrast : r/o neoplasm BUN/Cr ordered Report Status: Verified Date Reported: JANUARY 26, 2024 Date Verified: JANUARY 26, 2024 Sample Examiner E-Sig:/ES/JOSE BOLES JR Report: Study: CT scan [...] is recommended. No acute intra-abdominal abnormality identified. Assessment/Plan FEB 15, 2024: 79-year-old male non-smoker referred according to the consult secondary to recurrent sore throat and congestion. Patient states that this winter he had a sore throat and bronchitis. He states he was treated with antibiotics and then antibiotics and prednisone. He feels as though he is significantly better now. He has had an intermittent cough and was treated with antihistamine and nasal spray. He feels as though the cough is also improved. He states that he is generally losing weight. His weight was 136 pounds in December 2022 and is now 126 pounds. He does not know why. He does recognize that he sometimes skips meals. He does state however that sometimes he has difficulty swallowing solids and sometimes he coughs when he eats. Physical exam shows very thin elderly male using a cane with decreased voice projection. Patient had left greater than right cerumen. This was removed using suction. Tympanic membranes otherwise visualized and normal. Patient has absent tonsils, partial plate, Mallampati 1. Patient has decreased gag reflex. Fiberoptic exam shows a 5 mm mucous retention cyst in the vallecula, nonobstructing. Vocal folds are visualized and mobile. Patient has a significant glottic gap consistent with presbylarynx. Patient has significantly diminished sensation throughout the larynx. 1. Weight loss\dysphagia -patient has had a 10 pound weight loss in the last year. He states that he sometimes has difficulty tolerating solids and sometimes coughs after he eats. He has significantly decreased gag reflex and diminished sensation throughout the larynx. The CT of the thorax showed predominantly solid-appearing masses that are nonspecific and may represent multifocal infections or inflammatory process. This could be consistent with microaspiration. For these reasons I have ordered modified barium swallow and he will follow-up thereafter. 2, Sore throat -patient shows no evidence of infection and states that his sore throat has resolved. 3. Cerumen impaction\hearing loss -patient had complete obstruction of cerumen on the left and partial obstruction on the left. Patient tolerated cerumen removal well. I have strongly recommended that he wear his hearing aids. He did not seem inclined to do so. Patient will follow-up after MBS. All questions were answered. Complete encounter includes: Review of past medical records Time spent with patient including obtaining history, physical exam, shared decision making, procedures Counseling and answering questions Post visit documentation to include but not limited to medication and lab ordering. Total time = Minimum 45 min MEDICATION RECONCILIATION /es/ Vy Wells MD Otolaryngology Signed: 02/15/2024 12:16 05/13/2024 ADDENDUM STATUS: COMPLETED Modified barium swallow reviewed. Patient at high risk for aspiration with deep laryngeal penetration and no spontaneous cough. Patient has also had aspiration pneumonia. FOL well showed decrease sensation and white glottic gap. Spoke with patient and have recommended speech and swallow therapy. He is in agreement. That consult was placed. COMPENSATORY STRATEGIES ATTEMPTED: Effortful Swallow: and Alteration in bolus size: reduced amount of laryngeal penetraiton Throat clear -reswallow - cleared penetrated material from laryngeal vestibule IMPRESSIONS: Mr Block is 79 yo presenting with mild oral-pharyngeal dysphagia characterized by impaired efficiency and airway protection. Deep laryngeal penetration without spontaneous cough or secondary swallow response observed initially with thin liquids. Penetrated material did not clear form the laryngeal vestibule with completion of swallow. Material eventually cleared without further airway invasion. No subglottic aspiration observed across trials. Moderate post swallow residuals retained in the vallecula, Mild residuals in the pharyngeal vestibule and pyriforms. Retained materials reduced with smaller bolus size and secondary effortful swallow. Labial seal is slightly reduced with bolus escape to interlabial space. Reduced lingual strength as evidenced by diminished bolus hold, lingual rocking and slowed motion with posterior transfer, consistent lingual coating. Mastication is prolonged with reduced rotary chew. Glossopalatal seal is maintained without premature posterior spillage. Velopharyngeal closure is without evidence of material entering the nasal cavity. The base of tongue retraction is incomplete. Initiation of the swallow is timely, occurring as the bolus reaches the base of the tongue/vallecula. Once the swallow is triggered, hyolaryngeal movement is reduced in anterior plane, adequate hyoid elevation. Epiglottis noted to have limited to no inversion. Laryngeal vestibule closure is slightly reduced resulting in frequent laryngeal penetration with thin and thickened liquids. Smaller bolus size and effortful swallow appeared to improve airway protection. Cured throat clear reswallow was effective for clearing penetrated material from the laryngeal vestibule. There is prominent pharyngeal stripping wave, but reduced (though symmetrical) squeeze resulting in mild pharyngeal residuals. The UES extends to accommodate the bolus passing; intermittent cricopharyngeal bar observed, felt to be contributing to some pyriform residuals. Esophageal phase was unremarkable. Subjective observations notable for frequent burping and delayed throat clearing during and after the exam. RECOMMENDATIONS: Medication Administration: regular, as tolerated, consider utilizing puree/pudding or crushing medication if pill dysphagia persist Diet: soft and moist/easy to chew (IDDSI 7E); thin liquids Compensatory Strategies/Maneuvers: small sips, effortful swallow with liquids, clear throat and reswallow every few bites/sips or if vocal changes occur, continue with HUGO precautions and vigorous oral care Swallow Therapy Recommended? ?? Yes - for oral-pharyngeal strengthening, would benefit from voice therapy and cough strengthening /es/ Vy Wells MD Otolaryngology Signed: 05/16/2024 15:00 [facility] OFF/OP CONSLTJ NEW/EST HI 55 [facility] [place] [facility] Encounter Summary Created on: October 20, 2024 REBECA BLOCK : 1945 Sex: Male Author Name [facility] Address [address] [place] [id number] Care Team Providers Care Group Contract Analyst Name Role Phone ALISIA TREVINO Primary Care [...] Apr 04, 2011 PART A OPT ONLY [id number] LYNDON BLOCK JR PATIENT Selected Encounter This section includes the information on record at [facility] for the Encounter. Date/Time Encounter Type Encounter Description Reason Provider Source Feb 15, 2024 11:00 AM OFF/OP CONSLTJ NEW/EST HI 55 OTOLARYNGOLOGY/ENT ICD-10-CM R63.4 Abnormal weight loss VY WELLS E Encounter Template Text not used by HI Assessments - Encounter Diagnoses This section includes the primary and secondary diagnoses documented for the Encounter. Date/Time Primary/Secondary Diagnosis Diagnosis Name Provider Source Feb 15, 2024 12:04 PM PRIMARY Abnormal weight loss WELLS,JACQUELY N R [facility] [place] [facility] Feb 15, 2024 12:04 PM SECONDARY Dysphagia, oropharyngeal phase BRIE WELLS [facility] [place] [facility] Feb 15, 2024 12:04 PM SECONDARY Impacted cerumen, bilateral BRIE WELLS [facility] [place] [facility] Feb 15, 2024 12:04 PM SECONDARY Sensorineural hearing loss, bilateral BRIE WELLS [facility] [place] [facility] Plan of Treatment: Future Appointments (+ 6 months) and Future Tests (+/- 45 days) The Plan of Treatment section includes future care activities for the patient [facility] [place] This section includes future appointments and future orders which are active, pending or scheduled. Future Appointments This section includes appointments that were scheduled to occur 6 months from the date of the Encounter, up to a maximum of 20 appointments. The data comes from all [place] treatment facilities. Appointment Date/Time Appointment Type Appointme nt Facility Name Feb 28, 2024 11:30 AM AMBULATORY - MEDICINE [facility] [place] [facility] Feb 29, 2024 09:30 AM AMBULATORY - MEDICINE [facility] [place] [facility] Mar 15, 2024 10:00 AM AMBULATORY - MEDICINE [facility] [place] [facility] Mar 21, 2024 03:00 PM AMBULATORY - MEDICINE [facility] [place] [facility] Mar 28, 2024 11:00 AM AMBULATORY - MEDICINE [facility] [place] [facility] Apr 25, 2024 03:30 PM AMBULATORY - MEDICINE [facility] Apr 26, 2024 09:45 AM AMBULATORY - MEDICINE [facility] [place] [facility] May 24, 2024 01:00 PM AMBULATORY - REHAB MEDICIN E [facility] [place] [facility] Jun 03, 2024 01:00 PM AMBULATORY - MEDICINE [facility] [place] [facility] Jul 08, 2024 02:00 PM AMBULATORY - REHAB MEDICIN E [facility] [place] [facility] Jul 24, 2024 10:30 AM AMBULATORY - MEDICINE [facility] [place] [facility] Jul 25, 2024 01:00 PM AMBULATORY - REHAB MEDICIN E [facility] Active, Pending, and Scheduled Orders This section includes a listing of several types of active, pending, and scheduled orders, including clinic medications orders, diagnostic test orders, procedure orders and consult orders; where the start date of the order is 45 days before the date of the Encounter or 45 days after the date of theEncounter. The data comes from all [place] treatment facilities. Test Date/Time Test Type Test Details Facility Name January 24, 2024 08:53 AM Consult Order [facility] Cons [employer] [facility] [place] Lab Results: +/- 30 days of the encounter This section includes the Chemistry and Hematology Lab Results on record with HI for the patient. Radiology Reports and Pathology Reports are provided separately, in subsequent sections. Lab Results This section contains the Chemistry/Hematology Results that were resulted 30 days before or 30 daysafter the date of the Encounter. Date/Time Source Result Type Result - Unit Interpretation Reference Range Comment January 25, 2024 02:04 PM [facility] PSA Specimen Type: SERUM No comment entered. Ordering Provider: SHIN GARRIDO Report Released Date/Time: January 25, 2024 11:12 AM [facility] [address] [address] Performing Lab: [facility] [address] [address] PSA 4.37 ng/mL H 0.00-4.00 January 25, 2024 02:04 PM [facility] CREATININE (eGFR 2020) Specimen Type: SERUM No comment entered. Ordering Provider: SHIN GARRIDO Report Released Date/Time: January 25, 2024 11:12 AM Reporting [facility] [address] [address] Performing Lab: [facility] [address] CREATININE, Serum 0.63 mg/dL 0.50-1.40 eGFR(CKD-EPI 2020) >90 mL/min >60 January 25, 2024 02:04 PM [facility] UREA NITROGEN Specimen Type: SERUM No comment entered. Ordering Provider: SHIN GARRIDO Report Released Date/Time: January 25, 2024 11:12 AM Reporting Lab: [address] [address] Performing Lab: [address] [address] UREA NITROGEN 26 mg/dL H 7-January 24, 2024 08:06 AM [facility] COVID-19 FLU/RSV DIAGNOSTIC PANEL Specimen [...] other patient management decisions.Cep heid FLUVID: HCPs: https://www.[employer].gov/media/ 079874/downlo ad. Patients: https://www.[employer].gov/media/ 861959/downlo ad Ordering Provider: SHIN GARRIDO Report Released Date/Time: January 24, 2024 07:49 AM Reporting Lab: [address] [address] Performing Lab: [address] [address] COVID-19 PCR (FLUVID) NEGATIVE NEGATIVE FLU A PCR (FLUVID) NEGATIVE FLU B PCR (FLUVID) NEGATIVE RSV PCR (FLUVID) NEGATIVE Vital Signs: All taken on the encounter date This section contains inpatient and outpatient Vital Signs collected on the date of the Encounter. Date/Time Temperature Pulse Blood Pressure Respiratory Rate SP02 Pain Height Weight Body Mass Index Source Feb 15, 2024 11:17 AM 97.2 84 133/77 18 98 2 125.8 19 [facility] Social History: Smoking Status (Most current) and Tobacco Use (All prior to encounter date) This section includes the most current, and the historical, smoking and tobacco- related health factors from the HI facility where the Encounter took place. Current Smoking Status This section includes the most current smoking, or tobacco-related health factor, from the HI facility where the Encounter took place. Date/Time Current Smoking Status Comment Sasha ity Jun 13, 2023 03:15 PM VA-TOBACCO NEVER USED [facility] Tobacco Use History This section includes a history of the smoking, or tobacco-related health factors, that were collected on or before the date of the Encounter. The data comes from the HI facility where the Encounter took place. Date/Time Smoking Status/Tobacco Use Comment F acility Jun 25, 2020 01:58 PM [facility] Feb 18, 2019 01:48 PM VA-TOBACCO NEVER USED [facility] Advance Directives: All historical and current Section Date Range: From patient's date of to the date document was created. This section includes ALL of a patient's completed or amended [place] Advance and Rescinded Directives. The entries below indicate that a directive exists for the patient, but an actual copy is not included with this document. The data comes from all [place] facilities. Date Advance Directives Provider Source Oct [...] the Encounter. The data comes from all [place] treatment facilities. Date/Time Radiology Report Provider Source January 26, 2024 11:[address] WITH CONTRAST: REBECA BLOCK [id number] -1945 M Exm Date: JANUARY 26, 2024@11:07 Req Phys: SHIN GARRIDO Loc: CWM/NO/SICK CALL PA (Req'g Loc Img Loc: [facility]/CT Service: Unknown [facility] , (Case 330 COMPLETE) CT THORAX W/CONT (CT Detailed) CPT:51041 Contrast Media : Non-ionic Iodinated Reason for Study: abnormal weight loss (Case 331 COMPLETE) CT ABDOMEN AND PELVIS WITH CONTRA(CT Detailed) CPT:66472 Contrast Media : Non-ionic Iodinated Clinical History: PO/IV contrast : r/o neoplasm BUN/Cr ordered Report Status: Verified Date Reported: JANUARY 26, 2024 Date Verified: JANUARY 26, 2024 Sample Examiner E-Sig:/ES/JOSE BOLES JR Report: Study: CT scan [...] Primary Interpreting Staff: JOSE BOLES JR, Radiologist (Sample Examiner) /JOSE KERR JR [facility] Encounter Notes: All associated encounter notes This section contains the clinical notes associated to the Encounter. Date/Time Encounter Note(s) Provider Source Feb 15, 2024 11:38 AM OTOLARYNGOLOGY CONSULT: LOCAL TITLE: CONSULT REPORT/OTOLARYNGOLOGY STANDARD TITLE: OTOLARYNGOLOGY CONSULT DATE OF NOTE: FEB 15, 2024@11:38 ENTRY DATE: FEB 15, 2024@11:38:50 AUTHOR: VY WELLS EXP COSIGNER: URGENCY: STATUS: COMPLETED CONSULT REPORT/OTOLARYNGOLOGY Has ADDENDA CONSULT REQUESTED FROM VIC BE FEB 15, 2024 ELISARADHAREBECA ROSARIO is a 79 y/o NON smoker WHITE MALE, previously in [employer] FROM Sep TO Sep from [employer] [employer], w/chief complaint of SORE THROAT AND CONGESTION ACCORDING TO THE CHART, ALTHOUGH PATIENT IS NOT CERTAIN WHY HE IS HERE. 79-year-old male non-smoker referred according to the consult secondary to recurrent sore throat and congestion. Patient states that this winter he had a sore throat and bronchitis. He states he was treated with antibiotics and then antibiotics and prednisone. He feels as though he is significantly better now. He has had an intermittent cough and was treated with antihistamine and nasal spray. He feels as though the cough is also improved. He states that he is generally losing weight. His weight was 136 pounds in December 2022 and is now 126 pounds. He does not know why. He does recognize that he sometimes skips meals. He does state however that sometimes he has difficulty swallowing solids and sometimes he coughs when he eats. Patient has had a CT of the chest which showed multifocal pulmonary predominantly solid appearing masses that are nonspecific and may represent multifocal infectious or inflammatory process versus malignant in etiology he has a PET/CT scheduled 2023. Patient states that he is a non-smoker and never smoked although did have significant secondhand smoke. Patient takes Flonase and sertraline. He also takes omeprazole for reflux. He denies symptoms of reflux. Patient has hearing aids but does not wear them. He recently had his ears flushed of wax but was told he still has some wax in his position using drops for the wax. PMHx: Active problems - Computerized Problem List is the source for the followin. Homeless 2. Multiple pulmonary nodules 3. Abnormal weight loss 4. Vitamin D Deficiency ([facility] [id number]) 5. Cervical pain 6. Exposure to potentially hazardous substance 7. Anemia ([facility] [id number]) 8. Dehydration 9. Foot pain 10. GERD - Gastro-Esophageal Reflux Disease ([facility] [id number]) 11. Benign Prostatic Hypertrophy without Outflow Obstruction ([facility] [id number]) 12. Housing adequate 13. Seborrhoeic dermatitis
--- OUTSIDE RECORDS SUMMARY | 2024-10-20 23:26 | XMS_ITS | Data Portability ---
Author Organization [facility], [address] Address [address] [place] [address] Assessment No assessment recorded. Plan of Treatment Reminders Order Date Submit Date Provider Last Modified By Organization Details Last Modified Time Details Appointments None recorded. Lab urinalysis , dipstick 2022 023 [email or web address] _[facility], [address] [place] [address], [id number], 14:51:53 culture, urine 2022 023 [place] [facility], [address] [place] [address], [place], [address], 12:07:01 Referral urologist referral 2022 023 [email or web address] Not available 15:12:25 Procedures None recorded. Surgeries None recorded. Imaging None recorded. Medication Orders None recorded. Patient TargetsNo targets recorded. Patient InstructionsNo instructions recorded. Reason for Referral Urologist Referral for Incre ased frequency of urination Referring Physician: Mark Major, Urgent Care, Encounter Date: 03/29/2023 Results Created Date Observation Date Name Description Value Unit Range Abnormal Flag Note LastModifiedBy Organization Detail LastModifiedTime 03/29/2003/31/2023 URINE CULTU AILYN SCOTT urine culture, routine FINAL REPORT abnormal Not Available [facility] ([facility]) [address], [place], [address], 03/31/2023 12:07:00 03/29/2003/31/2023 URINE CULTU RE, ROUTI NE result 1 COMMEN T abnormal Beta hemol ytic Strep tococ cus, group B 25,00 0-50, 000 colon y formi ng units per mL Penic illin and ampic illin are drugs of choic e for treat ment of beta- hemol ytic strep tococ rebeca infec tions . Susce ptibi lity testi ng of penic illin s and other beta- lacta m agent s appro tamara by the FDA for treat ment of beta- hemol ytic strep tococ rebeca infec tions need not be perfo rmed routi sadie becau se nonsu scept ible isola marquez are extre eva rare in any beta- hemol ytic strep tococ cus and have not been repor parvez for Strep tococ cus pyoge marques (grou p A). (CLSI ) Not Available [facility] ([facility]) [address], [place], [address], 03/31/2023 12:07:00 03/29/20 23 03/29/2023 urina lysis , dipst ick Unknown Analyte Normal = light yellow Not Available [facility] [address] [place], [address], 03/29/2023 13:22:07 03/29/20 23 03/29/2023 urina lysis , dipst ick Unknown Analyte Normal = clear Not Available [address], [place], [address], 03/29/2023 13:22:07 03/29/20 23 03/29/2023 urina lysis , dipst ick Unknown Analyte Normal = negati ve Not Available [address] [place], [address], 03/29/2023 13:22:07 03/29/20 23 03/29/2023 urina lysis , dipst ick Unknown Analyte Normal = Negati ve Not Available [address] [place], [address], 03/29/2023 13:22:07 03/29/20 23 03/29/2023 urina lysis , dipst ick Unknown Analyte Normal = Negati ve Not Available [address] br[address], [place], [address], 03/29/2023 13:22:07 03/29/20 23 03/29/2023 urina lysis , dipst ick Unknown Analyte Normal = 1.010, 1.015, 1.020 Not Available [facility] [address], [place], [address], 03/29/2023 13:22:07 03/29/20 23 03/29/2023 urina lysis , dipst ick Unknown Analyte Normal = Negati ve Not Available [address] [place] [address], [place], [address], 03/29/2023 13:22:07 03/29/20 23 03/29/2023 urina lysis , dipst ick Unknown Analyte Normal = 6.5, 7.0, 7.5, 8.0 Not Available [facility] [address], [place], [address], 03/29/2023 13:22:07 03/29/20 23 03/29/2023 urina lysis , dipst ick Unknown Analyte Normal = Negati ve Not Available [address] [place] [address], [place], [address], 03/29/2023 13:22:07 03/29/20 23 03/29/2023 urina lysis , dipst ick Unknown Analyte Normal = 0.2, 1.0 Not Available [address] [place] [address], [place], [address], 03/29/2023 13:22:07 03/29/20 23 03/29/2023 urina lysis , dipst ick Unknown Analyte Normal = Negati ve Not Available p[facility] bray [address], [place], [address], 03/29/2023 13:22:07 03/29/20 23 03/29/2023 urina lysis , dipst ick Unknown Analyte Normal = Negati ve Not Available pascual bray [address], [place], [address], 03/29/2023 13:22:07 03/29/20 23 03/29/2023 urina lysis , dipst ick Unknown Analyte Light Yellow Not Available pascual bray [address], [place], [address], 03/29/2023 13:22:07 03/29/20 23 03/29/2023 urina lysis , dipst ick Unknown Analyte Clear Not Available natalie [address], [place], [address], 03/29/2023 13:22:07 03/29/20 23 03/29/2023 urina lysis , dipst ick Unknown Analyte Negati ve Not Available pascual bray [address], [place], [address], 03/29/2023 13:22:07 03/29/20 23 03/29/2023 urina lysis , dipst ick Unknown Analyte Negati ve Not Available pascual bray [address], [place], [address], 03/29/2023 13:22:07 03/29/20 23 03/29/2023 urina lysis , dipst ick Unknown Analyte Negati ve Not Available pascual bray [address], [place], [address], 03/29/2023 13:22:07 03/29/20 23 03/29/2023 urina lysis , dipst ick Unknown Analyte 1.015 Not Available natalie [address], [place], [address], 03/29/2023 13:22:07 03/29/20 23 03/29/2023 urina lysis , dipst ick Unknown Analyte Trace- intact Not Available pascual rbay [address], [place], [address], 03/29/2023 13:22:07 03/29/20 23 03/29/2023 urina lysis , dipst ick Unknown Analyte 7.0 Not Available [address], [place], [address], 03/29/2023 13:22:07 03/29/20 23 03/29/2023 urina lysis , dipst ick Unknown Analyte Negati ve Not Available pascual bray [address], [place], [address], 03/29/2023 13:22:07 03/29/20 23 03/29/2023 urina lysis , dipst ick Unknown Analyte 0.2 E.U./d L Not Available pascual bray [address], [place], [address], 03/29/2023 13:22:07 03/29/20 23 03/29/2023 urina lysis , dipst ick Unknown Analyte Negati ve Not Available pascual bray [address], [place], [address], 03/29/2023 13:22:07 03/29/20 23 03/29/2023 urina lysis , dipst ick Unknown Analyte Negati ve Not Available p[facility] [address], [place], [address], 03/29/2023 13:22:07 Result Notes None recorded. Problems Name Problem SNOMED Code Status Onset Date Resolution Date Notes Provider Name and Address Organization Details Recorded Time Hypothyroidism 53498575 Active 2022 Geneva goldberg [place] - [facility] 3 13:28:31 Problem Notes None recorded. Procedures Surgical History Date Name Laterality Status Provider Name and Address Organization Details Recorded Time 03/17/2021 hernia repair completed Geneva Edge PA - [facility] 03/29/2023 13:30:23 Imaging Results None recorded. Procedure Notes None recorded. Medical Equipment None Reported. Allergies Allergen ID Allergen Name Allergen Category Reaction Reaction Severity Criticality Documentation Date Start Date Code Code System Note Provider Name and Address Organization Details Recorded Time 760667 trifluope razine hydrochlo ride medicatio n Not available Not available Not available 03/29/2023 50638 RxNorm Geneva Edge yusuf, [place] - [facility] 3 13:24:40 662084 Moban medicatio n Not available Not available Not available 03/29/2023 43849 7 RxNorm Geneva goldberg, [place] - [facility] 3 13:24:49 728783 fluphenaz ine hydrochlo ride medicatio n Not available Not available Not available 03/29/2023 37094 7 RxNorm Geneva Edge yusuf, [place] - [facility] 3 13:25:00 Medications Name Sig Start Date Stop Date Status Note LastModified by Organization Details LastModified Time Colace 100 mg capsule Take 1 capsule every day by oral route. active Not Available Not Available No t Available amoxicillin 875 mg tablet Take 1 tablet every 12 hours by oral route for 10 days. 2022 active Not Available Not Available Not Avai lable tamsulosin 0.4 mg capsule Take 1 capsule every day by oral route. active Not Available Not Available No t Available omeprazole 20 mg capsule,delayed release Take 1 capsule every day by oral route. active Not Available Not Available No t Available Beano tablet Take by oral route. active Not Available Not Available No t Available Dairy Digestive active Not Available N ot Available Not Available Dandruff Shampoo (selenium sulfide) 1 % active Not Available Not Available Not Available levothyroxine 100 mcg capsule Take 1 capsule every day by oral route. active Not Available Not Available No t Available Vitals Date Recorded Body height Body mass index (BMI) Body weight Pain severity - 0-10 verbal numeric rating [Score] - Reported Respiratory rate Oxygen saturation Oxygen saturation in Arterial blood by Pulse oximetry Heart rate Body temperature Systolic blood pressure Diastolic blood pressure Provider Name and Address Organization Details Last Updated DateTime 3 173.99 cm 20.2 kg/m2 38598.9 7 g 0 18 /min 99 % 99 % 78 /min 98.2 [degF] 140 mm[Hg] 84 mm[Hg] Geneva MEZA [facility] 13:32:22 Social History Question Answer Notes LastModified by Organizat ion Details LastModified Time Tobacco Smoking Status Never Smoker SUSANA [facility] 03/29/2023 13:29:38 What Is Your Level Of Alcohol Consumption? None Information not available 03/29/2023 Do You Use Any Illicit Or Recreational Drugs? No Information not available 03/29/2023 Have You Recently Traveled Abroad? No Information not available 03/29/2023 Do You Or Have You Ever Used Any Other Forms Of Tobacco Or Nicotine? No Information not available 03/29/2023 Sex: Unknown Functional Status None recorded. Mental Status None recorded. Family History Relationship Description Onset Age of this Age Resolved Age Notes LastModified by Organization Details LastModified Time Maternal Uncle Diabetes mellitus [email or web address] Not available 2022 13:29:09 Medical History No medical history recorded. Past Encounters Encounter ID Performer Location Encounter Start Date Encounter Closed Date Diagnosis/Indication Diagnosis SNOMED-CT Code Diagnosis ICD10 Code Diagnosis Note [id number] [address] [place] [address] 07/01/2021 16:28:10 07/01/2021 17:47:52 [id number] [address] [address] 06/24/2019 09:51:46 06/24/2019 11:01:44 [id number] Mark Major MD [address] [place] [address] 03/29/2023 13:02:20 03/29/2023 14:57:31 Increased frequency of urination 122400488 R35.0 Urine with trace blood but no signs infection. Will send culture.[facility] follow up. Hemospermia 82160233 R36 .1 Patient will follow up with Urology Health Concerns Section Related Observation LastModified by Organization Detai ls LastModified Time None Recorded Concern Status LastModified by Organization Details LastModified Time None Recorded Advance Directives Directive None Recorded Payers Encounter Date Sequence Insurance Name Policy Number Policy Da Silva Covered Member ID Da Silva Member ID Guarantor Name 03/29/2023 [employer] - [facility] Brian Vincent [id number] Brian Vincent Notes Date Note Type Note Provider Name and Address Organization Details Recorded Time 3 text/html Urinary Problems-MaleReported bypatient.source of patient informationInformation obtained from patient; Patient arrived at Urgent Care ambulatory Severity:no pain Onset/Timing:about one year ago Context:not sexually active Modifying Factors:nothing gives relief Associated Symptoms:no penile lesions/sores; no scrotal lesions/sores; no penile discharge; no flank pain; no jaundice; no blood in the urine; no change in urine appearance; no urine odor; no pain during urination; no fever/chills; no fatigue; no myalgia For about one year has frequent urination and gets up at night. Mark Major MD [address] [place] [address] [place], [address], [place] - [facility] 04/03/2023 08:44:27
--- OUTSIDE RECORDS SUMMARY | 2024-10-20 23:26 | XMS_ITS | Encounter Summary ---
Author Name [facility] [place] Organization [facility] [place] Address [address] [place] [address] Care Team Providers Care Battalion Chief Name Role Phone ALISIA TREVINO Primary Care [...] Apr 04, 2011 PART A OPT ONLY [id number] LYNDON BLOCK JR PATIENT Selected Encounter This section includes the information on record at [place] for the Encounter. Date/Time Encounter Type Encounter Description Reason Provider Source Dec 13, 2023 01:00 PM OFFICE O/P EST MOD 30 MIN PRIMARY CARE/MEDICINE ICD-10-CM E03.9 Hypothyroidism, unspecified STELEA,VIC F E Encounter Template Text not used by [place] Assessments - Encounter Diagnoses This section includes the primary and secondary diagnoses documented for the Encounter. Date/Time Primary/Secondary Diagnosis Diagnosis Name Provider Source Dec 13, 2023 01:37 PM PRIMARY Hypothyroidism, unspecified STELEAVIC Dec 13, 2023 01:37 PM SECONDARY Benign prostatic hyperplasia without lower urinry tract symp STELEAVIC Dec 13, 2023 01:37 PM SECONDARY Cervicalgia VIC BE [facility] Dec 13, 2023 01:37 PM SECONDARY Gastro-esophageal reflux dis with esophagitis, without bleed STELEAVIC [facility] Dec 13, 2023 01:37 PM SECONDARY Vitamin D deficiency, unspecified STELEA,VIC Bowman [facility] Plan of Treatment: Future Appointments (+ 6 months) and Future Tests (+/- 45 days) The Plan of Treatment section includes future care activities for the patient from [facility] [place] [facility] This section includes future appointments and future orders which are active, pending or scheduled. Future Appointments This section includes appointments that were scheduled to occur 6 months from the date of the Encounter, up to a maximum of 20 appointments. The data comes from all [place] treatment facilities. Appointment Date/Time Appointment Type Appointme nt Facility Name Dec 27, 2023 02:45 PM AMBULATORY [facility] MEDICINE [facility] [place] [facility] Dec 28, 2023 02:00 PM AMBULATORY - MEDICINE [facility] [place] [facility] Dec 28, 2023 03:00 PM AMBULATORY - MEDICINE [facility] [place] [facility] January 04, 2024 01:30 PM AMBULATORY - MEDICINE [facility] [place] [facility] January 04, 2024 02:00 PM AMBULATORY - MEDICINE [facility] [place] [facility] January 09, 2024 01:30 PM AMBULATORY - MEDICINE [facility] [place] [facility] January 23, 2024 01:30 PM AMBULATORY - REHAB MEDICIN E [facility] January 24, 2024 08:00 AM AMBULATORY - MEDICINE [facility] [place] [facility] January 24, 2024 11:00 AM AMBULATORY - MEDICINE [facility] [place] [facility] January 25, 2024 08:30 AM AMBULATORY - REHAB MEDICIN E [facility] [place] [facility] January 26, 2024 09:15 AM AMBULATORY - NONE [facility] [place] [facility] January 31, 2024 01:30 PM AMBULATORY - MEDICINE [facility] [place] [facility] January 31, 2024 02:45 PM AMBULATORY - MEDICINE [facility] [place] [facility] Feb 06, 2024 09:30 AM AMBULATORY - REHAB MEDICIN E [facility] [place] [facility] Feb 12, 2024 11:30 AM AMBULATORY - MEDICINE [facility] [place] [facility] Feb 15, 2024 11:00 AM AMBULATORY - MEDICINE [facility] [place] [facility] Feb 28, 2024 11:30 AM AMBULATORY - MEDICINE [facility] [place] [facility] Feb 29, 2024 09:30 AM AMBULATORY - MEDICINE [facility] [place] [facility] Mar 15, 2024 10:00 AM AMBULATORY - MEDICINE [place] [facility] [place] [facility] Mar 21, 2024 03:00 PM AMBULATORY - MEDICINE [place] [facility] [place] [facility] Active, Pending, and Scheduled Orders This section includes a listing of several types of active, pending, and scheduled orders, including clinic medications orders, diagnostic test orders, procedure orders and consult orders; where the start date of the order is 45 days before the date of the Encounter or 45 days after the date of theEncounter. The data comes from all [place] treatment facilities. Test Date/Time Test Type Test Details Facility Name January 24, 2024 08:53 AM Consult Order [facility] Cons Board Machine Set Up Operator's Choice [facility] Lab Results: +/- 30 days of the [...] - Unit Interpretation Reference Range Comment January 04, 2024 02:23 PM [facility] T-SPOT TB PANEL Specimen Type: BLOOD [...] test. For additional information, please refer to http://ConnectToHome .[employer]/faq/UGO897 (This link is being provided for informational/ educational purposes only.) Test Performed by [employer] [place], [employer] [facility], [address] [place] [address] Merrick Rubin M.D., Ph.D., Director of Laboratories , [place] [id number] TEST PERFORMED AT: , Ordering Provider: SHIN GARRIDO Report Released Date/Time: Dec 28, 2023 04:19 PM Reporting Lab: [address] [address] Performing Lab: [facility] [address] [address] [id number] T (o) Negative Negative T-SPOT-PNLA 0 T-SPOT-PNLB 0 F-GNDN-PNYHT RL Passed E-RRFQ-CAENK RL Passed Dec 27, 2023 02:58 PM [facility] COVID-19 FLU/RSV DIAGNOSTIC PANEL Specimen Type: NASOPHARYNX Comment: This test is authorized for emergency use only. False negative results may occur if virus is present at levels below the analytical limit of detection.Negati ve results do not preclude SARS-CoV-2, influenza or RSV infection and should not be used as the sole basis for treatment or other patient management decisions.Abrili claudia FLUVID: HCPs: https://www.fda. gov/media/877090 /download. Patients: https://www.fda. gov/media/082053 /download Ordering Provider: SHIN GARRIDO Report Released Date/Time: Dec 27, 2023 02:53 PM Reporting Lab: [facility] [address] [facility] [address] Performing Lab: [address] [address] COVID-19 PCR (FLUVID) NEGATIVE NEGATIVE FLU A PCR (FLUVID) NEGATIVE FLU B PCR (FLUVID) NEGATIVE RSV PCR (FLUVID) NEGATIVE Vital Signs: All taken on the encounter date This section contains inpatient and outpatient Vital Signs collected on the date of the Encounter. Date/Time Temperature Pulse Blood Pressure Respiratory Rate SP02 Pain Height Weight Body Mass Index Source Dec 13, 2023 01:12 PM 86 137/79 97 [place] Social History: Smoking Status (Most current) and Tobacco Use (All prior to encounter date) This section includes the most current, and the historical, smoking and tobacco- related health factors from the [place] facility where the Encounter took place. Current Smoking Status This section includes the most current smoking, or tobacco-related health factor, from the [place] facility where the Encounter took place. Date/Time Current Smoking Status Comment Facil ity Jul 28, 2021 02:00 PM VA-TOBACCO NEVER USED [facility] Tobacco Use History This section includes a history of the smoking, or tobacco-related health factors, that were collected on or before the date of the Encounter. The data comes from the [place] facility where the Encounter took place. Date/Time Smoking Status/Tobacco Use Comment F acility February 01, 2018 01:20 PM LIFETIME NON-TOBACCO USER [facility] Sep 16, 2016 01:32 PM LIFETIME NON-TOBACCO USER [facility] Aug 03, 2015 02:27 PM LIFETIME NON-TOBACCO USER [facility] Jul 08, 2011 02:09 PM FORMER SMOKER - <100 LIFETIME CI GARETTES [facility] Dec 13, 2004 02:16 PM LIFETIME NON-SMOKER [facility] January 06, 2004 01:18 PM LIFETIME NON-SMOKER [facility] Dec 24, 2002 02:53 PM LIFETIME NON-SMOKER [facility] Sep 25, 2001 02:37 PM LIFETIME NON-SMOKER [facility] Sep 25, 2001 02:37 PM LIFETIME NON-TOBACCO USER [facility] Advance Directives: All historical and current Section Date Range: From patient's date of to the date document was created. This section includes ALL of a patient's completed or amended [place] Advance and Rescinded Directives. The entries below indicate that a directive exists for the patient, but an actual copy is not included with this document. The data comes from all [facility]. Date Advance Directives Provider Source Oct 04, 2023 ADVANCE DIRECTIVE DISCUSSION OZZY CORDERO [facility] Radiology Reports: +/- 30 days of the [...] the Encounter. The data comes from all [place] treatment facilities. Date/Time Radiology Report Provider Source Dec 25, 2023 11:22 AM SPINE CERVICAL, 4 OR 5 VIEWS: REBECA BLOCK [id number] -[id number] M Exm Date: DEC 25, 2023@11:22 Req Phys: VIC BE Pat Loc: CWM/SO/PACT EIGHT WH (Req'g Lo Img Loc: [facility]/BUILDING 1 Service: Unknown (Case [id number] COMPLETE) SPINE CERVICAL, 4 OR 5 VIEWS (RAD Detailed) CPT:20184 Reason for Study: neck pain Clinical History: Report Status: Verified Date Reported: DEC 25, 2023 Date Verified: DEC 25, 2023 Software Development Engineer E-Sig: Report: SPINE CERVICAL, 4 OR 5 VIEWS HISTORY: neck pain COMPARISON: None TECHNIQUE: 4 view(s) of the cervical spine, submitted to the [place] National Teleradiology Program (NTP) for interpretation. FINDINGS: [...] cervical spine. READING PHYSICIAN: Ivan King MD -[id number] 12/25/2023 10:41 PDT [facility] National Teleradiology Program [phone] (For Medical Practitioner Use Only) Attention Patients / Veterans: If you have questions or concerns about these test results, please contact your ordering provider or primary care team. Primary Diagnostic Code: NO ALERT REQUIRED Primary Interpreting Staff: RADIOLOGY,OUTSIDE SERVICE, Staff Physician / RADIOLOGY,OUTSIDE SERVICE [facility] Encounter Notes: All associated encounter notes This section contains the clinical notes associated to the Encounter. Date/Time Encounter Note(s) Provider Source Dec 13, 2023 01:15 PM PHYSICIAN NOTE: LOCAL TITLE: MD NOTE STANDARD TITLE: PHYSICIAN NOTE DATE OF NOTE: DEC 13, 2023@13:15 ENTRY DATE: DEC 13, 2023@13:15:06 AUTHOR: VIC BE COSIGNER: URGENCY: STATUS: COMPLETED HISTORY OF PRESENT ILLNESS: REBECA BLOCK, is a 78 yo MALE , who presents at the [facility] for follow up visit for chronic medical conditions. labs-no new labs Active problems - Computerized Problem List is the source for the followin- Hypothyroidism 2- GERD 3- BPH 4- b/l feet caluses 5- Vitamin D insuficiency 6- Constipation 7- Chronic neck pain on & off The following VA and Non-VA meds were reconciled with patient: Active Outpatient Medications (including Supplies): Issue Date Status Last Fill Active Outpatient Medications Refills Expiration 1) CHOLECALCIF 50MCG (D3-2,000UNIT) TAB ACTIVE Issu:07-04-23 Qty: 100 for 90 days Sig: TAKE ONE Refills: 3 Last:07-05-23 TABLET BY MOUTH ONCE DAILY FOR VITAMIN Expr:07-04-24 D DEFICIENCY FOR VITAMIN SUPPLEMENTATION 2) LEVOTHYROXINE NA (SYNTHROID) 100MCG TAB ACTIVE Issu:06-13-23 Qty: 90 for 90 days Sig: TAKE ONE Refills: 2 Last:10-10-23 TABLET BY MOUTH EVERY DAY TAKE WITH A Expr:06-13-24 FULL GLASS OF WATER FOR THYROID 3) OMEPRAZOLE 20MG EC CAP Qty: 90 for 90 ACTIVE Issu:06-13-23 days Sig: TAKE ONE CAPSULE BY MOUTH Refills: 2 Last:10-10-23 DAILY FOR STOMACH ACID Expr:06-13-24 4) SELENIUM SULFIDE 2.5% LOTION/SHAMPOO ACTIVE Issu:07-05-23 Qty: 120 for 30 days Sig: APPLY SMALL Refills: 1 Last:07-05-23 AMOUNT TOPICALLY TWICE A WEEK Expr:07-05-24 NEEDED FOR DANDRUFF FOR 4 WEEKS THEN STOP 5) TAMSULOSIN HCL 0.4MG CAP Qty: 30 for 30 ACTIVE Issu:06-09-23 days Sig: TAKE ONE CAPSULE BY MOUTH Refills: 2 Last:06-11-23 DAILY Expr:06-09-24 ALLERGIES: ========= STELAZINE, MOBAN, FLUPHENAZINE, LITHIUM LAB HISTORY: No new labs PMH: Hypothyroidism, BPH, GERD, seizures dx in 1978-off dilantin for many years (Dilantin has tapered off) -has followed by Dr. 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 OF SERVICE - [employer] FROM Sep TO Sep COMBAT SERVICE INDICATED: No REVIEW OF SYSTEMS: No fever, chills, positive for chronic fatigue No chest pain, shortness of breath or palpitations No cough or wheezing No abdominal pain nausea or vomiting; positive for constipation No dysuria chronic neck pain, on & off No headaches or dizziness PHYSICAL EXAMINATION: WD/WN seems to be in nonacute distress at the moment of examination S1-S2 positive, RRR WILBERTO, CTA bilateral Abdomen soft nontender to palpation No edema lower extremities AAO x3; walks with a cane ASSESSMENT/PLAN: 1- Hypothyroidism- continue currrent meds TSH was in normal limitis in 10/05/23 2- GERD- controlled with omeprazole 3- BPH- continue tamsulosin 4- b/l feet caluses - he missed yesterday the appointment with dr Khan; he will reschedule today prior to leabve the office 5- Vitamin D insuficiency - on suplements 6- Constipation- senna as needed 7- Chronic neck pain- tylenol ordered - advised to take as needed he accepts x ray of cervical spine and PT referral - done *- he states lives in a hotel, but tomorrow he will go to a detention. FOLLOW UP: ========= RTC - 6 months follow up for gerd, bph, hypothyroidism, Today's documentation was made using voice recognition software. This note may contain spelling/grammatical errors secondary to this software. Every effort is made to correct errors, but if mistakes are found they need to be taken in context. UPCOMING APPOINTMENTS: 01/31/2024 13:30 [facility]/OPTOMETRY/ARGELIA/ 04/25/2024 15:30 [facility]/SO/PODIATRY/MARIANO No barriers; Patient understands and agrees to [...] MOBAN [facility] [place] [facility] STELAZINE [facility] FLUPHENAZINE [facility] MOLINDONE [facility] TRIFLUOPERAZINE Med Recon NoGlossary (Tool #1) INCLUDED IN THIS LIST: Alphabetical list of active outpatient prescriptions dispensed from this [place] (local) and dispensed from another [place] or [facility] facility (remote) as well as inpatient orders (local pending and active), local clinic medications, locally documented non-VA medications, and local prescriptions that have or been discontinued in the past 90 days. Non-VA Meds Last Documented On: May 14, 2007 NOTE The display of VA prescriptions dispensed from another [place] or DoD facility (remote) is limited to active outpatient prescription entries matched to National Drug File at the originating site and may not include some items such as investigational drugs, compounds, etc. NOT INCLUDED IN THIS LIST: Medications self-entered by the patient into personal health records (i.e. [employer]ech) are NOT included in this list. Non-VA medications documented outside this [place], remote inpatient orders (regardless of status) and remote clinic medications are NOT included in this list. The patient and provider must always discuss medications the patient is taking, regardless of where the medication was dispensed or obtained. OUTPT CHOLECALCIF 50MCG (D3-2,000UNIT) TAB (Status = Active) TAKE ONE TABLET BY MOUTH ONCE DAILY FOR VITAMIN D DEFICIENCY FOR VITAMIN SUPPLEMENTATION Rx# [id number] Last Released: 07/07/23 Qty/Days Supply: Rx Expiration Date: 07/04/24 Refills Remainin Indication: FOR VITAMIN D DEFICIENCY OUTPT LEVOTHYROXINE NA (SYNTHROID) 100MCG TAB (Status = Active) TAKE ONE TABLET BY MOUTH EVERY DAY TAKE WITH A FULL GLASS OF WATER FOR THYROID Rx# [id number] Last Released: 10/13/23 Qty/Days Supply: Rx Expiration Date: 06/13/24 Refills Remainin OUTPT OMEPRAZOLE 20MG EC CAP (Status = Active) TAKE ONE CAPSULE BY MOUTH DAILY FOR STOMACH ACID Rx# [id number] Last Released: 10/13/23 Qty/Days Supply: Rx Expiration Date: 06/13/24 Refills Remainin OUTPT SELENIUM SULFIDE 2.5% LOTION/SHAMPOO (Status = Active) APPLY SMALL AMOUNT TOPICALLY TWICE A WEEK NEEDED FOR DANDRUFF FOR 4 WEEKS THEN STOP Rx# [id number] Last Released: 07/07/23 Qty/Days Supply: 120/30 Rx Expiration Date: 07/05/24 Refills Remainin Indication: FOR DANDRUFF OUTPT TAMSULOSIN HCL 0.4MG CAP (Status = Active) TAKE ONE CAPSULE BY MOUTH DAILY Rx# [id number] Last Released: 06/14/23 Qty/Days Supply: 30 Rx Expiration Date: 06/09/24 Refills Remainin SUPPLIES /nyasia/ VIC BE MD PRIMARY CARE PHYSICIAN Signed: 12/13/2023 13:42 VIC BE Gracie [facility] Dec 13, 2023 01:13 PM PREVENTIVE MEDICIN E NURSING NOTE: LOCAL TITLE: CLINICAL REMINDERS/NURSING STANDARD TITLE: PREVENTIVE MEDICINE NURSING NOTE DATE OF NOTE: DEC 13, 2023@13:13 ENTRY DATE: DEC 13, 2023@13:13:41 AUTHOR: BELLA GOMES COSIGNER: URGENCY: STATUS: COMPLETED Pneumococcal Conjugate Vaccine (PCV15/PCV20): Refuses PCV vaccine Immunization: PNEUMOCOCCAL CONJUGATE, UNSPECIFIED FORMULATION Refusal Reason: PATIENT DECISION Patient refuses all immunization(s) in the PneumoPCV group Date Documented: 12/13/23 13:13 PTSD Screening: PC-PTSD-5 A PTSD screening test (PC-PTSD-5) was negative (score=0). IN THE PAST MONTH, have you ever had any experience that was so frightening, horrible or traumatic. For example: A serious accident or fire a physical or sexual assault or abuse An earthquake or flood A war Seeing someone be killed or seriously injured Having a loved one through homicide or suicide 1. Have you ever experienced this kind of event? NO 2. Had nightmares about the event(s) or thought about the event(s) when you did not want to? Response not required due to responses to other questions. 3. Tried hard not to think about the event(s) or went out of your way to avoid situations that reminded you of the event(s)? Response not required due to responses to other questions. 4. Been constantly on guard, watchful, or easily startled? Response not required due to responses to other questions. 5. Wells numb or detached from people, activities, or your surroundings? Response not required due to responses to other questions. 6. Wells guilty or unable to stop blaming yourself or others for the event(s) or any problems the event(s) may have caused? Response not required due to responses to other questions. COVID-19 Immunization: Defer vaccine, reassess in 1 year Reason: DECLINED RHS Screen: RHS Screen Environmental Check Upon inquiry, the individual reports that the environment is safe to proceed. Informed Consent to Screen and Document The individual consents to proceed with screening. The individual consents to documentation of responses. PRIMARY SCREEN: In the past 12 months, how often did a current or former intimate partner (e.g., boyfriend, girlfriend, , , sexual partner): 1. Scream or curse at you Never 2. Insult or talk down to you Never 3. Threaten you with harm Never 4. Physically hurt you Never 5. Force or pressure you to have sexual contact against your will, or when you were unable to say no Never ?? The HITS tool (items 1-4 above) is [place] copyright protected by Mannie Stiles MD, and the user has full rights to use it throughout the [place] system. PRIMARY SCREEN RESULT: The Primary Screen is NEGATIVE. The individual answered never to all forms of IPV above (i.e., answered never to all 5 items) The individual accepts education and/or resources: No EDUCATION: The individual indicated readiness to learn. Education offered during this session as noted above. The individual indicated understanding by asking relevant questions and making appropriate comments. No barriers to learning were observed or identified. PAVE Foot Check: Not able to perform complete foot exam today due to: Comment: COME-IN LATE DIDNT NOT HAD TIME /nyasia/ BELLA GOMES LPN Licensed Practical Nurse Signed: 12/13/2023 13:15 BELLA GOMES [facility]
--- OUTSIDE RECORDS SUMMARY | 2024-10-20 23:26 | XMS_ITS | Patient Health Record ---
Author Organization [facility] Address [address] [place] [address] Care Team Providers Care Electric Meter Technician Name Role Phone KEIKO RIVAS Primary Care Provider Sahil Landa Unavailable [phone] ALLERGIES Allergen (clinical drug ingredient) Drug/Non Drug [...] Notes Problem Constipation (K59.00) Active confirmed Constipation (99502785) Problem GERD (gastroesophage al reflux disease) (K21.9) Active confirmed Gastroesophagea l reflux disease (442336805) Problem Encounter for screening for malignant neoplasm of colon (Z12.11) Active confirmed Screening for malignant neoplasm of colon (984865331) PLAN OF TREATMENT Pending Test Test Name Order Date Pathology 12/30/2020 Future Test Test Name Order Date UPPER GI ENDOSCOPY 12/02/2020 COLONOSCOPY 12/02/2020 Insurance Providers Payer Name Payer Address Payer Phone Subscriber Number Group Number Insured Name Patient Relationship to Insured Coverage Start Date Coverage End Date [facility] [employer] [address] [place] [address] [id number] REBECA BLOCK Self - patient is the insured MEDICAL (GENERAL) HISTORY Medical History History ICD Code GERD Hypothyroidism BPH Schizophrenia Denies ME,DM,CVA,Lung disease,renal dise ase Reports a distant history of a colonosco py History of seizures Pneumonia Surgical History Surgery Date(Month/Year) Right Inginal Hernia repair Lymph node biopsies from right groin Oral surgery scheduled for --Dr. Nunes---for a ? of a lesion as per the patient's report Right inguinal hernia surger y possibly 01/2021 at [facility] as per the patient's report
[2024-10-20 23:39] VITALS: BP 153/75; PULSE 72; RESP 14; TEMP 36.6; O2SAT 97
[2024-10-20] MEDS: Nystatin Powder 15 GM BOTTLE 1 APPL TOPICAL (23:49)
[2024-10-21 01:07] VITALS: BP 153/75; PULSE 72; RESP 14; TEMP 36.6; O2SAT 97
[2024-10-21 01:29] LABS: CT PCR NOT DETECTED (Not Detect.); NG PCR NOT DETECTED (Not Detect.)
== END 2024-10-21 01:08 | disposition home or self-care (01) ==
PROVIDERS: Physician Assistant; Emergency Provider Internal Medicine; PCP Internal Medicine
DX: L30.4 Erythema intertrigo (principal); N50.89 Other specified disorders of the male genital organs; R10.2 Pelvic and perineal pain; N48.89 Other specified disorders of penis; Z79.899 Other long term (current) drug therapy
CPT/HCPCS: 36415; 80048; 80076; 81003; 83690; 83735; 85025; 87491; 87591; 93975; 99284

== ENCOUNTER → 2024-10-20 17:43 | Outpatient (BNV) | payer OTHER, SELFPAY | PROVIDERS: Visit Provider Radiology Diagnostic Radiology | DX: N50.3 Cyst of epididymis (principal) | CPT/HCPCS: 93975 ==